=== PATIENT | male | born 1940 | race Hispanic/Latino ===

== ENCOUNTER 2018-04-20 20:46 | Inpatient (IN) | payer MEDICARE, OTHER ==
[~2018-04-20] VITALS: Ht 175.3 cm; Wt 76.8 kg
--- OUTSIDE RECORDS SUMMARY | 2018-04-20 20:52 | XMS REPORT | Summary of Care ---
Author Author [facility] Organization [facility] Address Unknown Phone Unavailable Encounter GIUSEPPE Robertson(ANURADHA) [id number] Date(s): 03/22/17 - 04/12/17 [facility] [address] [employer] provided by [facility] [place] [address]- Discharge Disposition: DC/DISC TO REHAB Attending Physician: Cesar Varela MD Admitting Physician: Cesar Varela MD Referring Physician: Ro Hsieh MD Vital Signs 1 2 3 Most recent to oldest [Reference Range]: 175.26 cm (03/30/17 11:50 AM) 175.26 cm (03/30/17 8:50 AM) 175.26 cm (03/30/17 3:27 AM) Height 80.545 kg (04/07/17 5:12 AM) 80.545 kg (04/07/17 5:09 AM) 76.6 kg (04/06/17 5:07 AM) Current Weight 98.1 DegF (04/12/17 12:47 PM) 97.6 DegF (04/12/17 9:03 AM) 98.2 DegF (04/12/17 5:25 AM) Temperature Oral [96.4-99.1 DegF] 97/60 mmHg (04/12/17 12:47 PM) 92/59 mmHg (04/12/17 9:03 AM) 92/57 mmHg (04/12/17 5:25 AM) Blood Pressure [90-140/60-90 mmHg] 18 BRMIN (04/12/17 12:47 PM) 16 BRMIN (04/12/17 9:03 AM) 18 BRMIN (04/12/17 5:25 AM) Respiratory Rate [14-20 BRMIN] 71 bpm (04/12/17 12:47 PM) 68 bpm (04/12/17 9:03 AM) 78 bpm (04/12/17 5:25 AM) Peripheral Pulse Rate [60-100 bpm] 71.051 kg (04/09/17 8:22 AM) 70.483 kg (03/22/17 4:12 PM) 74.091 kg (03/22/17 3:24 AM) Weight 22.95 m2 (03/22/17 4:12 PM) 24.84 m2 (03/22/17 3:24 AM) Body Mass Index Problem List Condition Effective Dates Status Health Status Informant Acoustic Resolved neuroma(Confirmed) Acute CHF(Confirmed) Active Acute myocardial Active infarction(Confirmed ) Anxiety about body Active function or health(Confirmed) Atrial Active fibrillation(Confirm ed) Presence of Active automatic cardioverter/defibri llator (AICD)(Confirmed) Cardiac Active defibrillator in place(Confirmed) Pacemaker(Confirmed) Active CHF (congestive Resolved heart failure)(Confirmed) CAD (coronary artery Active disease)(Confirmed) Diabetes Active mellitus(Confirmed) DM (diabetes Active mellitus)(Confirmed) Hiatal Resolved hernia(Confirmed) S/P CABG x Active 2(Confirmed) HLD Active (hyperlipidemia)(Con firmed) HTN Active (hypertension)(Confi rmed) IABP - Intra-aortic < 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 Resolved balloon pumping(Confirmed) Indigestion(Confirme Resolved d) DC (myocardial Resolved infarction)(Confirme d) PAD (peripheral Active artery disease)(Confirmed) Pulmonary Active edema(Confirmed) Ventricular Resolved fibrillation(Confirm ed) Allergies, Adverse Reactions, Alerts Substance Reaction Severity Status chlorhexidine topical Active NKDA Active Medications acetaminophen 1,000 mg, 100 mL, Route: IV, Drug form: INJ, ONCE, Dosing Weight 70.483, kg, Sta rt date: 03/29/17 14:41:00 RETOUCHING OPERATOR, Stop date: 03/29/17 14:41:00 RETOUCHING OPERATOR Notes: Infuse over 15 minutesDo not exceed 4gm/day of acetaminophen MEDICAT ION WASTE Product Size: 1000 mgProduct Wasted: ___ mg Start Date: 03/29/17 Stop Date: 03/29/17 Status: Completed albumin human 5% intravenous solution 12.5 gm, 250 mL, 250 ml/hr, Route: IV, Drug Form: INJ, Dosing Weight 70.483, kg, ONCE, Start date: 03/24/17 22:00:00 RETOUCHING OPERATOR, Stop date: 03/24/17 22:00:00 RETOUCHING OPERATOR Notes: LOT#: Mfg: WASTE: F/P - Red; E -Red (Same a s: Albuminar)"blood product derivative" Start Date: 03/24/17 Stop Date: 03/25/17 Status: Completed albumin human 5% intravenous solution 12.5 gm, 250 mL, 250 ml/hr, Route: IV, Drug Form: INJ, Dosing Weight 70.483, kg, ONCE, Start date: 03/25/17 0:04:00 RETOUCHING OPERATOR, Stop date: 03/25/17 0:04:00 RETOUCHING OPERATOR Notes: LOT#: Mfg: WASTE: F/P - Red; E -Red (Same a s: Albuminar)"blood product derivative" Start Date: 03/25/17 Stop Date: 03/25/17 Status: Completed AMIODarone 150 mg, 3 mL, Route: IVPB, ONCE, Dosing Weight 70.483, kg, Start date: 03/27/17 10:52:00 RETOUCHING OPERATOR, Stop date: 03/27/17 10:52:00 RETOUCHING OPERATOR Notes: Central administration only for concentrations > 2 mg/ml."Recommendation: Use an in-line filter during administration for continuous infusions to reduce the incidence of phlebitis"(Same as Codarone) MEDICATION WASTE Product Size: 150 mgProduct Wasted: ___ mg Start Date: 03/27/17 Stop Date: 03/27/17 Status: Completed AMIODarone 400 mg, 2 tab, Route: PO, Drug form: TAB, BID, Dosing Weight 70.483, kg, Start d ate: 03/30/17 9:00:00 RETOUCHING OPERATOR, Stop date: 04/05/17 9:00:00 RETOUCHING OPERATOR Notes: (Same as: Cordarone) Start Date: 03/30/17 Stop Date: 04/05/17 Status: Completed AMIODarone 150 mg, 3 mL, Route: IVPB, ONCE, Dosing Weight 70.483, kg, Start date: 03/27/17 14:33:00 RETOUCHING OPERATOR, Stop date: 03/27/17 14:33:00 RETOUCHING OPERATOR Notes: Central administration only for concentrations > 2 mg/ml."Recommendation: Use an in-line filter during administration for continuous infusions to reduce the incidence of phlebitis"(Same as Codarone) MEDICATION WASTE Product Size: 150 mgProduct Wasted: ___ mg Start Date: 03/27/17 Stop Date: 03/27/17 Status: Completed AMIODarone 200 mg, 1 tab, Route: PO, Drug form: TAB, BID, Dosing Weight 70.483, kg, Start d ate: 04/05/17 17:00:00 RETOUCHING OPERATOR, Duration: 30 day, Stop date: 05/05/17 9:00:00 RETOUCHING OPERATOR Notes: (Same as: Cordarone) Start Date: 04/05/17 Stop Date: 04/09/17 Status: Discontinued AMIODarone + Dextrose 5% in Water 100 mL 150 mg, 3 mL, Route: IVPB, ONCE, Dosing Weight 70.483, kg, Start date: 03/26/17 18:52:00 RETOUCHING OPERATOR, Stop date: 03/26/17 18:52:00 RETOUCHING OPERATOR Notes: Central administration only for concentrations > 2 mg/ml."Recommendation: Use an in-line filter during administration for continuous infusions to reduce the incidence of phlebitis"(Same as Codarone) MEDICATION WASTE Product Size: 150 mgProduct Wasted: _0__ mg Start Date: 03/26/17 Stop Date: 03/26/17 Status: Completed AMIODarone 900 mg in D5W 500 ml IV 900 mg 900 mg, 500 mL, Rate: 1 mg/min for 6 hours, then reduce to 0.5 mg/min, Dosing We ight 70.483, kg, Route: IV, Total Volume: 500, Start Date: 03/26/17 18:52:00 RETOUCHING OPERATOR , Duration: 30 day, Stop date: 04/25/17 18:51:00 RETOUCHING OPERATOR, Replace Every: 24 hr Notes: Same as: CordaroneUse 0.22 micron in-line filterConcentration: 1.8 mg/ ml Initiate at 33.4mL/hr x6hr, then 16.7mL/hr x18hr. Infusion may be maintained up to 96hr OR until a stable rhythm is reached OR until discontinued by MD. Start Date: 03/26/17 Stop Date: 03/30/17 Status: Discontinued AMIODarone 900 mg in D5W 500 ml IV 900 mg + Dextrose 5% in Water IV 482 mL 900 mg, 18 mL, Rate: 1 mg/min for 6 hours, then reduce to 0.5 mg/min, Dosing Moses ght 70.483, kg, Route: IV, Total Volume: 500, Start Date: 03/30/17 21:21:00 RETOUCHING OPERATOR, Duration: 30 day, Stop date: 04/29/17 21:20:00 RETOUCHING OPERATOR, Replace Every: 24 hr Notes: Central administration only for concentration > 2 mg/ml. Use Glass Bottle or Non PVC Bag"Use 0.22 micron in-line filter" MEDICATION WASTE Product Size: 900 mgProduct Wasted: _0__ mg Start Date: 03/30/17 Stop Date: 04/01/17 Status: Discontinued aspirin 81 mg, 1 tab, Route: PO, Drug form: ECTAB, Daily, Dosing Weight 74.091, kg, Star t date: 03/22/17 14:00:00 RETOUCHING OPERATOR, Duration: 30 day, Stop date: 04/21/17 9:00:00 RETOUCHING OPERATOR Notes: Do not crush or chew.(Same As: Ecotrin) Start Date: 03/22/17 Stop Date: 03/24/17 Status: Discontinued aspirin 81 mg, Route: PO, Drug form: ECTAB, Daily, Dosing Weight 70.483, kg, Start date: 04/05/17 9:00:00 RETOUCHING OPERATOR, Duration: 30 day, Stop date: 05/04/17 9:00:00 RETOUCHING OPERATOR Start Date: 04/05/17 Stop Date: 04/04/17 Status: Canceled aspirin 81 mg tablet, enteric coated 81 mg, 1 tab, Route: PO, Drug form: ECTAB, Daily, Dosing Weight 70.483, kg, Star t date: 03/25/17 9:00:00 RETOUCHING OPERATOR, Stop date: 04/24/17 8:59:00 RETOUCHING OPERATOR Notes: Do not crush or chew.(Same As: Ecotrin) Start Date: 03/25/17 Stop Date: 04/09/17 Status: Discontinued atorvastatin 80 mg, 1 tab, Route: PO, Drug form: TAB, Bedtime, Dosing Weight 74.091, kg, Star t date: 03/22/17 21:00:00 RETOUCHING OPERATOR, Duration: 30 day, Stop date: 04/21/17 20:59:00 CS T Notes: Same as Lipitor Start Date: 03/22/17 Stop Date: 03/24/17 Status: Discontinued atorvastatin 40 mg, 1 tab, Route: PO, Drug form: TAB, Bedtime, Dosing Weight 70.483, kg, Star t date: 03/25/17 21:00:00 RETOUCHING OPERATOR, Duration: 30 day, Stop date: 04/23/17 21:00:00 CS T Notes: (Same as: Lipitor) Start Date: 03/25/17 Stop Date: 04/12/17 Status: Discontinued atorvastatin 40 mg oral tablet 40 mg=1 tab, PO, Bedtime, # 30 tab, 2 Refill(s) Start Date: 04/12/17 Stop Date: 07/11/17 Status: Ordered azithromycin 500 mg, Route: IVPB, ONCE, Dosing Weight 74.091, kg, Priority: STAT, Start date: 03/22/17 4:02:00 RETOUCHING OPERATOR, Stop date: 03/22/17 4:02:00 RETOUCHING OPERATOR, ABX Indication: Non-PNA Respiratory Tract Infection Start Date: 03/22/17 Stop Date: 03/22/17 Status: Completed azithromycin 500 mg, Route: IVPB, Drug form: PDR/INJ, [id number], Dosing Weight 70.483, kg, Star t date: 03/25/17 13:00:00 RETOUCHING OPERATOR, Duration: 3 day, Stop date: 03/28/17 12:59:00 RETOUCHING OPERATOR , ABX Indication: Pneumonia Notes: (Same As: Zithromax IV) Start Date: 03/25/17 Stop Date: 03/26/17 Status: Discontinued azithromycin 500 mg oral tablet 500 mg, 2 tab, Route: PO, Drug form: TAB, Daily, Dosing Weight 74.091, kg, Start date: 03/23/17 9:00:00 RETOUCHING OPERATOR, Duration: 2 doses or times, Stop date: 03/24/17 9:0 0:00 RETOUCHING OPERATOR, ABX Indication: Pneumonia Notes: Take 1 hour before or 2 hours after meals.(Same As: Zithromax) Start Date: 03/23/17 Stop Date: 03/24/17 Status: Completed bisacodyl 10 mg, 1 supp, Route: VT, Drug form: SUPP, ONCE, Dosing Weight 70.483, kg, Start date: 03/29/17 6:24:00 RETOUCHING OPERATOR, Stop date: 03/29/17 6:24:00 RETOUCHING OPERATOR Notes: (Same As: Dulcolax, Bisco-Lax) Start Date: 03/29/17 Stop Date: 03/29/17 Status: Completed bisacodyl 10 mg, 1 supp, Route: VT, Drug form: SUPP, ONCE, Dosing Weight 70.483, kg, Start date: 03/27/17 14:40:00 RETOUCHING OPERATOR, Stop date: 03/27/17 14:40:00 RETOUCHING OPERATOR Notes: (Same As: Dulcolax, Bisco-Lax) Start Date: 03/27/17 Stop Date: 03/27/17 Status: Completed bisacodyl 10 mg, 1 supp, Route: VT, Drug form: SUPP, Daily, Dosing Weight 70.483, kg, PRN Constipation, Start date: 03/28/17 16:43:00 RETOUCHING OPERATOR, Duration: 30 day, Stop date: 16:42:00 RETOUCHING OPERATOR Notes: (Same As: Dulcolax, Bisco-Lax) Start Date: 03/28/17 Stop Date: 04/12/17 Status: Discontinued bumetanide 10 mg + Sodium Chloride 0.9% (titrate) 60 mL 60 mL, Rate: 0.5 mg/hr, Dosing Weight 70.483, kg, Route: IV, Total Volume: 100 m L, Start Date: 03/27/17 15:12:00 RETOUCHING OPERATOR, Duration: 30 day, Stop date: 04/26/17 15:1 1:00 RETOUCHING OPERATOR, Replace Every: 24 hr Notes: (Same As: Bumex) Start Date: 03/27/17 Stop Date: 03/28/17 Status: Discontinued bumetanide 10 mg + Sodium Chloride 0.9% (titrate) 60 mL 60 mL, Rate: Infuse as directed, Dosing Weight 70.483, kg, Route: IV, Total Volu me: 100 mL, Start Date: 03/28/17 14:24:00 RETOUCHING OPERATOR, Duration: 30 day, Stop date: 04/07 06/23 14:23:00 RETOUCHING OPERATOR, Replace Every: 24 hr Notes: (Same As: Bumex) Start Date: 03/28/17 Stop Date: 03/28/17 Status: Discontinued Bumex 1 mg, 4 mL, Route: IV, Drug form: INJ, Q6H, Dosing Weight 70.483, kg, Start date : 03/28/17 12:00:00 RETOUCHING OPERATOR, Duration: 30 day, Stop date: 04/27/17 6:00:00 RETOUCHING OPERATOR Notes: (Same As: Bumex) Start Date: 03/28/17 Stop Date: 03/28/17 Status: Discontinued calcium carbonate 500 mg (200 mg elemental calcium) oral tablet 500 mg, 1 tab, Route: PO, Drug form: CHEWTAB, PRN, Dosing Weight 70.483, kg, PRN Abnormal Lab Result, FOR ICU USE ONLY, Start date: 03/24/17 23:20:00 RETOUCHING OPERATOR, Durat ion: 30 day, Stop date: 04/23/17 23:19:00 RETOUCHING OPERATOR Notes: (Same As: Tums)Calcium Carbonate 500 qy=855 mg elemental calcium Dose=_ mg calcium carbonate ( mg elemental calcium) Start Date: 03/24/17 Stop Date: 04/01/17 Status: Discontinued calcium carbonate 500 mg (200 mg elemental calcium) oral tablet 1,000 mg, 2 tab, Route: PO, Drug form: CHEWTAB, PRN, Dosing Weight 70.483, kg, P RN Abnormal Lab Result, FOR ICU USE ONLY, Start date: 03/24/17 23:20:00 RETOUCHING OPERATOR, Dur ation: 30 day, Stop date: 04/23/17 23:19:00 RETOUCHING OPERATOR Notes: (Same As: Tums)Calcium Carbonate 500 jc=165 mg elemental calcium Dose=_ mg calcium carbonate ( mg elemental calcium) Start Date: 03/24/17 Stop Date: 04/01/17 Status: Discontinued calcium carbonate 500 mg (200 mg elemental calcium) oral tablet 500 mg, 1 tab, Route: PO, Drug form: CHEWTAB, PRN, Dosing Weight 70.483, kg, PRN Abnormal Lab Result, FOR ICU USE ONLY, Start date: 04/01/17 4:38:00 RETOUCHING OPERATOR, Durati on: 30 day, Stop date: 05/01/17 4:37:00 RETOUCHING OPERATOR Notes: (Same As: Tums)Calcium Carbonate 500 gr=366 mg elemental calcium Dose=_ mg calcium carbonate ( mg elemental calcium) Start Date: 04/01/17 Stop Date: 04/01/17 Status: Discontinued calcium carbonate 500 mg (200 mg elemental calcium) oral tablet 1,000 mg, 2 tab, Route: PO, Drug form: CHEWTAB, PRN, Dosing Weight 70.483, kg, P RN Abnormal Lab Result, FOR ICU USE ONLY, Start date: 04/01/17 4:38:00 RETOUCHING OPERATOR, Dura tion: 30 day, Stop date: 05/01/17 4:37:00 RETOUCHING OPERATOR Notes: (Same As: Tums)Calcium Carbonate 500 gg=256 mg elemental calcium Dose=_ mg calcium carbonate ( mg elemental calcium) Start Date: 04/01/17 Stop Date: 04/01/17 Status: Discontinued calcium gluconate (ANES) Route: IV, Drug form: INJ, ONCE, Stop date: 03/24/17 18:13:00 RETOUCHING OPERATOR Start Date: 03/24/17 Stop Date: 03/24/17 Status: Completed calcium gluconate (ANES) Route: IV, Drug form: INJ, ONCE, Stop date: 03/26/17 17:36:00 RETOUCHING OPERATOR Start Date: 03/26/17 Stop Date: 03/26/17 Status: Completed calcium gluconate + Sodium Chloride 0.9% IV 50 mL 1 gm, 10 mL, Route: IVPB, PRN, Dosing Weight 70.483, kg, PRN Abnormal Lab Result , Start date: 03/24/17 23:20:00 RETOUCHING OPERATOR, Duration: 30 day, Stop date: 04/23/17 23:19 :00 RETOUCHING OPERATOR, FOR ICU USE ONLY Notes: WASTE: F/P - Sink; E - Municipal Trash Bin Start Date: 03/24/17 Stop Date: 04/01/17 Status: Discontinued calcium gluconate + Sodium Chloride 0.9% IV 50 mL 1 gm, 10 mL, Route: IVPB, PRN, Dosing Weight 70.483, kg, PRN Abnormal Lab Result , Start date: 04/01/17 4:38:00 RETOUCHING OPERATOR, Duration: 30 day, Stop date: 05/01/17 4:37:0 0 RETOUCHING OPERATOR, FOR ICU USE ONLY Notes: WASTE: F/P - Sink; E - Municipal Trash Bin Start Date: 04/01/17 Stop Date: 04/01/17 Status: Discontinued calcium gluconate + Sodium Chloride 0.9% IV 80 mL 3 gm, 30 mL, Route: IVPB, PRN, Dosing Weight 70.483, kg, PRN Abnormal Lab Result , For NON-ICU Patients Only., Start date: 04/01/17 5:45:00 RETOUCHING OPERATOR, Duration: 30 day , Stop date: 05/01/17 5:44:00 RETOUCHING OPERATOR Notes: WASTE: F/P - Sink; E - Municipal Trash Bin Start Date: 04/01/17 Stop Date: 04/12/17 Status: Discontinued calcium gluconate + Sodium Chloride 0.9% IV 80 mL 2 gm, 20 mL, Route: IVPB, PRN, Dosing Weight 70.483, kg, PRN Abnormal Lab Result , For NON-ICU Patients Only., Start date: 04/01/17 5:45:00 RETOUCHING OPERATOR, Duration: 30 day , Stop date: 05/01/17 5:44:00 RETOUCHING OPERATOR Notes: WASTE: F/P - Sink; E - Municipal Trash Bin Start Date: 04/01/17 Stop Date: 04/12/17 Status: Discontinued calcium gluconate + Sodium Chloride 0.9% IV 80 mL 2,000 mg, 20 mL, Route: IVPB, ONCE, Dosing Weight 70.483, kg, Total xvwd=[id number] mg , Priority: NOW, Start date: 04/04/17 8:24:00 RETOUCHING OPERATOR, Stop date: 04/04/17 8:24:[address] Notes: WASTE: F/P - Sink; E - Municipal Trash Bin Start Date: 04/04/17 Stop Date: 04/04/17 Status: Completed carvedilol 3.125 mg oral tablet 3.125 mg=1 tab, PO, Q12H, # 60 tab, 2 Refill(s) Start Date: 04/12/17 Stop Date: 07/11/17 Status: Ordered ceFAZolin (ANES) Route: IV, Drug form: INJ, ONCE, Stop date: 03/24/17 16:44:00 RETOUCHING OPERATOR Start Date: 03/24/17 Stop Date: 03/24/17 Status: Completed ceFAZolin (SCIP) + sterile water 20 mL 2 gm, Route: IVPB, [id number], Dosing Weight 70.483, kg, Start date: 03/25/17 3:00:0 0 RETOUCHING OPERATOR, Duration: 3 doses or times, Stop date: 03/25/17 19:00:00 RETOUCHING OPERATOR, ABX Indicat ion: Surgical Prophylaxis Notes: (Same As: Fredrick Franco) MEDICATION WASTE Product Size: 1000 mgP roduct Wasted: ___ mg Start Date: 03/25/17 Stop Date: 03/25/17 Status: Completed cefepime + sterile water 10 mL 1 gm, Route: IVPB, [id number], Dosing Weight 70.483, kg, (CrCl 30 - 49 ml/min), Sta rt date: 03/26/17 13:00:00 RETOUCHING OPERATOR, Duration: 5 day, Stop date: 03/31/17 12:59:00 CS T, ABX Indication: Bacteremia Notes: (Same As: Maxipime) MEDICATION WASTE Product Size: 1000 mgProduc t Wasted: ___ mg Start Date: 03/26/17 Stop Date: 03/31/17 Status: Completed cefTRIAXone + sterile water 10 mL 1 gm, Route: IVPB, [id number], Dosing Weight 74.091, kg, Start date: 03/23/17 4:00: 00 RETOUCHING OPERATOR, Duration: 7 day, Stop date: 03/29/17 4:00:00 RETOUCHING OPERATOR, ABX Indication: Pneumo deandra Notes: (Same As: Rocephin).Use with 100 mL NS and infuse over 30 min MEDICA TION WASTE Product Size: 1000 mgProduct Wasted: 0___ mg Start Date: 03/23/17 Stop Date: 03/26/17 Status: Discontinued clopidogrel 75 mg oral tablet 75 mg=1 tab, PO, Daily, # 30 tab, 2 Refill(s) Start Date: 04/12/17 Stop Date: 07/11/17 Status: Ordered Coreg 3.125 mg, 1 tab, Route: PO, Drug form: TAB, Q12H, Dosing Weight 70.483, kg, Prio rity: NOW, Start date: 04/04/17 13:33:00 RETOUCHING OPERATOR, Duration: 30 day, Stop date: 05/04 9:00:00 RETOUCHING OPERATOR Notes: Give with food. (Same As: Coreg) Start Date: 04/04/17 Stop Date: 04/12/17 Status: Discontinued Coumadin 3 mg, 3 tab, Route: PO, Drug form: TAB, Q5PM, Dosing Weight 71.051, kg, Start da te: 04/11/17 17:00:00 RETOUCHING OPERATOR, Duration: 1 doses or times, Stop date: 04/11/17 17:00 :00 RETOUCHING OPERATOR Start Date: 04/11/17 Stop Date: 04/11/17 Status: Completed dexmedetomidine (ANES) 200 microgram Route: IV, Drug form: INJ, Start date: 03/24/17 20:01:00 RETOUCHING OPERATOR, Stop date: 7 21:01:00 RETOUCHING OPERATOR Start Date: 03/24/17 Stop Date: 03/24/17 Status: Completed dextromethorphan-guaiFENesin 10 mg-100 mg/5 mL oral liquid 5 ml, Route: PO, Drug Form: SYRP, Dosing Weight 70.483, kg, Q4H, PRN Cough, Star t date: 04/02/17 0:20:00 RETOUCHING OPERATOR, Duration: 30 day, Stop date: 05/02/17 0:19:00 RETOUCHING OPERATOR Notes: (dextromethorphan-guaifenesin 10-100mg/5ml 10 ml oral SOLN ud) (Same as: Helderitussin DM) Start Date: 04/02/17 Stop Date: 04/12/17 Status: Discontinued Dextrose 50% Syringe 12.5 gm, 25 mL, Route: IVP, Drug Form: INJ, Dosing Weight 70.483, kg, PRN, PRN B lood Glucose Results, Start date: 03/24/17 20:19:00 RETOUCHING OPERATOR, Duration: 30 day, Stop date: 04/23/17 20:18:00 RETOUCHING OPERATOR Start Date: 03/24/17 Stop Date: 03/27/17 Status: Discontinued Dextrose 50% Syringe 25 gm, 50 mL, Route: IVP, Drug Form: INJ, Dosing Weight 70.483, kg, PRN, PRN Blo od Glucose Results, Start date: 03/24/17 20:19:00 RETOUCHING OPERATOR, Duration: 30 day, Stop da te: 04/23/17 20:18:00 RETOUCHING OPERATOR Start Date: 03/24/17 Stop Date: 03/27/17 Status: Discontinued Dextrose 50% Syringe 12.5 gm, 25 mL, Route: IVP, Drug Form: INJ, Dosing Weight 70.483, kg, PRN, PRN B lood Glucose Results, Start date: 03/28/17 7:15:00 RETOUCHING OPERATOR, Duration: 30 day, Stop d ate: 04/27/17 7:14:00 RETOUCHING OPERATOR Start Date: 03/28/17 Stop Date: 03/28/17 Status: Discontinued Dextrose 50% Syringe 25 gm, 50 mL, Route: IVP, Drug Form: INJ, Dosing Weight 70.483, kg, PRN, PRN Blo od Glucose Results, Start date: 03/28/17 7:15:00 RETOUCHING OPERATOR, Duration: 30 day, Stop coco e: 04/27/17 7:14:00 RETOUCHING OPERATOR Start Date: 03/28/17 Stop Date: 03/28/17 Status: Discontinued Dextrose 50% Syringe 12.5 gm, 25 mL, Route: IVP, Drug Form: INJ, Dosing Weight 70.483, kg, PRN, PRN B lood Glucose Results, Start date: 03/27/17 14:40:00 RETOUCHING OPERATOR, Duration: 30 day, Stop date: 04/26/17 14:39:00 RETOUCHING OPERATOR Start Date: 03/27/17 Stop Date: 03/28/17 Status: Discontinued Dextrose 50% Syringe 25 gm, 50 mL, Route: IVP, Drug Form: INJ, Dosing Weight 70.483, kg, PRN, PRN Blo od Glucose Results, Start date: 03/27/17 14:40:00 RETOUCHING OPERATOR, Duration: 30 day, Stop da te: 04/26/17 14:39:00 RETOUCHING OPERATOR Start Date: 03/27/17 Stop Date: 03/28/17 Status: Discontinued Dextrose 50% Syringe 25 gm, 50 mL, Route: IVP, Drug Form: INJ, Dosing Weight 70.483, kg, PRN, PRN Blo od Glucose Results, Start date: 03/30/17 10:51:00 RETOUCHING OPERATOR, Duration: 30 day, Stop da te: 04/29/17 10:50:00 RETOUCHING OPERATOR Start Date: 03/30/17 Stop Date: 04/12/17 Status: Discontinued Dextrose 50% Syringe 12.5 gm, 25 mL, Route: IVP, Drug Form: INJ, Dosing Weight 70.483, kg, PRN, PRN B lood Glucose Results, Start date: 03/30/17 10:51:00 RETOUCHING OPERATOR, Duration: 30 day, Stop date: 04/29/17 10:50:00 RETOUCHING OPERATOR Start Date: 03/30/17 Stop Date: 04/12/17 Status: Discontinued Dextrose 50% Syringe 12.5 gm, 25 mL, Route: IVP, Drug Form: INJ, Dosing Weight 74.091, kg, PRN, PRN B lood Glucose Results, Start date: 03/22/17 8:04:00 RETOUCHING OPERATOR, Duration: 30 day, Stop d ate: 04/21/17 8:03:00 RETOUCHING OPERATOR Start Date: 03/22/17 Stop Date: 03/24/17 Status: Discontinued Dextrose 50% Syringe 25 gm, 50 mL, Route: IVP, Drug Form: INJ, Dosing Weight 74.091, kg, PRN, PRN Blo od Glucose Results, Start date: 03/22/17 8:04:00 RETOUCHING OPERATOR, Duration: 30 day, Stop coco e: 04/21/17 8:03:00 RETOUCHING OPERATOR Start Date: 03/22/17 Stop Date: 03/24/17 Status: Discontinued Dextrose 50% Syringe 12.5 gm, 25 mL, Route: IVP, Drug Form: INJ, Dosing Weight 70.483, kg, PRN, PRN B lood Glucose Results, Start date: 03/28/17 15:02:00 RETOUCHING OPERATOR, Duration: 30 day, Stop date: 04/27/17 15:01:00 RETOUCHING OPERATOR Start Date: 03/28/17 Stop Date: 03/30/17 Status: Discontinued Dextrose 50% Syringe 25 gm, 50 mL, Route: IVP, Drug Form: INJ, Dosing Weight 70.483, kg, PRN, PRN Blo od Glucose Results, Start date: 03/28/17 15:02:00 RETOUCHING OPERATOR, Duration: 30 day, Stop da te: 04/27/17 15:01:00 RETOUCHING OPERATOR Start Date: 03/28/17 Stop Date: 03/30/17 Status: Discontinued diphenhydrAMINE 50 mg, 1 cap, Route: PO, Drug form: CAP, ONCE, Dosing Weight 70.483, kg, PRN Ins omnia, Start date: 03/28/17 23:38:00 RETOUCHING OPERATOR Notes: (Same as: Benadryl) Start Date: 03/28/17 Stop Date: 03/29/17 Status: Completed docusate 100 mg, 1 cap, Route: PO, Drug form: CAP, BID, Dosing Weight 74.091, kg, Start d ate: 03/22/17 9:00:00 RETOUCHING OPERATOR, Duration: 30 day, Stop date: 04/21/17 8:59:00 RETOUCHING OPERATOR Notes: (Same as: Colace) (Do Not Crush) Start Date: 03/22/17 Stop Date: 03/27/17 Status: Discontinued docusate-senna 50 mg-8.6 mg oral tablet 2 tab, Route: PO, Drug Form: TAB, Dosing Weight 70.483, kg, BID, NOW, Start date : 03/27/17 14:40:00 RETOUCHING OPERATOR, Stop date: 04/26/17 9:00:00 RETOUCHING OPERATOR Notes: (Same as Senokot-S) Equiv. to Wendi-Colace. Start Date: 03/27/17 Stop Date: 04/12/17 Status: Discontinued enoxaparin 80 mg/0.8 mL subcutaneous solution 70 mg=0.7 mL, SUB-Q, [id number], X 10 day, # 14 mL, 0 Refill(s) Start Date: 04/12/17 Stop Date: 04/22/17 Status: Ordered EPINEPHrine (ANES) 1 mg Route: IV, Drug form: INJ, Start date: 03/24/17 16:49:00 RETOUCHING OPERATOR, Stop date: 7 17:49:00 RETOUCHING OPERATOR Start Date: 03/24/17 Stop Date: 03/24/17 Status: Completed EPINEPHrine (ANES) 32 microgram Route: IV, Drug form: INJ, Start date: 03/26/17 15:08:00 RETOUCHING OPERATOR, Stop date: 7 16:08:00 RETOUCHING OPERATOR Start Date: 03/26/17 Stop Date: 03/26/17 Status: Completed EPINEPHrine 8 mg in NS 250 mL (Titrate.) IV 8 mg + Sodium Chloride 0.9% IV 242 m L 8 mg, 8 mL, Rate: Titrate, Start Dose: 5 microgram/min, Titration: 0.5 microgram /min every 2 min, Goal(s): MAP >=65 mmHg, Max Dose: 35 microgram/min, Route: IVPB, Dosing Weight 70.483 kg, Total Volume: 250, Start date: 03/24/17 22:22:00 RETOUCHING OPERATOR, Duration... Notes: (Same as: Adrenalin) Suremed - Injectable drug used as inhalation treatme nt. MEDICATION WASTE Product Size: 1 mgProduct Wasted: ___ mg Start Date: 03/24/17 Stop Date: 03/27/17 Status: Discontinued fentaNYL 25 microgram, 0.5 mL, Route: IV, Drug form: INJ, ONCE, Dosing Weight 70.483, kg, Start date: 03/24/17 21:47:00 RETOUCHING OPERATOR, Stop date: 03/24/17 21:47:00 RETOUCHING OPERATOR Notes: (Same as: Sublimaze) Preservative free. Start Date: 03/24/17 Stop Date: 03/24/17 Status: Completed fentaNYL 25 microgram, 0.5 mL, Route: IV, Drug form: INJ, ONCE, Dosing Weight 70.483, kg, Start date: 03/24/17 21:51:00 RETOUCHING OPERATOR, Stop date: 03/24/17 21:51:00 RETOUCHING OPERATOR Notes: (Same as: Sublimaze) Preservative free. Start Date: 03/24/17 Stop Date: 03/27/17 Status: Completed fentaNYL (ANES) Route: IV, Drug form: INJ, ONCE, Stop date: 03/24/17 16:48:00 RETOUCHING OPERATOR Start Date: 03/24/17 Stop Date: 03/24/17 Status: Completed fentaNYL (ANES) Route: IV, Drug form: INJ, ONCE, Stop date: 03/26/17 16:37:00 RETOUCHING OPERATOR Start Date: 03/26/17 Stop Date: 03/26/17 Status: Completed fentaNYL 1000 microgram in 20 mL NS (Titrate.) IV 1,000 microgram 1,000 microgram, 20 mL, Rate: Titrate, Start Dose: 50 microgram/hr, Titration: 2 5 microgram/hour every 15 minutes, Goal(s): 0, Max Dose: 300 microgram/hr, Route : IV, Dosing Weight 70.483 kg, Total Volume: 20, Start date: 03/24/17 21:47:[address], Duratio... Start Date: 03/24/17 Stop Date: 04/01/17 Status: Discontinued fentaNYL 1000 microgram in 20 mL NS (Titrate.) IV 1,000 microgram 1,000 microgram, 20 mL, Rate: Titrate, Start Dose: 50 microgram/hr, Titration: T itrate by 25 micrograms/hour every 15 minutes, Goal(s): RASS - 2, Max Dose: 300 mcg/hr, Route: IV, Dosing Weight 70.483 kg, Total Volume: 20, Priority: STAT, St art date: ... Start Date: 03/24/17 Stop Date: 03/24/17 Status: Discontinued furosemide 40 mg, 4 mL, Route: IVP, Drug form: INJ, BID Diuretic, Dosing Weight 74.091, kg, Start date: 03/22/17 14:00:00 RETOUCHING OPERATOR, Duration: 30 day, Stop date: 04/21/17 13:59: 00 RETOUCHING OPERATOR Notes: (Same as: Lasix) MEDICATION WASTE Product Size: 40 mgProduct Was rajat: ___ mg Start Date: 03/22/17 Stop Date: 03/24/17 Status: Discontinued furosemide 40 mg, Route: IVP, Drug form: INJ, ONCE, Dosing Weight 70.483, kg, Start date: 05/27/16 14:33:00 RETOUCHING OPERATOR, Stop date: 03/27/17 14:33:00 RETOUCHING OPERATOR Start Date: 03/27/17 Stop Date: 03/27/17 Status: Discontinued furosemide 40 mg, 4 mL, Route: IV, Drug form: INJ, Daily, Dosing Weight 70.483, kg, Start d ate: 04/05/17 9:00:00 RETOUCHING OPERATOR, Duration: 30 day, Stop date: 05/04/17 9:00:00 RETOUCHING OPERATOR Notes: (Same as: Lasix) MEDICATION WASTE Product Size: 40 mgProduct Was rajat: _0__ mg Start Date: 04/05/17 Stop Date: 04/07/17 Status: Discontinued glimepiride 4 mg, PO, QAM, 0 Refill(s) Start Date: 03/22/17 Status: Ordered glucagon 1 mg, Route: IM, Drug form: PDR/INJ, PRN, Dosing Weight 70.483, kg, PRN Blood Gl ucose Results, Start date: 03/28/17 7:15:00 RETOUCHING OPERATOR, Duration: 30 day, Stop date: 7:14:00 RETOUCHING OPERATOR Start Date: 03/28/17 Stop Date: 03/28/17 Status: Discontinued glucagon 1 mg, Route: IM, Drug form: PDR/INJ, PRN, Dosing Weight 70.483, kg, PRN Blood Gl ucose Results, Start date: 03/27/17 14:40:00 RETOUCHING OPERATOR, Duration: 30 day, Stop date: 06/27/16 14:39:00 RETOUCHING OPERATOR Start Date: 03/27/17 Stop Date: 03/28/17 Status: Discontinued glucagon 1 mg, Route: IM, Drug form: PDR/INJ, PRN, Dosing Weight 70.483, kg, PRN Blood Gl ucose Results, Start date: 03/30/17 10:51:00 RETOUCHING OPERATOR, Duration: 30 day, Stop date: 06/30/16 10:50:00 RETOUCHING OPERATOR Start Date: 03/30/17 Stop Date: 04/12/17 Status: Discontinued glucagon 1 mg, Route: IM, Drug form: PDR/INJ, PRN, Dosing Weight 74.091, kg, PRN Blood Gl ucose Results, Start date: 03/22/17 8:04:00 RETOUCHING OPERATOR, Duration: 30 day, Stop date: 8:03:00 RETOUCHING OPERATOR Start Date: 03/22/17 Stop Date: 03/24/17 Status: Discontinued glucagon 1 mg, Route: IM, Drug form: PDR/INJ, PRN, Dosing Weight 70.483, kg, PRN Blood Gl ucose Results, Start date: 03/28/17 15:02:00 RETOUCHING OPERATOR, Duration: 30 day, Stop date: 06/28/16 15:01:00 RETOUCHING OPERATOR Start Date: 03/28/17 Stop Date: 03/30/17 Status: Discontinued heparin 5,000 unit, 1 mL, Route: SUB-Q, Drug form: INJ, Q8H, Dosing Weight 74.091, kg, S tart date: 03/22/17 8:00:00 RETOUCHING OPERATOR, Duration: 30 day, Stop date: 04/21/17 7:59:[address] Notes: porcine heparin Start Date: 03/22/17 Stop Date: 03/22/17 Status: Discontinued heparin (ANES) Route: IV, Drug form: INJ, ONCE, Stop date: 03/24/17 18:08:00 RETOUCHING OPERATOR Start Date: 03/24/17 Stop Date: 03/24/17 Status: Completed Heparin - one time bolus for ACS 5,000 unit, Route: IVP, Drug form: INJ, ONCE, Dosing Weight 74.091, kg, Priority : STAT, Start date: 03/22/17 11:35:00 RETOUCHING OPERATOR, Stop date: 03/22/17 11:35:00 RETOUCHING OPERATOR Start Date: 03/22/17 Stop Date: 03/22/17 Status: Completed Heparin 30 unit/kg Bolus (Heparin Dosing Weight) Route: IVP, PRN, 2,200 unit, 2.2 mL, Drug form: INJ, PRN, Heparin Protocol, Star t date: 03/22/17 11:35:00 RETOUCHING OPERATOR Stop date: 04/21/17 11:34:00 RETOUCHING OPERATOR, 30 day Start Date: 03/22/17 Stop Date: 03/24/17 Status: Discontinued Heparin 60 unit/kg Bolus (Heparin Dosing Weight) Route: IVP, PRN, 4,400 unit, 4.4 mL, Drug form: INJ, PRN, Heparin Protocol, Star t date: 03/22/17 11:35:00 RETOUCHING OPERATOR Stop date: 04/21/17 11:34:00 RETOUCHING OPERATOR, 30 day Start Date: 03/22/17 Stop Date: 03/24/17 Status: Discontinued heparin additive 25,000 unit [10 unit/kg/hr] + Premix Diluent Sodium Chloride 0. 45% 500 mL 500 mL, Rate: 14.1 ml/hr, Infuse over: 35.5 hr, Route: IV, Dosing Weight 70.483 kg, Total Volume: 500 mL, Start date: 03/26/17 11:08:00 RETOUCHING OPERATOR, Duration: 30 day, S top date: 04/25/17 11:07:00 RETOUCHING OPERATOR, 1.86, m2 Notes: Total Concentration=50 unit/ ml Total ryftvc=512 mlSend Med Request 2 ho urs prior to next bag Start Date: 03/26/17 Stop Date: 03/26/17 Status: Discontinued heparin additive 25,000 unit [10 unit/kg/hr] + Premix Diluent Sodium Chloride 0. 45% 500 mL 500 mL, Rate: 14.1 ml/hr, Infuse over: 35.5 hr, Route: IV, Dosing Weight 70.483 kg, Total Volume: 500 mL, Start date: 03/28/17 15:54:00 RETOUCHING OPERATOR, Duration: 30 day, S top date: 04/27/17 15:53:00 RETOUCHING OPERATOR, 1.86, m2 Notes: Total Concentration=50 unit/ ml Total wgepze=851 mlSend Med Request 2 ho urs prior to next bag Start Date: 03/28/17 Stop Date: 04/01/17 Status: Discontinued heparin additive 25,000 unit [12 unit/kg/hr] + Premix Diluent Sodium Chloride 0. 45% 500 mL 500 mL, Rate: 17.78 ml/hr, Infuse over: 28.1 hr, Route: IV, Dosing Weight 74.09 kg, Total Volume: 500 mL, Start date: 03/22/17 11:35:00 RETOUCHING OPERATOR, Duration: 30 day, S top date: 04/21/17 11:34:00 RETOUCHING OPERATOR, 1.9, m2 Notes: Total Concentration=50 unit/ ml Total ljmmij=313 mlSend Med Request 2 ho urs prior to next bag Start Date: 03/22/17 Stop Date: 03/24/17 Status: Discontinued heparin additive 25,000 unit [600 unit/hr] + Premix Diluent Sodium Chloride 0.45 % 500 mL 500 mL, Rate: 12 ml/hr, Infuse over: 41.7 hr, Route: IV, Dosing Weight 70.483 kg , Total Volume: 500 mL, Start date: 03/26/17 20:03:00 RETOUCHING OPERATOR, Duration: 30 day, Sto p date: 04/25/17 20:02:00 RETOUCHING OPERATOR, 1.86, m2 Notes: Total Concentration=50 unit/ ml Total hlxouw=760 mlSend Med Request 2 ho urs prior to next bag Start Date: 03/26/17 Stop Date: 03/28/17 Status: Discontinued heparin additive 25,000 unit [700 unit/hr] + Premix Diluent Sodium Chloride 0.45 % 500 mL 500 mL, Rate: 14 ml/hr, Infuse over: 35.7 hr, Route: IVPB, Dosing Weight 70.483 kg, Total Volume: 500 mL, Start date: 03/24/17 21:59:00 RETOUCHING OPERATOR, Stop date: 04/23/17 21:59:00 RETOUCHING OPERATOR, 1.86, m2 Notes: Total Concentration=50 unit/ ml Total kjslbj=770 mlSend Med Request 2 ho urs prior to next bag Start Date: 03/24/17 Stop Date: 03/26/17 Status: Discontinued hydrALAZINE 5 mg, 0.25 mL, Route: IV, Drug form: INJ, ONCE, Dosing Weight 70.483, kg, Start date: 03/29/17 14:28:00 RETOUCHING OPERATOR, Stop date: 03/29/17 14:28:00 RETOUCHING OPERATOR Notes: (Same as: Apresoline)Push over 5 minutes Start Date: 03/29/17 Stop Date: 03/29/17 Status: Completed hydrocortisone 50 mg, Route: IV, Q6H, Dosing Weight 70.483, kg, Start date: 03/25/17 1:45:00 CS T, Duration: 30 day, Stop date: 04/24/17 1:44:00 RETOUCHING OPERATOR Start Date: 03/25/17 Stop Date: 03/25/17 Status: Discontinued insulin glargine 100 units/mL subcutaneous solution 5 unit, Route: SUB-Q, ONCE, Dosing Weight 70.483, kg, Priority: STAT, Start date : 03/23/17 21:47:00 RETOUCHING OPERATOR, Stop date: 03/23/17 21:47:00 RETOUCHING OPERATOR Start Date: 03/23/17 Stop Date: 03/23/17 Status: Discontinued insulin glargine 100 units/mL subcutaneous solution 20 unit, 0.2 mL, Route: SUB-Q, Drug form: SOLN, BID, Dosing Weight 70.483, kg, S tart date: 03/31/17 17:00:00 RETOUCHING OPERATOR, Duration: 30 day, Stop date: 04/30/17 9:00:00 RETOUCHING OPERATOR Notes: (Same as: Lantus)Do not hold insulin without contacting prescriberWASTE: F/P - Black; E - [facility] "single patient use only" Start Date: 03/31/17 Stop Date: 04/02/17 Status: Discontinued insulin glargine 100 units/mL subcutaneous solution 10 unit, 0.1 mL, Route: SUB-Q, Drug form: SOLN, BID, Dosing Weight 70.483, kg, S tart date: 03/30/17 21:00:00 RETOUCHING OPERATOR, Duration: 30 day, Stop date: 04/29/17 9:00:00 RETOUCHING OPERATOR Notes: (Same as: Lantus)Do not hold insulin without contacting prescriberWASTE: F/P - Black; E - [facility] "single patient use only" Start Date: 03/30/17 Stop Date: 03/31/17 Status: Discontinued insulin glargine 100 units/mL subcutaneous solution 25 unit, 0.25 mL, Route: SUB-Q, Drug form: SOLN, BID, Dosing Weight 70.483, kg, Start date: 03/30/17 9:00:00 RETOUCHING OPERATOR, Duration: 30 day, Stop date: 04/28/17 21:00:00 RETOUCHING OPERATOR Notes: Same as: Lantus)Do not hold insulin without contacting prescriberWASTE: F /P - Black; E - [facility] Start Date: 03/30/17 Stop Date: 03/30/17 Status: Discontinued insulin glargine 100 units/mL subcutaneous solution 12 unit, 0.12 mL, Route: SUB-Q, Drug form: SOLN, BID, Dosing Weight 70.483, kg, Start date: 04/07/17 9:00:00 RETOUCHING OPERATOR, Duration: 30 day, Stop date: 05/06/17 17:00:00 RETOUCHING OPERATOR Notes: Same as: Lantus)Do not hold insulin without contacting prescriberWASTE: F /P - Black; E - [facility] Start Date: 04/07/17 Stop Date: 04/12/17 Status: Discontinued insulin glargine 100 units/mL subcutaneous solution 7 unit, 0.07 mL, Route: SUB-Q, Drug form: SOLN, ONCE, Dosing Weight 70.483, kg, Start date: 03/23/17 21:47:00 RETOUCHING OPERATOR, Stop date: 03/23/17 21:47:00 RETOUCHING OPERATOR Notes: Same as: Lantus)Do not hold insulin without contacting prescriberWASTE: F /P - Black; E - [facility] Start Date: 03/23/17 Stop Date: 03/23/17 Status: Completed insulin glargine 100 units/mL subcutaneous solution 10 unit, 0.1 mL, Route: SUB-Q, Drug form: SOLN, BID, Dosing Weight 70.483, kg, S tart date: 04/03/17 9:00:00 RETOUCHING OPERATOR, Duration: 30 day, Stop date: 05/02/17 17:00:00 RETOUCHING OPERATOR Notes: Same as: Lantus)Do not hold insulin without contacting prescriberWASTE: F /P - Black; E - [facility] Start Date: 04/03/17 Stop Date: 04/06/17 Status: Discontinued insulin isophane-NPH 10 unit, 0.1 mL, Route: SUB-Q, Drug form: INJ, Q12H, Dosing Weight 70.483, kg, S tart date: 03/30/17 9:00:00 RETOUCHING OPERATOR, Duration: 30 day, Stop date: 04/28/17 21:00:00 RETOUCHING OPERATOR Notes: Roll in palms of hands gently; Do not shake vigorously. (Same as: Humuli n N)Do not hold insulin without contacting prescriberWASTE: F/P - Black; E - [facility] [facility] Stable for 28 days at room temperatureExpires in days f rom Date Start Date: 03/30/17 Stop Date: 03/30/17 Status: Discontinued insulin lispro 2 unit, 0.02 mL, Route: SUB-Q, Drug form: SOLN, ONCE, Dosing Weight 70.483, kg, Start date: 04/06/17 23:55:00 RETOUCHING OPERATOR, Stop date: 04/06/17 23:55:00 RETOUCHING OPERATOR Notes: (Same as: Humalog ) Roll in palms of hands gently; Do not shake `vigorou sly. "Single Patient Use Only " WASTE: F/P - Black; E - [facility] St able for 28 days at room temperature.Expires in days from Da te Start Date: 04/06/17 Stop Date: 04/07/17 Status: Completed insulin lispro 9 unit, 0.09 mL, Route: SUB-Q, Drug form: SOLN, TID-Before Meals, Dosing Weight 70.483, kg, PRN Blood Glucose Results, Start date: 03/28/17 7:15:00 RETOUCHING OPERATOR, Duratio n: 30 day, Stop date: 04/27/17 7:14:00 RETOUCHING OPERATOR Notes: (Same as: Humalog ) Roll in palms of hands gently; Do not shake `vigorou sly. "Single Patient Use Only " WASTE: F/P - Black; E - [facility] St able for 28 days at room temperature.Expires in days from Da te Start Date: 03/28/17 Stop Date: 03/29/17 Status: Discontinued insulin lispro 12 unit, 0.12 mL, Route: SUB-Q, Drug form: SOLN, TID-Before Meals, Dosing Weight 70.483, kg, PRN Blood Glucose Results, Start date: 03/28/17 7:15:00 RETOUCHING OPERATOR, Durati on: 30 day, Stop date: 04/27/17 7:14:00 RETOUCHING OPERATOR Notes: (Same as: Humalog ) Roll in palms of hands gently; Do not shake `vigorou sly. "Single Patient Use Only " WASTE: F/P - Black; E - [facility] St able for 28 days at room temperature.Expires in days from Da te Start Date: 03/28/17 Stop Date: 03/29/17 Status: Discontinued insulin lispro 15 unit, 0.15 mL, Route: SUB-Q, Drug form: SOLN, TID-Before Meals, Dosing Weight 70.483, kg, PRN Blood Glucose Results, Start date: 03/28/17 7:15:00 RETOUCHING OPERATOR, Durati on: 30 day, Stop date: 04/27/17 7:14:00 RETOUCHING OPERATOR Notes: (Same as: Humalog ) Roll in palms of hands gently; Do not shake `vigorou sly. "Single Patient Use Only " WASTE: F/P - Black; E - [facility] St able for 28 days at room temperature.Expires in days from Da te Start Date: 03/28/17 Stop Date: 03/29/17 Status: Discontinued insulin lispro 3 unit, 0.03 mL, Route: SUB-Q, Drug form: SOLN, TID-Before Meals, Dosing Weight 70.483, kg, PRN Blood Glucose Results, Start date: 03/28/17 7:15:00 RETOUCHING OPERATOR, Duratio n: 30 day, Stop date: 04/27/17 7:14:00 RETOUCHING OPERATOR Notes: (Same as: Humalog ) Roll in palms of hands gently; Do not shake `vigorou sly. "Single Patient Use Only " WASTE: F/P - Black; E - [facility] St able for 28 days at room temperature.Expires in days from Da te Start Date: 03/28/17 Stop Date: 03/29/17 Status: Discontinued insulin lispro 6 unit, 0.06 mL, Route: SUB-Q, Drug form: SOLN, TID-Before Meals, Dosing Weight 70.483, kg, PRN Blood Glucose Results, Start date: 03/28/17 7:15:00 RETOUCHING OPERATOR, Duratio n: 30 day, Stop date: 04/27/17 7:14:00 RETOUCHING OPERATOR Notes: (Same as: Humalog ) Roll in palms of hands gently; Do not shake `vigorou sly. "Single Patient Use Only " WASTE: F/P - Black; E - [facility] St able for 28 days at room temperature.Expires in days from Da te Start Date: 03/28/17 Stop Date: 03/29/17 Status: Discontinued insulin lispro 1 unit, 0.01 mL, Route: SUB-Q, Drug form: SOLN, Sliding Scale, Dosing Weight 70. 483, kg, PRN Blood Glucose Results, Start date: 03/30/17 10:51:00 RETOUCHING OPERATOR, Duration: 30 day, Stop date: 04/29/17 10:50:00 RETOUCHING OPERATOR Notes: (Same as: Humalog ) Roll in palms of hands gently; Do not shake `vigorou sly. "Single Patient Use Only " WASTE: F/P - Black; E - [facility] St able for 28 days at room temperature.Expires in days from Da te Start Date: 03/30/17 Stop Date: 04/12/17 Status: Discontinued insulin lispro 2 unit, 0.02 mL, Route: SUB-Q, Drug form: SOLN, Sliding Scale, Dosing Weight 70. 483, kg, PRN Blood Glucose Results, Start date: 03/30/17 10:51:00 RETOUCHING OPERATOR, Duration: 30 day, Stop date: 04/29/17 10:50:00 RETOUCHING OPERATOR Notes: (Same as: Humalog ) Roll in palms of hands gently; Do not shake `vigorou sly. "Single Patient Use Only " WASTE: F/P - Black; E - [facility] St able for 28 days at room temperature.Expires in days from Da te Start Date: 03/30/17 Stop Date: 04/12/17 Status: Discontinued insulin lispro 5 unit, 0.05 mL, Route: SUB-Q, Drug form: SOLN, Sliding Scale, Dosing Weight 70. 483, kg, PRN Blood Glucose Results, Start date: 03/30/17 10:51:00 RETOUCHING OPERATOR, Duration: 30 day, Stop date: 04/29/17 10:50:00 RETOUCHING OPERATOR Notes: (Same as: Humalog ) Roll in palms of hands gently; Do not shake `vigorou sly. "Single Patient Use Only " WASTE: F/P - Black; E - [facility] St able for 28 days at room temperature.Expires in days from Da te Start Date: 03/30/17 Stop Date: 04/12/17 Status: Discontinued insulin lispro 4 unit, 0.04 mL, Route: SUB-Q, Drug form: SOLN, Sliding Scale, Dosing Weight 70. 483, kg, PRN Blood Glucose Results, Start date: 03/30/17 10:51:00 RETOUCHING OPERATOR, Duration: 30 day, Stop date: 04/29/17 10:50:00 RETOUCHING OPERATOR Notes: (Same as: Humalog ) Roll in palms of hands gently; Do not shake `vigorou sly. "Single Patient Use Only " WASTE: F/P - Black; E - [facility] St able for 28 days at room temperature.Expires in days from Da te Start Date: 03/30/17 Stop Date: 04/12/17 Status: Discontinued insulin lispro 3 unit, 0.03 mL, Route: SUB-Q, Drug form: SOLN, Sliding Scale, Dosing Weight 70. 483, kg, PRN Blood Glucose Results, Start date: 03/30/17 10:51:00 RETOUCHING OPERATOR, Duration: 30 day, Stop date: 04/29/17 10:50:00 RETOUCHING OPERATOR Notes: (Same as: Humalog ) Roll in palms of hands gently; Do not shake `vigorou sly. "Single Patient Use Only " WASTE: F/P - Black; E - [facility] St able for 28 days at room temperature.Expires in days from Da te Start Date: 03/30/17 Stop Date: 04/12/17 Status: Discontinued insulin lispro 4 unit, 0.04 mL, Route: SUB-Q, Drug form: SOLN, TID-Before Meals, Dosing Weight 74.091, kg, PRN Blood Glucose Results, Start date: 03/22/17 8:04:00 RETOUCHING OPERATOR, Duratio n: 30 day, Stop date: 04/21/17 8:03:00 RETOUCHING OPERATOR Notes: (Same as: Humalog ) Roll in palms of hands gently; Do not shake `vigorou sly. "Single Patient Use Only " WASTE: F/P - Black; E - [facility] able for 28 days at room temperature.Expires in days from Da te Start Date: 03/22/17 Stop Date: 03/24/17 Status: Discontinued insulin lispro 3 unit, 0.03 mL, Route: SUB-Q, Drug form: SOLN, TID-Before Meals, Dosing Weight 74.091, kg, PRN Blood Glucose Results, Start date: 03/22/17 8:04:00 RETOUCHING OPERATOR, Duratio n: 30 day, Stop date: 04/21/17 8:03:00 RETOUCHING OPERATOR Notes: (Same as: Humalog ) Roll in palms of hands gently; Do not shake `vigorou sly. "Single Patient Use Only " WASTE: F/P - Black; E - [facility] able for 28 days at room temperature.Expires in days from Da te Start Date: 03/22/17 Stop Date: 03/24/17 Status: Discontinued insulin lispro 5 unit, 0.05 mL, Route: SUB-Q, Drug form: SOLN, TID-Before Meals, Dosing Weight 74.091, kg, PRN Blood Glucose Results, Start date: 03/22/17 8:04:00 RETOUCHING OPERATOR, Duratio n: 30 day, Stop date: 04/21/17 8:03:00 RETOUCHING OPERATOR Notes: (Same as: Humalog ) Roll in palms of hands gently; Do not shake `vigorou sly. "Single Patient Use Only " WASTE: F/P - Black; E - [facility] able for 28 days at room temperature.Expires in days from Da te Start Date: 03/22/17 Stop Date: 03/24/17 Status: Discontinued insulin lispro 1 unit, 0.01 mL, Route: SUB-Q, Drug form: SOLN, TID-Before Meals, Dosing Weight 74.091, kg, PRN Blood Glucose Results, Start date: 03/22/17 8:04:00 RETOUCHING OPERATOR, Duratio n: 30 day, Stop date: 04/21/17 8:03:00 RETOUCHING OPERATOR Notes: (Same as: Humalog ) Roll in palms of hands gently; Do not shake `vigorou sly. "Single Patient Use Only " WASTE: F/P - Black; E - [facility] able for 28 days at room temperature.Expires in days from Da te Start Date: 03/22/17 Stop Date: 03/24/17 Status: Discontinued insulin lispro 2 unit, 0.02 mL, Route: SUB-Q, Drug form: SOLN, TID-Before Meals, Dosing Weight 74.091, kg, PRN Blood Glucose Results, Start date: 03/22/17 8:04:00 RETOUCHING OPERATOR, Duratio n: 30 day, Stop date: 04/21/17 8:03:00 RETOUCHING OPERATOR Notes: (Same as: Humalog ) Roll in palms of hands gently; Do not shake `vigorou sly. "Single Patient Use Only " WASTE: F/P - Black; E - [facility] able for 28 days at room temperature.Expires in days from Da te Start Date: 03/22/17 Stop Date: 03/24/17 Status: Discontinued insulin lispro 3 unit, 0.03 mL, Route: SUB-Q, Drug form: SOLN, TID-Before Meals, Dosing Weight 70.483, kg, PRN Blood Glucose Results, Start date: 03/28/17 15:02:00 RETOUCHING OPERATOR, Durati on: 30 day, Stop date: 04/27/17 15:01:00 RETOUCHING OPERATOR Notes: (Same as: Humalog ) Roll in palms of hands gently; Do not shake `vigorou sly. "Single Patient Use Only " WASTE: F/P - Black; E - [facility] able for 28 days at room temperature.Expires in days from Da te Start Date: 03/28/17 Stop Date: 03/29/17 Status: Discontinued insulin lispro 9 unit, 0.09 mL, Route: SUB-Q, Drug form: SOLN, TID-Before Meals, Dosing Weight 70.483, kg, PRN Blood Glucose Results, Start date: 03/28/17 15:02:00 RETOUCHING OPERATOR, Durati on: 30 day, Stop date: 04/27/17 15:01:00 RETOUCHING OPERATOR Notes: (Same as: Humalog ) Roll in palms of hands gently; Do not shake `vigorou sly. "Single Patient Use Only " WASTE: F/P - Black; E - [facility] able for 28 days at room temperature.Expires in days from Da te Start Date: 03/28/17 Stop Date: 03/29/17 Status: Discontinued insulin lispro 6 unit, 0.06 mL, Route: SUB-Q, Drug form: SOLN, TID-Before Meals, Dosing Weight 70.483, kg, PRN Blood Glucose Results, Start date: 03/28/17 15:02:00 RETOUCHING OPERATOR, Durati on: 30 day, Stop date: 04/27/17 15:01:00 RETOUCHING OPERATOR Notes: (Same as: Humalog ) Roll in palms of hands gently; Do not shake `vigorou sly. "Single Patient Use Only " WASTE: F/P - Black; E - [facility] able for 28 days at room temperature.Expires in days from Da te Start Date: 03/28/17 Stop Date: 03/29/17 Status: Discontinued insulin lispro 12 unit, 0.12 mL, Route: SUB-Q, Drug form: SOLN, TID-Before Meals, Dosing Weight 70.483, kg, PRN Blood Glucose Results, Start date: 03/28/17 15:02:00 RETOUCHING OPERATOR, Durat ion: 30 day, Stop date: 04/27/17 15:01:00 RETOUCHING OPERATOR Notes: (Same as: Humalog ) Roll in palms of hands gently; Do not shake `vigorou sly. "Single Patient Use Only " WASTE: F/P - Black; E - [facility] able for 28 days at room temperature.Expires in days from Da te Start Date: 03/28/17 Stop Date: 03/29/17 Status: Discontinued insulin lispro 15 unit, 0.15 mL, Route: SUB-Q, Drug form: SOLN, TID-Before Meals, Dosing Weight 70.483, kg, PRN Blood Glucose Results, Start date: 03/28/17 15:02:00 RETOUCHING OPERATOR, Durat ion: 30 day, Stop date: 04/27/17 15:01:00 RETOUCHING OPERATOR Notes: (Same as: Humalog ) Roll in palms of hands gently; Do not shake `vigorou sly. "Single Patient Use Only " WASTE: F/P - Black; E - [facility] able for 28 days at room temperature.Expires in days from Da te Start Date: 03/28/17 Stop Date: 03/29/17 Status: Discontinued Insulin regular 10 unit, 0.1 mL, Route: SUB-Q, Drug form: SOLN, TID-Before Meals, Dosing Weight 70.483, kg, PRN Blood Glucose Results, Start date: 03/27/17 14:40:00 RETOUCHING OPERATOR, Durati on: 30 day, Stop date: 04/26/17 14:39:00 RETOUCHING OPERATOR Notes: (Same as: Humulin R) Roll in palms of hands gently; Do not shake vigorou sly. 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 "single patient use only"(Restricted to patients requiring a dose > 60 units)WASTE: F/P - Black; E - Municipal Trash Bin Stable for 28 days at room temperatureExpires in days from Date Start Date: 03/27/17 Stop Date: 03/28/17 Status: Discontinued Insulin regular 6 unit, 0.06 mL, Route: SUB-Q, Drug form: SOLN, TID-Before Meals, Dosing Weight 70.483, kg, PRN Blood Glucose Results, Start date: 03/27/17 14:40:00 RETOUCHING OPERATOR, Durati on: 30 day, Stop date: 04/26/17 14:39:00 RETOUCHING OPERATOR Notes: (Same as: Humulin R) Roll in palms of hands gently; Do not shake vigorou sly. "single patient use only"(Restricted to patients requiring a dose > 60 units)WASTE: F/P - Black; E - Municipal Trash Bin Stable for 28 days at room temperatureExpires in days from Date Start Date: 03/27/17 Stop Date: 03/28/17 Status: Discontinued Insulin regular 4 unit, 0.04 mL, Route: SUB-Q, Drug form: SOLN, TID-Before Meals, Dosing Weight 70.483, kg, PRN Blood Glucose Results, Start date: 03/27/17 14:40:00 RETOUCHING OPERATOR, Durati on: 30 , Stop date: 04/26/17 14:39:00 RETOUCHING OPERATOR Notes: (Same as: Humulin R) Roll in palms of hands gently; Do not shake vigorou sly. "single patient use only"(Restricted to patients requiring a dose > 60 units)WASTE: F/P - Black; E - Municipal Trash Bin Stable for 28 days at room temperatureExpires in days from Date Start Date: 03/27/17 Stop Date: 03/28/17 Status: Discontinued Insulin regular 8 unit, 0.08 mL, Route: SUB-Q, Drug form: SOLN, TID-Before Meals, Dosing Weight 70.483, kg, PRN Blood Glucose Results, Start date: 03/27/17 14:40:00 RETOUCHING OPERATOR, Durati on: 30 , Stop date: 04/26/17 14:39:00 RETOUCHING OPERATOR Notes: (Same as: Humulin R) Roll in palms of hands gently; Do not shake vigorou sly. "single patient use only"(Restricted to patients requiring a dose > 60 units)WASTE: F/P - Black; E - Municipal Trash Bin Stable for 28 days at room temperatureExpires in days from Date Start Date: 03/27/17 Stop Date: 03/28/17 Status: Discontinued Insulin regular (ANES) Route: IV, Drug form: INJ, ONCE, Stop date: 03/24/17 18:48:00 RETOUCHING OPERATOR Start Date: 03/24/17 Stop Date: 03/24/17 Status: Completed Insulin regular 100 unit + 99 mL, Rate: Start Insulin Drip Per ICU Protocol, Dosing Weight 70.483, kg, Rout e: IVPB, Total Volume: 100, Start Date: 03/24/17 20:19:00 RETOUCHING OPERATOR, Duration: 30 day, Stop date: 04/23/17 20:18:00 RETOUCHING OPERATOR, Replace Every: 24 hr Notes: Final Concentration 1unit/1mlWASTE: F/P - Black; E - Municipal Trash Bin Start Date: 03/24/17 Stop Date: 03/30/17 Status: Discontinued Lantus 100 units/mL 5 unit, 0.05 mL, Route: SUB-Q, Drug form: SOLN, Daily, Dosing Weight 70.483, kg, Start date: 03/28/17 9:00:00 RETOUCHING OPERATOR, Duration: 30 day, Stop date: 04/26/17 9:00:00 RETOUCHING OPERATOR Notes: Same as: Lantus)Do not hold insulin without contacting prescriberWASTE: F /P - Black; E - Municipal Trash Bin Start Date: 03/28/17 Stop Date: 03/29/17 Status: Discontinued Lasix 40 mg, 4 mL, Route: IV, Drug form: INJ, ONCE, Dosing Weight 70.483, kg, Start da te: 04/03/17 10:55:00 RETOUCHING OPERATOR, Stop date: 04/03/17 10:55:00 RETOUCHING OPERATOR Notes: (Same as: Lasix) Start Date: 04/03/17 Stop Date: 04/03/17 Status: Completed Lasix 40 mg, Route: IV, ONCE, Dosing Weight 70.483, kg, Start date: 03/27/17 14:42:00 RETOUCHING OPERATOR, Stop date: 03/27/17 14:42:00 RETOUCHING OPERATOR Start Date: 03/27/17 Stop Date: 03/27/17 Status: Discontinued Lasix 40 mg, 4 mL, Route: IVP, Drug form: INJ, ONCE, Dosing Weight 74.091, kg, Priorit y: STAT, Start date: 03/22/17 3:42:00 RETOUCHING OPERATOR, Stop date: 03/22/17 3:42:00 RETOUCHING OPERATOR Notes: (Same as: Lasix) MEDICATION WASTE Product Size: 40 mgProduct Was rajat: _0__ mg Start Date: 03/22/17 Stop Date: 03/22/17 Status: Completed Lasix 40 mg, 4 mL, Route: IV, Drug form: INJ, BID, Dosing Weight 70.483, kg, Start coco e: 03/29/17 9:00:00 RETOUCHING OPERATOR, Duration: 30 day, Stop date: 04/27/17 17:00:00 RETOUCHING OPERATOR Notes: (Same as: Lasix) MEDICATION WASTE Product Size: 40 mgProduct Was rajat: ___ mg Start Date: 03/29/17 Stop Date: 03/29/17 Status: Discontinued Lasix 100 mg in 100 ml IV titrate 100 mg + Sodium Chloride 0.9% IV 90 mL 100 mg, 10 mL, Rate: 7.5 mg/hour, Dosing Weight 70.483, kg, Route: IV, Total Vol ume: 100, Start Date: 03/28/17 15:57:00 RETOUCHING OPERATOR, Duration: 30 day, Stop date: 15:56:00 RETOUCHING OPERATOR, Replace Every: 24 hr, continuous Notes: (Same as: Lasix) MEDICATION WASTE Product Size: 100 mgProduct Wa sted: ___ mg Start Date: 03/28/17 Stop Date: 03/29/17 Status: Discontinued Lasix 20 mg oral tablet 20 mg, 1 tab, Route: PO, Drug form: TAB, BID, Dosing Weight 70.483, kg, Start da te: 04/11/17 17:00:00 RETOUCHING OPERATOR, Duration: 30 day, Stop date: 05/11/17 9:00:00 RETOUCHING OPERATOR Notes: (Same as: Lasix) May cause GI upset. Give with food or milk. Start Date: 04/11/17 Stop Date: 04/12/17 Status: Discontinued Lasix 20 mg oral tablet 20 mg, 1 tab, Route: PO, Drug form: TAB, Daily, Dosing Weight 70.483, kg, Start date: 04/09/17 9:00:00 RETOUCHING OPERATOR, Duration: 30 day, Stop date: 05/08/17 9:00:00 RETOUCHING OPERATOR Notes: (Same as: Lasix) May cause GI upset. Give with food or milk. Start Date: 04/09/17 Stop Date: 04/11/17 Status: Discontinued Lasix 20 mg oral tablet 40 mg, 4 mL, Route: IVP, Drug form: INJ, BID, Dosing Weight 70.483, kg, Start da te: 04/03/17 18:00:00 RETOUCHING OPERATOR, Duration: 30 day, Stop date: 05/03/17 17:00:00 RETOUCHING OPERATOR Notes: (Same as: Lasix) Start Date: 04/03/17 Stop Date: 04/04/17 Status: Discontinued Lasix 20 mg oral tablet 20 mg, Route: PO, Drug form: TAB, Daily, Dosing Weight 70.483, kg, Priority: NOW , Start date: 04/08/17 10:44:00 RETOUCHING OPERATOR, Duration: 30 day, Stop date: 05/08/17 9:00: 00 RETOUCHING OPERATOR Start Date: 04/08/17 Stop Date: 04/08/17 Status: Discontinued Lasix 20 mg oral tablet 20 mg=1 tab, PO, BID, # 60 tab, 1 Refill(s) Start Date: 04/12/17 Stop Date: 06/11/17 Status: Ordered Lasix 20 mg oral tablet 20 mg, 1 tab, Route: PO, Drug form: TAB, Daily, Dosing Weight 70.483, kg, Start date: 04/01/17 9:00:00 RETOUCHING OPERATOR, Duration: 30 day, Stop date: 04/30/17 9:00:00 RETOUCHING OPERATOR Notes: (Same as: Lasix) May cause GI upset. Give with food or milk. Start Date: 04/01/17 Stop Date: 03/31/17 Status: Discontinued Lasix 20 mg oral tablet 40 mg, 4 mL, Route: IVP, Drug form: INJ, Daily, Dosing Weight 70.483, kg, Start date: 04/05/17 9:00:00 RETOUCHING OPERATOR, Duration: 30 day, Stop date: 05/04/17 9:00:00 RETOUCHING OPERATOR Notes: (Same as: Lasix) MEDICATION WASTE Product Size: 40 mgProduct Was rajat: ___ mg Start Date: 04/05/17 Stop Date: 04/04/17 Status: Canceled Lasix 20 mg oral tablet 20 mg, 1 tab, Route: PO, Drug form: TAB, Daily, Dosing Weight 70.483, kg, Start date: 03/31/17 16:45:00 RETOUCHING OPERATOR, Duration: 30 day, Stop date: 04/30/17 9:00:00 RETOUCHING OPERATOR Notes: (Same as: Lasix) May cause GI upset. Give with food or milk. Start Date: 03/31/17 Stop Date: 04/03/17 Status: Discontinued Lasix 20 mg oral tablet 20 mg, 1 tab, Route: PO, Drug form: TAB, Daily, Dosing Weight 70.483, kg, Start date: 04/09/17 9:00:00 RETOUCHING OPERATOR, Duration: 30 day, Stop date: 05/08/17 9:00:00 RETOUCHING OPERATOR Notes: (Same as: Lasix) May cause GI upset. Give with food or milk. Start Date: 04/09/17 Stop Date: 04/08/17 Status: Canceled lidocaine 1% injectable solution 10 mg, 1 ml, Route: SUB-Q, Drug Form: INJ, Dosing Weight 70.483, kg, ONCE, Start date: 04/03/17 15:50:00 RETOUCHING OPERATOR, Stop date: 04/03/17 15:50:00 RETOUCHING OPERATOR Notes: (Same as: Xylocaine) Start Date: 04/03/17 Stop Date: 04/03/17 Status: Completed lisinopril 2.5 mg, 1 tab, Route: PO, Drug form: TAB, Daily, Dosing Weight 74.091, kg, Prior ity: NOW, Start date: 03/22/17 13:34:00 RETOUCHING OPERATOR, Duration: 30 day, Stop date: 13:33:00 RETOUCHING OPERATOR Notes: (Same as: Prinivil) Start Date: 03/22/17 Stop Date: 03/24/17 Status: Discontinued lisinopril 20 mg, PO, Daily, 0 Refill(s) Start Date: 03/22/17 Stop Date: 04/12/17 Status: Discontinued Lovenox 70 mg, 0.7 mL, Route: SUB-Q, Drug form: INJ, [id number], Dosing Weight 71.051, kg, Priority: NOW, Start date: 04/11/17 10:50:00 RETOUCHING OPERATOR, Duration: 30 day, Stop date: 05/11/17 1:00:00 RETOUCHING OPERATOR Notes: Nurse to ensure documentation of patient education per anticoagulation po licy. (Same as: Lovenox) Start Date: 04/11/17 Stop Date: 04/12/17 Status: Discontinued magnesium oxide 800 mg, 2 tab, Route: PO, Drug form: TAB, ONCE, Dosing Weight 74.091, kg, Priori ty: STAT, Start date: 03/22/17 13:26:00 RETOUCHING OPERATOR, Stop date: 03/22/17 13:26:00 RETOUCHING OPERATOR Notes: (Same as: Mag-Ox 400)Magnesium oxide [id number] elemental magnesiumDose= ____mg magnesium oxide (___mg elemental magnesium) Start Date: 03/22/17 Stop Date: 03/22/17 Status: Completed magnesium oxide 800 mg, 2 tab, Route: PO, Drug form: TAB, PRN, Dosing Weight 70.483, kg, PRN Abn ormal Lab Result, FOR ICU USE ONLY, Start date: 03/24/17 23:20:00 RETOUCHING OPERATOR, Duration: 30 day, Stop date: 04/23/17 23:19:00 RETOUCHING OPERATOR Notes: (Same as: Mag-Ox 400)Magnesium oxide [id number] elemental magnesiumDose= ____mg magnesium oxide (___mg elemental magnesium) Start Date: 03/24/17 Stop Date: 04/01/17 Status: Discontinued magnesium oxide 800 mg, 2 tab, Route: PO, Drug form: TAB, PRN, Dosing Weight 70.483, kg, PRN Abn ormal Lab Result, For NON-ICU Patients Only., Start date: 04/01/17 5:45:00 RETOUCHING OPERATOR, Duration: 30 day, Stop date: 05/01/17 5:44:00 RETOUCHING OPERATOR Notes: (Same as: Mag-Ox 400)Magnesium oxide [id number] elemental magnesiumDose= ____mg magnesium oxide (___mg elemental magnesium) Start Date: 04/01/17 Stop Date: 04/12/17 Status: Discontinued magnesium oxide 800 mg, 2 tab, Route: PO, Drug form: TAB, PRN, Dosing Weight 70.483, kg, PRN Abn ormal Lab Result, FOR ICU USE ONLY, Start date: 04/01/17 4:38:00 RETOUCHING OPERATOR, Duration: 30 day, Stop date: 05/01/17 4:37:00 RETOUCHING OPERATOR Notes: (Same as: Mag-Ox 400)Magnesium oxide [id number] elemental magnesiumDose= ____mg magnesium oxide (___mg elemental magnesium) Start Date: 04/01/17 Stop Date: 04/01/17 Status: Discontinued magnesium sulfate 2 gm, 50 mL, Route: IVPB, Drug form: INJ, PRN, Dosing Weight 70.483, kg, PRN Abn ormal Lab Result, Start date: 03/24/17 23:20:00 RETOUCHING OPERATOR, Duration: 30 day, Stop date : 04/23/17 23:19:00 RETOUCHING OPERATOR, FOR ICU USE ONLY Notes: WASTE: F/P - Sink; E - Municipal Trash Bin Start Date: 03/24/17 Stop Date: 04/01/17 Status: Discontinued magnesium sulfate 1 gm, 100 mL, Route: IVPB, Drug form: INJ, PRN, Dosing Weight 70.483, kg, PRN Ab normal Lab Result, For NON-ICU Patients Only., Start date: 04/01/17 5:45:00 RETOUCHING OPERATOR, Duration: 30 day, Stop date: 05/01/17 5:44:00 RETOUCHING OPERATOR Notes: WASTE: F/P - Sink; E - Municipal Trash Bin Start Date: 04/01/17 Stop Date: 04/12/17 Status: Discontinued magnesium sulfate 2 gm, 50 mL, Route: IVPB, Drug form: INJ, PRN, Dosing Weight 70.483, kg, PRN Abn ormal Lab Result, For NON-ICU Patients Only., Start date: 04/01/17 5:45:00 RETOUCHING OPERATOR, Duration: 30 day, Stop date: 05/01/17 5:44:00 RETOUCHING OPERATOR Notes: WASTE: F/P - Sink; E - Municipal Trash Bin Start Date: 04/01/17 Stop Date: 04/12/17 Status: Discontinued magnesium sulfate 2 gm, 50 mL, Route: IVPB, Drug form: INJ, PRN, Dosing Weight 70.483, kg, PRN Abn ormal Lab Result, Start date: 04/01/17 4:38:00 RETOUCHING OPERATOR, Duration: 30 day, Stop date: 05/01/17 4:37:00 RETOUCHING OPERATOR, FOR ICU USE ONLY Notes: WASTE: F/P - Sink; E - Municipal Trash Bin Start Date: 04/01/17 Stop Date: 04/01/17 Status: Discontinued metFORMIN 500 mg, PO, BID, 0 Refill(s) Start Date: 03/22/17 Status: Ordered metoprolol extended release 25 mg, 1 tab, Route: PO, Drug form: ERTAB, Daily, Priority: NOW, Start date: 13:34:00 RETOUCHING OPERATOR, Duration: 30 day, Stop date: 04/21/17 13:33:00 RETOUCHING OPERATOR Notes: (Same as: Toprol XL) Do Not Crush Start Date: 03/22/17 Stop Date: 03/24/17 Status: Discontinued metoprolol extended release 50 mg, PO, Daily, 0 Refill(s) Start Date: 03/22/17 Stop Date: 04/12/17 Status: Discontinued midazolam (ANES) Route: IV, Drug form: SOLN, ONCE, Stop date: 03/24/17 17:23:00 RETOUCHING OPERATOR Start Date: 03/24/17 Stop Date: 03/24/17 Status: Completed midazolam (ANES) Route: IV, Drug form: SOLN, ONCE, Stop date: 03/26/17 17:27:00 RETOUCHING OPERATOR Start Date: 03/26/17 Stop Date: 03/26/17 Status: Completed midazolam 50 mg in NS 50 mL (Titrate.) IV 50 mg 50 mg, 50 mL, Rate: Titrate, Start Dose: 1 mg/hr, Titration: Rebolus 1 mg IV and /or Titrate by 1 milligram/hour every 30 minutes, Goal(s): RASS - 2, Max Dose: 1 0 mg/hr, Route: IV, Dosing Weight 70.483 kg, Total Volume: 50, Priority: STAT, S tart date:... Notes: (Same as: Versed) Start Date: 03/24/17 Stop Date: 03/26/17 Status: Discontinued MiraLax 17 gm, 1 pkt, Route: PO, Drug form: PWDR, Daily, Dosing Weight 70.483, kg, Prior ity: NOW, Start date: 03/27/17 14:40:00 RETOUCHING OPERATOR, Duration: 30 day, Stop date: 9:00:00 RETOUCHING OPERATOR Notes: Dissolve in 8 oz of water or juice.(Same as: Miralax) Start Date: 03/27/17 Stop Date: 04/12/17 Status: Discontinued nitroglycerin 100 mg in D5W 250 mL (Titrate.) IV 100 mg 100 mg, 250 mL, Rate: Titrate, Start Dose: 10 microgram/min, Titration: 10 micro gram/min every 5 minutes, Goal(s): Chest pain and SBP between 100 - 150 mmHg, Ma x Dose: 200 mcg/min, Route: IV, Dosing Weight 74.091 kg, Total Volume: 250, Star t date: . Notes: (Same as:Tridil) Final conc=0.4 mg/ml. Premix bottle. Start Date: 03/22/17 Stop Date: 03/22/17 Status: Discontinued Nitrostat 0.4 mg sublingual tablet 0.4 mg, 1 tab, Route: SL, Drug form: TAB, Q5Min, Dosing Weight 74.091, kg, PRN C hest Pain, Start date: 03/22/17 13:34:00 RETOUCHING OPERATOR, Duration: 3 doses or times, Stop d ate: Limited # of times Notes: (Same as:Nitroquick, Nitrostat)"Do Not Crush" Sublingual tablet Start Date: 03/22/17 Stop Date: 03/24/17 Status: Discontinued normal saline 0.9% IV 1,000 mL 1,000 mL, Rate: 60 ml/hr, Infuse over: 16.7 hr, Route: IV, Dosing Weight 70.483 kg, Total Volume: 1,000, Start date: 03/23/17 8:01:00 RETOUCHING OPERATOR, Duration: 1 day, Stop date: 03/24/17 8:00:00 RETOUCHING OPERATOR, 1.86, m2 Start Date: 03/23/17 Stop Date: 03/24/17 Status: Completed normal saline 0.9% IV 1000 mL 1,000 mL, Rate: 70 ml/hr, Infuse over: 14.3 hr, Route: IV, Dosing Weight 70.483 kg, Total Volume: 1,000, Start date: 03/24/17 8:31:00 RETOUCHING OPERATOR, Duration: 1 doses or times, Stop date: 03/24/17 23:27:00 RETOUCHING OPERATOR, 1.86, m2 Start Date: 03/24/17 Stop Date: 03/24/17 Status: Completed normal saline 0.9% IV 1000 mL 1,000 mL, Rate: 60 ml/hr, Infuse over: 16.7 hr, Route: IV, Dosing Weight 70.483 kg, Total Volume: 1,000, Start date: 03/23/17 8:01:00 RETOUCHING OPERATOR, Duration: 30 day, Sto p date: 04/22/17 8:00:00 RETOUCHING OPERATOR, 1.86, m2 Start Date: 03/23/17 Stop Date: 03/23/17 Status: Discontinued NS (Bolus) IV 500 mL, 125 ml/hr, Infuse Over: 4 hr, Route: IV, 500, Drug form: INJ, ONCE, Prio rity: STAT, Dosing Weight 70.483 kg, Start date: 04/07/17 11:41:00 RETOUCHING OPERATOR, Stop coco e: 04/07/17 11:41:00 RETOUCHING OPERATOR Start Date: 04/07/17 Stop Date: 04/07/17 Status: Completed ocular lubricant 1 appl, Route: BOTH EYES, Q6H, Drug form: OINT, Start date: 03/25/17 0:00:00 RETOUCHING OPERATOR , Duration: 30 day, Stop date: 04/23/17 23:59:00 RETOUCHING OPERATOR Notes: (Same as: Lacri-Lube, Duratears Naturale, Artificial Tears, and Tears Aga in ) Start Date: 03/25/17 Stop Date: 03/30/17 Status: Discontinued pantoprazole 40 mg, 1 tab, Route: PO, Drug form: ECTAB, Daily, Dosing Weight 70.483, kg, Star t date: 03/25/17 9:00:00 RETOUCHING OPERATOR, Duration: 30 day, Stop date: 04/24/17 8:59:00 RETOUCHING OPERATOR Notes: Tablet should not be chewed or crushed.(Same as: Protonix) Start Date: 03/25/17 Stop Date: 03/26/17 Status: Discontinued pantoprazole 40 mg, Route: IVP, Drug form: INJ, Before Breakfast, Dosing Weight 70.483, kg, S tart date: 03/27/17 7:30:00 RETOUCHING OPERATOR, Duration: 30 day, Stop date: 04/26/17 7:29:[address] Notes: For IV push reconstitute with 10 ml 0.9% sodium chloride and push over 2 minutes. (Same as: Protonix) Start Date: 03/27/17 Stop Date: 04/02/17 Status: Discontinued Plavix 75 mg, 1 tab, Route: PO, Drug form: TAB, Daily, Dosing Weight 70.483, kg, Start date: 04/05/17 9:00:00 RETOUCHING OPERATOR, Duration: 30 day, Stop date: 05/04/17 9:00:00 RETOUCHING OPERATOR Notes: (Same As: Plavix) Start Date: 04/05/17 Stop Date: 04/12/17 Status: Discontinued potassium chloride 20 mEq, 1 tab, Route: PO, Drug form: ERTAB, ONCE, Dosing Weight 70.483, kg, Star t date: 03/23/17 6:51:00 RETOUCHING OPERATOR, Stop date: 03/23/17 6:51:00 RETOUCHING OPERATOR Notes: (Same as: K-Dur 20)"Do Not Crush" With food and full glass of water Start Date: 03/23/17 Stop Date: 03/23/17 Status: Completed potassium chloride 20 mEq, 1 tab, Route: PO, Drug form: ERTAB, PRN, Dosing Weight 70.483, kg, PRN A bnormal Lab Result, Start date: 03/24/17 23:20:00 RETOUCHING OPERATOR, Duration: 30 day, Stop da te: 04/23/17 23:19:00 RETOUCHING OPERATOR, FOR ICU USE ONLY Notes: (Same as: K-Dur 20)"Do Not Crush" With food and full glass of water Start Date: 03/24/17 Stop Date: 04/01/17 Status: Discontinued potassium chloride 20 mEq, 15 mL, Route: NJ, Drug form: LIQ, PRN, Dosing Weight 70.483, kg, PRN Abn ormal Lab Result, Start date: 03/24/17 23:20:00 RETOUCHING OPERATOR, Duration: 30 day, Stop date : 04/23/17 23:19:00 RETOUCHING OPERATOR, FOR ICU USE ONLY Notes: (Same as: Potassium Chloride) Start Date: 03/24/17 Stop Date: 04/01/17 Status: Discontinued potassium chloride 10 mEq, 50 mL, Route: IVPB, Drug form: INJ, PRN, Dosing Weight 70.483, kg, PRN A bnormal Lab Result, Via peripheral line, Start date: 03/24/17 23:20:00 RETOUCHING OPERATOR, Dura tion: 30 day, Stop date: 04/23/17 23:19:00 RETOUCHING OPERATOR, FOR ICU USE ONLY Notes: (Same as: KCL) Infuse over 2 hours. Start Date: 03/24/17 Stop Date: 04/01/17 Status: Discontinued potassium chloride 20 mEq, 100 mL, Route: IVPB, Drug form: INJ, PRN, Dosing Weight 70.483, kg, PRN Abnormal Lab Result, Via central line, Start date: 03/24/17 23:20:00 RETOUCHING OPERATOR, Durati on: 30 day, Stop date: 04/23/17 23:19:00 RETOUCHING OPERATOR, FOR ICU USE ONLY Notes: (Same as: KCL) Infuse no faster than 10 mEq/hr if given peripherally. Start Date: 03/24/17 Stop Date: 04/01/17 Status: Discontinued potassium chloride 20 mEq, 1 tab, Route: PO, Drug form: ERTAB, PRN, Dosing Weight 70.483, kg, PRN A bnormal Lab Result, For NON-ICU Patients Only, Start date: 04/01/17 5:45:00 RETOUCHING OPERATOR, Duration: 30 day, Stop date: 05/01/17 5:44:00 RETOUCHING OPERATOR Notes: (Same as: K-Dur 20)"Do Not Crush" With food and full glass of water Start Date: 04/01/17 Stop Date: 04/12/17 Status: Discontinued potassium chloride 20 mEq, 15 mL, Route: NJ, Drug form: LIQ, PRN, Dosing Weight 70.483, kg, PRN Abn ormal Lab Result, For NON-ICU Patients Only, Start date: 04/01/17 5:45:00 RETOUCHING OPERATOR, D uration: 30 day, Stop date: 05/01/17 5:44:00 RETOUCHING OPERATOR Notes: (Same as: Potassium Chloride) Start Date: 04/01/17 Stop Date: 04/12/17 Status: Discontinued potassium chloride 10 mEq, 50 mL, Route: IVPB, Drug form: INJ, PRN, Dosing Weight 70.483, kg, PRN A bnormal Lab Result, For NON-ICU Patients Only, Start date: 04/01/17 5:45:00 RETOUCHING OPERATOR, Duration: 30 day, Stop date: 05/01/17 5:44:00 RETOUCHING OPERATOR Notes: (Same as: KCL) Infuse over 2 hours. Start Date: 04/01/17 Stop Date: 04/12/17 Status: Discontinued potassium chloride 60 mEq, 3 tab, Route: PO, Drug form: ERTAB, ONCE, Dosing Weight 70.483, kg, Star t date: 03/24/17 6:48:00 RETOUCHING OPERATOR, Stop date: 03/24/17 6:48:00 RETOUCHING OPERATOR Notes: (Same as: K-Dur 20)"Do Not Crush" With food and full glass of water Start Date: 03/24/17 Stop Date: 03/24/17 Status: Completed potassium chloride 10 mEq, 50 mL, Route: IVPB, Drug form: INJ, PRN, Dosing Weight 70.483, kg, PRN A bnormal Lab Result, Via peripheral line, Start date: 04/01/17 4:38:00 RETOUCHING OPERATOR, Durat ion: 30 day, Stop date: 05/01/17 4:37:00 RETOUCHING OPERATOR, FOR ICU USE ONLY Notes: (Same as: KCL) Infuse over 2 hours. Start Date: 04/01/17 Stop Date: 04/01/17 Status: Discontinued potassium chloride 20 mEq, 1 tab, Route: PO, Drug form: ERTAB, PRN, Dosing Weight 70.483, kg, PRN A bnormal Lab Result, Start date: 04/01/17 4:38:00 RETOUCHING OPERATOR, Duration: 30 day, Stop coco e: 05/01/17 4:37:00 RETOUCHING OPERATOR, FOR ICU USE ONLY Notes: (Same as: K-Dur 20)"Do Not Crush" With food and full glass of water Start Date: 04/01/17 Stop Date: 04/01/17 Status: Discontinued potassium chloride 20 mEq, 15 mL, Route: NJ, Drug form: LIQ, PRN, Dosing Weight 70.483, kg, PRN Abn ormal Lab Result, Start date: 04/01/17 4:38:00 RETOUCHING OPERATOR, Duration: 30 day, Stop date: 05/01/17 4:37:00 RETOUCHING OPERATOR, FOR ICU USE ONLY Notes: (Same as: Potassium Chloride) Start Date: 04/01/17 Stop Date: 04/01/17 Status: Discontinued potassium chloride 20 mEq, 100 mL, Route: IVPB, Drug form: INJ, PRN, Dosing Weight 70.483, kg, PRN Abnormal Lab Result, Via central line, Start date: 04/01/17 4:38:00 RETOUCHING OPERATOR, Duratio n: 30 day, Stop date: 05/01/17 4:37:00 RETOUCHING OPERATOR, FOR ICU USE ONLY Notes: (Same as: KCL) Infuse no faster than 10 mEq/hr if given peripherally. Start Date: 04/01/17 Stop Date: 04/01/17 Status: Discontinued potassium chloride 40 mEq, 2 tab, Route: PO, Drug form: ERTAB, ONCE, Dosing Weight 74.091, kg, Prio rity: STAT, Start date: 03/22/17 13:26:00 RETOUCHING OPERATOR, Stop date: 03/22/17 13:26:00 RETOUCHING OPERATOR Notes: (Same as: K-Dur 20)"Do Not Crush" With food and full glass of water Start Date: 03/22/17 Stop Date: 03/22/17 Status: Completed potassium chloride (ANES) 20 mEq Route: IV, Drug form: INJ, Start date: 03/24/17 19:18:00 RETOUCHING OPERATOR, Stop date: 7 20:18:00 RETOUCHING OPERATOR Start Date: 03/24/17 Stop Date: 03/24/17 Status: Completed potassium phosphate + Sodium Chloride 0.9% IV 250 mL 45 mmol, 15 mL, Route: IVPB, PRN, Dosing Weight 70.483, kg, PRN Abnormal Lab Res ult, Start date: 03/24/17 23:20:00 RETOUCHING OPERATOR, Duration: 30 day, Stop date: 04/23/17 23 :19:00 RETOUCHING OPERATOR, FOR ICU USE ONLY Notes: (Same as: K Phosphate.) 1 mMol phoshate has 1.47 mEq potassium Infuse o tesha 4 hours Start Date: 03/24/17 Stop Date: 04/01/17 Status: Discontinued potassium phosphate + Sodium Chloride 0.9% IV 250 mL 15 mmol, 5 mL, Route: IVPB, PRN, Dosing Weight 70.483, kg, PRN Abnormal Lab Resu lt, Start date: 03/24/17 23:20:00 RETOUCHING OPERATOR, Duration: 30 day, Stop date: 04/23/17 23: 19:00 RETOUCHING OPERATOR, FOR ICU USE ONLY Notes: (Same as: K Phosphate.) 1 mMol phoshate has 1.47 mEq potassium Infuse o tesha 4 hours Start Date: 03/24/17 Stop Date: 04/01/17 Status: Discontinued potassium phosphate + Sodium Chloride 0.9% IV 250 mL 30 mmol, 10 mL, Route: IVPB, PRN, Dosing Weight 70.483, kg, PRN Abnormal Lab Res ult, Start date: 03/24/17 23:20:00 RETOUCHING OPERATOR, Duration: 30 day, Stop date: 04/23/17 23 :19:00 RETOUCHING OPERATOR, FOR ICU USE ONLY Notes: (Same as: K Phosphate.) 1 mMol phoshate has 1.47 mEq potassium Infuse o tesha 4 hours Start Date: 03/24/17 Stop Date: 04/01/17 Status: Discontinued potassium phosphate + Sodium Chloride 0.9% IV 250 mL 30 mmol, 10 mL, Route: IVPB, PRN, Dosing Weight 70.483, kg, PRN Abnormal Lab Res ult, For NON-ICU Patients Only., Start date: 04/01/17 5:45:00 RETOUCHING OPERATOR, Duration: 30 day, Stop date: 05/01/17 5:44:00 RETOUCHING OPERATOR Notes: (Same as: K Phosphate.) 1 mMol phoshate has 1.47 mEq potassium Infuse o tesha 4 hours Start Date: 04/01/17 Stop Date: 04/12/17 Status: Discontinued potassium phosphate + Sodium Chloride 0.9% IV 250 mL 15 mmol, 5 mL, Route: IVPB, PRN, Dosing Weight 70.483, kg, PRN Abnormal Lab Resu lt, For NON-ICU Patients Only., Start date: 04/01/17 5:45:00 RETOUCHING OPERATOR, Duration: 30 d ay, Stop date: 05/01/17 5:44:00 RETOUCHING OPERATOR Notes: (Same as: K Phosphate.) 1 mMol phoshate has 1.47 mEq potassium Infuse o tesha 4 hours Start Date: 04/01/17 Stop Date: 04/12/17 Status: Discontinued potassium phosphate + Sodium Chloride 0.9% IV 250 mL 30 mmol, 10 mL, Route: IVPB, PRN, Dosing Weight 70.483, kg, PRN Abnormal Lab Res ult, Start date: 04/01/17 4:38:00 RETOUCHING OPERATOR, Duration: 30 day, Stop date: 05/01/17 4:3 7:00 RETOUCHING OPERATOR, FOR ICU USE ONLY Notes: (Same as: K Phosphate.) 1 mMol phoshate has 1.47 mEq potassium Infuse o tesha 4 hours Start Date: 04/01/17 Stop Date: 04/01/17 Status: Discontinued potassium phosphate + Sodium Chloride 0.9% IV 250 mL 15 mmol, 5 mL, Route: IVPB, PRN, Dosing Weight 70.483, kg, PRN Abnormal Lab Resu lt, Start date: 04/01/17 4:38:00 RETOUCHING OPERATOR, Duration: 30 day, Stop date: 05/01/17 4:37 :00 RETOUCHING OPERATOR, FOR ICU USE ONLY Notes: (Same as: K Phosphate.) 1 mMol phoshate has 1.47 mEq potassium Infuse o tesha 4 hours Start Date: 04/01/17 Stop Date: 04/01/17 Status: Discontinued potassium phosphate + Sodium Chloride 0.9% IV 250 mL 45 mmol, 15 mL, Route: IVPB, PRN, Dosing Weight 70.483, kg, PRN Abnormal Lab Res ult, Start date: 04/01/17 4:38:00 RETOUCHING OPERATOR, Duration: 30 day, Stop date: 05/01/17 4:3 7:00 RETOUCHING OPERATOR, FOR ICU USE ONLY Notes: (Same as: K Phosphate.) 1 mMol phoshate has 1.47 mEq potassium Infuse o tseha 4 hours Start Date: 04/01/17 Stop Date: 04/01/17 Status: Discontinued potassium phosphate-sodium phosphate 250 mg-280 mg-160 mg oral powder for recons titution 1 pkt, Route: PO, Drug Form: PDR/REC, Dosing Weight 70.483, kg, ONCE, Start date : 03/29/17 13:34:00 RETOUCHING OPERATOR, Stop date: 03/29/17 13:34:00 RETOUCHING OPERATOR Notes: (Same as: Phos-NaK) Each 1.5 gm pkt has 250mg phosphorous. Mix w/2.5oz w ater and stir. Start Date: 03/29/17 Stop Date: 03/29/17 Status: Completed potassium phosphate-sodium phosphate 250 mg-280 mg-160 mg oral powder for recons titution 2 pkt, Route: PO, Drug Form: PDR/REC, Dosing Weight 70.483, kg, PRN, PRN Abnorma l Lab Result, FOR ICU USE ONLY, Start date: 03/24/17 23:20:00 RETOUCHING OPERATOR, Duration: 30 day, Stop date: 04/23/17 23:19:00 RETOUCHING OPERATOR Notes: (Same as: Phos-NaK) Each 1.5 gm pkt has 250mg phosphorous. Mix w/2.5oz w ater and stir. Start Date: 03/24/17 Stop Date: 04/01/17 Status: Discontinued potassium phosphate-sodium phosphate 250 mg-280 mg-160 mg oral powder for recons titution 2 pkt, Route: PO, Drug Form: PDR/REC, Dosing Weight 70.483, kg, PRN, PRN Abnorma l Lab Result, For NON-ICU Patients Only, Start date: 04/01/17 5:45:00 RETOUCHING OPERATOR, Durat ion: 30 day, Stop date: 05/01/17 5:44:00 RETOUCHING OPERATOR Notes: (Same as: Phos-NaK) Each 1.5 gm pkt has 250mg phosphorous. Mix w/2.5oz w ater and stir. Start Date: 04/01/17 Stop Date: 04/12/17 Status: Discontinued potassium phosphate-sodium phosphate 250 mg-280 mg-160 mg oral powder for recons titution 2 pkt, Route: PO, Drug Form: PDR/REC, Dosing Weight 70.483, kg, PRN, PRN Abnorma l Lab Result, FOR ICU USE ONLY, Start date: 04/01/17 4:38:00 RETOUCHING OPERATOR, Duration: 30 d ay, Stop date: 05/01/17 4:37:00 RETOUCHING OPERATOR Notes: (Same as: Phos-NaK) Each 1.5 gm pkt has 250mg phosphorous. Mix w/2.5oz w ater and stir. Start Date: 04/01/17 Stop Date: 04/01/17 Status: Discontinued protamine (ANES) Route: IV, Drug form: INJ, ONCE, Stop date: 03/24/17 19:28:00 RETOUCHING OPERATOR Start Date: 03/24/17 Stop Date: 03/24/17 Status: Completed Protonix 40 mg, 1 tab, Route: PO, Drug form: ECTAB, Before Breakfast, Dosing Weight 70.48 3, kg, Start date: 04/03/17 7:30:00 RETOUCHING OPERATOR, Duration: 30 day, Stop date: 05/02/17 7 :30:00 RETOUCHING OPERATOR Notes: Tablet should not be chewed or crushed.(Same as: Protonix) Start Date: 04/03/17 Stop Date: 04/12/17 Status: Discontinued Rocephin 1 gm, Route: IVPB, Drug form: PDR/INJ, ONCE, Dosing Weight 74.091, kg, Priority: STAT, Start date: 03/22/17 4:02:00 RETOUCHING OPERATOR, Stop date: 03/22/17 4:02:00 RETOUCHING OPERATOR, ABX In dication: Non-PNA Respiratory Tract Infection Start Date: 03/22/17 Stop Date: 03/22/17 Status: Completed Rocephin + sterile water 20 mL 2 gm, Route: IVP, Q12H, Dosing Weight 70.483, kg, Start date: 04/01/17 9:00:[address], Duration: 2 day, Stop date: 04/02/17 21:00:00 RETOUCHING OPERATOR, ABX Indication: Pneumonia Notes: (Same As: Rocephin).Use with 100 mL NS and infuse over 30 min MEDICA TION WASTE Product Size: 2000 mgProduct Wasted: _0_ mg Start Date: 04/01/17 Stop Date: 04/02/17 Status: Completed rocuronium (ANES) Route: IV, Drug form: INJ, ONCE, Stop date: 03/24/17 17:13:00 RETOUCHING OPERATOR Start Date: 03/24/17 Stop Date: 03/24/17 Status: Completed rocuronium (ANES) Route: IV, Drug form: INJ, ONCE, Stop date: 03/26/17 17:27:00 RETOUCHING OPERATOR Start Date: 03/26/17 Stop Date: 03/26/17 Status: Completed simethicone 80 mg, 1 tab, Route: PO, Drug form: CHEWTAB, Q6H, Dosing Weight 70.483, kg, PRN Gas, Start date: 03/31/17 23:09:00 RETOUCHING OPERATOR, Duration: 30 day, Stop date: 04/30/17 23 :08:00 RETOUCHING OPERATOR Notes: (Same as: Mylicon) Start Date: 03/31/17 Stop Date: 04/12/17 Status: Discontinued Sodium Chloride 0.9% (Bolus) IV 500 mL, 500 ml/hr, Infuse Over: 1 hr, Route: IV, ONCE, Priority: STAT, Dosing We ight 70.483 kg, Start date: 03/26/17 20:14:00 RETOUCHING OPERATOR, Stop date: 03/26/17 20:14:00 RETOUCHING OPERATOR Start Date: 03/26/17 Stop Date: 03/26/17 Status: Completed Sodium Chloride 0.9% (titrate) 250 mL 250 mL, Rate: call or contact centre operator for use with blood product administration, Dosing Weight 7 0.483, kg, Route: IV, Total Volume: 250, Start Date: 03/24/17 14:38:00 RETOUCHING OPERATOR, Dura tion: 30 day, Stop date: 04/23/17 14:37:00 RETOUCHING OPERATOR, Replace Every: 24 hr Start Date: 03/24/17 Stop Date: 03/27/17 Status: Discontinued Sodium Chloride 0.9% (titrate) 60 mL + bumetanide 10 mg 60 mL, Rate: Infuse as directed 0.5mg/hr, Dosing Weight 70.483, kg, Route: IV, T otal Volume: 60 mL, Start Date: 03/27/17 15:09:00 RETOUCHING OPERATOR, Duration: 30 day, Stop da te: 04/26/17 15:08:00 RETOUCHING OPERATOR, Replace Every: 24 hr Start Date: 03/27/17 Stop Date: 03/27/17 Status: Discontinued Sodium Chloride 0.9% (titrate) 60 mL + bumetanide 10 mg 60 mL, Rate: 0.5mg/hr, Dosing Weight 70.483, kg, Route: IV, Total Volume: 60 mL, Start Date: 03/27/17 15:11:00 RETOUCHING OPERATOR, Duration: 30 day, Stop date: 04/26/17 15:10: 00 RETOUCHING OPERATOR, Replace Every: 24 hr Start Date: 03/27/17 Stop Date: 03/27/17 Status: Discontinued Sodium Chloride 0.9% (titrate) 60 mL + bumetanide 10 mg 60 mL, Rate: Infuse as directed, Dosing Weight 70.483, kg, Route: IV, Total Volu me: 60 mL, Start Date: 03/27/17 15:06:00 RETOUCHING OPERATOR, Duration: 30 day, Stop date: 04/26 15:05:00 RETOUCHING OPERATOR, Replace Every: 24 hr Start Date: 03/27/17 Stop Date: 03/27/17 Status: Discontinued Sodium Chloride 0.9% IV (ANES) 1000 mL Route: IV, Total Volume: 1,000, Start date: 03/24/17 15:44:00 RETOUCHING OPERATOR, Stop date: 16:44:00 RETOUCHING OPERATOR Start Date: 03/24/17 Stop Date: 03/24/17 Status: Completed Sodium Chloride 0.9% IV (ANES) 1000 mL Route: IV, Total Volume: 1,000, Start date: 03/26/17 15:18:00 RETOUCHING OPERATOR, Stop date: 16:18:00 RETOUCHING OPERATOR Start Date: 03/26/17 Stop Date: 03/26/17 Status: Completed Sodium Chloride 0.9% IV (ANES) 480 mL + tranexamic acid (ANES) 2000 mg Route: IV, Drug form: INJ, Start date: 03/24/17 16:10:00 RETOUCHING OPERATOR, Stop date: 7 17:10:00 RETOUCHING OPERATOR Start Date: 03/24/17 Stop Date: 03/24/17 Status: Completed sodium phosphate + Sodium Chloride 0.9% IV 250 mL 30 mmol, 10 mL, Route: IVPB, PRN, Dosing Weight 70.483, kg, PRN Abnormal Lab Res ult, Start date: 03/24/17 23:20:00 RETOUCHING OPERATOR, Duration: 30 day, Stop date: 04/23/17 23 :19:00 RETOUCHING OPERATOR, FOR ICU USE ONLY Start Date: 03/24/17 Stop Date: 04/01/17 Status: Discontinued sodium phosphate + Sodium Chloride 0.9% IV 250 mL 45 mmol, 15 mL, Route: IVPB, PRN, Dosing Weight 70.483, kg, PRN Abnormal Lab Res ult, Start date: 03/24/17 23:20:00 RETOUCHING OPERATOR, Duration: 30 day, Stop date: 04/23/17 23 :19:00 RETOUCHING OPERATOR, FOR ICU USE ONLY Start Date: 03/24/17 Stop Date: 04/01/17 Status: Discontinued sodium phosphate + Sodium Chloride 0.9% IV 250 mL 15 mmol, 5 mL, Route: IVPB, PRN, Dosing Weight 70.483, kg, PRN Abnormal Lab Resu lt, Start date: 03/24/17 23:20:00 RETOUCHING OPERATOR, Duration: 30 day, Stop date: 04/23/17 23: 19:00 RETOUCHING OPERATOR, FOR ICU USE ONLY Start Date: 03/24/17 Stop Date: 04/01/17 Status: Discontinued sodium phosphate + Sodium Chloride 0.9% IV 250 mL 30 mmol, 10 mL, Route: IVPB, PRN, Dosing Weight 70.483, kg, PRN Abnormal Lab Res ult, For NON-ICU Patients Only., Start date: 04/01/17 5:45:00 RETOUCHING OPERATOR, Duration: 30 day, Stop date: 05/01/17 5:44:00 RETOUCHING OPERATOR Start Date: 04/01/17 Stop Date: 04/12/17 Status: Discontinued sodium phosphate + Sodium Chloride 0.9% IV 250 mL 15 mmol, 5 mL, Route: IVPB, PRN, Dosing Weight 70.483, kg, PRN Abnormal Lab Resu lt, For NON-ICU Patients Only., Start date: 04/01/17 5:45:00 RETOUCHING OPERATOR, Duration: 30 d ay, Stop date: 05/01/17 5:44:00 RETOUCHING OPERATOR Start Date: 04/01/17 Stop Date: 04/12/17 Status: Discontinued sodium phosphate + Sodium Chloride 0.9% IV 250 mL 15 mmol, 5 mL, Route: IVPB, PRN, Dosing Weight 70.483, kg, PRN Abnormal Lab Resu lt, Start date: 04/01/17 4:38:00 RETOUCHING OPERATOR, Duration: 30 day, Stop date: 05/01/17 4:37 :00 RETOUCHING OPERATOR, FOR ICU USE ONLY Start Date: 04/01/17 Stop Date: 04/01/17 Status: Discontinued sodium phosphate + Sodium Chloride 0.9% IV 250 mL 30 mmol, 10 mL, Route: IVPB, PRN, Dosing Weight 70.483, kg, PRN Abnormal Lab Res ult, Start date: 04/01/17 4:38:00 RETOUCHING OPERATOR, Duration: 30 day, Stop date: 05/01/17 4:3 7:00 RETOUCHING OPERATOR, FOR ICU USE ONLY Start Date: 04/01/17 Stop Date: 04/01/17 Status: Discontinued sodium phosphate + Sodium Chloride 0.9% IV 250 mL 45 mmol, 15 mL, Route: IVPB, PRN, Dosing Weight 70.483, kg, PRN Abnormal Lab Res ult, Start date: 04/01/17 4:38:00 RETOUCHING OPERATOR, Duration: 30 day, Stop date: 05/01/17 4:3 7:00 RETOUCHING OPERATOR, FOR ICU USE ONLY Start Date: 04/01/17 Stop Date: 04/01/17 Status: Discontinued Tessalon Perles 100 mg, 1 cap, Route: PO, Drug form: CAP, TID, Dosing Weight 70.483, kg, Start d ate: 04/01/17 13:00:00 RETOUCHING OPERATOR, Duration: 30 day, Stop date: 05/01/17 9:00:00 RETOUCHING OPERATOR Notes: (Same As: Kimberly Bender)"Do Not Crush" Start Date: 04/01/17 Stop Date: 04/12/17 Status: Discontinued Tylenol 650 mg, 2 tab, Route: PO, Drug form: TAB, Q6H, Dosing Weight 70.483, kg, PRN Sreedhar n Score 1-3, Start date: 04/01/17 10:25:00 RETOUCHING OPERATOR, Duration: 30 day, Stop date: 10:24:00 RETOUCHING OPERATOR Notes: Do not exceed 4 gm/day. (Same as: Tylenol) Start Date: 04/01/17 Stop Date: 04/01/17 Status: Discontinued Tylenol 325 mg, 1 tab, Route: PO, Drug form: TAB, Q6H, Dosing Weight 70.483, kg, PRN For Temp > 100.4 F, Start date: 03/29/17 17:10:00 RETOUCHING OPERATOR, Duration: 30 day, Stop date: 04/28/17 17:09:00 RETOUCHING OPERATOR Notes: Do not exceed 4 gm/day. (Same as: Tylenol) Start Date: 03/29/17 Stop Date: 04/12/17 Status: Discontinued vancomycin (ANES) 1000 mg Route: IV, Drug form: INJ, Start date: 03/24/17 16:09:00 RETOUCHING OPERATOR, Stop date: 7 17:09:00 RETOUCHING OPERATOR Start Date: 03/24/17 Stop Date: 03/24/17 Status: Completed vancomycin (SCIP) 1 gm, Route: IVPB, Drug form: INJ, Q12H, Dosing Weight 70.483, kg, Time Critical Medication, Start date: 03/25/17 21:00:00 RETOUCHING OPERATOR, Duration: 2 day, Stop date: 03/08 05/23 20:59:00 RETOUCHING OPERATOR, ABX Indication: Surgical Prophylaxis Notes: TIME CRITICAL MEDICATION(Same As: Vancocin)Infusion rate< 1000 mg: infuse over 1 [id number] - 1500 mg: infuse over 1.5 [id number] - 2000 mg: infuse over 2 hours> 2001 mg: infuse over 2.5 hours MEDICATION WASTE Product Size: 1000 mgProduct Wasted: ___ mg Start Date: 03/25/17 Stop Date: 03/27/17 Status: Completed vancomycin (SCIP) 1 gm, Route: IVPB, Drug form: INJ, Q12H, Dosing Weight 70.483, kg, Time Critical Medication, Start date: 03/25/17 5:00:00 RETOUCHING OPERATOR, Duration: 2 doses or times, Stop date: 03/25/17 17:00:00 RETOUCHING OPERATOR, ABX Indication: Surgical Prophylaxis Notes: TIME CRITICAL MEDICATION(Same As: Vancocin)Infusion rate< 1000 mg: infuse over 1 [id number] - 1500 mg: infuse over 1.5 [id number] - 2000 mg: infuse over 2 hours> 2001 mg: infuse over 2.5 hours MEDICATION WASTE Product Size: 1000 mgProduct Wasted: ___ mg Start Date: 03/25/17 Stop Date: 03/25/17 Status: Discontinued warfarin 1.5 mg, 0.5 tab, Route: PO, Drug form: TAB, Q5PM, Dosing Weight 70.483, kg, Star t date: 04/07/17 17:00:00 RETOUCHING OPERATOR, Duration: 1 doses or times, Stop date: 04/07/17 1 7:00:00 RETOUCHING OPERATOR Notes: 1.5 mg=1/2 x 3 mg TABNurse to ensure documentation of patient education p er anticoagulation policy.Avoid large intake of vitamin-K containing foods diet. Start Date: 04/07/17 Stop Date: 04/07/17 Status: Completed warfarin 3 mg, 1 tab, Route: PO, Drug form: TAB, Q5PM, Dosing Weight 71.051, kg, Start da te: 04/10/17 17:00:00 RETOUCHING OPERATOR, Duration: 1 doses or times, Stop date: 04/10/17 17:00 :00 RETOUCHING OPERATOR Notes: Nurse to ensure documentation of patient education per anticoagulation po licy.Avoid large intake of vitamin-K containing foods diet.(Same As: Coumadin)WA ALEJANDRO: F/P - P Waste Black; E - P Waste Black Start Date: 04/10/17 Stop Date: 04/10/17 Status: Completed warfarin 1.5 mg, 0.5 tab, Route: PO, Drug form: TAB, Q5PM, Dosing Weight 70.483, kg, Star t date: 04/08/17 17:00:00 RETOUCHING OPERATOR, Duration: 1 doses or times, Stop date: 04/08/17 1 7:00:00 RETOUCHING OPERATOR Notes: 1.5 mg=1/2 x 3 mg TABNurse to ensure documentation of patient education p er anticoagulation policy.Avoid large intake of vitamin-K containing foods diet. Start Date: 04/08/17 Stop Date: 04/08/17 Status: Completed warfarin 3 mg, 1 tab, Route: PO, Drug form: TAB, Q5PM, Dosing Weight 70.483, kg, Start da te: 04/05/17 17:00:00 RETOUCHING OPERATOR, Duration: 1 doses or times, Stop date: 04/05/17 17:00 :00 RETOUCHING OPERATOR Notes: Nurse to ensure documentation of patient education per anticoagulation po licy.Avoid large intake of vitamin-K containing foods diet.(Same As: Coumadin)ND ALEJANDRO: F/P - P Waste Black; E - P Waste Black Start Date: 04/05/17 Stop Date: 04/05/17 Status: Completed warfarin 3 mg, 1 tab, Route: PO, Drug form: TAB, Q5PM, Dosing Weight 70.483, kg, Start da te: 04/03/17 17:00:00 RETOUCHING OPERATOR, Duration: 1 doses or times, Stop date: 04/03/17 17:00 :00 RETOUCHING OPERATOR Notes: Nurse to ensure documentation of patient education per anticoagulation po licy.Avoid large intake of vitamin-K containing foods diet.(Same As: Coumadin)ND ALEJANDRO: F/P - P Waste Black; E - P Waste Black Start Date: 04/03/17 Stop Date: 04/03/17 Status: Completed warfarin 3 mg, 1 tab, Route: PO, Drug form: TAB, Q5PM, Dosing Weight 70.483, kg, Start da te: 04/04/17 17:00:00 RETOUCHING OPERATOR, Duration: 1 doses or times, Stop date: 04/04/17 17:00 :00 RETOUCHING OPERATOR Notes: Nurse to ensure documentation of patient education per anticoagulation po licy.Avoid large intake of vitamin-K containing foods diet.(Same As: Coumadin)ND ALEJANDRO: F/P - P Waste Black; E - P Waste Black Start Date: 04/04/17 Stop Date: 04/04/17 Status: Completed warfarin 3 mg, 1 tab, Route: PO, Drug form: TAB, Q5PM, Dosing Weight 70.483, kg, Start da te: 04/01/17 17:00:00 RETOUCHING OPERATOR, Duration: 1 doses or times, Stop date: 04/01/17 17:00 :00 RETOUCHING OPERATOR Notes: Nurse to ensure documentation of patient education per anticoagulation po licy.Avoid large intake of vitamin-K containing foods diet.(Same As: Coumadin)ND ALEJANDRO: F/P - P Waste Black; E - P Waste Black Start Date: 04/01/17 Stop Date: 04/01/17 Status: Completed warfarin 3 mg, 1 tab, Route: PO, Drug form: TAB, Q5PM, Dosing Weight 70.483, kg, Start da te: 04/06/17 17:00:00 RETOUCHING OPERATOR, Duration: 1 doses or times, Stop date: 04/06/17 17:00 :00 RETOUCHING OPERATOR Notes: Nurse to ensure documentation of patient education per anticoagulation po licy.Avoid large intake of vitamin-K containing foods diet.(Same As: Coumadin)ND ALEJANDRO: F/P - P Waste Black; E - P Waste Black Start Date: 04/06/17 Stop Date: 04/06/17 Status: Completed warfarin 3 mg, 1 tab, Route: PO, Drug form: TAB, Q5PM, Dosing Weight 71.051, kg, Start da te: 04/09/17 17:00:00 RETOUCHING OPERATOR, Duration: 1 doses or times, Stop date: 04/09/17 17:00 :00 RETOUCHING OPERATOR Notes: Nurse to ensure documentation of patient education per anticoagulation po licy.Avoid large intake of vitamin-K containing foods diet.(Same As: Coumadin)ND ALEJANDRO: F/P - P Waste Black; E - P Waste Black Start Date: 04/09/17 Stop Date: 04/09/17 Status: Completed warfarin 3 mg, 1 tab, Route: PO, Drug form: TAB, Q5PM, Dosing Weight 70.483, kg, Start da te: 04/02/17 17:00:00 RETOUCHING OPERATOR, Duration: 1 doses or times, Stop date: 04/02/17 17:00 :00 RETOUCHING OPERATOR Notes: Nurse to ensure documentation of patient education per anticoagulation po licy.Avoid large intake of vitamin-K containing foods diet.(Same As: Coumadin)ND ALEJANDRO: F/P - P Waste Black; E - P Waste Black Start Date: 04/02/17 Stop Date: 04/02/17 Status: Completed warfarin 4 mg, 2 tab, Route: PO, Drug form: TAB, Q5PM, Dosing Weight 71.051, kg, Start da te: 04/12/17 17:00:00 RETOUCHING OPERATOR, Duration: 1 doses or times, Stop date: 04/12/17 17:00 :00 RETOUCHING OPERATOR Start Date: 04/12/17 Stop Date: 04/12/17 Status: Pending Complete warfarin 3 mg, 1 tab, Route: PO, Drug form: TAB, Q5PM, Dosing Weight 70.483, kg, Start da te: 03/31/17 17:00:00 RETOUCHING OPERATOR, Duration: 1 doses or times, Stop date: 03/31/17 17:00 :00 RETOUCHING OPERATOR Notes: Nurse to ensure documentation of patient education per anticoagulation po licy.Avoid large intake of vitamin-K containing foods diet.(Same As: Coumadin)WA ALEJANDRO: F/P - P Waste Black; E - P Waste Black Start Date: 03/31/17 Stop Date: 03/31/17 Status: Completed warfarin 4 mg oral tablet 4 mg=1 tab, PO, Q5PM, # 30 tab, 0 Refill(s) Start Date: 04/12/17 Stop Date: 05/12/17 Status: Ordered Zantac 150 150 mg, PO, BID, 0 Refill(s) Start Date: 03/22/17 Status: Ordered Results BLOOD BANK RESULTS 1 2 3 Most recent to oldest [Reference Range]: A POS *Unknown* (03/26/17 2:22 AM) A POS *Unknown* (03/24/17 3:20 PM) ABO/Rh Negative (03/26/17 2:22 AM) Negative (03/24/17 3:20 PM) Antibody Scrn Product available (03/26/17 3:29 PM) Product available (03/24/17 11:53 PM) Product available (03/24/17 5:22 PM) FFP product Product available (03/24/17 2:38 PM) Platelet product Product available (03/26/17 3:29 PM) Product available (03/24/17 11:54 PM) Product available (03/24/17 11:53 PM) RBC product ELECTROLYTES 1 2 3 Most recent to oldest [Reference Range]: 138 mEq/L (04/12/17 4:56 AM) 136 mEq/L (04/10/17 5:18 AM) 139 mEq/L (04/09/17 6:29 AM) Sodium Lvl [135-145 mEq/L] 4.2 mEq/L (04/12/17 4:56 AM) 4.3 mEq/L (04/10/17 5:18 AM) 4.2 mEq/L (04/09/17 6:29 AM) Potassium Lvl [3.5-5.1 mEq/L] 102 mEq/L (04/12/17 4:56 AM) 103 mEq/L (04/10/17 5:18 AM) 105 mEq/L (04/09/17 6:29 AM) Chloride Lvl [95-109 mEq/L] 28 mEq/L (04/12/17 4:56 AM) 25 mEq/L (04/10/17 5:18 AM) 26 mEq/L (04/09/17 6:29 AM) CO2 [24-32 mEq/L] 12.2 mEq/L (04/12/17 4:56 AM) 12.3 mEq/L (04/10/17 5:18 AM) 12.2 mEq/L (04/09/17 6:29 AM) AGAP [10.0-20.0 mEq/L] CHEM PANEL 1 2 3 Most recent to oldest [Reference Range]: 1.27 mg/dL (04/12/17 4:56 AM) 1.16 mg/dL (04/10/17 5:18 AM) 1.18 mg/dL (04/09/17 6:29 AM) Creatinine Lvl [0.50-1.40 mg/dL] 54 mL/min/1.73m2 1 *NA* (04/12/17 4:56 AM) 60 mL/min/1.73m2 2 *NA* (04/10/17 5:18 AM) 59 mL/min/1.73m2 3 *NA* (04/09/17 6:29 AM) eGFR 24 mg/dL *HI* (04/12/17 4:56 AM) 22 mg/dL (04/10/17 5:18 AM) 22 mg/dL (04/09/17 6:29 AM) BUN [7-22 mg/dL] 29 *HI* (03/28/17 1:35 AM) 33 *HI* (03/27/17 1:42 AM) 30 *HI* (03/26/17 2:22 AM) B/C Ratio [6-25] 150 mg/dL *HI* (04/12/17 4:56 AM) 153 mg/dL *HI* (04/10/17 5:18 AM) 88 mg/dL (04/09/17 6:29 AM) Glucose Lvl [70-99 mg/dL] 4.9 g/dL *LOW* (03/28/17 1:35 AM) 4.2 g/dL *LOW* (03/27/17 1:42 AM) 4.5 g/dL *LOW* (03/26/17 2:22 AM) Total Protein [6.4-8.4 g/dL] 2.0 g/dL *LOW* (03/28/17 1:35 AM) 1.9 g/dL *LOW* (03/27/17 1:42 AM) 2.3 g/dL *LOW* (03/26/17 2:22 AM) Albumin Lvl [3.5-5.0 g/dL] 2.9 g/dL (03/28/17 1:35 AM) 2.3 g/dL *LOW* (03/27/17 1:42 AM) 2.2 g/dL *LOW* (03/26/17 2:22 AM) Globulin [2.7-4.2 g/dL] 0.7 (03/28/17 1:35 AM) 0.8 (03/27/17 1:42 AM) 1.0 (03/26/17 2:22 AM) A/G Ratio [0.7-1.6] 7.5 mg/dL *LOW* (04/12/17 4:56 AM) 7.6 mg/dL *LOW* (04/10/17 5:18 AM) 7.9 mg/dL *LOW* (04/09/17 6:29 AM) Calcium Lvl [8.5-10.5 mg/dL] 2.9 mg/dL (04/10/17 5:18 AM) 2.9 mg/dL (04/09/17 6:29 AM) 2.5 mg/dL (04/08/17 4:15 AM) Phosphorus [2.5-4.5 mg/dL] 1.9 mg/dL (04/10/17 5:18 AM) 2.0 mg/dL (04/09/17 6:29 AM) 2.0 mg/dL (04/08/17 4:15 AM) Magnesium Lvl [1.8-2.4 mg/dL] 29 unit/L (03/28/17 1:35 AM) 23 unit/L (03/27/17 1:42 AM) 26 unit/L (03/26/17 2:22 AM) ALT [0-65 unit/L] 47 unit/L *HI* (03/28/17 1:35 AM) 58 unit/L *HI* (03/27/17 1:42 AM) 88 unit/L *HI* (03/26/17 2:22 AM) AST [0-37 unit/L] 64 unit/L (03/28/17 1:35 AM) 47 unit/L (03/27/17 1:42 AM) 45 unit/L (03/26/17 2:22 AM) Alk Phos [39-136 unit/L] 395 unit/L *HI* (03/28/17 1:35 AM) 328 unit/L *HI* (03/27/17 1:42 AM) 392 unit/L *HI* (03/26/17 2:22 AM) LDH [98-192 unit/L] <10 mg/dL (03/26/17 2:22 AM) Plasma Hemoglobin [0-10 mg/dL] 0.5 mg/dL (03/28/17 1:35 AM) 0.5 mg/dL (03/27/17 1:42 AM) 0.8 mg/dL (03/26/17 2:22 AM) Bili Total [0.2-1.3 mg/dL] 0.2 mg/dL (03/26/17 2:22 AM) Bili Direct [0.0-0.3 mg/dL] 1.7 mMol/L (03/28/17 7:30 PM) 1.4 mMol/L (03/28/17 1:35 AM) 1.3 mMol/L (03/27/17 1:42 AM) Lactic Acid Lvl [0.5-2.2 mMol/L] 4.5 mmol/L 4 *CRIT* (03/24/17 9:12 PM) 6.8 mmol/L 5 *CRIT* (03/22/17 3:35 AM) Lactic Acid WB [0.5-2.2 mmol/L] 1.18 ng/mL *HI* (03/27/17 5:14 PM) 0.84 ng/mL *HI* (03/22/17 8:14 AM) Procalcitonin Lvl [0.00-0.10 ng/mL] 1Result Comment: The eGFR is calculated using the CKD-EPI formula. In most young, healthy individuals the eGFR will be >90 mL/min/1.73m2. The eGFR declines with age. An eGFR of 60-89 may be normal in some populations, particularly the elderly, for whom the CKD-EPI formula has not been extensively validated. Use of the eGFR is not recommended in the following populations: Individuals with unstable creatinine concentrations, including patients and those with serious co-morbid conditions. Patients with extremes in muscle mass or diet. The data above are obtained from the [employer] ( [employer]) which additionally recommends that when the eGFR is used in patients with extremes of body mass index for purposes of drug dosing, the eGFR should be mul tiplied by the estimated BMI. 2Result Comment: The eGFR is calculated using the CKD-EPI formula. In most young, healthy individuals the eGFR will be >90 mL/min/1.73m2. The eGFR declines with age. An eGFR of 60-89 may be normal in some populations, particularly the elderly, for whom the CKD-EPI formula has not been extensively validated. Use of the eGFR is not recommended in the following populations: Individuals with unstable creatinine concentrations, including patients and those with serious co-morbid conditions. Patients with extremes in muscle mass or diet. The data above are obtained from the [employer] ( [employer]) which additionally recommends that when the eGFR is used in patients with extremes of body mass index for purposes of drug dosing, the eGFR should be mul tiplied by the estimated BMI. 3Result Comment: The eGFR is calculated using the CKD-EPI formula. In most young, healthy individuals the eGFR will be >90 mL/min/1.73m2. The eGFR declines with age. An eGFR of 60-89 may be normal in some populations, particularly the elderly, for whom the CKD-EPI formula has not been extensively validated. Use of the eGFR is not recommended in the following populations: Individuals with unstable creatinine concentrations, including patients and those with serious co-morbid conditions. Patients with extremes in muscle mass or diet. The data above are obtained from the National Kidney Disease Education Program ( NKDEP) which additionally recommends that when the eGFR is used in patients with extremes of body mass index for purposes of drug dosing, the eGFR should be mul tiplied by the estimated BMI. 4Result Comment: Critical Result(s) called to Tl at 03/24/2017 21:56 by NT. Read back OK. 5Result Comment: Critical Result(s) called to Luis Fernando Curtis at 03/22/2017 03:42 by OMERO. Read back OK. CARDIAC ENZYMES 1 2 3 Most recent to oldest [Reference Range]: 250 unit/L *HI* (03/23/17 4:20 AM) 334 unit/L *HI* (03/22/17 9:27 PM) 385 unit/L *HI* (03/22/17 4:13 PM) Total CK [12-191 unit/L] 3.2 ng/mL (03/23/17 4:20 AM) 5.3 ng/mL *HI* (03/22/17 9:27 PM) 7.6 ng/mL *HI* (03/22/17 4:13 PM) CK MB [0.5-3.6 ng/mL] 1.3 (03/23/17 4:20 AM) 1.6 (03/22/17 9:27 PM) 2.0 (03/22/17 4:13 PM) CK MB Index [0.0-2.5] 0.166 ng/mL 1 *CRIT* (03/23/17 4:20 AM) 0.179 ng/mL 2 *CRIT* (03/22/17 9:27 PM) 0.192 ng/mL 3 *CRIT* (03/22/17 4:13 PM) Troponin-T [0.000-0.100 ng/mL] 1.67 ng/mL 4 *CRIT* (03/23/17 4:20 AM) 2.29 ng/mL 5 *CRIT* (03/22/17 9:27 PM) 2.25 ng/mL 6 *CRIT* (03/22/17 4:13 PM) Troponin-I [0.00-0.40 ng/mL] 377 pg/mL *HI* (03/22/17 8:14 AM) BNP [<=100 pg/mL] 1Result Comment: Critical Result(s) called to Denny Fagan at 03/23/2017 06:43 byJw. Read back OK. 2Result Comment: Critical Result(s) called to Ana Yang at 03/22/2017 22:14 by BLJ. Read back OK. 3Result Comment: Critical Result(s) called to Chivo Bennett/DENY at 03/22/2017 17:15 by VV. Read back OK. 4Result Comment: Critical Result(s) called to Gianna York at 03/23/2017 06:07 by ET. Read back OK. 5Result Comment: Critical Result(s) called to Ana Yang at 03/22/2017 22:14 by BLJ. Read back OK. 6Result Comment: Critical Result(s) called to Audrey at 03/22/2017 17:13 by BLJ. Read back OK. MYOGLOBIN 1 2 3 Most recent to oldest [Reference Range]: 129 ng/mL *HI* (03/23/17 4:20 AM) Myoglobin [25-72 ng/mL] LIPIDS 1 2 3 Most recent to oldest [Reference Range]: 3.71 *LOW* (03/24/17 9:12 PM) 4.08 (03/22/17 8:14 AM) CHD Risk [4.00-7.30] 104 mg/dL (03/24/17 9:12 PM) 208 mg/dL *HI* (03/22/17 8:14 AM) Chol [<=199 mg/dL] 128 mg/dL (03/24/17 9:12 PM) 116 mg/dL (03/22/17 8:14 AM) Trig [<=149 mg/dL] 28 mg/dL *LOW* (03/24/17 9:12 PM) 51 mg/dL *LOW* (03/22/17 8:14 AM) HDL [>=61 mg/dL] 50 mg/dL (03/24/17 9:12 PM) 134 mg/dL *HI* (03/22/17 8:14 AM) LDL (Calculated) [<=99 mg/dL] 26 *NA* (03/24/17 9:12 PM) 23 *NA* (03/22/17 8:14 AM) VLDL SPECIAL CHEMISTRY 1 2 3 Most recent to oldest [Reference Range]: 8.9 % *HI* (03/22/17 8:14 AM) Hgb A1C [<=5.6 %] PARATHYROID PROFILE 1 2 3 Most recent to oldest [Reference Range]: 1.00 mMol/L *LOW* (04/10/17 5:18 AM) 1.09 mMol/L (04/09/17 6:29 AM) 1.06 mMol/L (04/08/17 4:15 AM) Ca Ion WB [1.05-1.25 mMol/L] 1.05 mMol/L (04/10/17 5:18 AM) 1.08 mMol/L (04/09/17 6:29 AM) 1.06 mMol/L (04/08/17 4:15 AM) Ca Norm WB [1.05-1.25 mMol/L] DRUG SCREEN 1 2 3 Most recent to oldest [Reference Range]: Negative *NA* (03/22/17 8:11 AM) U Methadone Scr [Negative] Negative *NA* (03/22/17 8:11 AM) U Propoxyph Scr [Negative] Negative *NA* (03/22/17 8:11 AM) U Amph Scr [Negative] Negative *NA* (03/22/17 8:11 AM) U Alana Scr [Negative] Negative *NA* (03/22/17 8:11 AM) U Benzodia Scr [Negative] Negative *NA* (03/22/17 8:11 AM) U Cocaine Scr [Negative] Negative *NA* (03/22/17 8:11 AM) U Opiate Scr [Negative] Negative *NA* (03/22/17 8:11 AM) U Phencyc Scr [Negative] Negative *NA* (03/22/17 8:11 AM) U Cannab Scr [Negative] See Note *NA* (03/22/17 8:11 AM) UDS Note URINE AND STOOL 1 2 3 Most recent to oldest [Reference Range]: Clear (03/22/17 8:11 AM) UA Turbidity [Clear] Yellow *NA* (03/22/17 8:11 AM) UA Color [Yellow] 5.5 (03/22/17 8:11 AM) UA pH [5.0-8.0] 1.010 (03/22/17 8:11 AM) UA Spec Grav [<=1.030] 250 mg/dL *ABN* (03/22/17 8:11 AM) UA Glucose [Negative mg/dL] Trace *ABN* (03/22/17 8:11 AM) UA Blood [Negative] Negative *NA* (03/22/17 8:11 AM) UA Ketones [Negative] Negative (03/22/17 8:11 AM) UA Protein [Negative] 0.2 EU/dL (03/22/17 8:11 AM) UA Urobilinogen [0.1-1.0 EU/dL] Negative *NA* (03/22/17 8:11 AM) UA Bili [Negative] Negative (03/22/17 8:11 AM) UA Leuk Est [Negative] Negative (03/22/17 8:11 AM) UA Nitrite [Negative] 0-2 /HPF (03/22/17 8:11 AM) UA WBC [None Seen /HPF] 0-2 /HPF (03/22/17 8:11 AM) UA RBC [0-2 /HPF] None Seen (03/22/17 8:11 AM) UA Bacteria [None Seen] None Seen (03/22/17 8:11 AM) UA Sq Epi [Few] Few /LPF (03/22/17 8:11 AM) UA Mucus [None Seen /LPF] HEMATOLOGY 1 2 3 Most recent to oldest [Reference Range]: 10.2 K/CMM (04/12/17 4:56 AM) 9.4 K/CMM (04/10/17 5:18 AM) 12.9 K/CMM *HI* (04/09/17 6:29 AM) WBC [3.7-10.4 K/CMM] 3.17 M/CMM *LOW* (04/12/17 4:56 AM) 2.89 M/CMM *LOW* (04/10/17 5:18 AM) 3.26 M/CMM *LOW* (04/09/17 6:29 AM) RBC [4.70-6.10 M/CMM] 9.4 g/dL *LOW* (04/12/17 4:56 AM) 8.7 g/dL *LOW* (04/10/17 5:18 AM) 9.5 g/dL *LOW* (04/09/17 6:29 AM) Hgb [14.0-18.0 g/dL] 28.1 % *LOW* (04/12/17 4:56 AM) 25.4 % *LOW* (04/10/17 5:18 AM) 28.8 % *LOW* (04/09/17 6:29 AM) Hct [42.0-54.0 %] 88.6 fL (04/12/17 4:56 AM) 87.9 fL (04/10/17 5:18 AM) 88.4 fL (04/09/17 6:29 AM) MCV [80.0-94.0 fL] 29.7 pg (04/12/17 4:56 AM) 30.0 pg (04/10/17 5:18 AM) 29.0 pg (04/09/17 6:29 AM) MCH [27.0-31.0 pg] 33.5 g/dL (04/12/17 4:56 AM) 34.2 g/dL (04/10/17 5:18 AM) 32.8 g/dL (04/09/17 6:29 AM) MCHC [32.0-36.0 g/dL] 16.7 % *HI* (04/12/17 4:56 AM) 16.1 % *HI* (04/10/17 5:18 AM) 16.0 % *HI* (04/09/17 6:29 AM) RDW [11.5-14.5 %] 397 K/CMM (04/12/17 4:56 AM) 424 K/CMM (04/10/17 5:18 AM) 494 K/CMM *HI* (04/09/17 6:29 AM) Platelet [133-450 K/CMM] 7.8 fL (04/12/17 4:56 AM) 7.6 fL (04/10/17 5:18 AM) 7.5 fL (04/09/17 6:29 AM) MPV [7.4-10.4 fL] 81.5 % *HI* (04/12/17 4:56 AM) 80.8 % *HI* (04/10/17 5:18 AM) 84.1 % *HI* (04/09/17 6:29 AM) Segs [45.0-75.0 %] 0.0 % (03/24/17 11:58 PM) Bands [0.0-11.0 %] 7.0 % *LOW* (04/12/17 4:56 AM) 7.2 % *LOW* (04/10/17 5:18 AM) 4.7 % *LOW* (04/09/17 6:29 AM) Lymphocytes [20.0-40.0 %] 0.0 % (03/24/17 11:58 PM) Atypical Lymphs [<=0.0 %] 8.2 % (04/12/17 4:56 AM) 8.5 % (04/10/17 5:18 AM) 8.9 % (04/09/17 6:29 AM) Monocytes [2.0-12.0 %] 2.1 % (04/12/17 4:56 AM) 2.3 % (04/10/17 5:18 AM) 1.2 % (04/09/17 6:29 AM) Eosinophils [0.0-4.0 %] 1.2 % *HI* (04/12/17 4:56 AM) 1.2 % *HI* (04/10/17 5:18 AM) 1.1 % *HI* (04/09/17 6:29 AM) Basophils [0.0-1.0 %] 8.3 K/CMM *HI* (04/12/17 4:56 AM) 7.6 K/CMM (04/10/17 5:18 AM) 10.9 K/CMM *HI* (04/09/17 6:29 AM) Segs-Bands # [1.5-8.1 K/CMM] 0.7 K/CMM *LOW* (04/12/17 4:56 AM) 0.7 K/CMM *LOW* (04/10/17 5:18 AM) 0.6 K/CMM *LOW* (04/09/17 6:29 AM) Lymphocytes # [1.0-5.5 K/CMM] 0.8 K/CMM (04/12/17 4:56 AM) 0.8 K/CMM (04/10/17 5:18 AM) 1.1 K/CMM *HI* (04/09/17 6:29 AM) Monocytes # [0.0-0.8 K/CMM] 0.2 K/CMM (04/12/17 4:56 AM) 0.2 K/CMM (04/10/17 5:18 AM) 0.2 K/CMM (04/09/17 6:29 AM) Eosinophils # [0.0-0.5 K/CMM] 0.1 K/CMM (04/12/17 4:56 AM) 0.1 K/CMM (04/10/17 5:18 AM) 0.1 K/CMM (04/09/17 6:29 AM) Basophils # [0.0-0.2 K/CMM] Normal (04/09/17 6:29 AM) Normal (03/27/17 1:42 AM) Normal (03/26/17 2:22 AM) RBC Morph 1+ *ABN* (03/29/17 4:25 AM) Anisocyte [None Seen] Normal (04/09/17 6:29 AM) Normal (03/29/17 4:25 AM) Normal (03/27/17 1:42 AM) Plt Morph Moderate *ABN* (03/26/17 2:22 AM) Large Plt [None Seen] 21.3 seconds *HI* (04/12/17 4:56 AM) 21.2 seconds *HI* (04/11/17 5:19 AM) 23.8 seconds *HI* (04/10/17 5:18 AM) PT [12.0-14.7 seconds] 1.83 *HI* (04/12/17 4:56 AM) 1.82 *HI* (04/11/17 5:19 AM) 2.10 *HI* (04/10/17 5:18 AM) INR [0.85-1.17] 156 seconds *NA* (03/29/17 8:56 AM) 220 seconds *NA* (03/24/17 2:38 PM) 314 seconds *NA* (03/24/17 1:43 PM) POC Activated Clotting Time 25.3 seconds *HI* (03/28/17 12:01 PM) 39.8 seconds *HI* (03/28/17 1:35 AM) 37.5 seconds *HI* (03/27/17 5:14 PM) Thrombin Time [15.0-21.2 seconds] 648 mg/dL *HI* (03/28/17 12:01 PM) 639 mg/dL *HI* (03/28/17 1:35 AM) 604 mg/dL *HI* (03/27/17 5:14 PM) Fibrinogen Lvl [230-510 mg/dL] 1.07 ug/mL FEU *NA* (03/28/17 12:01 PM) 0.70 ug/mL FEU *NA* (03/28/17 1:35 AM) 0.89 ug/mL FEU *NA* (03/27/17 5:14 PM) D-Dimer 58.5 seconds *HI* (04/12/17 4:56 AM) 47.1 seconds *HI* (04/07/17 12:25 AM) 40.2 seconds *HI* (04/05/17 4:58 AM) PTT [22.9-35.8 seconds] See Note 1 (03/24/17 6:03 PM) R-time [5.0-10.0] xxxxxxx (03/24/17 6:03 PM) K-time [1.0-3.0] xxxxxxx (03/24/17 6:03 PM) Angle [53.0-72.0] xxxxxxx (03/24/17 6:03 PM) Max Amp [50.0-70.0] xxxxxxx (03/24/17 6:03 PM) G-value [4.5-11.0] xxxxxxx (03/24/17 6:03 PM) Ly30 [0.0-7.5] xxxxxxx (03/24/17 6:03 PM) Coag Index [-3.0-3.0] See Note (03/24/17 6:03 PM) TEG Data 265 PRU *NA* (03/24/17 6:50 PM) Plav Effect Plt 1Result Comment: NO Clot form MOLECULAR DIAGNOSTIC 1 2 3 Most recent to oldest [Reference Range]: [employer] INVESTIGATOR Swab (03/26/17 1:09 PM) Source Adenovirus PCR [employer] INVESTIGATOR Swab (03/26/17 1:09 PM) Source Parainfluenza Virus PCR Negative (03/26/17 1:09 PM) Parainfluenza 1 PCR [Negative] Negative (03/26/17 1:09 PM) Parainfluenza 2 PCR [Negative] Negative (03/26/17 1:09 PM) Parainfluenza 3 PCR [Negative] [employer] INVESTIGATOR Swab (04/04/17 6:24 AM) [employer] SCI[employer] INVESTIGATOR Swab (03/26/17 1:09 PM) Source Respiratory Panel PCR Negative (04/04/17 6:24 AM) Negative (03/26/17 1:09 PM) Influenza A PCR [Negative] Negative (04/04/17 6:24 AM) Negative (03/26/17 1:09 PM) Influenza B PCR [Negative] Negative 1 (04/04/17 6:24 AM) Negative (03/26/17 1:09 PM) RSV PCR [Negative] Negative (03/26/17 1:09 PM) Adenovirus PCR [Negative] 1Result Comment: Results to follow. Notified Benjamin Rosales on 04/05/2017 08:20. Immunizations No data available for this section Procedures Procedure Date Related Diagnosis Body Site ACD - Automatic cardiac defibrillator procedure Stent placement Social History Social History Type Response Alcohol Never Smoking Status Never smoker; Exposure to Tobacco Smoke None; Cigarette Smoking Last 365 Days No; Reg Smoking Cessation Counseling No Assessment and Plan Extracted from: Title: Cardiology Attending Note Author: You Quinteros MD Date: 04/12/17 I have seen the patient in collaboration with the housestaff (resident and/or fellow). I have examined the patient independantly, and have reviewed any history, radiographic and cardiac imaging, and diagnostic testing. I agree with the findings and plan outlined in the note by the resident with the following additions/modifications: -s/p emergent CABG for retrograde LCx dissection into left main during PCI for NSTEMI -transferring to inpatient rehab today -leg edema improved on higher dose -bridging with lovenox until INR therapeutic from coumadin Extracted from: Title: PM&R Consultation Author: Lisette bOregon Date: 04/09/17 Impression and Plan Diagnosis Asthenia Debility Gait abnormality. Post-surgical pain. Peripheral arterial disease Deep tissue injury to bilateral heels Coronary artery disease status post NSTEMI status post PCI and CABG 2 with ECMO support. Acute on chronic systolic heart failure exacerbation Atrial fibrillation Stenosis of left distal SFA Impairments: Pain. General: Decreased strength, Decreased range of motion. Disabilities: Decreased: Mobility, Ability to transfer self, Ability to ambulate, Ability to dress self, Ability to bathe self, Ability to toilet self, Ability to reintegrate into community, Ability to self-care, Safety. Plan: 1. Rehabilitation for gait abnormality, asthenia, debility and deficits above: Necessitates ongoing evaluation and treatment sessions with PT and OT. 2. CAD with NSTEMI: s/p PCI & CABG x2. Stable post-operatively at this time. Continue Plavix and Coreg 3. Atrial fibrillation: Therapeutic on his warfarin and currently rate controlled 4. Post-surgical pain: Currently some pain in the wound site on the leg, as well as the heels. Continue to decrease weight through the heels and educated on wound healing. 5. Risk of venous thromboembolism: Continue warfarin and mobility 6. Dispo: Has been progressing well. Continue PT and OT while hospitalized. Patient is a good candidate for inpatient rehabilitation at this time for his functional gait abnormality, weakness, dyspnea, postsurgical pain. Plan discussed with nurse liason, patient and his family. Extracted from: Title: [facility] History & Physical Author: Ralf Orellana MD Date: 03/22/17 Impression and Plan 76 yo M with CAD s/p PCI x2 to LAD (2011), ischemic CMP, HFrEF (<25% as per pt) s/p ICD (medtronic 2016), HLD, HTN and NIDDM who presentes with worsening shortness of breath. Likely secondary to heart failure exacerbation in the setting of diet noncompliance. Other #Acute on Chronic Systolic Heart Failure Exacerbation #Ischemic Cardiomyopathy - EF <25% as per pt - s/p Medtronic ICD in 06/2016 - CXR with significant b/l infiltrates c/w pulmonary edema - TSH wnl - Check BNP - Check TTE - Cont Lasix 40mg IV bid - PT/OT #Elevated Troponins - Trop: 0.3-->1.25 - likely demand v true ischemic event - Last LHC with residual disease in diagonal, OM1, OM2, and PLB - Start heparin GTT - cont asa, statin - Start metoprolol, lisinopril - Trend Cardiac enzymes and ekg until downtrending - will plan for potential [facility] tomorrow #Community Acquired Pneumonia - pt with cough, XR infiltrates, leukocytosis and mildly elevated procalcitonin - Cont Ceftriaxone 1g qd - Cont Azithromycin 500mg qd - f/u Blood Cx 03/22/2017 #Hypertension - On lisinopril and metoprolol at home - BP well controlled as of now. Will restart home meds as tolerated. #ACE v ACE on CKD v CKD - Cr 1.56 on admission unsure of baseline - Cont to trend, avoid nephrotoxic agents #CAD - s/p PCI x2 to LAD in 2011 - EKG urnemarkable, Trop negative - Start ASA, Atorvastatin #HLD - LDL 134 - Atorvastatin as above #NIDDM - on metformin and ?glypizide/glyburide at home - A1c: 8.9 - FS TIDAC and ISS DVT: Hep SQ GI: not indicated Diet: Heart Healthy with fluid restriction Dispo: home pending diuresis and improved respiratory status Code: FULL -- Ralf Orellana MD Internal Medicine | PGY3 MSO [id number] I saw and examined patient with resident, Dr. Orellana. Agree with management and plans as we discussed.
--- OUTSIDE RECORDS SUMMARY | 2018-04-20 20:52 | XMS REPORT | Continuity of Care Document ---
Author Author [facility] Interface Address Unknown Phone Unavailable Problems Problem Status Onset Date Classification Date Reported Comments Source Disruption of external operation wound, not elsewhere classified, initial encounter 06/01/2017 08/31/2017 [facility] LEG WOUND, LEFT Active 05/15/2017 [facility] UNK Active 05/15/2017 [facility] I25.10 Active 05/09/2017 [facility] ACB Active 04/26/2017 [facility] DECONDITIONED Active 04/05/2017 [facility] ACUTE EXACERBATION OF CHF Active 03/22/2017 [facility] DIFFICULTY BREATHING Active 03/22/2017 [facility] IABP - Intra-aortic balloon pumping Resolved 09/08/2011 Problem 09/14/2017 [facility] Final: Other malaise 04/22/2017 [facility] Acoustic neuroma Resolved Problem 09/14/2017 [facility] Acute CHF Active Problem 09/14/2017 [facility] Acute myocardial infarction Active Problem 09/14/2017 [facility] Anxiety about body function or health Active Problem 09/14/2017 [facility] Atrial fibrillation Active Problem 09/14/2017 [facility] Presence of automatic cardioverter/defibrillator (<span ID="[id number]">Confirmed</span>) Active Problem 09/14/2017 [facility] Cardiac defibrillator in place Active Problem 09/14/2017 [facility] Pacemaker Active Problem 09/14/2017 [facility] CHF (<span ID="[id number]">Confirmed</span>) Resolved Problem 09/14/2017 [facility] CAD (<span ID="[id number]">Confirmed</span>) Active Problem 09/14/2017 [facility] Diabetes mellitus Active Problem 09/14/2017 [facility] DM (<span ID="[id number]">Confirmed</span>) Active Problem 09/14/2017 [facility] Hiatal hernia Resolved Problem 09/14/2017 [facility] S/P CABG x 2 Active Problem 09/14/2017 [facility] HLD (<span [id number]">Confirmed</span>) Active Problem 09/14/2017 [facility] HTN (<span [id number]">Confirmed</span>) Active Problem 09/14/2017 [facility] Indigestion Resolved Problem 09/14/2017 [facility] MS (<span [id number]">Confirmed</span>) Resolved Problem 09/14/2017 [facility] PAD (<span [id number]">Confirmed</span>) Active Problem 09/14/2017 [facility] Pulmonary edema Active Problem 09/14/2017 [facility] Ventricular fibrillation Resolved Problem 09/14/2017 [facility] Unspecified injury of other blood vessels at lower leg level, left leg, initial encounter 08/31/2017 [facility] Acute respiratory failure with hypoxia 08/31/2017 [facility] Acute on chronic systolic heart failure 08/31/2017 [facility] Pressure ulcer of sacral region, stage 1 08/31/2017 [facility] Hypertensive heart disease with heart failure 08/31/2017 [facility] Unspecified atrial fibrillation 08/31/2017 [facility] Hypomagnesemia 08/31/2017 [facility] Hypokalemia 08/31/2017 [facility] Hyperlipidemia, unspecified 08/31/2017 [facility] Atherosclerotic heart disease of [place] coronary artery without angina pectoris 08/31/2017 [facility] Old myocardial infarction 08/31/2017 [facility] Presence of aortocoronary bypass graft 08/31/2017 [facility] Presence of coronary angioplasty implant and graft 08/31/2017 [facility] assisted use of anticoagulants 08/31/2017 [facility] assisted use of antithrombotics/antiplatelets 08/31/2017 [facility] Surgical operation with anastomosis, bypass or graft as the cause of abnormal reaction of the patient, or of later complication, without mention of misadventure at the time of the procedure 08/31/2017 [facility] WEAKNESS Active [facility] ATHSCL HEART DISEASE OF [place] CORONARY Active [facility] OTHER MALAISE Active [facility] UNSP INJ BLOOD VESSELS AT LOWER LEG LEVE Active [facility] Medications Medication Details Route Status Patient Instructions Ordering Provider Order Date Source Potassium Chloride 40 mEq, 2 tab, Route: PO, Drug form: ERTAB, ONCE, Dosing Weight 72.273, kg, Start date: 05/25/17 13:14:00 E COMMERCE STRATEGIST, Stop date: 05/25/17 13:14:00 CSTNotes: (Same as: Juan 20) "Do Not Crush" With food and full glass of water Inactive 05/25/2017 [facility] sacubitril 24 MG / valsartan 26 MG Oral Tablet [Entresto] 1 tab, PO, Q12H, # 60 tab, 0 Refill(s), Pharmacy: [facility] [id number] Active 05/25/2017 [facility] Aspirin 81 MG Enteric Coated Tablet 81 mg=1 tab, PO, Daily, # 30 tab, 0 Refill(s), Pharmacy: [facility] [id number] Active 05/25/2017 [facility] Furosemide 40 MG Oral Tablet [Lasix] 40 mg=1 tab, PO, BID, # 60 tab, 0 Refill(s), Pharmacy: [facility] [id number] Active 05/25/2017 [facility] sacubitril-valsartan 1 tab, Route: PO, Drug Form: TAB, ONCE, Start date: 05/24/17 12:59:00 E [employer]ERCE STRATEGIST, Stop date: 05/24/17 12:59:00 CSTNotes: (Same as: Entresto) Avoid in patients with history of angioedema due to BRANDON inhibitor or ARB therapy. Do not use concomitantly or within 36 hours of BRANDON inhibitors Inactive 05/24/2017 [facility] Potassium Chloride 40 mEq, 2 tab, Route: PO, Drug form: ERTAB, ONCE, Dosing Weight 72.273, kg, Start date: 05/24/17 12:00:00 E COMMERCE STRATEGIST, Stop date: 05/24/17 12:00:00 CSTNotes: (Same as: K-Dur 20) "Do Not Crush" With food and full glass of water Inactive 05/24/2017 [facility] Bactroban 1 appl, Route: NASAL, Q12H, Drug form: OINT, Start date: 05/22/17 22:00:00 E COMMERCE STRATEGIST, Duration: 1 doses or times, Stop date: 05/22/17 22:00:00 E [employer]ERCE STRATEGIST Inactive 05/23/2017 [facility] Robitussin 100 mg, 5 mL, Route: PO, Drug Form: LIQ, Dosing Weight 72.273, kg, Q4H, PRN as needed for congestion, Start date: 05/21/17 18:55:00 E COMMERCE STRATEGIST, Duration: 1 day, Stop date: 05/22/17 18:54:00 CSTNotes: (Same as: Robitussin) No Longer Active 05/22/2017 [facility] Spironolactone 25 mg, 1 tab, Route: PO, Drug form: TAB, Daily, Dosing Weight 72.273, kg, Start date: 05/21/17 9:00:00 E COMMERCE STRATEGIST, Duration: 30 day, Stop date: 06/19/17 9:00:00 CSTNotes: (Same As: Aldactone) No Longer Active 05/21/2017 [facility] Aspirin 81 mg, 1 tab, Route: PO, Drug form: ECTAB, Daily, Dosing Weight 72.273, kg, Start date: 05/21/17 9:00:00 E [employer]ERCE STRATEGIST, Duration: 30 day, Stop date: 06/19/17 9:00:00 CSTNotes: Do not crush or chew. (Same As: Ecotrin) No Longer Active 05/21/2017 [facility] sacubitril 24 MG / valsartan 26 MG Oral Tablet [Entresto] 1 tab, Route: PO, Drug Form: TAB, Dosing Weight 72.273, kg, Q12H, Start date: 05/20/17 21:00:00 E COMMERCE STRATEGIST, Stop date: 06/19/17 9:00:00 CSTNotes: (Same as: Entresto) Avoid in patients with history of angioedema due to BRANDON inhibitor or ARB therapy. Do not use concomitantly or within 36 hours of BRANDON inhibitors No Longer Active 05/21/2017 [facility] Albuterol 0.833 MG/ML / Ipratropium [place] 0.167 MG/ML Inhalant Solution [DuoNeb] 3 ml, Route: NEB, Drug Form: SOLN, Dosing Weight 72.273, kg, PRN, PRN Respiratory Protocol, Start date: 05/19/17 12:44:00 E COMMERCE STRATEGIST, Duration: 30 day, Stop date: 06/18/17 12:43:00 CSTNotes: (Same as: Duoneb) No Longer Active 05/19/2017 [facility] Vasopressin (LONG-TERM) 40 unit, 2 mL, Rate: Per Physician Orders, Start Dose: 0.03 unit/min, Titration: Do Not Titrate for Sepsis., Goal(s): MAP >=65 mmHg, Route: IV, Dosing Weight 72.273 kg, Total Volume: 100, Start date: 05/19/17 12:44:00 E COMMERCE STRATEGIST, Duration: 30 day, Stop date...Notes: (Same As: Pitressin, Vasostrict) No Longer Active 05/19/2017 [facility] Lasix 40 mg, 4 mL, Route: IVP, Drug form: INJ, Daily, Dosing Weight 72.273, kg, Start date: 05/19/17 9:00:00 E COMMERCE STRATEGIST, Duration: 30 day, Stop date: 06/17/17 9:00:00 CSTNotes: (Same as: Lasix) MEDICATION WASTE Product Size: 40 mg Product Wasted: ___ mg No Longer Active 05/19/2017 [facility] meropenem 500 mg, Route: IVPB, ABXQ8H, Dosing Weight 72.273, kg, CrCL=30 -49 ml/min, Extended infusion, infuse over 3 hours, Priority: STAT, Start date: 05/18/17 18:24:00 E COMMERCE STRATEGIST, Duration: 7 day, Stop date: 05/25/17 10:24:00 E COMMERCE STRATEGIST, ABX Indication: Skin/Soft Tissue...Notes: Same as Merrem MEDICATION WASTE Product Size: 500 mg Product Wasted: ___ mg No Longer Active 05/19/2017 [facility] Insulin Lispro 3 unit, 0.03 mL, Route: SUB-Q, Drug form: SOLN, Sliding Scale, Dosing Weight 72.273, kg, PRN Blood Glucose Results, Start date: 05/18/17 11:22:00 E COMMERCE STRATEGIST, Duration: 30 day, Stop date: 06/17/17 11:21:00 C STNotes: Roll in palms of hands gently; Do not shake `vigorously. (Same as: Humalog ) "Single Patient Use Only " WASTE: F/P - Black; E - Municipal Trash Bin Stable for 28 days at room temperature. Expires in days from Date No Longer Active 05/18/2017 [facility] Potassium Chloride 20 mEq, 10 mL, Route: IVPB, PRN, Dosing Weight 72.273, kg, PRN Abnormal Lab Result, Via central line, Start date: 05/18/17 9:12:00 E COMMERCE STRATEGIST, Duration: 30 day, Stop date: 06/17/17 9:11:00 E COMMERCE STRATEGIST, FOR ICU USE ONLYNotes: MUST be Diluted before use (Same as: KCl) MEDICATION WASTE Product Size: 40 mEq Product Wasted: _20__ mEq No Longer Active 05/18/2017 [facility] potassium phosphate 15 mmol, 5 mL, Route: IVPB, PRN, Dosing Weight 72.273, kg, PRN Abnormal Lab Result, Start date: 05/18/17 9:12:00 E COMMERCE STRATEGIST, Duration: 30 day, Stop date: 06/17/17 9:11:00 E COMMERCE STRATEGIST, FOR ICU USE ONLYNotes: (Same as: K Phosphate.) 1 mMol phoshate has 1.47 mEq potassium Infuse over 4 hours No Longer Active 05/18/2017 [facility] Calcium Carbonate 500 MG Chewable Tablet 1,000 mg, 2 tab, Route: PO, Drug form: CHEWTAB, PRN, Dosing Weight 72.273, kg, PRN Abnormal Lab Result, FOR ICU USE ONLY, Start date: 05/18/17 9:12:00 E COMMERCE STRATEGIST, Duration: 30 day, Stop date: 06/17/17 9:11:00 CSTNotes: (Same As: Tums) Calcium Carbonate 500 gk=728 mg elemental calcium Dose= mg calcium carbonate ( mg elemental calcium) No Longer Active 05/18/2017 [facility] Calcium Gluconate 1 gm, 10 mL, Route: IVPB, PRN, Dosing Weight 72.273, kg, PRN Abnormal Lab Result, Start date: 05/18/17 9:12:00 E COMMERCE STRATEGIST, Duration: 30 day, Stop date: 06/17/17 9:11:00 E COMMERCE STRATEGIST, FOR ICU USE ONLYNotes: WASTE: F/P - Sink; E - Municipal Trash Bin No Longer Active 05/18/2017 [facility] Magnesium Sulfate 2 gm, 50 mL, Route: IVPB, Drug form: INJ, PRN, Dosing Weight 72.273, kg, PRN Abnormal Lab Result, Start date: 05/18/17 9:12:00 E COMMERCE STRATEGIST, Duration: 30 day, Stop date: 06/17/17 9:11:00 E COMMERCE STRATEGIST, FOR ICU USE ONLYNotes: WASTE: F/P - Sink; E - Municipal Trash Bin No Longer Active 05/18/2017 [facility] potassium phosphate-sodium phosphate 250 mg-280 mg-160 mg oral powder for reconstitution 2 pkt, Route: PO, Drug Form: PDR/REC, Dosing Weight 72.273, kg, PRN, PRN Abnormal Lab Result, FOR ICU USE ONLY, Start date: 05/18/17 9:12:00 E COMMERCE STRATEGIST, Duration: 30 day, Stop date: 06/17/17 9:11:00 CSTNotes: (Same as: Phos-NaK) Each 1.5 gm pkt has 250mg phosphorous. Mix w/2.5oz water and stir. No Longer Active 05/18/2017 [facility] sodium phosphate 45 mmol, 15 mL, Route: IVPB, PRN, Dosing Weight 72.273, kg, PRN Abnormal Lab Result, Start date: 05/18/17 9:12:00 E COMMERCE STRATEGIST, Duration: 30 day, Stop date: 06/17/17 9:11:00 E COMMERCE STRATEGIST, FOR ICU USE ONLY No Longer Active 05/18/2017 [facility] Magnesium Oxide 800 mg, 2 tab, Route: PO, Drug form: TAB, PRN, Dosing Weight 72.273, kg, PRN Abnormal Lab Result, FOR ICU USE ONLY, Start date: 05/18/17 9:12:00 E COMMERCE STRATEGIST, Duration: 30 day, Stop date: 06/17/17 9:11:00 E COMMERCE STRATEGIST Notes: (Same as: Mag-Ox 400) Magnesium oxide [id number] elemental magnesium Dose=____mg magnesium oxide (___mg elemental magnesium) No Longer Active 05/18/2017 [facility] Mupirocin 0.02 MG/MG Topical Ointment 1 appl, Route: NASAL, Q12H, Drug form: OINT, Start date: 05/17/17 21:30:00 E COMMERCE STRATEGIST, Duration: 5 day, Stop date: 05/22/17 21:00:00 E COMMERCE STRATEGIST No Longer Active 05/18/2017 [facility] Dextrose 50% Syringe 12.5 gm, 25 mL, Route: IVP, Drug Form: INJ, Dosing Weight 72.273, kg, PRN, PRN Blood Glucose Results, Start date: 05/17/17 20:45:00 E COMMERCE STRATEGIST, Duration: 30 day, Stop date: 06/16/17 20:44:00 E COMMERCE STRATEGIST No Longer Active 05/18/2017 [facility] Glucagon 1 mg, Route: IM, Drug form: PDR/INJ, PRN, Dosing Weight 72.273, kg, PRN Blood Glucose Results, Start date: 05/17/17 20:45:00 E COMMERCE STRATEGIST, Duration: 30 day, Stop date: 06/16/17 20:44:00 E COMMERCE STRATEGIST No Longer Active 05/18/2017 [facility] Insulin Lispro 6 unit, 0.06 mL, Route: SUB-Q, Drug form: SOLN, Sliding Scale, Dosing Weight 72.273, kg, PRN Blood Glucose Results, Start date: 05/17/17 20:45:00 E COMMERCE STRATEGIST, Duration: 30 day, Stop date: 06/16/17 20:44:00 C STNotes: Roll in palms of hands gently; Do not shake `vigorously. (Same as: Humalog ) "Single Patient Use Only " WASTE: F/P - Black; E - Am[employer]ix Trash Bin Stable for 28 days at room temperature. Expires in days from Date No Longer Active 05/18/2017 [facility] Norepinephrine 8 mg, 250 mL, Rate: Titrate, Start Dose: 5 microgram/min, Titration: 2 microgram/min every 2-5 minutes, Goal(s): MAP >=65 mmHg, Max Dose: 70 microgram/min, Route: IV, Dosing Weight 72.273 kg, Total Volume: 250, Start date: 05/17/17 13:38:00 E COMMERCE STRATEGIST, Dura...Notes: Same as: Levophed. Administer by either central venous catheter or peripherally-inserted central catheter (PICC) line. Concentration: 0.032 mg / mL No Longer Active 05/17/2017 [facility] Lasix 40 mg, 4 mL, Route: IVP, Drug form: INJ, TID, Dosing Weight 72.273, kg, Start date: 05/17/17 13:00:00 E COMMERCE STRATEGIST, Duration: 30 day, Stop date: 06/16/17 9:00:00 CSTNotes: (Same as: Lasix) MEDICATION WASTE Product Size: 40 mg Product Wasted: _0__ mg No Longer Active 05/17/2017 [facility] albumin human 25% intravenous solution 25 gm, 100 mL, Route: IVPB, Drug form: INJ, ONCE, Dosing Weight 72.273, kg, Start date: 05/17/17 12:21:00 E COMMERCE STRATEGIST, Stop date: 05/17/17 12:21:00 CSTNotes: Lot #: Mfg: (Same as: Plasbumin-25) "blood product derivative" WASTE: F/P - Red; E -Red MEDICATION WASTE Product Size: 25 gm Product Wasted: ___ gm Inactive 05/17/2017 [facility] pantoprazole 40 mg, Route: IVP, Drug form: INJ, Daily, Dosing Weight 72.273, kg, Start date: 05/17/17 12:00:00 E COMMERCE STRATEGIST, Duration: 30 day, Stop date: 06/16/17 9:00:00 E COMMERCE STRATEGIST No Longer Active 05/17/2017 [facility] Versed 2 mg, 2 mL, Route: IVP, Drug form: INJ, Q2H, Dosing Weight 72.273, kg, PRN Agitation, Start date: 05/17/17 11:12:00 E COMMERCE STRATEGIST, Duration: 30 day, Stop date: 06/16/17 11:11:00 CSTNotes: (Same as: Versed) MEDICATION WASTE Product Size: 2 mg Product Wasted: _0_ mg No Longer Active 05/17/2017 [facility] Fentanyl 1,250 microgram, 250 mL, Rate: Titrate, Start Dose: 50 microgram/hr, Titration: 25 microgram/hour every 15 minutes, Goal(s): RASS -2, Max Dose: 300 microgram/hr, Route: IV, Dosing Weight 72.273 kg, Total Volume: 250, Start date: 05/17/17 11:12:00 E COMMERCE STRATEGIST,...Notes: Concentration: 5 microgram / ml No Longer Active 05/17/2017 [facility] Lasix 20 mg, Route: IVP, Drug form: INJ, ONCE, Dosing Weight 72.273, kg, Start date: 05/17/17 10:09:00 E COMMERCE STRATEGIST, Stop date: 05/17/17 10:09:00 E COMMERCE STRATEGIST Inactive 05/17/2017 [facility] Furosemide 20 MG Oral Tablet [Lasix] 20 mg, 1 tab, Route: IV, ONCE, Dosing Weight 72.273, kg, Start date: 05/17/17 10:06:00 E COMMERCE STRATEGIST, Stop date: 05/17/17 10:06:00 E COMMERCE STRATEGIST Inactive 05/17/2017 [facility] Lasix 20 mg, Route: IVP, Drug form: INJ, ONCE, Dosing Weight 72.273, kg, Start date: 05/17/17 9:54:00 E COMMERCE STRATEGIST, Stop date: 05/17/17 9:54:00 E COMMERCE STRATEGIST Inactive 05/17/2017 [facility] Lovenox 40 mg, 0.4 mL, Route: SUB-Q, Drug form: INJ, [id number], Dosing Weight 72.273, kg, Start date: 05/17/17 9:00:00 E COMMERCE STRATEGIST, Duration: 30 day, Stop date: 06/15/17 9:00:00 CSTNotes: (Same as: Lovenox) No Longer Active 05/17/2017 [facility] Lisinopril 2.5 mg, 0.5 tab, Route: PO, Drug form: TAB, Daily, Dosing Weight 72.273, kg, Start date: 05/17/17 9:00:00 E COMMERCE STRATEGIST, Duration: 30 day, Stop date: 06/15/17 9:00:00 CSTNotes: (Same as: Prinivil, Zestril) No Longer Active 05/17/2017 [facility] Insulin Glargine 100 UNT/ML Injectable Solution 12 unit, 0.12 mL, Route: SUB-Q, Drug form: SOLN, BID, Dosing Weight 72.273, kg, Start date: 05/17/17 9:00:00 E COMMERCE STRATEGIST, Stop date: 06/15/17 17:00:00 CSTNotes: (Same as: Lantus) Do not hold insulin without contacting prescriber WASTE: F/P - Black; E - Municipal Trash Bin "single patient use only" No Longer Active 05/17/2017 [facility] clopidogrel 75 mg, 1 tab, Route: PO, Drug form: TAB, Daily, Dosing Weight 72.273, kg, Start date: 05/17/17 9:00:00 E COMMERCE STRATEGIST, Duration: 30 day, Stop date: 06/15/17 9:00:00 CSTNotes: (Same As: Plavix) No Longer Active 05/17/2017 [facility] carvedilol 3.125 mg, 1 tab, Route: PO, Drug form: TAB, BID, Dosing Weight 72.273, kg, Start date: 05/17/17 9:00:00 E COMMERCE STRATEGIST, Duration: 30 day, Stop date: 06/15/17 21:00:00 CSTNotes: Give with food. (Same As: Coreg) No Longer Active 05/17/2017 [facility] Calcium Chloride 0.0014 MEQ/ML / Potassium Chloride 0.004 MEQ/ML / Sodium Chloride 0.103 MEQ/ML / Sodium Lactate 0.028 MEQ/ML Injectable Solution 1,000 mL, Rate: 25 ml/hr, Infuse over: 40 hr, Route: IV, Dosing Weight 72.273 kg, Total Volume: 1,000, Start date: 05/17/17 8:56:00 E COMMERCE STRATEGIST, Duration: 1 day, Stop date: 05/18/17 8:55:00 E COMMERCE STRATEGIST, 1.89, m2 Inactive 05/17/2017 [facility] Protonix 40 mg, 1 tab, Route: PO, Drug form: ECTAB, Before Breakfast, Dosing Weight 72.273, kg, Start date: 05/17/17 7:30:00 E COMMERCE STRATEGIST, Duration: 30 day, Stop date: 06/15/17 7:30:00 CSTNotes: Tablet should not be c hewed or crushed. (Same as: Protonix) Inactive 05/17/2017 [facility] atorvastatin 40 mg, 1 tab, Route: PO, Drug form: TAB, Bedtime, Dosing Weight 72.273, kg, Start date: 05/16/17 21:00:00 E COMMERCE STRATEGIST, Duration: 30 day, Stop date: 06/14/17 21:00:00 CSTNotes: (Same as: Lipitor) No Longer Active 05/17/2017 [facility] Robitussin 100 mg/5 mL oral liquid 100 mg, 5 mL, Route: PO, Drug form: LIQ, Q4H, Dosing Weight 72.273, kg, PRN as needed for congestion, Start date: 05/16/17 19:03:00 E COMMERCE STRATEGIST, Duration: 30 day, Stop date: 06/15/17 19:02:00 CSTNotes: (Same as: Robitussin) No Longer Active 05/17/2017 [facility] Insulin Lispro 4 unit, 0.04 mL, Route: SUB-Q, Drug form: SOLN, TID-Before Meals, Dosing Weight 72.273, kg, PRN Blood Glucose Results, Start date: 05/16/17 18:16:00 E COMMERCE STRATEGIST, Duration: 30 day, Stop date: 06/15/17 18:15:0 0 CSTNotes: Roll in palms of hands gently; Do not shake `vigorously. (Same as: Humalog ) "Single Patient Use Only " WASTE: F/P - Black; E - Amadix Trash Bin Stable for 28 days at room temperature. Expires in days from Date Inactive 05/17/2017 [facility] Dextrose 50% Syringe 12.5 gm, 25 mL, Route: IVP, Drug Form: INJ, Dosing Weight 72.273, kg, PRN, PRN Blood Glucose Results, Start date: 05/16/17 18:16:00 E COMMERCE STRATEGIST, Duration: 30 day, Stop date: 06/15/17 18:15:00 E COMMERCE STRATEGIST Inactive 05/17/2017 [facility] Glucagon 1 mg, Route: IM, Drug form: PDR/INJ, PRN, Dosing Weight 72.273, kg, PRN Blood Glucose Results, Start date: 05/16/17 18:16:00 E COMMERCE STRATEGIST, Duration: 30 day, Stop date: 06/15/17 18:15:00 E COMMERCE STRATEGIST Inactive 05/17/2017 [facility] Ancef + sterile water 20 mL 2 gm, Route: IVP, Q8H, Dosing Weight 72.273, kg, Start date: 05/16/17 18:00:00 E COMMERCE STRATEGIST, Duration: 10 day, Stop date: 05/26/17 10:00:00 E COMMERCE STRATEGIST, ABX Indication: Other (specify in Comments)Notes: (Same As: Fredrick Franco) MEDICATION WASTE Product Size: 1000 mg Product Wasted: ___ mg No Longer Active 05/17/2017 [facility] Tylenol 650 mg, 2 tab, Route: PO, Drug form: TAB, Q6H, Dosing Weight 72.273, kg, PRN For Temp > 100.4 F, Start date: 05/16/17 17:58:00 E COMMERCE STRATEGIST, Duration: 30 day, Stop date: 06/15/17 17:57:00 CSTNotes: Do not exceed 4 gm/day. (Same as: Tylenol) No Longer Active 05/16/2017 [facility] Acetaminophen 650 mg, 2 tab, Route: PO, Drug form: TAB, Q6H, Dosing Weight 72.273, kg, PRN Pain Score 1-3, Start date: 05/16/17 17:13:00 E COMMERCE STRATEGIST, Duration: 30 day, Stop date: 06/15/17 17:12:00 CSTNotes: Do not exceed 4 gm/day. (Same as: Tylenol) No Longer Active 05/16/2017 [facility] Naloxone 0.04 mg, 0.1 mL, Route: IVP, Drug form: INJ, Q2MIN, Dosing Weight 72.273, kg, PRN Narcotic Reversal, Start date: 05/16/17 16:39:00 E COMMERCE STRATEGIST, Duration: 30 day, Stop date: 06/15/17 16:38:00 CSTNotes: Same as Narcan No Longer Active 05/16/2017 [facility] Morphine 30 mg, 30 mL, Route: IV, STRAW HAT PRESSER Dose: 1 mg, STRAW HAT PRESSER Lockout: 15 minutes, Continuous Basal Rate: 0 mg, 4 Hour Limit (In MG): 24, Drug Form: INJ, Continuous, Start date: 05/16/17 16:39:00 E COMMERCE STRATEGIST, Duration: 30 day, Stop date: 06/15/17 16:38:00 CSTNotes: Dose: Delay: Basal rate: 4hr limit: (Same as:Kimberly-Juan Francisco) No Longer Active 05/16/2017 [facility] Morphine 2 mg, 1 mL, Route: IVP, Drug form: INJ, Q4H, Dosing Weight 72.273, kg, PRN as needed for chest pain, Start date: 05/16/17 16:37:00 E COMMERCE STRATEGIST, Stop date: 06/15/17 16:36:00 CSTNotes: (Same as:MORPhine Sulfate) No Longer Active 05/16/2017 [facility] lidocaine (ANES) Route: IV, Drug form: INJ, ONCE, Stop date: 05/16/17 10:45:00 E COMMERCE STRATEGIST Inactive 05/16/2017 [facility] Amidate (ANES) Route: IV, Drug form: INJ, ONCE, Stop date: 05/16/17 10:45:00 E COMMERCE STRATEGIST Inactive 05/16/2017 [facility] fentaNYL (ANES) Route: IV, Drug form: INJ, ONCE, Stop date: 05/16/17 10:41:00 E COMMERCE STRATEGIST Inactive 05/16/2017 [facility] ondansetron (ANES) Route: IV, Drug form: INJ, ONCE, Stop date: 05/16/17 10:41:00 E COMMERCE STRATEGIST Inactive 05/16/2017 [facility] propofol (ANES) Route: IV, Drug form: INJ, ONCE, Stop date: 05/16/17 10:41:00 E COMMERCE STRATEGIST Inactive 05/16/2017 [facility] famotidine (ANES) Route: IV, Drug form: INJ, ONCE, Stop date: 05/16/17 10:36:00 E COMMERCE STRATEGIST Inactive 05/16/2017 [facility] norepinephrine (ANES) Route: IV, Drug form: INJ, ONCE, Stop date: 05/16/17 10:31:00 E COMMERCE STRATEGIST Inactive 05/16/2017 [facility] ePHEDrine (ANES) Route: IV, Drug form: INJ, ONCE, Stop date: 05/16/17 10:31:00 E [employer]IST Inactive 05/16/2017 [facility] phenylephrine (ANES) Route: IV, Drug form: INJ, ONCE, Stop date: 05/16/17 10:31:00 E [employer] Inactive 05/16/2017 [facility] normal saline 0.9% IV 1,000 mL 1,000 mL, Rate: 75 ml/hr, Infuse over: 13.3 hr, Route: IV, Dosing Weight 71.477 kg, Total Volume: 1,000, Start date: 05/16/17 10:29:00 E [employer], Duration: 30 day, Stop date: 06/15/17 10:28:00 E [employer], 1.88, m2 No Longer Active 05/16/2017 [facility] ceFAZolin (ANES) 1000 mg Route: IV, Drug form: INJ, Start date: 05/16/17 9:43:00 E [employer], Stop date: 05/16/17 10:43:00 E [employer] Inactive 05/16/2017 [facility] Lactated Ringers Injection IV (ANES) 1000 mL Route: IV, Total Volume: 1,000, Start date: 05/16/17 9:15:00 E [employer], Stop date: 05/16/17 10:15:00 E [employer] Inactive 05/16/2017 [facility] Albuterol 0.833 MG/ML / Ipratropium [place] 0.167 MG/ML Inhalant Solution 3 mL, Route: NEB, Dosing Weight 71.477, kg, ONCE, STAT, Start date: 05/16/17 8:16:00 E [employer], Stop date: 05/16/17 8:16:00 E [employer] Inactive 05/16/2017 [facility] Calcium Chloride 0.0014 MEQ/ML / Potassium Chloride 0.004 MEQ/ML / Sodium Chloride 0.103 MEQ/ML / Sodium Lactate 0.028 MEQ/ML Injectable Solution 1,000 mL, Rate: 25 ml/hr, Infuse over: 40 hr, Route: IV, Dosing Weight 71.477 kg, Total Volume: 1,000, Start date: 05/16/17 8:16:00 E [employer], Duration: 30 day, Stop date: 06/15/17 8:15:00 E [employer], 1.88, m2 Inactive 05/16/2017 [facility] Eliquis PO, BID, 0 Refill(s) Active 05/15/2017 [facility] Lactated Ringers IV 1,000 mL 1,000 mL, Rate: 100 ml/hr, Infuse over: 10 hr, Route: IV, Dosing Weight 70.909 kg, Total Volume: 1,000, Start date: 05/15/17 6:03:00 E [employer], Duration: 30 day, Stop date: 06/14/17 6:02:00 E [employer], 1.87, m2 Inactive 05/15/2017 [facility] ceFAZolin + sterile water 20 mL 2 gm, Route: IV, Drug form: PDR/INJ, PRE OP, Start date: 05/15/17 5:00:00 E [employer]IST, Duration: 1 doses or times, ABX Indication: Surgical ProphylaxisNotes: (Same As: Fredrick Franco) MEDICATION WASTE Product Size: 1000 mg Product Wasted: ___ mg Inactive 05/15/2017 [facility] Lasix 20 mg, PO, BID, 0 Refill(s) No Longer Active 05/14/2017 [facility] Insulin Glargine 100 UNT/ML Injectable Solution 16 unit, SUB-Q, BID, 0 Refill(s) Active 05/14/2017 [facility] carvedilol 3.125 mg oral tablet 3.125 mg=1 tab, PO, BID, # 180 tab, 0 Refill(s) Active 05/14/2017 [facility] lisinopril 2.5 mg oral tablet 2.5 mg=1 tab, PO, Daily, # 30 tab, 0 Refill(s) No Longer Active 05/14/2017 [facility] atorvastatin 40 mg oral tablet 40 mg=1 tab, PO, Bedtime, # 30 tab, 0 Refill(s) Active 05/14/2017 [facility] clopidogrel 75 mg oral tablet 75 mg=1 tab, PO, Daily, # 30 tab, 0 Refill(s) Active 05/14/2017 [facility] pantoprazole 40 MG Enteric Coated Tablet [Protonix] 40 mg=1 tab, PO, Before Breakfast, # 30 tab, 0 Refill(s) Active 05/14/2017 [facility] lisinopril 2.5 mg oral tablet 2.5 mg=1 tab, PO, Daily, # 30 tab, 0 Refill(s) Active 04/19/2017 [facility] carvedilol 3.125 mg oral tablet 3.125 mg=1 tab, PO, Q12H, # 60 tab, 0 Refill(s) Active 04/19/2017 [facility] atorvastatin 40 mg oral tablet 40 mg=1 tab, PO, Bedtime, # 30 tab, 0 Refill(s) Active 04/19/2017 [facility] Insulin Glargine 100 UNT/ML Injectable Solution 16 unit, SUB-Q, BID, # 10 mL, 0 Refill(s) Active 04/19/2017 [facility] apixaban 5 mg oral tablet 5 mg=1 tab, PO, Q12H, # 60 tab, 0 Refill(s) Active 04/19/2017 [facility] Furosemide 20 MG Oral Tablet [Lasix] 20 mg=1 tab, PO, BID, # 60 tab, 0 Refill(s) Active 04/19/2017 [facility] clopidogrel 75 mg oral tablet 75 mg=1 tab, PO, Daily, # 30 tab, 0 Refill(s) Active 04/19/2017 [facility] Docusate Sodium 50 MG / sennosides, LONG-TERM 8.6 MG Oral Tablet 2 tab, PO, BID, X 14 day, # 56 tab, 0 Refill(s) Active 04/19/2017 [facility] pantoprazole 40 mg oral enteric coated tablet 40 mg=1 tab, PO, Before Breakfast, # 30 tab, 0 Refill(s) Active 04/19/2017 [facility] Insulin regular 8 unit, 0.08 mL, Route: SUB-Q, Drug form: SOLN, TID-Before Meals, Dosing Weight 71, kg, PRN Blood Glucose Results, Start date: 04/18/17 10:53:00 E [employer]IST, Duration: 30 day, Stop date: 05/18/17 10:52:00 CS TNotes: (Same as: Humulin R) Roll in palms of hands gently; Do not shake vigorously. "single patient use only" (Restricted to patients requiring a dose > 60 units) WASTE: F/P - Black; E - Municipal Trash Bin Stable for 28 days at room temperature Expires in days from Date No Longer Active 04/18/2017 [facility] Dextrose 50% Syringe 12.5 gm, 25 mL, Route: IVP, Drug Form: INJ, Dosing Weight 71, kg, PRN, PRN Blood Glucose Results, Start date: 04/18/17 10:53:00 E [employer], Duration: 30 day, Stop date: 05/18/17 10:52:00 E [employer]GIST No Longer Active 04/18/2017 [facility] Glucagon 1 mg, Route: IM, Drug form: PDR/INJ, PRN, Dosing Weight 71, kg, PRN Blood Glucose Results, Start date: 04/18/17 10:53:00 E [employer], Duration: 30 day, Stop date: 05/18/17 10:52:00 E [employer]CE [employer]GIST No Longer Active 04/18/2017 [facility] Lisinopril 2.5 mg, 1 tab, Route: PO, Drug form: TAB, Daily, Dosing Weight 71, kg, Start date: 04/18/17 8:00:00 E [employer]IST, Duration: 30 day, Stop date: 05/17/17 8:00:00 CSTNotes: (Same as: Prinivil) No Longer Active 04/18/2017 [facility] Eliquis 5 mg, 1 tab, Route: PO, Drug form: TAB, Q12H, Dosing Weight 71, kg, Start date: 04/17/17 9:00:00 E [employer]IST, Duration: 30 day, Stop date: 05/16/17 21:00:00 CSTNotes: Same as: Eliquis No Longer Active 04/17/2017 [facility] Insulin Glargine 100 UNT/ML Injectable Solution 16 unit, 0.16 mL, Route: SUB-Q, Drug form: SOLN, BID, Dosing Weight 71.051, kg, Start date: 04/16/17 20:00:00 E [employer]CE STR[employer]GIST, Duration: 30 day, Stop date: 05/16/17 8:00:00 CSTNotes: Same as: Lantus) Do not hold insulin without contacting prescriber WASTE: F/P - Black; E - Municipal Trash Bin No Longer Active 04/17/2017 [facility] Warfarin 4 mg, 2 tab, Route: PO, Drug form: TAB, Q5PM, Dosing Weight 71, kg, Start date: 04/16/17 17:00:00 E [employer]GIST, Duration: 1 doses or times, Stop date: 04/16/17 17:00:00 CSTNotes: Nurse to ensure documentation of patient education per anticoagulation policy. Avoid large intake of vitamin-K containing foods diet. (Same As: Coumadin) WASTE: F/P - P Waste Black; E - P Waste Black Inactive 04/16/2017 [facility] Warfarin 4 mg, 2 tab, Route: PO, Drug form: TAB, Q5PM, Dosing Weight 71, kg, Start date: 04/15/17 17:00:00 E [employer]ERCE STRATEGIST, Duration: 1 doses or times, Stop date: 04/15/17 17:00:00 E [employer]CE STRATEGIST Inactive 04/15/2017 [facility] Warfarin 4 mg, 2 tab, Route: PO, Drug form: TAB, Q5PM, Dosing Weight 71, kg, Start date: 04/14/17 17:00:00 E [employer]ERCE STR[employer]GIST, Duration: 1 doses or times, Stop date: 04/14/17 17:00:00 CSTNotes: Nurse to ensure documentation of patient education per anticoagulation policy. Avoid large intake of vitamin-K containing foods diet. (Same As: Coumadin) WASTE: F/P - P Waste Black; E - P Waste Black Inactive 04/14/2017 [facility] Warfarin 4 mg, 2 tab, Route: PO, Drug form: TAB, Q5PM, Dosing Weight 71, kg, Start date: 04/13/17 17:00:00 E [employer]ERCE STR[employer]GIST, Duration: 1 doses or times, Stop date: 04/13/17 17:00:00 CSTNotes: Nurse to ensure documentation of patient education per anticoagulation policy. Avoid large intake of vitamin-K containing foods diet. (Same As: Coumadin) WASTE: F/P - P Waste Black; E - P Waste Black Inactive 04/13/2017 [facility] Plavix 75 mg, Route: PO, Drug form: TAB, Daily, Dosing Weight 71.051, kg, Start date: 04/13/17 9:00:00 E [employer]CE [employer]GIST, Duration: 30 day, Stop date: 05/12/17 9:00:00 E [employer]CE STRATEGIST No Longer Active 04/13/2017 [facility] Tessalon Perles 100 mg, 1 cap, Route: PO, Drug form: CAP, TID, Dosing Weight 71.051, kg, Start date: 04/13/17 8:00:00 E [employer]ERCE STRATEGIST, Duration: 30 day, Stop date: 05/12/17 17:00:00 CSTNotes: (Same As: Tessalon Perles) "Do Not Crush" No Longer Active 04/13/2017 [facility] Plavix 75 mg, 1 tab, Route: PO, Drug form: TAB, Daily, Dosing Weight 71.051, kg, Start date: 04/13/17 8:00:00 E [employer]ERCE [employer]GIST, Duration: 30 day, Stop date: 05/12/17 8:00:00 CSTNotes: (Same As: Plavix) No Longer Active 04/13/2017 [facility] Lovenox 70 mg, 0.7 mL, Route: SUB-Q, Drug form: INJ, [id number], Dosing Weight 71.051, kg, Priority: Routine, Start date: 04/13/17 8:00:00 E [employer]ERCE [employer]GIST, Duration: 30 day, Stop date: 05/12/17 20:00:00 E [employer]ERCE STRATEGIST No Longer Active 04/13/2017 [facility] Protonix 40 mg, Route: PO, Drug form: ECTAB, Before Breakfast, Dosing Weight 71.051, kg, Start date: 04/13/17 7:30:00 E [employer]ERCE STRATEGIST, Duration: 30 day, Stop date: 05/12/17 7:30:00 E [employer]ERCE STRATEGIST No Longer Active 04/13/2017 [facility] Protonix 40 mg, 1 tab, Route: PO, Drug form: ECTAB, Before Breakfast, Dosing Weight 71.051, kg, Start date: 04/13/17 6:30:00 E COMMERCE STRATEGIST, Duration: 30 day, Stop date: 05/12/17 6:30:00 CSTNotes: Tablet should not be c hewed or crushed. (Same as: Protonix) No Longer Active 04/13/2017 [facility] Saline Flush 0.9% 10 ml, Route: IVP, Drug Form: INJ, Dosing Weight 71.051, kg, Q12H, Start date: 04/12/17 21:00:00 E COMMERCE STRATEGIST, Duration: 30 day, Stop date: 05/12/17 9:00:00 E COMMERCE STRATEGIST Inactive 04/13/2017 [facility] atorvastatin 40 mg, Route: PO, Drug form: TAB, Bedtime, Dosing Weight 71.051, kg, Start date: 04/12/17 21:00:00 E [employer]ERCE STRATEGIST, Duration: 30 day, Stop date: 05/11/17 21:00:00 E COMMERCE STRATEGIST Inactive 04/13/2017 [facility] Insulin Glargine 100 UNT/ML Injectable Solution 12 unit, 0.12 mL, Route: SUB-Q, Drug form: SOLN, BID, Dosing Weight 71.051, kg, Start date: 04/12/17 20:00:00 E [employer]ERCE STR[employer]GIST, Duration: 30 day, Stop date: 05/12/17 8:00:00 E [employer]ERCE STRATEGIST No Longer Active 04/13/2017 [facility] Furosemide 20 MG Oral Tablet [Lasix] 20 mg, 1 tab, Route: PO, Drug form: TAB, BID, Dosing Weight 71.051, kg, Start date: 04/12/17 20:00:00 E [employer]ERCE STR[employer]GIST, Duration: 30 day, Stop date: 05/12/17 8:00:00 E [employer]ERCE STRATEGIST No Longer Active 04/13/2017 [facility] Miralax 17 gm, 1 pkt, Route: PO, Drug form: PWDR, Daily, Dosing Weight 71.051, kg, Priority: NOW, Start date: 04/12/17 17:19:00 E [employer]ERCE STR[employer]GIST, Duration: 30 day, Stop date: 05/12/17 8:00:00 CSTNotes: Dissolve in 8 oz of water or juice. (Same as: Miralax) No Longer Active 04/12/2017 [facility] Insulin Lispro 5 unit, 0.05 mL, Route: SUB-Q, Drug form: SOLN, TID-Before Meals, Dosing Weight 71.051, kg, PRN Blood Glucose Results, Start date: 04/12/17 17:19:00 E COMMERCE STRATEGIST, Duration: 30 day, Stop date: 05/12/17 17:18:0 0 E [employer]CE STRATEGIST No Longer Active 04/12/2017 [facility] Saline Flush 0.9% 10 ml, Route: IVP, Drug Form: INJ, Dosing Weight 71.051, kg, PRN, PRN Line Flush, Start date: 04/12/17 17:19:00 E [employer]ERCE STRATEGIST, Duration: 30 day, Stop date: 05/12/17 17:18:00 CSTNotes: (Same as: BD Posiflush) No Longer Active 04/12/2017 [facility] Lovenox 70 mg, 0.7 mL, Route: SUB-Q, Drug form: INJ, Q12H, Dosing Weight 71.051, kg, Priority: NOW, Start date: 04/12/17 17:19:00 E [employer]ERCE STR[employer]GIST, Duration: 30 day, Stop date: 05/12/17 9:00:00 E [employer]ERCE STRATEGIST Inactive 04/12/2017 [facility] Ondansetron 4 mg, 2 mL, Route: IVP, Drug form: INJ, Q8H, Dosing Weight 71.051, kg, PRN Nausea & Vomiting, Start date: 04/12/17 17:19:00 E [employer]ERCE STRATEGIST, Duration: 30 day, Stop date: 05/12/17 17:18:00 CSTNotes: (Same as: Zofran) MEDICATION WASTE Product Size: 4 mg Product Wasted: ___ mg No Longer Active 04/12/2017 [facility] Acetaminophen 650 mg, 20.3 mL, Route: PO, Drug form: LIQ, Q4H, Dosing Weight 71.051, kg, PRN Pain Score 1-3, Start date: 04/12/17 17:19:00 E COMMERCE STRATEGIST, Duration: 30 day, Stop date: 05/12/17 17:18:00 CSTNotes: Max isisnauwglewy=7233ox/day (4 gm/day). (Same as: Tylenol) No Longer Active 04/12/2017 [facility] Docusate Sodium 50 MG / sennosides, LONG-TERM 8.6 MG Oral Tablet 2 tab, Route: PO, Drug Form: TAB, Dosing Weight 71.051, kg, BID, NOW, Start date: 04/12/17 17:19:00 E COMMERCE STRATEGIST, Stop date: 05/12/17 8:00:00 CSTNotes: (Same as Senokot- S) Equiv. to Wendi-Colace. No Longer Active 04/12/2017 [facility] Coreg 3.125 mg, 1 tab, Route: PO, Drug form: TAB, Q12H, Dosing Weight 71.051, kg, Priority: NOW, Start date: 04/12/17 17:19:00 E COMMERCE STRATEGIST, Duration: 30 day, Stop date: 05/12/17 9:00:00 CSTNotes: Give with food. (Same As: Coreg) No Longer Active 04/12/2017 [facility] Coumadin 4 mg, Route: PO, Drug form: TAB, Q5PM, Dosing Weight 71.051, kg, Start date: 04/12/17 17:00:00 E COMMERCE STRATEGIST, Duration: 1 doses or times, Stop date: 04/12/17 17:00:00 E COMMERCE STRATEGIST Inactive 04/12/2017 [facility] Furosemide 20 MG Oral Tablet [Lasix] 20 mg, Route: PO, Drug form: TAB, BID, Dosing Weight 71.051, kg, Start date: 04/12/17 17:00:00 E COMMERCE STRATEGIST, Duration: 30 day, Stop date: 05/12/17 9:00:00 E COMMERCE STRATEGIST Inactive 04/12/2017 [facility] Insulin Glargine 100 UNT/ML Injectable Solution 12 unit, Route: SUB-Q, BID, Dosing Weight 71.051, kg, Start date: 04/12/17 17:00:00 E COMMERCE STRATEGIST, Duration: 30 day, Stop date: 05/12/17 9:00:00 E COMMERCE STRATEGIST Inactive 04/12/2017 [facility] Kimberly Perles 100 mg, Route: PO, Drug form: CAP, TID, Dosing Weight 71.051, kg, Start date: 04/12/17 17:00:00 E COMMERCE STRATEGIST, Duration: 30 day, Stop date: 05/12/17 13:00:00 E COMMERCE STRATEGIST Inactive 04/12/2017 [facility] Warfarin 4 mg, 2 tab, Route: PO, Drug form: TAB, Q5PM, Dosing Weight 71.051, kg, Start date: 04/12/17 17:00:00 E COMMERCE STRATEGIST, Duration: 1 doses or times, Stop date: 04/12/17 17:00:00 E COMMERCE STRATEGIST Inactive 04/12/2017 [facility] Furosemide 20 MG Oral Tablet [Lasix] 20 mg=1 tab, PO, BID, # 60 tab, 1 Refill(s) Active 04/12/2017 [facility] enoxaparin 80 mg/0.8 mL subcutaneous solution 70 mg=0.7 mL, SUB-Q, [id number], X 10 day, # 14 mL, 0 Refill(s) Active 04/12/2017 [facility] warfarin 4 mg oral tablet 4 mg=1 tab, PO, Q5PM, # 30 tab, 0 Refill(s) Active 04/12/2017 [facility] clopidogrel 75 mg oral tablet 75 mg=1 tab, PO, Daily, # 30 tab, 2 Refill(s) Active 04/12/2017 [facility] carvedilol 3.125 mg oral tablet 3.125 mg=1 tab, PO, Q12H, # 60 tab, 2 Refill(s) Active 04/12/2017 [facility] atorvastatin 40 mg oral tablet 40 mg=1 tab, PO, Bedtime, # 30 tab, 2 Refill(s) Active 04/12/2017 [facility] Insulin Lispro 1 unit, Route: SUB-Q, TID-Before Meals, Dosing Weight 71.051, kg, PRN Blood Glucose Results, Start date: 04/12/17 13:55:00 E COMMERCE STRATEGIST, Duration: 30 day, Stop date: 05/12/17 13:54:00 E COMMERCE STRATEGIST Inactive 04/12/2017 [facility] Saline Flush 0.9% 10 ml, Route: IVP, Drug Form: INJ, Dosing Weight 71.051, kg, PRN, PRN Line Flush, Start date: 04/12/17 13:55:00 E COMMERCE STRATEGIST, Duration: 30 day, Stop date: 05/12/17 13:54:00 E COMMERCE STRATEGIST Inactive 04/12/2017 [facility] Ondansetron 4 mg, Route: IVP, Q8H, Dosing Weight 71.051, kg, PRN Nausea & Vomiting, Start date: 04/12/17 13:55:00 E COMMERCE STRATEGIST, Duration: 30 day, Stop date: 05/12/17 13:54:00 E COMMERCE STRATEGIST Inactive 04/12/2017 [facility] Acetaminophen 650 mg, Route: PO, Drug form: TAB, Q4H, Dosing Weight 71.051, kg, PRN Pain Score 1-3, Start date: 04/12/17 13:55:00 E COMMERCE STRATEGIST, Duration: 30 day, Stop date: 05/12/17 13:54:00 E COMMERCE STRATEGIST Inactive 04/12/2017 [facility] Lovenox 70 mg, Route: SUB-Q, Drug form: INJ, [id number], Dosing Weight 71.051, kg, Priority: NOW, Start date: 04/12/17 13:44:00 E COMMERCE STRATEGIST, Duration: 30 day, Stop date: 05/12/17 1:44:00 E COMMERCE STRATEGIST Inactive 04/12/2017 [facility] Docusate Sodium 50 MG / sennosides, LONG-TERM 8.6 MG Oral Tablet 2 tab, Route: PO, Drug Form: TAB, Dosing Weight 71.051, kg, BID, NOW, Start date: 04/12/17 13:44:00 E COMMERCE STRATEGIST, Duration: 30 day, Stop date: 05/12/17 9:00:00 E COMMERCE STRATEGIST Inactive 04/12/2017 [facility] Coreg 3.125 mg, Route: PO, Drug form: TAB, Q12H, Dosing Weight 71.051, kg, Priority: NOW, Start date: 04/12/17 13:44:00 E COMMERCE STRATEGIST, Duration: 30 day, Stop date: 05/12/17 9:00:00 E COMMERCE STRATEGIST Inactive 04/12/2017 [facility] Miralax 17 gm, Route: PO, Drug form: PWDR, Daily, Dosing Weight 71.051, kg, Priority: NOW, Start date: 04/12/17 13:44:00 E COMMERCE STRATEGIST, Duration: 30 day, Stop date: 05/12/17 9:00:00 E COMMERCE STRATEGIST Inactive 04/12/2017 [facility] Furosemide 20 MG Oral Tablet [Lasix] 20 mg, 1 tab, Route: PO, Drug form: TAB, BID, Dosing Weight 70.483, kg, Start date: 04/11/17 17:00:00 E [employer]ERCE STRATEGIST, Duration: 30 day, Stop date: 05/11/17 9:00:00 CSTNotes: (Same as: Lasix) May cause GI upset. Give with food or milk. No Longer Active 04/11/2017 [facility] Coumadin 3 mg, 3 tab, Route: PO, Drug form: TAB, Q5PM, Dosing Weight 71.051, kg, Start date: 04/11/17 17:00:00 E COMMERCE STRATEGIST, Duration: 1 doses or times, Stop date: 04/11/17 17:00:00 E COMMERCE STRATEGIST Inactive 04/11/2017 [facility] Lovenox 70 mg, 0.7 mL, Route: SUB-Q, Drug form: INJ, [id number], Dosing Weight 71.051, kg, Priority: NOW, Start date: 04/11/17 10:50:00 E COMMERCE STRATEGIST, Duration: 30 day, Stop date: 05/11/17 1:00:00 CSTNotes: Nurse to ensure documentation of patient education per anticoagulation policy. (Same as: Lovenox) No Longer Active 04/11/2017 [facility] Warfarin 3 mg, 1 tab, Route: PO, Drug form: TAB, Q5PM, Dosing Weight 71.051, kg, Start date: 04/10/17 17:00:00 E COMMERCE STRATEGIST, Duration: 1 doses or times, Stop date: 04/10/17 17:00:00 CSTNotes: Nurse to ensure documentation of patient education per anticoagulation policy. Avoid large intake of vitamin-K containing foods diet. (Same As: Coumadin) WASTE: F/P - P Waste Black; E - P Waste Black Inactive 04/10/2017 [facility] Warfarin 3 mg, 1 tab, Route: PO, Drug form: TAB, Q5PM, Dosing Weight 71.051, kg, Start date: 04/09/17 17:00:00 E COMMERCE STRATEGIST, Duration: 1 doses or times, Stop date: 04/09/17 17:00:00 CSTNotes: Nurse to ensure documentation of patient education per anticoagulation policy. Avoid large intake of vitamin-K containing foods diet. (Same As: Coumadin) WASTE: F/P - P Waste Black; E - P Waste Black Inactive 04/09/2017 [facility] Furosemide 20 MG Oral Tablet [Lasix] 20 mg, 1 tab, Route: PO, Drug form: TAB, Daily, Dosing Weight 70.483, kg, Start date: 04/09/17 9:00:00 E COMMERCE STRATEGIST, Duration: 30 day, Stop date: 05/08/17 9:00:00 CSTNotes: (Same as: Lasix) May cause GI upset. Give with food or milk. No Longer Active 04/09/2017 [facility] Warfarin 1.5 mg, 0.5 tab, Route: PO, Drug form: TAB, Q5PM, Dosing Weight 70.483, kg, Start date: 04/08/17 17:00:00 E COMMERCE STRATEGIST, Duration: 1 doses or times, Stop date: 04/08/17 17:00:00 CSTNotes: 1.5 mg=1/2 x 3 mg TAB Nurse to ensure documentation of patient education per anticoagulation policy. Avoid large intake of vitamin-K containing foods diet. Inactive 04/08/2017 [facility] Furosemide 20 MG Oral Tablet [Lasix] 20 mg, Route: PO, Drug form: TAB, Daily, Dosing Weight 70.483, kg, Priority: NOW, Start date: 04/08/17 10:44:00 E COMMERCE STRATEGIST, Duration: 30 day, Stop date: 05/08/17 9:00:00 E COMMERCE STRATEGIST Inactive 04/08/2017 [facility] Warfarin 1.5 mg, 0.5 tab, Route: PO, Drug form: TAB, Q5PM, Dosing Weight 70.483, kg, Start date: 04/07/17 17:00:00 E COMMERCE STRATEGIST, Duration: 1 doses or times, Stop date: 04/07/17 17:00:00 CSTNotes: 1.5 mg=1/2 x 3 mg TAB Nurse to ensure documentation of patient education per anticoagulation policy. Avoid large intake of vitamin-K containing foods diet. Inactive 04/07/2017 [facility] NS (Bolus) IV 500 mL, 125 ml/hr, Infuse Over: 4 hr, Route: IV, 500, Drug form: INJ, ONCE, Priority: STAT, Dosing Weight 70.483 kg, Start date: 04/07/17 11:41:00 E COMMERCE STRATEGIST, Stop date: 04/07/17 11:41:00 E [employer]ERCE STRATEGIST Inactive 04/07/2017 [facility] Insulin Glargine 100 UNT/ML Injectable Solution 12 unit, 0.12 mL, Route: SUB-Q, Drug form: SOLN, BID, Dosing Weight 70.483, kg, Start date: 04/07/17 9:00:00 E COMMERCE STRATEGIST, Duration: 30 day, Stop date: 05/06/17 17:00:00 CSTNotes: Same as: Lantus) Do not hold insulin without contacting prescriber WASTE: F/P - Black; E - Municipal Trash Bin No Longer Active 04/07/2017 [facility] Insulin Lispro 2 unit, 0.02 mL, Route: SUB-Q, Drug form: SOLN, ONCE, Dosing Weight 70.483, kg, Start date: 04/06/17 23:55:00 E COMMERCE STRATEGIST, Stop date: 04/06/17 23:55:00 CSTNotes: (Same as: Humalog ) Roll in palms of hands ge ntly; Do not shake `vigorously. "Single Patient Use Only " WASTE: F/P - Black; E - Municipal Trash Bin Stable for 28 days at room temperature. Expires in days from Date No Longer Active 04/07/2017 [facility] Warfarin 3 mg, 1 tab, Route: PO, Drug form: TAB, Q5PM, Dosing Weight 70.483, kg, Start date: 04/06/17 17:00:00 E [employer]ERCE STRATEGIST, Duration: 1 doses or times, Stop date: 04/06/17 17:00:00 CSTNotes: Nurse to ensure documentation of patient education per anticoagulation policy. Avoid large intake of vitamin-K containing foods diet. (Same As: Coumadin) WASTE: F/P - P Waste Black; E - P Waste Black Inactive 04/06/2017 [facility] Warfarin 3 mg, 1 tab, Route: PO, Drug form: TAB, Q5PM, Dosing Weight 70.483, kg, Start date: 04/05/17 17:00:00 E [employer], Duration: 1 doses or times, Stop date: 04/05/17 17:00:00 CSTNotes: Nurse to ensure documentation of patient education per anticoagulation policy. Avoid large intake of vitamin-K containing foods diet. (Same As: Coumadin) WASTE: F/P - P Waste Black; E - P Waste Black Inactive 04/05/2017 [facility] [place] Amiodarone 200 mg, 1 tab, Route: PO, Drug form: TAB, BID, Dosing Weight 70.483, kg, Start date: 04/05/17 17:00:00 E [employer]IST, Duration: 30 day, Stop date: 05/05/17 9:00:00 CSTNotes: (Same as: Cordarone) No Longer Active 04/05/2017 [facility] Furosemide 20 MG Oral Tablet [Lasix] 40 mg, 4 mL, Route: IVP, Drug form: INJ, Daily, Dosing Weight 70.483, kg, Start date: 04/05/17 9:00:00 E [employer], Duration: 30 day, Stop date: 05/04/17 9:00:00 CSTNotes: (Same as: Lasix) MEDICATION WASTE Product Size: 40 mg Product Wasted: ___ mg No Longer Active 04/05/2017 [facility] Plavix 75 mg, 1 tab, Route: PO, Drug form: TAB, Daily, Dosing Weight 70.483, kg, Start date: 04/05/17 9:00:00 E [employer], Duration: 30 day, Stop date: 05/04/17 9:00:00 CSTNotes: (Same As: Plavix) No Longer Active 04/05/2017 [facility] Aspirin 81 mg, Route: PO, Drug form: ECTAB, Daily, Dosing Weight 70.483, kg, Start date: 04/05/17 9:00:00 E [employer], Duration: 30 day, Stop date: 05/04/17 9:00:00 E [employer]IST No Longer Active 04/05/2017 [facility] Furosemide 40 mg, 4 mL, Route: IV, Drug form: INJ, Daily, Dosing Weight 70.483, kg, Start date: 04/05/17 9:00:00 E [employer], Duration: 30 day, Stop date: 05/04/17 9:00:00 CSTNotes: (Same as: Lasix) MEDICATION WASTE Product Size: 40 mg Product Wasted: _0__ mg No Longer Active 04/05/2017 [facility] Warfarin 3 mg, 1 tab, Route: PO, Drug form: TAB, Q5PM, Dosing Weight 70.483, kg, Start date: 04/04/17 17:00:00 E [employer], Duration: 1 doses or times, Stop date: 04/04/17 17:00:00 CSTNotes: Nurse to ensure documentation of patient education per anticoagulation policy. Avoid large intake of vitamin-K containing foods diet. (Same As: Coumadin) WASTE: F/P - P Waste Black; E - P Waste Black Inactive 04/04/2017 [facility] Coreg 3.125 mg, 1 tab, Route: PO, Drug form: TAB, Q12H, Dosing Weight 70.483, kg, Priority: NOW, Start date: 04/04/17 13:33:00 E [employer], Duration: 30 day, Stop date: 05/04/17 9:00:00 CSTNotes: Give with food. (Same As: Coreg) No Longer Active 04/04/2017 [facility] Calcium Gluconate 2,000 mg, 20 mL, Route: IVPB, ONCE, Dosing Weight 70.483, kg, Total rsjf=8410 mg, Priority: NOW, Start date: 04/04/17 8:24:00 E [employer]IST, Stop date: 04/04/17 8:24:00 CSTNotes: WASTE: F/P - Sink; E - Municipal Trash Bin Inactive 04/04/2017 [facility] Furosemide 20 MG Oral Tablet [Lasix] 40 mg, 4 mL, Route: IVP, Drug form: INJ, BID, Dosing Weight 70.483, kg, Start date: 04/03/17 18:00:00 E [employer], Duration: 30 day, Stop date: 05/03/17 17:00:00 CSTNotes: (Same as: Lasix) No Longer Active 04/04/2017 [facility] Warfarin 3 mg, 1 tab, Route: PO, Drug form: TAB, Q5PM, Dosing Weight 70.483, kg, Start date: 04/03/17 17:00:00 E [employer], Duration: 1 doses or times, Stop date: 04/03/17 17:00:00 CSTNotes: Nurse to ensure documentation of patient education per anticoagulation policy. Avoid large intake of vitamin-K containing foods diet. (Same As: Coumadin) WASTE: F/P - P Waste Black; E - P Waste Black Inactive 04/03/2017 [facility] Lidocaine Hydrochloride 10 MG/ML Injectable Solution 10 mg, 1 ml, Route: SUB-Q, Drug Form: INJ, Dosing Weight 70.483, kg, ONCE, Start date: 04/03/17 15:50:00 E [employer]GIST, Stop date: 04/03/17 15:50:00 CSTNotes: (Same as: Xylocaine) Inactive 04/03/2017 [facility] Lasix 40 mg, 4 mL, Route: IV, Drug form: INJ, ONCE, Dosing Weight 70.483, kg, Start date: 04/03/17 10:55:00 E [employer] STR[employer]GIST, Stop date: 04/03/17 10:55:00 CSTNotes: (Same as: Lasix) Inactive 04/03/2017 [facility] Insulin Glargine 100 UNT/ML Injectable Solution 10 unit, 0.1 mL, Route: SUB-Q, Drug form: SOLN, BID, Dosing Weight 70.483, kg, Start date: 04/03/17 9:00:00 E [employer], Duration: 30 day, Stop date: 05/02/17 17:00:00 CSTNotes: Same as: Lantus) Do not hold insulin without contacting prescriber WASTE: F/P - Black; E - Municipal Trash Bin No Longer Active 04/03/2017 [facility] Protonix 40 mg, 1 tab, Route: PO, Drug form: ECTAB, Before Breakfast, Dosing Weight 70.483, kg, Start date: 04/03/17 7:30:00 E [employer]IST, Duration: 30 day, Stop date: 05/02/17 7:30:00 CSTNotes: Tablet should not be c hewed or crushed. (Same as: Protonix) No Longer Active 04/03/2017 [facility] Warfarin 3 mg, 1 tab, Route: PO, Drug form: TAB, Q5PM, Dosing Weight 70.483, kg, Start date: 04/02/17 17:00:00 E [employer]IST, Duration: 1 doses or times, Stop date: 04/02/17 17:00:00 CSTNotes: Nurse to ensure documentation of patient education per anticoagulation policy. Avoid large intake of vitamin-K containing foods diet. (Same As: Coumadin) WASTE: F/P - P Waste Black; E - P Waste Black Inactive 04/02/2017 [facility] Dextromethorphan Hydrobromide 2 MG/ML / Guaifenesin 20 MG/ML Oral Solution 5 ml, Route: PO, Drug Form: SYRP, Dosing Weight 70.483, kg, Q4H, PRN Cough, Start date: 04/02/17 0:20:00 E [employer], Duration: 30 day, Stop date: 05/02/17 0:19:00 CSTNotes: (dextromethorphan-guaifenesin 10-100mg/5ml 10 ml oral SOLN ud) (Same as: Robitussin DM) No Longer Active 04/02/2017 [facility] Warfarin 3 mg, 1 tab, Route: PO, Drug form: TAB, Q5PM, Dosing Weight 70.483, kg, Start date: 04/01/17 17:00:00 E [employer], Duration: 1 doses or times, Stop date: 04/01/17 17:00:00 CSTNotes: Nurse to ensure documentation of patient education per anticoagulation policy. Avoid large intake of vitamin-K containing foods diet. (Same As: Coumadin) WASTE: F/P - P Waste Black; E - P Waste Black Inactive 04/01/2017 [facility] Tessalon Perles 100 mg, 1 cap, Route: PO, Drug form: CAP, TID, Dosing Weight 70.483, kg, Start date: 04/01/17 13:00:00 E [employer]IST, Duration: 30 day, Stop date: 05/01/17 9:00:00 CSTNotes: (Same As: Tessalon Perles) "Do Not Crush" No Longer Active 04/01/2017 [facility] Tylenol 650 mg, 2 tab, Route: PO, Drug form: TAB, Q6H, Dosing Weight 70.483, kg, PRN Pain Score 1-3, Start date: 04/01/17 10:25:00 E [employer]GIST, Duration: 30 day, Stop date: 05/01/17 10:24:00 CSTNotes: Do not exceed 4 gm/day. (Same as: Tylenol) Inactive 04/01/2017 [facility] Furosemide 20 MG Oral Tablet [Lasix] 20 mg, 1 tab, Route: PO, Drug form: TAB, Daily, Dosing Weight 70.483, kg, Start date: 04/01/17 9:00:00 E [employer]IST, Duration: 30 day, Stop date: 04/30/17 9:00:00 CSTNotes: (Same as: Lasix) May cause GI upset. Give with food or milk. No Longer Active 04/01/2017 [facility] Rocephin 2 gm, Route: IVP, Q12H, Dosing Weight 70.483, kg, Start date: 04/01/17 9:00:00 E [employer]IST, Duration: 2 day, Stop date: 04/02/17 21:00:00 E [employer] STRATEGIST, ABX Indication: PneumoniaNotes: (Same As: Rocephin). Use with 100 mL NS and infuse over 30 min MEDICATION WASTE Product Size: 2000 mg Product Wasted: _0_ mg No Longer Active 04/01/2017 [facility] potassium phosphate 30 mmol, 10 mL, Route: IVPB, PRN, Dosing Weight 70.483, kg, PRN Abnormal Lab Result, For NON-ICU Patients Only., Start date: 04/01/17 5:45:00 E [employer] STR[employer]GIST, Duration: 30 day, Stop date: 05/01/17 5:44:00 CSTNot es: (Same as: K Phosphate.) 1 mMol phoshate has 1.47 mEq potassium Infuse over 4 hours No Longer Active 04/01/2017 [facility] Calcium Gluconate 3 gm, 30 mL, Route: IVPB, PRN, Dosing Weight 70.483, kg, PRN Abnormal Lab Result, For NON-ICU Patients Only., Start date: 04/01/17 5:45:00 E [employer] STR[employer]GIST, Duration: 30 day, Stop date: 05/01/17 5:44:00 CSTNotes: WASTE: F/P - Sink; E - Municipal Trash Bin No Longer Active 04/01/2017 [facility] Magnesium Sulfate 1 gm, 100 mL, Route: IVPB, Drug form: INJ, PRN, Dosing Weight 70.483, kg, PRN Abnormal Lab Result, For NON-ICU Patients Only., Start date: 04/01/17 5:45:00 E [employer] STR[employer]GIST, Duration: 30 day, Stop date: 05/01/17 5:44:00 CSTNotes: WASTE: F/P - Sink; E - Municipal Trash Bin No Longer Active 04/01/2017 [facility] sodium phosphate 30 mmol, 10 mL, Route: IVPB, PRN, Dosing Weight 70.483, kg, PRN Abnormal Lab Result, For NON-ICU Patients Only., Start date: 04/01/17 5:45:00 E [employer] STRATEGIST, Duration: 30 day, Stop date: 05/01/17 5:44:00 E [employer] STRATEGIST No Longer Active 04/01/2017 [facility] Magnesium Oxide 800 mg, 2 tab, Route: PO, Drug form: TAB, PRN, Dosing Weight 70.483, kg, PRN Abnormal Lab Result, For NON-ICU Patients Only., Start date: 04/01/17 5:45:00 E [employer] STRATEGIST, Duration: 30 day, Stop date: 05/01/17 5 :44:00 CSTNotes: (Same as: Mag-Ox 400) Magnesium oxide [id number] elemental magnesium Dose=____mg magnesium oxide (___mg elemental magnesium) No Longer Active 04/01/2017 [facility] Potassium Chloride 20 mEq, 1 tab, Route: PO, Drug form: ERTAB, PRN, Dosing Weight 70.483, kg, PRN Abnormal Lab Result, For NON-ICU Patients Only, Start date: 04/01/17 5:45:00 E [employer] STR[employer]GIST, Duration: 30 day, Stop date: 05/01/17 5:44:00 CSTNotes: (Same as: K-Dur 20) "Do Not Crush" With food and full glass of water No Longer Active 04/01/2017 [facility] potassium phosphate-sodium phosphate 250 mg-280 mg-160 mg oral powder for reconstitution 2 pkt, Route: PO, Drug Form: PDR/REC, Dosing Weight 70.483, kg, PRN, PRN Abnormal Lab Result, For NON-ICU Patients Only, Start date: 04/01/17 5:45:00 E [employer]ERCE STRATEGIST, Duration: 30 day, Stop date: 05/01/17 5:44:00 CSTNotes: (Same as: Phos-NaK) Each 1.5 gm pkt has 250mg phosphorous. Mix w/2.5oz water and stir. No Longer Active 04/01/2017 [facility] Calcium Carbonate 500 MG Chewable Tablet 500 mg, 1 tab, Route: PO, Drug form: CHEWTAB, PRN, Dosing Weight 70.483, kg, PRN Abnormal Lab Result, FOR ICU USE ONLY, Start date: 04/01/17 4:38:00 E [employer] STRATEGIST, Duration: 30 day, Stop date: 05/01/17 4:37:00 CSTNotes: (Same As: Tums) Calcium Carbonate 500 pf=588 mg elemental calcium Dose= mg calcium carbonate ( mg elemental calcium) Inactive 04/01/2017 [facility] Calcium Gluconate 1 gm, 10 mL, Route: IVPB, PRN, Dosing Weight 70.483, kg, PRN Abnormal Lab Result, Start date: 04/01/17 4:38:00 E [employer]CE STRATEGIST, Duration: 30 day, Stop date: 05/01/17 4:37:00 E COMMERCE STRATEGIST, FOR ICU USE ONLYNotes: WASTE: F/P - Sink; E - Municipal Trash Bin Inactive 04/01/2017 [facility] Magnesium Oxide 800 mg, 2 tab, Route: PO, Drug form: TAB, PRN, Dosing Weight 70.483, kg, PRN Abnormal Lab Result, FOR ICU USE ONLY, Start date: 04/01/17 4:38:00 E [employer] STRATEGIST, Duration: 30 day, Stop date: 05/01/17 4:37:00 E [employer]ERCE STRATEGIST Notes: (Same as: Mag-Ox 400) Magnesium oxide [id number] elemental magnesium Dose=____mg magnesium oxide (___mg elemental magnesium) Inactive 04/01/2017 [facility] Magnesium Sulfate 2 gm, 50 mL, Route: IVPB, Drug form: INJ, PRN, Dosing Weight 70.483, kg, PRN Abnormal Lab Result, Start date: 04/01/17 4:38:00 E [employer]ERCE STRATEGIST, Duration: 30 day, Stop date: 05/01/17 4:37:00 E COMMERCE STRATEGIST, FOR ICU USE ONLYNotes: WASTE: F/P - Sink; E - Municipal Trash Bin Inactive 04/01/2017 [facility] potassium phosphate 30 mmol, 10 mL, Route: IVPB, PRN, Dosing Weight 70.483, kg, PRN Abnormal Lab Result, Start date: 04/01/17 4:38:00 E [employer]CE STRATEGIST, Duration: 30 day, Stop date: 05/01/17 4:37:00 E COMMERCE STRATEGIST, FOR ICU USE ONLYNotes: (Same as: K Phosphate.) 1 mMol phoshate has 1.47 mEq potassium Infuse over 4 hours Inactive 04/01/2017 [facility] potassium phosphate-sodium phosphate 250 mg-280 mg-160 mg oral powder for reconstitution 2 pkt, Route: PO, Drug Form: PDR/REC, Dosing Weight 70.483, kg, PRN, PRN Abnormal Lab Result, FOR ICU USE ONLY, Start date: 04/01/17 4:38:00 E [employer] STR[employer]GIST, Duration: 30 day, Stop date: 05/01/17 4:37:00 CSTNotes: (Same as: Phos-NaK) Each 1.5 gm pkt has 250mg phosphorous. Mix w/2.5oz water and stir. Inactive 04/01/2017 [facility] Potassium Chloride 10 mEq, 50 mL, Route: IVPB, Drug form: INJ, PRN, Dosing Weight 70.483, kg, PRN Abnormal Lab Result, Via peripheral line, Start date: 04/01/17 4:38:00 E [employer]ERCE STRATEGIST, Duration: 30 day, Stop date: 05/01/17 4:37:00 E COMMERCE STRATEGIST, FOR ICU USE ONLYNotes: (Same as: KCL) Infuse over 2 hours. Inactive 04/01/2017 [facility] sodium phosphate 15 mmol, 5 mL, Route: IVPB, PRN, Dosing Weight 70.483, kg, PRN Abnormal Lab Result, Start date: 04/01/17 4:38:00 E [employer]ERCE STRATEGIST, Duration: 30 day, Stop date: 05/01/17 4:37:00 E COMMERCE STRATEGIST, FOR ICU USE ONLY Inactive 04/01/2017 [facility] Simethicone 80 mg, 1 tab, Route: PO, Drug form: CHEWTAB, Q6H, Dosing Weight 70.483, kg, PRN Gas, Start date: 03/31/17 23:09:00 E [employer]CE STRATEGIST, Duration: 30 day, Stop date: 04/30/17 23:08:00 CSTNotes: (Same as: Mylicon) No Longer Active 04/01/2017 [facility] Insulin Glargine 100 UNT/ML Injectable Solution 20 unit, 0.2 mL, Route: SUB-Q, Drug form: SOLN, BID, Dosing Weight 70.483, kg, Start date: 03/31/17 17:00:00 E [employer]ERCE STRATEGIST, Duration: 30 day, Stop date: 04/30/17 9:00:00 CSTNotes: (Same as: Lantus) Do not hold insulin without contacting prescriber WASTE: F/P - Black; E - Municipal Trash Bin "single patient use only" No Longer Active 03/31/2017 [facility] Warfarin 3 mg, 1 tab, Route: PO, Drug form: TAB, Q5PM, Dosing Weight 70.483, kg, Start date: 03/31/17 17:00:00 E [employer]CE STRATEGIST, Duration: 1 doses or times, Stop date: 03/31/17 17:00:00 CSTNotes: Nurse to ensure documentation of patient education per anticoagulation policy. Avoid large intake of vitamin-K containing foods diet. (Same As: Coumadin) WASTE: F/P - P Waste Black; E - P Waste Black Inactive 03/31/2017 [facility] Furosemide 20 MG Oral Tablet [Lasix] 20 mg, 1 tab, Route: PO, Drug form: TAB, Daily, Dosing Weight 70.483, kg, Start date: 03/31/17 16:45:00 E [employer]CE STRATEGIST, Duration: 30 day, Stop date: 04/30/17 9:00:00 CSTNotes: (Same as: Lasix) May cause GI upset. Give with food or milk. No Longer Active 03/31/2017 [facility] AMIODarone 900 mg in D5W 500 ml IV 900 mg + Dextrose 5% in Water IV 482 mL 900 mg, 18 mL, Rate: 1 mg/min for 6 hours, then reduce to 0.5 mg/min, Dosing Weight 70.483, kg, Route: IV, Total Volume: 500, Start Date: 03/30/17 21:21:00 E [employer]CE STRATEGIST, Duration: 30 day, Stop date: 04/29/17 21:20:00 E COMMERCE STRATEGIST, Replace Every: 24 hrNotes: Central administration only for concentration > 2 mg/ml. Use Glass Bottle or Non PVC Bag "Use 0.22 micron in-line filter" MEDICATION WASTE Product Size: 900 mg Product Wasted: _0__ mg No Longer Active 03/31/2017 [facility] Insulin Glargine 100 UNT/ML Injectable Solution 10 unit, 0.1 mL, Route: SUB-Q, Drug form: SOLN, BID, Dosing Weight 70.483, kg, Start date: 03/30/17 21:00:00 E [employer]CE STRATEGIST, Duration: 30 day, Stop date: 04/29/17 9:00:00 CSTNotes: (Same as: Lantus) Do not hold insulin without contacting prescriber WASTE: F/P - Black; E - Municipal Trash Bin "single patient use only" No Longer Active 03/31/2017 [facility] Insulin Lispro 1 unit, 0.01 mL, Route: SUB-Q, Drug form: SOLN, Sliding Scale, Dosing Weight 70.483, kg, PRN Blood Glucose Results, Start date: 03/30/17 10:51:00 E [employer]ERCE STRATEGIST, Duration: 30 day, Stop date: 04/29/17 10:50:00 C STNotes: (Same as: Humalog ) Roll in palms of hands gently; Do not shake `vigorously. "Single Patient Use Only " WASTE: F/P - Black; E - Municipal Trash Bin Stable for 28 days at room temperature. Expires in days from Date No Longer Active 03/30/2017 [facility] Glucagon 1 mg, Route: IM, Drug form: PDR/INJ, PRN, Dosing Weight 70.483, kg, PRN Blood Glucose Results, Start date: 03/30/17 10:51:00 E COMMERCE STRATEGIST, Duration: 30 day, Stop date: 04/29/17 10:50:00 E [employer]CE STRATEGIST No Longer Active 03/30/2017 [facility] Dextrose 50% Syringe 25 gm, 50 mL, Route: IVP, Drug Form: INJ, Dosing Weight 70.483, kg, PRN, PRN Blood Glucose Results, Start date: 03/30/17 10:51:00 E COMMERCE STRATEGIST, Duration: 30 day, Stop date: 04/29/17 10:50:00 E COMMERCE STRATEGIST No Longer Active 03/30/2017 [facility] Insulin Glargine 100 UNT/ML Injectable Solution 25 unit, 0.25 mL, Route: SUB-Q, Drug form: SOLN, BID, Dosing Weight 70.483, kg, Start date: 03/30/17 9:00:00 E [employer]ERCE STRATEGIST, Duration: 30 day, Stop date: 04/28/17 21:00:00 CSTNotes: Same as: Lantus) Do not hold insulin without contacting prescriber WASTE: F/P - Black; E - Municipal Trash Bin Inactive 03/30/2017 [facility] Amiodarone 400 mg, 2 tab, Route: PO, Drug form: TAB, BID, Dosing Weight 70.483, kg, Start date: 03/30/17 9:00:00 E COMMERCE STRATEGIST, Stop date: 04/05/17 9:00:00 CSTNotes: (Same as: Cordarone) No Longer Active 03/30/2017 [facility] insulin, isophane 10 unit, 0.1 mL, Route: SUB-Q, Drug form: INJ, Q12H, Dosing Weight 70.483, kg, Start date: 03/30/17 9:00:00 E [employer]CE STRATEGIST, Duration: 30 day, Stop date: 04/28/17 21:00:00 CSTNotes: Roll in palms of hands gently; Do not shake vigorously. (Same as: Humulin N) Do not hold insulin without contacting prescriber WASTE: F/P - Black; E - [employer] Trash Bin Stable for 28 days at room temperature Expires in days from Date Inactive 03/30/2017 [facility] Tylenol 325 mg, 1 tab, Route: PO, Drug form: TAB, Q6H, Dosing Weight 70.483, kg, PRN For Temp > 100.4 F, Start date: 03/29/17 17:10:00 E [employer]ERCE STRATEGIST, Duration: 30 day, Stop date: 04/28/17 17:09:00 CSTNotes: Do not exceed 4 gm/day. (Same as: Tylenol) No Longer Active 03/29/2017 [facility] Acetaminophen 1,000 mg, 100 mL, Route: IV, Drug form: INJ, ONCE, Dosing Weight 70.483, kg, Start date: 03/29/17 14:41:00 E [employer]ERCE STRATEGIST, Stop date: 03/29/17 14:41:00 CSTNotes: Infuse over 15 minutes Do not exceed 4gm/day of ac etaminophen MEDICATION WASTE Product Size: 1000 mg Product Wasted: ___ mg Inactive 03/29/2017 [facility] Hydralazine 5 mg, 0.25 mL, Route: IV, Drug form: INJ, ONCE, Dosing Weight 70.483, kg, Start date: 03/29/17 14:28:00 E [employer]ERCE STRATEGIST, Stop date: 03/29/17 14:28:00 CSTNotes: (Same as: Apresoline) Push over 5 minutes Inactive 03/29/2017 [facility] potassium phosphate-sodium phosphate 250 mg-280 mg-160 mg oral powder for reconstitution 1 pkt, Route: PO, Drug Form: PDR/REC, Dosing Weight 70.483, kg, ONCE, Start date: 03/29/17 13:34:00 E [employer]ERCE STRATEGIST, Stop date: 03/29/17 13:34:00 CSTNotes: (Same as: Phos-NaK) Each 1.5 gm pkt has 250mg phosphorous. Mix w/2.5oz water and stir. Inactive 03/29/2017 [facility] Lasix 40 mg, 4 mL, Route: IV, Drug form: INJ, BID, Dosing Weight 70.483, kg, Start date: 03/29/17 9:00:00 E COMMERCE STRATEGIST, Duration: 30 day, Stop date: 04/27/17 17:00:00 CSTNotes: (Same as: Lasix) MEDICATION WASTE Product Size: 40 mg Product Wasted: ___ mg Inactive 03/29/2017 [facility] Bisacodyl 10 mg, 1 supp, Route: CA, Drug form: SUPP, ONCE, Dosing Weight 70.483, kg, Start date: 03/29/17 6:24:00 E COMMERCE STRATEGIST, Stop date: 03/29/17 6:24:00 CSTNotes: (Same As: Dulcolax, Bisco-Lax) Inactive 03/29/2017 [facility] Diphenhydramine 50 mg, 1 cap, Route: PO, Drug form: CAP, ONCE, Dosing Weight 70.483, kg, PRN Insomnia, Start date: 03/28/17 23:38:00 CSTNotes: (Same as: Benadryl) No Longer Active 03/29/2017 [facility] Bisacodyl 10 mg, 1 supp, Route: CA, Drug form: SUPP, Daily, Dosing Weight 70.483, kg, PRN Constipation, Start date: 03/28/17 16:43:00 E COMMERCE STRATEGIST, Duration: 30 day, Stop date: 04/27/17 16:42:00 CSTNotes: (Same As: Dulcolax, Bisco-Lax) No Longer Active 03/28/2017 [facility] Furosemide 100 mg, 10 mL, Rate: 7.5 mg/hour, Dosing Weight 70.483, kg, Route: IV, Total Volume: 100, Start Date: 03/28/17 15:57:00 E [employer]ERCE STRATEGIST, Duration: 30 day, Stop date: 04/27/17 15:56:00 E COMMERCE STRATEGIST, Replace Every: 24 hr, con tinuousNotes: (Same as: Lasix) MEDICATION WASTE Product Size: 100 mg Product Wasted: ___ mg No Longer Active 03/28/2017 [facility] heparin additive 25,000 unit [10 unit/kg/hr] + Premix Diluent Sodium Chloride 0.45% 500 mL 500 mL, Rate: 14.1 ml/hr, Infuse over: 35.5 hr, Route: IV, Dosing Weight 70.483 kg, Total Volume: 500 mL, Start date: 03/28/17 15:54:00 E COMMERCE STRATEGIST, Duration: 30 day, Stop date: 04/27/17 15:53:00 E [employer]ERCE STRATEGIST, 1.86, [id number]: Total Concentration=50 unit/ ml Total irbwef=538 ml Send Med Request 2 hours prior to next bag No Longer Active 03/28/2017 [facility] Insulin Lispro 3 unit, 0.03 mL, Route: SUB-Q, Drug form: SOLN, TID-Before Meals, Dosing Weight 70.483, kg, PRN Blood Glucose Results, Start date: 03/28/17 15:02:00 E COMMERCE STRATEGIST, Duration: 30 day, Stop date: 04/27/17 15:01:0 0 CSTNotes: (Same as: Humalog ) Roll in palms of hands gently; Do not shake `vigorously. "Single Patient Use Only " WASTE: F/P - Black; E - Municipal Trash Bin Stable for 28 days at room temperature. Expires in days from Date No Longer Active 03/28/2017 [facility] Dextrose 50% Syringe 12.5 gm, 25 mL, Route: IVP, Drug Form: INJ, Dosing Weight 70.483, kg, PRN, PRN Blood Glucose Results, Start date: 03/28/17 15:02:00 E COMMERCE STRATEGIST, Duration: 30 day, Stop date: 04/27/17 15:01:00 E COMMERCE STRATEGIST No Longer Active 03/28/2017 [facility] Glucagon 1 mg, Route: IM, Drug form: PDR/INJ, PRN, Dosing Weight 70.483, kg, PRN Blood Glucose Results, Start date: 03/28/17 15:02:00 E COMMERCE STRATEGIST, Duration: 30 day, Stop date: 04/27/17 15:01:00 E [employer]ERCE STRATEGIST No Longer Active 03/28/2017 [facility] bumetanide 10 mg + Sodium Chloride 0.9% (titrate) 60 mL 60 mL, Rate: Infuse as directed, Dosing Weight 70.483, kg, Route: IV, Total Volume: 100 mL, Start Date: 03/28/17 14:24:00 E [employer]ERCE STRATEGIST, Duration: 30 day, Stop date: 04/27/17 14:23:00 E COMMERCE STRATEGIST, Replace Every: 24 hrNotes: (Same As: Bumex) Inactive 03/28/2017 [facility] Bumex 1 mg, 4 mL, Route: IV, Drug form: INJ, Q6H, Dosing Weight 70.483, kg, Start date: 03/28/17 12:00:00 E COMMERCE STRATEGIST, Duration: 30 day, Stop date: 04/27/17 6:00:00 CSTNotes: (Same As: Bumex) Inactive 03/28/2017 [facility] Insulin Glargine 100 UNT/ML Injectable Solution [Lantus] 5 unit, 0.05 mL, Route: SUB-Q, Drug form: SOLN, Daily, Dosing Weight 70.483, kg, Start date: 03/28/17 9:00:00 E COMMERCE STRATEGIST, Duration: 30 day, Stop date: 04/26/17 9:00:00 CSTNotes: Same as: Lantus) Do not hold insulin without contacting prescriber WASTE: F/P - Black; E - Municipal Trash Bin No Longer Active 03/28/2017 [facility] Insulin Lispro 9 unit, 0.09 mL, Route: SUB-Q, Drug form: SOLN, TID-Before Meals, Dosing Weight 70.483, kg, PRN Blood Glucose Results, Start date: 03/28/17 7:15:00 E COMMERCE STRATEGIST, Duration: 30 day, Stop date: 04/27/17 7:14:00 CSTNotes: (Same as: Humalog ) Roll in palms of hands gently; Do not shake `vigorously. "Single Patient Use Only " WASTE: F/P - Black; E - Municipal Trash Bin Stable for 28 days at room temperature. Expires in days from Date No Longer Active 03/28/2017 [facility] Dextrose 50% Syringe 12.5 gm, 25 mL, Route: IVP, Drug Form: INJ, Dosing Weight 70.483, kg, PRN, PRN Blood Glucose Results, Start date: 03/28/17 7:15:00 E COMMERCE STRATEGIST, Duration: 30 day, Stop date: 04/27/17 7:14:00 E COMMERCE STRATEGIST Inactive 03/28/2017 [facility] Glucagon 1 mg, Route: IM, Drug form: PDR/INJ, PRN, Dosing Weight 70.483, kg, PRN Blood Glucose Results, Start date: 03/28/17 7:15:00 E COMMERCE STRATEGIST, Duration: 30 day, Stop date: 04/27/17 7:14:00 E COMMERCE STRATEGIST Inactive 03/28/2017 [facility] bumetanide 10 mg + Sodium Chloride 0.9% (titrate) 60 mL 60 mL, Rate: 0.5 mg/hr, Dosing Weight 70.483, kg, Route: IV, Total Volume: 100 mL, Start Date: 03/27/17 15:12:00 E COMMERCE STRATEGIST, Duration: 30 day, Stop date: 04/26/17 15:11:00 E COMMERCE STRATEGIST, Replace Every: 24 hrNotes: (Same As: Bumex) No Longer Active 03/27/2017 [facility] Sodium Chloride 0.9% (titrate) 60 mL + bumetanide 10 mg 60 mL, Rate: 0.5mg/hr, Dosing Weight 70.483, kg, Route: IV, Total Volume: 60 mL, Start Date: 03/27/17 15:11:00 E COMMERCE STRATEGIST, Duration: 30 day, Stop date: 04/26/17 15:10:00 E COMMERCE STRATEGIST, Replace Every: 24 hr Inactive 03/27/2017 [facility] Sodium Chloride 0.9% (titrate) 60 mL + bumetanide 10 mg 60 mL, Rate: Infuse as directed 0.5mg/hr, Dosing Weight 70.483, kg, Route: IV, Total Volume: 60 mL, Start Date: 03/27/17 15:09:00 E COMMERCE STRATEGIST, Duration: 30 day, Stop date: 04/26/17 15:08:00 E COMMERCE STRATEGIST, Replace Every: 24 hr Inactive 03/27/2017 [facility] Sodium Chloride 0.9% (titrate) 60 mL + bumetanide 10 mg 60 mL, Rate: Infuse as directed, Dosing Weight 70.483, kg, Route: IV, Total Volume: 60 mL, Start Date: 03/27/17 15:06:00 E COMMERCE STRATEGIST, Duration: 30 day, Stop date: 04/26/17 15:05:00 E COMMERCE STRATEGIST, Replace Every: 24 hr Inactive 03/27/2017 [facility] Lasix 40 mg, Route: IV, ONCE, Dosing Weight 70.483, kg, Start date: 03/27/17 14:42:00 E COMMERCE STRATEGIST, Stop date: 03/27/17 14:42:00 E COMMERCE STRATEGIST Inactive 03/27/2017 [facility] Insulin regular 10 unit, 0.1 mL, Route: SUB-Q, Drug form: SOLN, TID-Before Meals, Dosing Weight 70.483, kg, PRN Blood Glucose Results, Start date: 03/27/17 14:40:00 E COMMERCE STRATEGIST, Duration: 30 day, Stop date: 04/26/17 14:39:0 0 CSTNotes: (Same as: Humulin R) Roll in palms of hands gently; Do not shake vigorously. "single patient use only" (Restricted to patients requiring a dose > 60 units) WASTE: F/P - Black; E - Municipal Trash Bin Stable for 28 days at room temperature Expires in days from Date No Longer Active 03/27/2017 [facility] Dextrose 50% Syringe 12.5 gm, 25 mL, Route: IVP, Drug Form: INJ, Dosing Weight 70.483, kg, PRN, PRN Blood Glucose Results, Start date: 03/27/17 14:40:00 E COMMERCE STRATEGIST, Duration: 30 day, Stop date: 04/26/17 14:39:00 E COMMERCE STRATEGIST No Longer Active 03/27/2017 [facility] Glucagon 1 mg, Route: IM, Drug form: PDR/INJ, PRN, Dosing Weight 70.483, kg, PRN Blood Glucose Results, Start date: 03/27/17 14:40:00 E COMMERCE STRATEGIST, Duration: 30 day, Stop date: 04/26/17 14:39:00 E COMMERCE STRATEGIST No Longer Active 03/27/2017 [facility] Bisacodyl 10 mg, 1 supp, Route: CA, Drug form: SUPP, ONCE, Dosing Weight 70.483, kg, Start date: 03/27/17 14:40:00 E COMMERCE STRATEGIST, Stop date: 03/27/17 14:40:00 CSTNotes: (Same As: Dulcolax, Bisco-Lax) Inactive 03/27/2017 [facility] Miralax 17 gm, 1 pkt, Route: PO, Drug form: PWDR, Daily, Dosing Weight 70.483, kg, Priority: NOW, Start date: 03/27/17 14:40:00 E COMMERCE STRATEGIST, Duration: 30 day, Stop date: 04/26/17 9:00:00 CSTNotes: Dissolve in 8 oz of water or juice. (Same as: Miralax) No Longer Active 03/27/2017 [facility] Docusate Sodium 50 MG / sennosides, LONG-TERM 8.6 MG Oral Tablet 2 tab, Route: PO, Drug Form: TAB, Dosing Weight 70.483, kg, BID, NOW, Start date: 03/27/17 14:40:00 E COMMERCE STRATEGIST, Stop date: 04/26/17 9:00:00 CSTNotes: (Same as Senokot- S) Equiv. to Wendi-Colace. No Longer Active 03/27/2017 [facility] Furosemide 40 mg, Route: IVP, Drug form: INJ, ONCE, Dosing Weight 70.483, kg, Start date: 03/27/17 14:33:00 E COMMERCE STRATEGIST, Stop date: 03/27/17 14:33:00 E COMMERCE STRATEGIST Inactive 03/27/2017 [facility] Amiodarone 150 mg, 3 mL, Route: IVPB, ONCE, Dosing Weight 70.483, kg, Start date: 03/27/17 14:33:00 E COMMERCE STRATEGIST, Stop date: 03/27/17 14:33:00 CSTNotes: Central administration only for concentrations > 2 mg/ml. "Recommendation: Use an in-line filter during administration for continuous infusions to reduce the incidence of phlebitis" (Same as Codarone) MEDICATION WASTE Product Size: 150 mg Product Wasted: ___ mg Inactive 03/27/2017 [facility] Amiodarone 150 mg, 3 mL, Route: IVPB, ONCE, Dosing Weight 70.483, kg, Start date: 03/27/17 10:52:00 E COMMERCE STRATEGIST, Stop date: 03/27/17 10:52:00 CSTNotes: Central administration only for concentrations > 2 mg/ml. "Recommendation: Use an in-line filter during administration for continuous infusions to reduce the incidence of phlebitis" (Same as Codarone) MEDICATION WASTE Product Size: 150 mg Product Wasted: ___ mg Inactive 03/27/2017 [facility] pantoprazole 40 mg, Route: IVP, Drug form: INJ, Before Breakfast, Dosing Weight 70.483, kg, Start date: 03/27/17 7:30:00 E COMMERCE STRATEGIST, Duration: 30 day, Stop date: 04/26/17 7:29:00 CSTNotes: For IV push reconstitute with 10 ml 0.9% sodium chloride and push over 2 minutes. (Same as: Protonix) No Longer Active 03/27/2017 [facility] Sodium Chloride 0.9% (Bolus) IV 500 mL, 500 ml/hr, Infuse Over: 1 hr, Route: IV, ONCE, Priority: STAT, Dosing Weight 70.483 kg, Start date: 03/26/17 20:14:00 E COMMERCE STRATEGIST, Stop date: 03/26/17 20:14:00 E COMMERCE STRATEGIST Inactive 03/27/2017 [facility] heparin additive 25,000 unit [600 unit/hr] + Premix Diluent Sodium Chloride 0.45% 500 mL 500 mL, Rate: 12 ml/hr, Infuse over: 41.7 hr, Route: IV, Dosing Weight 70.483 kg, Total Volume: 500 mL, Start date: 03/26/17 20:03:00 E COMMERCE STRATEGIST, Duration: 30 day, Stop date: 04/25/17 20:02:00 E COMMERCE STRATEGIST, 1.86, [id number]: Total Concentration=50 unit/ ml Total grreco=913 ml Send Med Request 2 hours prior to next bag No Longer Active 03/27/2017 [facility] AMIODarone 900 mg in D5W 500 ml IV 900 mg 900 mg, 500 mL, Rate: 1 mg/min for 6 hours, then reduce to 0.5 mg/min, Dosing Weight 70.483, kg, Route: IV, Total Volume: 500, Start Date: 03/26/17 18:52:00 E COMMERCE STRATEGIST, Duration: 30 day, Stop date: 04/25/17 18:51:00 E COMMERCE STRATEGIST, Replace Every: 24 hrNotes: Same as: Cordarone Use 0.22 micron in-line filter Concentration: 1.8 mg/ ml Initiate at 33.4mL/hr x6hr, then 16.7mL/hr x18hr. Infusion may be maintained up to 96hr OR until a stable rhythm is reached OR until discontinued by MD. No Longer Active 03/27/2017 [facility] Amiodarone 150 mg, 3 mL, Route: IVPB, ONCE, Dosing Weight 70.483, kg, Start date: 03/26/17 18:52:00 E COMMERCE STRATEGIST, Stop date: 03/26/17 18:52:00 CSTNotes: Central administration only for concentrations > 2 mg/ml. "Recommendation: Use an in-line filter during administration for continuous infusions to reduce the incidence of phlebitis" (Same as Codarone) MEDICATION WASTE Product Size: 150 mg Product Wasted: _0__ mg Inactive 03/27/2017 [facility] calcium gluconate (ANES) Route: IV, Drug form: INJ, ONCE, Stop date: 03/26/17 17:36:00 E COMMERCE STRATEGIST Inactive 03/26/2017 [facility] rocuronium (ANES) Route: IV, Drug form: INJ, ONCE, Stop date: 03/26/17 17:27:00 E COMMERCE STRATEGIST Inactive 03/26/2017 [facility] midazolam (ANES) Route: IV, Drug form: SOLN, ONCE, Stop date: 03/26/17 17:27:00 E COMMERCE STRATEGIST Inactive 03/26/2017 [facility] fentaNYL (ANES) Route: IV, Drug form: INJ, ONCE, Stop date: 03/26/17 16:37:00 E COMMERCE STRATEGIST Inactive 03/26/2017 [facility] Sodium Chloride 0.9% IV (ANES) 1000 mL Route: IV, Total Volume: 1,000, Start date: 03/26/17 15:18:00 E COMMERCE STRATEGIST, Stop date: 03/26/17 16:18:00 E COMMERCE STRATEGIST Inactive 03/26/2017 [facility] EPINEPHrine (ANES) 32 microgram Route: IV, Drug form: INJ, Start date: 03/26/17 15:08:00 E COMMERCE STRATEGIST, Stop date: 03/26/17 16:08:00 E COMMERCE STRATEGIST Inactive 03/26/2017 [facility] cefepime 1 gm, Route: IVPB, [id number], Dosing Weight 70.483, kg, (CrCl 30 - 49 ml/min), Start date: 03/26/17 13:00:00 E COMMERCE STRATEGIST, Duration: 5 day, Stop date: 03/31/17 12:59:00 E COMMERCE STRATEGIST, ABX Indication: BacteremiaNotes: (Same As: Maxipime) MEDICATION WASTE Product Size: 1000 mg Product Wasted: ___ mg No Longer Active 03/26/2017 [facility] heparin additive 25,000 unit [10 unit/kg/hr] + Premix Diluent Sodium Chloride 0.45% 500 mL 500 mL, Rate: 14.1 ml/hr, Infuse over: 35.5 hr, Route: IV, Dosing Weight 70.483 kg, Total Volume: 500 mL, Start date: 03/26/17 11:08:00 E COMMERCE STRATEGIST, Duration: 30 day, Stop date: 04/25/17 11:07:00 E COMMERCE STRATEGIST, 1.86, [id number]: Total Concentration=50 unit/ ml Total ozfzhm=398 ml Send Med Request 2 hours prior to next bag Inactive 03/26/2017 [facility] Vancomycin 1 gm, Route: IVPB, Drug form: INJ, Q12H, Dosing Weight 70.483, kg, Time Critical Medication, Start date: 03/25/17 21:00:00 E COMMERCE STRATEGIST, Duration: 2 day, Stop date: 03/27/17 20:59:00 E COMMERCE STRATEGIST, ABX Indication: Surgical ProphylaxisNotes: TIME CRITICAL MEDICATION (Same As: Vancocin) Infusion rate 2001 mg: infuse over 2.5 hours MEDICATION WASTE Product Size: 1000 mg Product Wasted: ___ mg No Longer Active 03/26/2017 [facility] atorvastatin 40 mg, 1 tab, Route: PO, Drug form: TAB, Bedtime, Dosing Weight 70.483, kg, Start date: 03/25/17 21:00:00 E COMMERCE STRATEGIST, Duration: 30 day, Stop date: 04/23/17 21:00:00 CSTNotes: (Same as: Lipitor) No Longer Active 03/26/2017 [facility] Azithromycin 500 mg, Route: IVPB, Drug form: PDR/INJ, [id number], Dosing Weight 70.483, kg, Start date: 03/25/17 13:00:00 E COMMERCE STRATEGIST, Duration: 3 day, Stop date: 03/28/17 12:59:00 E COMMERCE STRATEGIST, ABX Indication: PneumoniaNotes: (Same As: Zithromax IV) No Longer Active 03/25/2017 [facility] pantoprazole 40 mg, 1 tab, Route: PO, Drug form: ECTAB, Daily, Dosing Weight 70.483, kg, Start date: 03/25/17 9:00:00 E COMMERCE STRATEGIST, Duration: 30 day, Stop date: 04/24/17 8:59:00 CSTNotes: Tablet should not be chewed or cr ushed. (Same as: Protonix) No Longer Active 03/25/2017 [facility] aspirin 81 mg tablet, enteric coated 81 mg, 1 tab, Route: PO, Drug form: ECTAB, Daily, Dosing Weight 70.483, kg, Start date: 03/25/17 9:00:00 E COMMERCE STRATEGIST, Stop date: 04/24/17 8:59:00 CSTNotes: Do not crush or chew. (Same As: Ecotrin) No Longer Active 03/25/2017 [facility] Vancomycin 1 gm, Route: IVPB, Drug form: INJ, Q12H, Dosing Weight 70.483, kg, Time Critical Medication, Start date: 03/25/17 5:00:00 E COMMERCE STRATEGIST, Duration: 2 doses or times, Stop date: 03/25/17 17:00:00 E COMMERCE STRATEGIST, ABX Indication: Surgical ProphylaxisNotes: TIME CRITICAL MEDICATION (Same As: Vancocin) Infusion rate 2001 mg: infuse over 2.5 hours MEDICATION WASTE Product Size: 1000 mg Product Wasted: ___ mg Inactive 03/25/2017 [facility] Cefazolin 2 gm, Route: IVPB, [id number], Dosing Weight 70.483, kg, Start date: 03/25/17 3:00:00 E COMMERCE STRATEGIST, Duration: 3 doses or times, Stop date: 03/25/17 19:00:00 E COMMERCE STRATEGIST, ABX Indication: Surgical ProphylaxisNotes: (Same As: AncFredrick molina) MEDICATION WASTE Product Size: 1000 mg Product Wasted: ___ mg Inactive 03/25/2017 [facility] Hydrocortisone 50 mg, Route: IV, Q6H, Dosing Weight 70.483, kg, Start date: 03/25/17 1:45:00 E COMMERCE STRATEGIST, Duration: 30 day, Stop date: 04/24/17 1:44:00 E COMMERCE STRATEGIST Inactive 03/25/2017 [facility] albumin human 5% intravenous solution 12.5 gm, 250 mL, 250 ml/hr, Route: IV, Drug Form: INJ, Dosing Weight 70.483, kg, ONCE, Start date: 03/25/17 0:04:00 E COMMERCE STRATEGIST, Stop date: 03/25/17 0:04:00 CSTNotes: LOT#: Mfg: WASTE: F/P - Red; E -Red (Same as: Albuminar) "blood product derivative" Inactive 03/25/2017 [facility] ocular lubricant 1 appl, Route: BOTH EYES, Q6H, Drug form: OINT, Start date: 03/25/17 0:00:00 E COMMERCE STRATEGIST, Duration: 30 day, Stop date: 04/23/17 23:59:00 CSTNotes: (Same as: Lacri-Lube, Duratears Naturale, Artificial Tears, and Tears Again ) No Longer Active 03/25/2017 [facility] Magnesium Oxide 800 mg, 2 tab, Route: PO, Drug form: TAB, PRN, Dosing Weight 70.483, kg, PRN Abnormal Lab Result, FOR ICU USE ONLY, Start date: 03/24/17 23:20:00 E COMMERCE STRATEGIST, Duration: 30 day, Stop date: 04/23/17 23:19:00 CSTN otes: (Same as: Mag-Ox 400) Magnesium oxide [id number] elemental magnesium Dose=____mg magnesium oxide (___mg elemental magnesium) No Longer Active 03/25/2017 [facility] Calcium Carbonate 500 MG Chewable Tablet 500 mg, 1 tab, Route: PO, Drug form: CHEWTAB, PRN, Dosing Weight 70.483, kg, PRN Abnormal Lab Result, FOR ICU USE ONLY, Start date: 03/24/17 23:20:00 E COMMERCE STRATEGIST, Duration: 30 day, Stop date: 04/23/17 23:19:00 CSTNotes: (Same As: Tums) Calcium Carbonate 500 vb=078 mg elemental calcium Dose= mg calcium carbonate ( mg elemental calcium) No Longer Active 03/25/2017 [facility] Calcium Gluconate 1 gm, 10 mL, Route: IVPB, PRN, Dosing Weight 70.483, kg, PRN Abnormal Lab Result, Start date: 03/24/17 23:20:00 E COMMERCE STRATEGIST, Duration: 30 day, Stop date: 04/23/17 23:19:00 E COMMERCE STRATEGIST, FOR ICU USE ONLYNotes: WASTE: F/P - Sink; E - Municipal Trash Bin No Longer Active 03/25/2017 [facility] Potassium Chloride 20 mEq, 1 tab, Route: PO, Drug form: ERTAB, PRN, Dosing Weight 70.483, kg, PRN Abnormal Lab Result, Start date: 03/24/17 23:20:00 E COMMERCE STRATEGIST, Duration: 30 day, Stop date: 04/23/17 23:19:00 E COMMERCE STRATEGIST, FOR ICU USE ONLYNotes: (Same as: K-Dur 20) "Do Not Crush" With food and full glass of water No Longer Active 03/25/2017 [facility] sodium phosphate 30 mmol, 10 mL, Route: IVPB, PRN, Dosing Weight 70.483, kg, PRN Abnormal Lab Result, Start date: 03/24/17 23:20:00 E COMMERCE STRATEGIST, Duration: 30 day, Stop date: 04/23/17 23:19:00 E COMMERCE STRATEGIST, FOR ICU USE ONLY No Longer Active 03/25/2017 [facility] Magnesium Sulfate 2 gm, 50 mL, Route: IVPB, Drug form: INJ, PRN, Dosing Weight 70.483, kg, PRN Abnormal Lab Result, Start date: 03/24/17 23:20:00 E COMMERCE STRATEGIST, Duration: 30 day, Stop date: 04/23/17 23:19:00 E COMMERCE STRATEGIST, FOR ICU USE ONLYNotes: WASTE: F/P - Sink; E - Municipal Trash Bin No Longer Active 03/25/2017 [facility] potassium phosphate 45 mmol, 15 mL, Route: IVPB, PRN, Dosing Weight 70.483, kg, PRN Abnormal Lab Result, Start date: 03/24/17 23:20:00 E COMMERCE STRATEGIST, Duration: 30 day, Stop date: 04/23/17 23:19:00 E COMMERCE STRATEGIST, FOR ICU USE ONLYNotes: (Same as: K Phosphate.) 1 mMol phoshate has 1.47 mEq potassium Infuse over 4 hours No Longer Active 03/25/2017 [facility] potassium phosphate-sodium phosphate 250 mg-280 mg-160 mg oral powder for reconstitution 2 pkt, Route: PO, Drug Form: PDR/REC, Dosing Weight 70.483, kg, PRN, PRN Abnormal Lab Result, FOR ICU USE ONLY, Start date: 03/24/17 23:20:00 E COMMERCE STRATEGIST, Duration: 30 day, Stop date: 04/23/17 23:19:00 CSTNotes: (Same as: Phos-NaK) Each 1.5 gm pkt has 250mg phosphorous. Mix w/2.5oz water and stir. No Longer Active 03/25/2017 [facility] Epinephrine 8 mg, 8 mL, Rate: Titrate, Start Dose: 5 microgram/min, Titration: 0.5 microgram/min every 2 min, Goal(s): MAP >=65 mmHg, Max Dose: 35 microgram/min, Route: IVPB, Dosing Weight 70.483 kg, Total Volume: 250, Start date: 03/24/17 22:22:00 E COMMERCE STRATEGIST, Duration...Notes: (Same as: Adrenalin) Suremed - Injectable drug used as inhalation treatment. MEDICATION WASTE Product Size: 1 mg Product Wasted: ___ mg No Longer Active 03/25/2017 [facility] albumin human 5% intravenous solution 12.5 gm, 250 mL, 250 ml/hr, Route: IV, Drug Form: INJ, Dosing Weight 70.483, kg, ONCE, Start date: 03/24/17 22:00:00 E COMMERCE STRATEGIST, Stop date: 03/24/17 22:00:00 CSTNotes: LOT#: Mfg: WASTE: F/P - Red; E -Red (Same as: Albuminar) "blood product derivative" No Longer Active 03/25/2017 [facility] heparin additive 25,000 unit [700 unit/hr] + Premix Diluent Sodium Chloride 0.45% 500 mL 500 mL, Rate: 14 ml/hr, Infuse over: 35.7 hr, Route: IVPB, Dosing Weight 70.483 kg, Total Volume: 500 mL, Start date: 03/24/17 21:59:00 E COMMERCE STRATEGIST, Stop date: 04/23/17 21:59:00 E COMMERCE STRATEGIST, 1.86, [id number]: Total Concen tration=50 unit/ ml Total rmerxn=483 ml Send Med Request 2 hours prior to next bag No Longer Active 03/25/2017 [facility] Fentanyl 25 microgram, 0.5 mL, Route: IV, Drug form: INJ, ONCE, Dosing Weight 70.483, kg, Start date: 03/24/17 21:51:00 E COMMERCE STRATEGIST, Stop date: 03/24/17 21:51:00 CSTNotes: (Same as: Sublimaze) Preservative free. No Longer Active 03/25/2017 [facility] Fentanyl 1,000 microgram, 20 mL, Rate: Titrate, Start Dose: 50 microgram/hr, Titration: 25 microgram/hour every 15 minutes, Goal(s): 0, Max Dose: 300 microgram/hr, Route: IV, Dosing Weight 70.483 kg, Total Volume: 20, Start date: 03/24/17 21:47:00 E COMMERCE STRATEGIST, Duratio... No Longer Active 03/25/2017 [facility] Dextrose 50% Syringe 12.5 gm, 25 mL, Route: IVP, Drug Form: INJ, Dosing Weight 70.483, kg, PRN, PRN Blood Glucose Results, Start date: 03/24/17 20:19:00 E COMMERCE STRATEGIST, Duration: 30 day, Stop date: 04/23/17 20:18:00 E COMMERCE STRATEGIST No Longer Active 03/25/2017 [facility] Insulin regular 100 unit + 99 mL, Rate: Start Insulin Drip Per ICU Protocol, Dosing Weight 70.483, kg, Route: IVPB, Total Volume: 100, Start Date: 03/24/17 20:19:00 E COMMERCE STRATEGIST, Duration: 30 day, Stop date: 04/23/17 20:18:00 E COMMERCE STRATEGIST, Replace Every: 24 hrNotes: Final Concentration 1unit/1ml WASTE: F/P - Black; E - Municipal Trash Bin No Longer Active 03/25/2017 [facility] dexmedetomidine (ANES) 200 microgram Route: IV, Drug form: INJ, Start date: 03/24/17 20:01:00 E COMMERCE STRATEGIST, Stop date: 03/24/17 21:01:00 E COMMERCE STRATEGIST Inactive 03/25/2017 [facility] protamine (ANES) Route: IV, Drug form: INJ, ONCE, Stop date: 03/24/17 19:28:00 E COMMERCE STRATEGIST Inactive 03/25/2017 [facility] potassium chloride (ANES) 20 mEq Route: IV, Drug form: INJ, Start date: 03/24/17 19:18:00 E COMMERCE STRATEGIST, Stop date: 03/24/17 20:18:00 E COMMERCE STRATEGIST Inactive 03/25/2017 [facility] Insulin regular (ANES) Route: IV, Drug form: INJ, ONCE, Stop date: 03/24/17 18:48:00 E COMMERCE STRATEGIST Inactive 03/25/2017 [facility] calcium gluconate (ANES) Route: IV, Drug form: INJ, ONCE, Stop date: 03/24/17 18:13:00 E COMMERCE STRATEGIST Inactive 03/25/2017 [facility] heparin (ANES) Route: IV, Drug form: INJ, ONCE, Stop date: 03/24/17 18:08:00 E COMMERCE STRATEGIST Inactive 03/25/2017 [facility] midazolam (ANES) Route: IV, Drug form: SOLN, ONCE, Stop date: 03/24/17 17:23:00 E COMMERCE STRATEGIST Inactive 03/24/2017 [facility] rocuronium (ANES) Route: IV, Drug form: INJ, ONCE, Stop date: 03/24/17 17:13:00 E COMMERCE STRATEGIST Inactive 03/24/2017 [facility] EPINEPHrine (ANES) 1 mg Route: IV, Drug form: INJ, Start date: 03/24/17 16:49:00 E COMMERCE STRATEGIST, Stop date: 03/24/17 17:49:00 E COMMERCE STRATEGIST Inactive 03/24/2017 [facility] fentaNYL (ANES) Route: IV, Drug form: INJ, ONCE, Stop date: 03/24/17 16:48:00 E COMMERCE STRATEGIST Inactive 03/24/2017 [facility] ceFAZolin (ANES) Route: IV, Drug form: INJ, ONCE, Stop date: 03/24/17 16:44:00 E COMMERCE STRATEGIST Inactive 03/24/2017 [facility] Sodium Chloride 0.9% IV (ANES) 480 mL + tranexamic acid (ANES) 2000 mg Route: IV, Drug form: INJ, Start date: 03/24/17 16:10:00 E COMMERCE STRATEGIST, Stop date: 03/24/17 17:10:00 E COMMERCE STRATEGIST Inactive 03/24/2017 [facility] vancomycin (ANES) 1000 mg Route: IV, Drug form: INJ, Start date: 03/24/17 16:09:00 E COMMERCE STRATEGIST, Stop date: 03/24/17 17:09:00 E COMMERCE STRATEGIST Inactive 03/24/2017 [facility] Sodium Chloride 0.9% IV (ANES) 1000 mL Route: IV, Total Volume: 1,000, Start date: 03/24/17 15:44:00 E COMMERCE STRATEGIST, Stop date: 03/24/17 16:44:00 E COMMERCE STRATEGIST Inactive 03/24/2017 [facility] Fentanyl 1,000 microgram, 20 mL, Rate: Titrate, Start Dose: 50 microgram/hr, Titration: Titrate by 25 micrograms/hour every 15 minutes, Goal(s): RASS - 2, Max Dose: 300 mcg/hr, Route: IV, Dosing Weight 70.483 kg, Total Volume: 20, Priority: STAT, Start date: 1... Inactive 03/24/2017 [facility] Midazolam 50 mg, 50 mL, Rate: Titrate, Start Dose: 1 mg/hr, Titration: Rebolus 1 mg IV and/or Titrate by 1 milligram/hour every 30 minutes, Goal(s): RASS - 2, Max Dose: 10 mg/hr, Route: IV, Dosing Weight 70.483 kg, Total Volume: 50, Priority: STAT, Start date:...Notes: (Same as: Versed) No Longer Active 03/24/2017 [facility] Sodium Chloride 0.9% (titrate) 250 mL 250 mL, Rate: order desk caller for use with blood product administration, Dosing Weight 70.483, kg, Route: IV, Total Volume: 250, Start Date: 03/24/17 14:38:00 E COMMERCE STRATEGIST, Duration: 30 day, Stop date: 04/23/17 14:37:00 E COMMERCE STRATEGIST, Replace Every: 24 hr No Longer Active 03/24/2017 [facility] normal saline 0.9% IV 1000 mL 1,000 mL, Rate: 70 ml/hr, Infuse over: 14.3 hr, Route: IV, Dosing Weight 70.483 kg, Total Volume: 1,000, Start date: 03/24/17 8:31:00 E COMMERCE STRATEGIST, Duration: 1 doses or times, Stop date: 03/24/17 23:27:00 E COMMERCE STRATEGIST, 1.86, m2 Inactive 03/24/2017 [facility] Potassium Chloride 60 mEq, 3 tab, Route: PO, Drug form: ERTAB, ONCE, Dosing Weight 70.483, kg, Start date: 03/24/17 6:48:00 E [employer], Stop date: 03/24/17 6:48:00 CSTNotes: (Same as: K-Dur 20) "Do Not Crush" With food and full glass of water Inactive 03/24/2017 [facility] Insulin Glargine 100 UNT/ML Injectable Solution 5 unit, Route: SUB-Q, ONCE, Dosing Weight 70.483, kg, Priority: STAT, Start date: 03/23/17 21:47:00 E [employer], Stop date: 03/23/17 21:47:00 E [employer] Inactive 03/24/2017 [facility] azithromycin 500 mg oral tablet 500 mg, 2 tab, Route: PO, Drug form: TAB, Daily, Dosing Weight 74.091, kg, Start date: 03/23/17 9:00:00 E [employer], Duration: 2 doses or times, Stop date: 03/24/17 9:00:00 E [employer], ABX Indication: PneumoniaNotes: Take 1 hour before or 2 hours after meals. (Same As: Zithromax) No Longer Active 03/23/2017 [facility] normal saline 0.9% IV 1,000 mL 1,000 mL, Rate: 60 ml/hr, Infuse over: 16.7 hr, Route: IV, Dosing Weight 70.483 kg, Total Volume: 1,000, Start date: 03/23/17 8:01:00 E [employer], Duration: 1 day, Stop date: 03/24/17 8:00:00 E [employer], 1.86, m2 No Longer Active 03/23/2017 [facility] normal saline 0.9% IV 1000 mL 1,000 mL, Rate: 60 ml/hr, Infuse over: 16.7 hr, Route: IV, Dosing Weight 70.483 kg, Total Volume: 1,000, Start date: 03/23/17 8:01:00 E [employer], Duration: 30 day, Stop date: 04/22/17 8:00:00 E [employer], 1.86, m2 Inactive 03/23/2017 [facility] Potassium Chloride 20 mEq, 1 tab, Route: PO, Drug form: ERTAB, ONCE, Dosing Weight 70.483, kg, Start date: 03/23/17 6:51:00 E [employer], Stop date: 03/23/17 6:51:00 CSTNotes: (Same as: K-Dur 20) "Do Not Crush" With food and full glass of water Inactive 03/23/2017 [facility] Ceftriaxone 1 gm, Route: IVPB, [id number], Dosing Weight 74.091, kg, Start date: 03/23/17 4:00:00 E [employer], Duration: 7 day, Stop date: 03/29/17 4:00:00 E [employer], ABX Indication: PneumoniaNotes: (Same As: Rocephin). Use with 100 mL NS and infuse over 30 min MEDICATION WASTE Product Size: 1000 mg Product Wasted: 0___ mg No Longer Active 03/23/2017 [facility] atorvastatin 80 mg, 1 tab, Route: PO, Drug form: TAB, Bedtime, Dosing Weight 74.091, kg, Start date: 03/22/17 21:00:00 E [employer], Duration: 30 day, Stop date: 04/21/17 20:59:00 CSTNotes: Same as Lipitor No Longer Active 03/23/2017 [facility] glimepiride 4 mg, PO, QAM, 0 Refill(s) Active 03/22/2017 [facility] Aspirin 81 mg, 1 tab, Route: PO, Drug form: ECTAB, Daily, Dosing Weight 74.091, kg, Start date: 03/22/17 14:00:00 E [employer], Duration: 30 day, Stop date: 04/21/17 9:00:00 CSTNotes: Do not crush or chew. (Same As: Ecotrin) No Longer Active 03/22/2017 [facility] Furosemide 40 mg, 4 mL, Route: IVP, Drug form: INJ, BID Diuretic, Dosing Weight 74.091, kg, Start date: 03/22/17 14:00:00 E [employer], Duration: 30 day, Stop date: 04/21/17 13:59:00 CSTNotes: (Same as: Lasix) MEDICATION WASTE Product Size: 40 mg Product Wasted: ___ mg No Longer Active 03/22/2017 [facility] Nitroglycerin 0.4 MG Sublingual Tablet [Nitrostat] 0.4 mg, 1 tab, Route: SL, Drug form: TAB, Q5Min, Dosing Weight 74.091, kg, PRN Chest Pain, Start date: 03/22/17 13:34:00 E [employer], Duration: 3 doses or times, Stop date: Limited # of timesNotes: (Same as:Nitroquick, Nitrostat) "Do Not Crush" Sublingual tablet No Longer Active 03/22/2017 [facility] Lisinopril 2.5 mg, 1 tab, Route: PO, Drug form: TAB, Daily, Dosing Weight 74.091, kg, Priority: NOW, Start date: 03/22/17 13:34:00 E [employer], Duration: 30 day, Stop date: 04/21/17 13:33:00 CSTNotes: (Same as: Prinivil) No Longer Active 03/22/2017 [facility] metoprolol extended release 25 mg, 1 tab, Route: PO, Drug form: ERTAB, Daily, Priority: NOW, Start date: 03/22/17 13:34:00 E [employer], Duration: 30 day, Stop date: 04/21/17 13:33:00 CSTNotes: (Same as: Toprol XL) Do Not Crush No Longer Active 03/22/2017 [facility] Magnesium Oxide 800 mg, 2 tab, Route: PO, Drug form: TAB, ONCE, Dosing Weight 74.091, kg, Priority: STAT, Start date: 03/22/17 13:26:00 E [employer], Stop date: 03/22/17 13:26:00 CSTNotes: (Same as: Mag-Ox 400) Magnesium oxi de [id number] elemental magnesium Dose=____mg magnesium oxide (___mg elemental magnesium) Inactive 03/22/2017 [facility] Potassium Chloride 40 mEq, 2 tab, Route: PO, Drug form: ERTAB, ONCE, Dosing Weight 74.091, kg, Priority: STAT, Start date: 03/22/17 13:26:00 E [employer]IST, Stop date: 03/22/17 13:26:00 CSTNotes: (Same as: K-Dur 20) "Do Not Crush" With food and full glass of water Inactive 03/22/2017 [facility] Zantac 150 150 mg, PO, BID, 0 Refill(s) Active 03/22/2017 [facility] heparin additive 25,000 unit [12 unit/kg/hr] + Premix Diluent Sodium Chloride 0.45% 500 mL 500 mL, Rate: 17.78 ml/hr, Infuse over: 28.1 hr, Route: IV, Dosing Weight 74.09 kg, Total Volume: 500 mL, Start date: 03/22/17 11:35:00 E [employer]IST, Duration: 30 day, Stop date: 04/21/17 11:34:00 E [employer]IST, 1.9, g6Xcukw: Total Concentration=50 unit/ ml Total xitwng=613 ml Send Med Request 2 hours prior to next bag No Longer Active 03/22/2017 [facility] Heparin 30 unit/kg Bolus (Heparin Dosing Weight) Route: IVP, PRN, 2,200 unit, 2.2 mL, Drug form: INJ, PRN, Heparin Protocol, Start date: 03/22/17 11:35:00 E [employer]IST Stop date: 04/21/17 11:34:00 E [employer]IST, 30 day No Longer Active 03/22/2017 [facility] Heparin - one time bolus for ACS 5,000 unit, Route: IVP, Drug form: INJ, ONCE, Dosing Weight 74.091, kg, Priority: STAT, Start date: 03/22/17 11:35:00 E [employer]GIST, Stop date: 03/22/17 11:35:00 E [employer]IST Inactive 03/22/2017 [facility] Heparin 60 unit/kg Bolus (Heparin Dosing Weight) Route: IVP, PRN, 4,400 unit, 4.4 mL, Drug form: INJ, PRN, Heparin Protocol, Start date: 03/22/17 11:35:00 E [employer]IST Stop date: 04/21/17 11:34:00 E [employer]GIST, 30 day No Longer Active 03/22/2017 [facility] Docusate 100 mg, 1 cap, Route: PO, Drug form: CAP, BID, Dosing Weight 74.091, kg, Start date: 03/22/17 9:00:00 E [employer], Duration: 30 day, Stop date: 04/21/17 8:59:00 CSTNotes: (Same as: Colace) (Do Not Crush) No Longer Active 03/22/2017 [facility] Insulin Lispro 4 unit, 0.04 mL, Route: SUB-Q, Drug form: SOLN, TID-Before Meals, Dosing Weight 74.091, kg, PRN Blood Glucose Results, Start date: 03/22/17 8:04:00 E [employer]GIST, Duration: 30 day, Stop date: 04/21/17 8:03:00 CSTNotes: (Same as: Humalog ) Roll in palms of hands gently; Do not shake `vigorously. "Single Patient Use Only " WASTE: F/P - Black; E - Municipal Trash Bin Stable for 28 days at room temperature. Expires in days from Date No Longer Active 03/22/2017 [facility] Glucagon 1 mg, Route: IM, Drug form: PDR/INJ, PRN, Dosing Weight 74.091, kg, PRN Blood Glucose Results, Start date: 03/22/17 8:04:00 E [employer]IST, Duration: 30 day, Stop date: 04/21/17 8:03:00 E [employer]IST No Longer Active 03/22/2017 [facility] Dextrose 50% Syringe 12.5 gm, 25 mL, Route: IVP, Drug Form: INJ, Dosing Weight 74.091, kg, PRN, PRN Blood Glucose Results, Start date: 03/22/17 8:04:00 E [employer]GIST, Duration: 30 day, Stop date: 04/21/17 8:03:00 E [employer]GIST No Longer Active 03/22/2017 [facility] Lisinopril 20 mg, PO, Daily, 0 Refill(s) No Longer Active 03/22/2017 [facility] metoprolol extended release 50 mg, PO, Daily, 0 Refill(s) No Longer Active 03/22/2017 [facility] Metformin 500 mg, PO, BID, 0 Refill(s) Active 03/22/2017 [facility] heparin 5,000 unit, 1 mL, Route: SUB-Q, Drug form: INJ, Q8H, Dosing Weight 74.091, kg, Start date: 03/22/17 8:00:00 E [employer]IST, Duration: 30 day, Stop date: 04/21/17 7:59:00 CSTNotes: porcine heparin Inactive 03/22/2017 [facility] Azithromycin 500 mg, Route: IVPB, ONCE, Dosing Weight 74.091, kg, Priority: STAT, Start date: 03/22/17 4:02:00 E [employer] STR[employer]GIST, Stop date: 03/22/17 4:02:00 E [employer]ER[employer] STRATEGIST, ABX Indication: Non-PNA Respiratory Tract Infection Inactive 03/22/2017 [facility] Rocephin 1 gm, Route: IVPB, Drug form: PDR/INJ, ONCE, Dosing Weight 74.091, kg, Priority: STAT, Start date: 03/22/17 4:02:00 E [employer] STR[employer]GIST, Stop date: 03/22/17 4:02:00 E [employer]ER[employer] STR[employer]GIST, ABX Indication: Non-PNA Respiratory Tract Infection Inactive 03/22/2017 [facility] Lasix 40 mg, 4 mL, Route: IVP, Drug form: INJ, ONCE, Dosing Weight 74.091, kg, Priority: STAT, Start date: 03/22/17 3:42:00 E [employer]ER[employer] STR[employer]GIST, Stop date: 03/22/17 3:42:00 CSTNotes: (Same as: Lasix) MEDICATION WASTE Product Size: 40 mg Product Wasted: _0__ mg Inactive 03/22/2017 [facility] Nitroglycerin 100 mg, 250 mL, Rate: Titrate, Start Dose: 10 microgram/min, Titration: 10 microgram/min every 5 minutes, Goal(s): Chest pain and SBP between 100 - 150 mmHg, Max Dose: 200 mcg/min, Route: IV, Dosing Weight 74.091 kg, Total Volume: 250, Start date: ..Notes: (Same as:Tridil) Final conc=0.4 mg/ml. Premix bottle. Inactive 03/22/2017 [facility] Allergies, Adverse Reactions, Alerts Substance Category Reaction Severity Reaction type Status Date Reported Comments Source chlorhexidine topical Assertion Drug allergy Active [facility] Tape Assertion Drug allergy Active [facility] Immunizations Immunization Date Given Site Status Last Updated Comments Source Results Order Name Results Value Reference Range Date Interpretation Comments Source CHEM PANEL eGFR 85 mL/min/1.73m2 05/25/2017 Result Comment: The eGFR is calculated using the [...] from the National Kidney Disease Education Program (NKDEP) which additionally recommends that when the eGFR is used in patients with extremes of body mass index for purposes of drug dosing, the eGFR should be multiplied by the estimated BMI. [facility] CHEM PANEL Calcium Lvl 7.6 mg/dL 8.5 - 10.5 05/25/2017 [facility] CHEM PANEL CO2 28 meq/L 24 - 32 05/25/2017 [facility] CHEM PANEL Potassium Lvl 3.4 meq/L 3.5 - 5.1 05/25/2017 [facility] CHEM PANEL Chloride Lvl 103 meq/L 95 - 109 05/25/2017 [facility] CHEM PANEL Creatinine Lvl 0.82 mg/dL 0.50 - 1.40 05/25/2017 [facility] CHEM PANEL Sodium Lvl 140 meq/L 135 - 145 05/25/2017 [facility] CHEM PANEL Glucose Lvl 99 mg/dL 70 - 99 05/25/2017 [facility] CHEM PANEL BUN 21 mg/dL 7 - 22 05/25/2017 [facility] CHEM PANEL AGAP 12.4 meq/L 10.0 - 20.0 05/25/2017 [facility] HEMATOLOGY Platelet 203 K/CMM 133 - 450 05/25/2017 [facility] HEMATOLOGY MPV 8.5 fL 7.4 - 10.4 05/25/2017 [facility] HEMATOLOGY Hct 30.7 % 42.0 - 54.0 05/25/2017 [facility] HEMATOLOGY RDW 15.5 % 11.5 - 14.5 05/25/2017 [facility] HEMATOLOGY MCV 83.5 fL 80.0 - 94.0 05/25/2017 [facility] HEMATOLOGY MCH 28.1 pg 27.0 - 31.0 05/25/2017 [facility] HEMATOLOGY MCHC 33.7 g/dL 32.0 - 36.0 05/25/2017 [facility] HEMATOLOGY RBC 3.67 M/CMM 4.70 - 6.10 05/25/2017 [facility] HEMATOLOGY Hgb 10.3 g/dL 14.0 - 18.0 05/25/2017 [facility] HEMATOLOGY WBC 5.1 K/CMM 3.7 - 10.4 05/25/2017 [facility] HEMATOLOGY Monocytes # 0.6 K/CMM 0.0 - 0.8 05/25/2017 [facility] HEMATOLOGY Eosinophils # 0.1 K/CMM 0.0 - 0.5 05/25/2017 [facility] HEMATOLOGY Basophils 0.5 % 0.0 - 1.0 05/25/2017 [facility] HEMATOLOGY Segs-Bands # 3.6 K/CMM 1.5 - 8.1 05/25/2017 [facility] HEMATOLOGY Lymphocytes 14.0 % 20.0 - 40.0 05/25/2017 [facility] HEMATOLOGY Lymphocytes # 0.7 K/CMM 1.0 - 5.5 05/25/2017 [facility] HEMATOLOGY Eosinophils 1.7 % 0.0 - 4.0 05/25/2017 [facility] HEMATOLOGY Monocytes 12.7 % 2.0 - 12.0 05/25/2017 [facility] HEMATOLOGY Segs 71.1 % 45.0 - 75.0 05/25/2017 [facility] CARDIAC ENZYMES BNP 373 pg/mL <=100 pg/mL 05/24/2017 [facility] ELECTROLYTES AGAP 11.3 meq/L 10.0 - 20.0 05/24/2017 [facility] ELECTROLYTES eGFR 74 mL/min/1.73m2 05/24/2017 Result Comment: The eGFR is calculated using the [...] from the National Kidney Disease Education Program (NKDEP) which additionally recommends that when the eGFR is used in patients with extremes of body mass index for purposes of drug dosing, the eGFR should be multiplied by the estimated BMI. [facility] ELECTROLYTES BUN 29 mg/dL 7 - 22 05/24/2017 [facility] ELECTROLYTES Glucose Lvl 126 mg/dL 70 - 99 05/24/2017 [facility] ELECTROLYTES Calcium Lvl 7.7 mg/dL 8.5 - 10.5 05/24/2017 [facility] ELECTROLYTES Chloride Lvl 100 meq/L 95 - 109 05/24/2017 [facility] ELECTROLYTES CO2 28 meq/L 24 - 32 05/24/2017 [facility] ELECTROLYTES Sodium Lvl 136 meq/L 135 - 145 05/24/2017 [facility] ELECTROLYTES Potassium Lvl 3.3 meq/L 3.5 - 5.1 05/24/2017 [facility] ELECTROLYTES Creatinine Lvl 0.98 mg/dL 0.50 - 1.40 05/24/2017 [facility] HEMATOLOGY Segs 64.2 % 45.0 - 75.0 05/24/2017 [facility] HEMATOLOGY Eosinophils # 0.1 K/CMM 0.0 - 0.5 05/24/2017 [facility] HEMATOLOGY Monocytes # 0.7 K/CMM 0.0 - 0.8 05/24/2017 [facility] Lymphocytes # 0.6 K/CMM 1.0 - 5.5 05/24/2017 [facility] HEMATOLOGY Lymphocytes 15.4 % 20.0 - 40.0 05/24/2017 [facility] HEMATOLOGY Monocytes 17.8 % 2.0 - 12.0 05/24/2017 [facility] HEMATOLOGY Basophils 0.5 % 0.0 - 1.0 05/24/2017 [facility] HEMATOLOGY Eosinophils 2.1 % 0.0 - 4.0 05/24/2017 [facility] Segs-Bands # 2.6 K/CMM 1.5 - 8.1 05/24/2017 [facility] WBC 4.1 K/CMM 3.7 - 10.4 05/24/2017 [facility] MCHC 33.7 g/dL 32.0 - 36.0 05/24/2017 [facility] RDW 15.5 % 11.5 - 14.5 05/24/2017 [facility] MCH 27.9 pg 27.0 - 31.0 05/24/2017 [facility] MCV 82.6 fL 80.0 - 94.0 05/24/2017 [facility] MPV 8.8 fL 7.4 - 10.4 05/24/2017 [facility] Platelet 182 K/CMM 133 - 450 05/24/2017 [facility] Hct 32.6 % 42.0 - 54.0 05/24/2017 [facility] RBC 3.94 M/CMM 4.70 - 6.10 05/24/2017 [facility] Hgb 11.0 g/dL 14.0 - 18.0 05/24/2017 [facility] Chest 1view DX Chest 1view DX Portable chest: The endotracheal tube has been removed since the previous day. The PICC line and left subclavian pacemaker leads remain in satisfactory position. The cardiac silhouette and pulmonary vasculature are normal limits. There is chronic scarring in the right upper lobe. The lungs and pleural spaces are otherwise clear. There is no other significant change. SL DLAWRENCE- 05/24/2017 - - Read by: Elmer Kramer MD Dictated Date/time: 05/24/17 07:08 Electronically Signed by: Elmer Kramer MD 05/24/17 07:11 FINAL REPORT [facility] ELECTROLYTES CO2 30 meq/L 24 - 32 05/23/2017 [facility] ELECTROLYTES Potassium Lvl 3.1 meq/L 3.5 - 5.1 05/23/2017 [facility] ELECTROLYTES Chloride Lvl 99 meq/L 95 - 109 05/23/2017 [facility] ELECTROLYTES Sodium Lvl 137 meq/L 135 - 145 05/23/2017 [facility] ELECTROLYTES BUN 30 mg/dL 7 - 22 05/23/2017 [facility] ELECTROLYTES Creatinine Lvl 0.95 mg/dL 0.50 - 1.40 05/23/2017 [facility] ELECTROLYTES Glucose Lvl 83 mg/dL 70 - 99 05/23/2017 [facility] ELECTROLYTES Calcium Lvl 7.6 mg/dL 8.5 - 10.5 05/23/2017 [facility] ELECTROLYTES eGFR 76 mL/min/1.73m2 05/23/2017 Result Comment: The eGFR is calculated using the [...] from the National Kidney Disease Education Program (NKDEP) which additionally recommends that when the eGFR is used in patients with extremes of body mass index for purposes of drug dosing, the eGFR should be multiplied by the estimated BMI. [facility] ELECTROLYTES AGAP 11.1 meq/L 10.0 - 20.0 05/23/2017 [facility] Monocytes # 0.5 K/CMM 0.0 - 0.8 05/23/2017 [facility] Lymphocytes # 0.7 K/CMM 1.0 - 5.5 05/23/2017 [facility] Monocytes 17.3 % 2.0 - 12.0 05/23/2017 [facility] Eosinophils 1.3 % 0.0 - 4.0 05/23/2017 [facility] Segs-Bands # 1.8 K/CMM 1.5 - 8.1 05/23/2017 [facility] Basophils 0.5 % 0.0 - 1.0 05/23/2017 [facility] Lymphocytes 22.2 % 20.0 - 40.0 05/23/2017 [facility] Segs 58.7 % 45.0 - 75.0 05/23/2017 [facility] WBC 3.0 K/CMM 3.7 - 10.4 05/23/2017 [facility] MCH 27.8 pg 27.0 - 31.0 05/23/2017 [facility] MCV 83.3 fL 80.0 - 94.0 05/23/2017 [facility] Hct 31.4 % 42.0 - 54.0 05/23/2017 [facility] RBC 3.77 M/CMM 4.70 - 6.10 05/23/2017 [facility] HEMATOLOGY Hgb 10.5 g/dL 14.0 - 18.0 05/23/2017 [facility] MPV 8.6 fL 7.4 - 10.4 05/23/2017 [facility] Platelet 137 K/CMM 133 - 450 05/23/2017 [facility] RDW 15.1 % 11.5 - 14.5 05/23/2017 [facility] MCHC 33.4 g/dL 32.0 - 36.0 05/23/2017 [facility] CHEM PANEL Phosphorus 2.3 mg/dL 2.5 - 4.5 05/21/2017 [facility] CHEM PANEL Magnesium Lvl 1.8 mg/dL 1.8 - 2.4 05/21/2017 [facility] CHEM PANEL Magnesium Lvl 2.1 mg/dL 1.8 - 2.4 05/20/2017 [facility] CHEM PANEL Phosphorus 2.6 mg/dL 2.5 - 4.5 05/20/2017 [facility] CHEM PANEL Magnesium Lvl 2.4 mg/dL 1.8 - 2.4 05/19/2017 [facility] CHEM PANEL Phosphorus 2.9 mg/dL 2.5 - 4.5 05/19/2017 [facility] IMMUNOLOGY Prealbumin 9.6 mg/dL 18.0 - 45.0 05/19/2017 [facility] SPECIAL CHEMISTRY Hgb A1C 7.0 % <=5.6 % 05/19/2017 [facility] Chest 1view DX Chest 1view DX Clinical Indication: Tube placement/removal/reposition - respiratory failure Comparison: May 17, 2017 FINDINGS: AP chest radiograph was obtained. MEDIASTINUM: The cardiac silhouette is normal in size. The aorta is unremarkable. There is a multielectrode pacemaker overlying the left chest. There is an endotracheal tube and nasogastric tube which are unchanged in positioning. There are sternal wires overlying the mediastinum. There is an unchanged right upper terminate PICC line. LUNGS: Lung volumes are maintained. There are no focal infiltrates or effusions. There are no pneumothoraces noted. There is interval improvement in pulmonary vascular congestion. BONES: The visualized osseous structures are unremarkable. IMPRESSION: Interval resolution of pulmonary vascular congestive change in pulmonary edema. SL: [id number] 05/18/2017 - - Read by: Isela Lozada MD Dictated Date/time: 05/18/17 07:55 Electronically Signed by: Isela Lozada MD 05/18/17 07:56 FINAL REPORT [facility] Abdomen 1 v for Placement DX Abdomen 1 v for Placement DX XR ABDOMEN 1V HISTORY: - OGT placement. COMPARISON: 04/12/2017. FINDINGS: Single abdominal radiograph demonstrates a nonspecific gas pattern without evidence of obstruction. No organomegaly, abnormal mass or significant calcification. The bones are intact. Nasogastric tube noted, tip located over the stomach. IMPRESSION: Nasogastric tube within the stomach. SL: [id number] 05/17/2017 - - Read by: Matthew Newsome MD Dictated Date/time: 05/17/17 17:27 Electronically Signed by: Matthew Newsome MD 05/17/17 17:29 FINAL REPORT [facility] Chest 1 v for Placement DX Chest 1 v for Placement DX 1 VIEW CXR. PORTABLE EXAM 3:28 PM HISTORY: PICC line placement. COMPARISON: This morning's 11:54 AM chest x-ray. Right upper extremity PICC line is present the catheter tip projects over the inferior third of the SVC. ET tube and pacemaker stable. Diffuse prominence of interstitial markings and pulmonary vessels. Cardiomegaly. Upper mediastinal contours normal. IMPRESSION: 1. Cardiomegaly with pulmonary venous congestion and edema. 2. Tip of the PICC line projects over the level of the inferior third of the SVC. END OF IMPRESSION SL: [id number] 05/17/2017 - - Read by: Michael Aiken MD Dictated Date/time: 05/17/17 15:42 Electronically Signed by: Michael Aiken MD 05/17/17 15:43 FINAL REPORT [facility] Ext Lower Venous Doppler Unilat US Ext Lower Venous Doppler Unilat US Patient Name: CORINE MALDONADO : 1940; Age: 76 years Male MR: [id number] Study: Ext Lower Venous Doppler Unilat US 05/17/2017 12:16 PM E [employer] Clinical Indication: Embolism/occlusion lower extremity - r/o DVT. Per , pt just had a procedure yesterday and has an open wound and doesn't want us done on the leg at this time \\T\\ that they [place] [facility] [place] aware that the patient does have blood clots COMPARISON: None TECHNIQUE: Sonographic evaluation of the right lower extremity veins was performed using high resolution B-mode imaging, along with pulse and color Doppler imaging. FINDINGS: Right lower extremity: The common femoral vein, femoral vein, popliteal vein and visualized posterior tibial/calf veins are patent. There is no echogenic debris to suggest deep venous thrombosis. Small degree of thrombus in the greater saphenous vein. IMPRESSION: 1. No deep venous thrombosis. 2. Greater saphenous vein superficial thrombophlebitis. SL: [id number] 05/17/2017 - - Read by: Uli Dean MD Dictated Date/time: 05/17/17 15:05 Electronically Signed by: Uli Dean MD 05/17/17 15:06 FINAL REPORT [facility] CARDIAC ENZYMES BNP 475 pg/mL <=100 pg/mL 05/17/2017 [facility] CHEM PANEL Alk Phos 68 unit/L 39 - 136 05/17/2017 [facility] CHEM PANEL Bili Total 0.8 mg/dL 0.2 - 1.3 05/17/2017 [facility] CHEM PANEL AST 18 unit/L 0 - 37 05/17/2017 [facility] CHEM PANEL A/G Ratio 1.0 0.7 - 1.6 05/17/2017 [facility] CHEM PANEL ALT 15 unit/L 0 - 65 05/17/2017 [facility] CHEM PANEL Globulin 2.7 g/dL 2.7 - 4.2 05/17/2017 [facility] CHEM PANEL Albumin Lvl 2.6 g/dL 3.5 - 5.0 05/17/2017 [facility] CHEM PANEL Total Protein 5.3 g/dL 6.4 - 8.4 05/17/2017 [facility] CHEM PANEL B/C Ratio 15 6 - 25 05/17/2017 [facility] Chest 1view DX Chest 1view DX 1 VIEW CXR. PORTABLE EXAM 11:54 AM HISTORY: ET tube placement. COMPARISON: This morning's 9:53 AM chest x-ray. Cardiomediastinal silhouette is stable. There is prominence of interstitial markings bilaterally with a few air bronchograms left base. ET tube is been placed and the tip is approximately 2.8 cm above the graham. The lungs appear better aerated now compared to the prior exam and the interstitial markings less pronounced. Pacemaker stable. IMPRESSION: Improving chest over a 2 hour interval. ET tube in good position.. END OF IMPRESSION SL: [id number] 05/17/2017 - - Read by: Michael Aiken MD Dictated Date/time: 05/17/17 12:44 Electronically Signed by: Michael Aiken MD 05/17/17 12:45 FINAL REPORT [facility] Chest 1view DX Chest 1view DX Patient Name: CORINE MALDONADO : 1940; Age: 76 years y/o Male MR: [id number] Study: Chest 1view DX 05/17/2017 9:51 AM E [employer] Ordering Physician: Brody Francisco MD Clinical Indication: Abnormal chest sounds - Difficulty breathing Pre operative; Comparison: 05/16/2017 chest radiograph Discussion: Pulmonary vascular engorgement, reticular opacities, and ill-defined ground glass opacities are now seen throughout the lungs. A small amount of pleural fluid is now seen superiorly in the right upper lung field. No large collections of pleural fluid on the left. The cardiac silhouette is minimally enlarged. Stable tortuous aorta. Stable position of the transvenous pacemaker. Previous coronary artery bypass surgery. IMPRESSION: Development of pulmonary edema and a small right pleural effusion. SL: [id number] 05/17/2017 - - Read by: Faizan Tanner MD Dictated Date/time: 05/17/17 10:16 Electronically Signed by: Faizan Tanner MD 05/17/17 10:20 FINAL REPORT [facility] HEMATOLOGY Eosinophils # 0.1 K/CMM 0.0 - 0.5 05/16/2017 [facility] Basophils # 0.1 K/CMM 0.0 - 0.2 05/16/2017 [facility] Basophils # 0.1 K/CMM 0.0 - 0.2 05/16/2017 [facility] HEMATOLOGY INR 1.12 0.85 - 1.17 05/16/2017 [facility] HEMATOLOGY PT 14.4 s 12.0 - 14.7 05/16/2017 [facility] PTT 33.2 s 22.9 - 35.8 05/16/2017 [facility] Chest 2 views DX Chest 2 views DX EXAM: Chest radiographs HISTORY: Cough COMPARISON: 04/16/2017 TECHNIQUE: Frontal and lateral views of the chest FINDINGS: Possible COPD. Near-complete resolution of previous airspace disease in the lung apices. No pleural effusion. Stable cardiomediastinal contour, cardiac pacemaker defibrillator and median sternotomy. SL: [id number] 05/16/2017 - - Read by: Socrates Weston MD Dictated Date/time: 05/16/17 08:05 Electronically Signed by: Socrates Weston MD 05/16/17 08:07 FINAL REPORT [facility] HEMATOLOGY INR 1.96 0.85 - 1.17 04/17/2017 [facility] HEMATOLOGY PT 22.5 s 12.0 - 14.7 04/17/2017 [facility] HEMATOLOGY Basophils # 0.1 K/CMM 0.0 - 0.2 04/16/2017 [facility] HEMATOLOGY Monocytes # 0.8 K/CMM 0.0 - 0.8 04/16/2017 [facility] HEMATOLOGY Eosinophils # 0.5 K/CMM 0.0 - 0.5 04/16/2017 [facility] HEMATOLOGY Lymphocytes # 0.9 K/CMM 1.0 - 5.5 04/16/2017 [facility] HEMATOLOGY Monocytes 9.7 % 2.0 - 12.0 04/16/2017 [facility] HEMATOLOGY Segs 72.0 % 45.0 - 75.0 04/16/2017 [facility] HEMATOLOGY Lymphocytes 10.9 % 20.0 - 40.0 04/16/2017 [facility] HEMATOLOGY Eosinophils 6.1 % 0.0 - 4.0 04/16/2017 [facility] HEMATOLOGY Basophils 1.3 % 0.0 - 1.0 04/16/2017 [facility] HEMATOLOGY Segs-Bands # 6.0 K/CMM 1.5 - 8.1 04/16/2017 [facility] HEMATOLOGY Hct 28.8 % 42.0 - 54.0 04/16/2017 [facility] HEMATOLOGY MPV 7.7 fL 7.4 - 10.4 04/16/2017 [facility] HEMATOLOGY MCV 86.4 fL 80.0 - 94.0 04/16/2017 [facility] HEMATOLOGY RDW 16.4 % 11.5 - 14.5 04/16/2017 [facility] HEMATOLOGY Platelet 264 K/CMM 133 - 450 04/16/2017 [facility] HEMATOLOGY MCH 29.4 pg 27.0 - 31.0 04/16/2017 [facility] HEMATOLOGY MCHC 34.0 g/dL 32.0 - 36.0 04/16/2017 [facility] HEMATOLOGY Hgb 9.8 g/dL 14.0 - 18.0 04/16/2017 [facility] HEMATOLOGY RBC 3.33 M/CMM 4.70 - 6.10 04/16/2017 [facility] HEMATOLOGY WBC 8.3 K/CMM 3.7 - 10.4 04/16/2017 [facility] CHEM PANEL eGFR 59 mL/min/1.73m2 04/16/2017 Result Comment: The eGFR is calculated using the [...] from the National Kidney Disease Education Program (NKDEP) which additionally recommends that when the eGFR is used in patients with extremes of body mass index for purposes of drug dosing, the eGFR should be multiplied by the estimated BMI. [facility] CHEM PANEL Glucose Lvl 172 mg/dL 70 - 99 04/16/2017 [facility] CHEM PANEL Chloride Lvl 99 meq/L 95 - 109 04/16/2017 [facility] CHEM PANEL Potassium Lvl 4.2 meq/L 3.5 - 5.1 04/16/2017 [facility] CHEM PANEL CO2 25 meq/L 24 - 32 04/16/2017 [facility] CHEM PANEL Sodium Lvl 132 meq/L 135 - 145 04/16/2017 [facility] CHEM PANEL Creatinine Lvl 1.18 mg/dL 0.50 - 1.40 04/16/2017 [facility] CHEM PANEL BUN 19 mg/dL 7 - 22 04/16/2017 [facility] CHEM PANEL AGAP 12.2 meq/L 10.0 - 20.0 04/16/2017 [facility] CHEM PANEL Calcium Lvl 7.5 mg/dL 8.5 - 10.5 04/16/2017 [facility] Chest 1view DX Chest 1view DX EXAM: XR CHEST 1 VIEW DATE: 04/16/2017 at 1526 hours. INDICATION: Patient s/p CABG with shortness of breath. R/O pneumonia vs effusion COMPARISON: Chest radiograph 04/03/2017 at 0124 hours. TECHNIQUE: AP chest FINDINGS: Lines, tubes and hardware: An AICD projects over the left chest wall with leads projecting over the right atrium and right ventricle. Median sternotomy wires are intact. Lungs and pleura: The lungs are well-inflated. Bilateral streaky opacities are present within the right upper lobe also seen on radiograph dating back to at least September 05, 2011. The costophrenic sulci are sharp. No pneumothorax is identified within the limitations of this semierect radiograph. Heart and mediastinum: The heart size is normal for technique. Vascular calcifications are present in the aortic arch. Bones: Osteophytosis of the thoracic spine is present. No acute bony abnormality. IMPRESSION: No acute cardiopulmonary abnormality. 04/16/2017 - - This report was dictated by a Registered Phlebotomist Part Time/Fellow. I have personally reviewed the images as well as the Resident's interpretation and agree with the findings. Read by: Francisco Franco MD Resident: Francisco Franco MD Dictated Date/time: 04/16/17 15:45 Electronically Signed by: Salvador Dowling MD 04/16/17 15:52 FINAL REPORT [facility] HEMATOLOGY INR 2.11 0.85 - 1.17 04/16/2017 [facility] HEMATOLOGY PT 23.9 s 12.0 - 14.7 04/16/2017 [facility] HEMATOLOGY PT 25.3 s 12.0 - 14.7 04/15/2017 [facility] HEMATOLOGY INR 2.27 0.85 - 1.17 04/15/2017 [facility] CHEM PANEL Phosphorus 3.0 mg/dL 2.5 - 4.5 04/13/2017 [facility] CHEM PANEL Magnesium Lvl 2.0 mg/dL 1.8 - 2.4 04/13/2017 [facility] CHEM PANEL eGFR 51 mL/min/1.73m2 04/13/2017 Result Comment: The eGFR is calculated using the [...] from the National Kidney Disease Education Program (NKDEP) which additionally recommends that when the eGFR is used in patients with extremes of body mass index for purposes of drug dosing, the eGFR should be multiplied by the estimated BMI. [facility] CHEM PANEL Albumin Lvl 2.4 g/dL 3.5 - 5.0 04/13/2017 [facility] CHEM PANEL ALT 78 unit/L 0 - 65 04/13/2017 [facility] CHEM PANEL Alk Phos 99 unit/L 39 - 136 04/13/2017 [facility] CHEM PANEL Calcium Lvl 7.6 mg/dL 8.5 - 10.5 04/13/2017 [facility] CHEM PANEL CO2 28 meq/L 24 - 32 04/13/2017 [facility] CHEM PANEL Total Protein 5.9 g/dL 6.4 - 8.4 04/13/2017 [facility] CHEM PANEL Bili Total 0.5 mg/dL 0.2 - 1.3 04/13/2017 [facility] CHEM PANEL AST 34 unit/L 0 - 37 04/13/2017 [facility] CHEM PANEL Chloride Lvl 103 meq/L 95 - 109 04/13/2017 [facility] CHEM PANEL Potassium Lvl 4.1 meq/L 3.5 - 5.1 04/13/2017 [facility] CHEM PANEL Sodium Lvl 138 meq/L 135 - 145 04/13/2017 [facility] CHEM PANEL Creatinine Lvl 1.33 mg/dL 0.50 - 1.40 04/13/2017 [facility] CHEM PANEL Glucose Lvl 130 mg/dL 70 - 99 04/13/2017 [facility] CHEM PANEL BUN 22 mg/dL 7 - 22 04/13/2017 [facility] CHEM PANEL A/G Ratio 0.7 0.7 - 1.6 04/13/2017 [facility] CHEM PANEL Globulin 3.5 g/dL 2.7 - 4.2 04/13/2017 [facility] CHEM PANEL AGAP 11.1 meq/L 10.0 - 20.0 04/13/2017 [facility] CHEM PANEL B/C Ratio 17 6 - 25 04/13/2017 [facility] HEMATOLOGY MPV 7.5 fL 7.4 - 10.4 04/13/2017 [facility] HEMATOLOGY Platelet 394 K/CMM 133 - 450 04/13/2017 [facility] HEMATOLOGY Hct 28.8 % 42.0 - 54.0 04/13/2017 [facility] HEMATOLOGY MCV 86.6 fL 80.0 - 94.0 04/13/2017 [facility] HEMATOLOGY WBC 10.3 K/CMM 3.7 - 10.4 04/13/2017 [facility] HEMATOLOGY Hgb 9.9 g/dL 14.0 - 18.0 04/13/2017 [facility] HEMATOLOGY RBC 3.32 M/CMM 4.70 - 6.10 04/13/2017 [facility] HEMATOLOGY RDW 16.4 % 11.5 - 14.5 04/13/2017 [facility] HEMATOLOGY MCHC 34.3 g/dL 32.0 - 36.0 04/13/2017 [facility] HEMATOLOGY MCH 29.7 pg 27.0 - 31.0 04/13/2017 [facility] HEMATOLOGY PTT 44.9 s 22.9 - 35.8 04/13/2017 [facility] HEMATOLOGY Basophils # 0.1 K/CMM 0.0 - 0.2 04/13/2017 [facility] HEMATOLOGY Eosinophils # 0.2 K/CMM 0.0 - 0.5 04/13/2017 [facility] HEMATOLOGY Segs-Bands # 8.3 K/CMM 1.5 - 8.1 04/13/2017 [facility] HEMATOLOGY Lymphocytes # 0.7 K/CMM 1.0 - 5.5 04/13/2017 [facility] HEMATOLOGY Monocytes # 0.9 K/CMM 0.0 - 0.8 04/13/2017 [facility] HEMATOLOGY Monocytes 9.0 % 2.0 - 12.0 04/13/2017 [facility] HEMATOLOGY Basophils 1.1 % 0.0 - 1.0 04/13/2017 [facility] HEMATOLOGY Eosinophils 2.2 % 0.0 - 4.0 04/13/2017 [facility] HEMATOLOGY Lymphocytes 7.1 % 20.0 - 40.0 04/13/2017 [facility] HEMATOLOGY Segs 80.6 % 45.0 - 75.0 04/13/2017 [facility] URINE AND STOOL UA Urobilinogen <=1.0 mg/dL 0.1 - 1.0 04/13/2017 [facility] URINE AND STOOL UA Sq Epi None Seen 04/13/2017 [facility] URINE AND STOOL UA RBC null 0 - 2 04/13/2017 [facility] URINE AND STOOL UA Bili Negative *NA* (04/12/17 6:24 PM) Negative 04/13/2017 [facility] URINE AND STOOL UA Blood Negative (04/12/17 6:24 PM) Negative 04/13/2017 [facility] URINE AND STOOL UA Leuk Est Negative (04/12/17 6:24 PM) Negative 04/13/2017 [facility] URINE AND STOOL UA Nitrite Negative (04/12/17 6:24 PM) Negative 04/13/2017 [facility] URINE AND STOOL UA WBC null 0 - 5 04/13/2017 [facility] URINE AND STOOL UA Protein Negative mg/dL Negative mg/dL 04/13/2017 [facility] URINE AND STOOL UA Ketones Negative mg/dL Negative mg/dL 04/13/2017 [facility] URINE AND STOOL UA Glucose Negative mg/dL Negative mg/dL 04/13/2017 [facility] URINE AND STOOL UA Turbidity Clear (04/12/17 6:24 PM) Clear 04/13/2017 [facility] URINE AND STOOL UA Spec Grav 1.010 <=1.030 04/13/2017 [facility] URINE AND STOOL UA pH 6.5 5.0 - 8.0 04/13/2017 [facility] URINE AND STOOL UA Color Yellow *NA* (04/12/17 6:24 PM) Yellow 04/13/2017 [facility] Abdomen AP DX Abdomen AP DX EXAM: XR ABDOMEN 1 VIEW DATE: 04/12/2017 5:19 PM E [employer] INDICATION: - new admission TECHNIQUE: AP view of the abdomen. FINDINGS: Compared with chest exam from March 26, 2017. There is no change in appearance of sternal wires and cardiac electrodes. Metal clips in the left upper abdomen are stable. Multiple metal clips are projected over the left inguinal region with a single metal clip in the right inguinal region. There is gaseous distention of large and small bowel without abnormal dilatation. Gas is present within the rectum. No suspicious mass effect or suspicious calcification is present. IMPRESSION: 1. Nonobstructive bowel gas pattern. 04/12/2017 - - Read by: Taran Soni MD Dictated Date/time: 04/13/17 13:41 Electronically Signed by: Taran Soni MD 04/13/17 13:43 FINAL REPORT [facility] CHEM PANEL eGFR 54 mL/min/1.73m2 04/12/2017 Result Comment: The eGFR is calculated using the [...] from the National Kidney Disease Education Program (NKDEP) which additionally recommends that when the eGFR is used in patients with extremes of body mass index for purposes of drug dosing, the eGFR should be multiplied by the estimated BMI. [facility] CHEM PANEL Glucose Lvl 150 mg/dL 70 - 99 04/12/2017 [facility] CHEM PANEL Calcium Lvl 7.5 mg/dL 8.5 - 10.5 04/12/2017 [facility] CHEM PANEL Creatinine Lvl 1.27 mg/dL 0.50 - 1.40 04/12/2017 [facility] CHEM PANEL Potassium Lvl 4.2 meq/L 3.5 - 5.1 04/12/2017 [facility] CHEM PANEL BUN 24 mg/dL 7 - 22 04/12/2017 [facility] CHEM PANEL Sodium Lvl 138 meq/L 135 - 145 04/12/2017 [facility] CHEM PANEL Chloride Lvl 102 meq/L 95 - 109 04/12/2017 [facility] CHEM PANEL CO2 28 meq/L 24 - 32 04/12/2017 [facility] CHEM PANEL AGAP 12.2 meq/L 10.0 - 20.0 04/12/2017 [facility] HEMATOLOGY MPV 7.8 fL 7.4 - 10.4 04/12/2017 [facility] HEMATOLOGY RDW 16.7 % 11.5 - 14.5 04/12/2017 [facility] HEMATOLOGY Platelet 397 K/CMM 133 - 450 04/12/2017 [facility] HEMATOLOGY MCV 88.6 fL 80.0 - 94.0 04/12/2017 [facility] HEMATOLOGY MCH 29.7 pg 27.0 - 31.0 04/12/2017 [facility] HEMATOLOGY MCHC 33.5 g/dL 32.0 - 36.0 04/12/2017 [facility] HEMATOLOGY RBC 3.17 M/CMM 4.70 - 6.10 04/12/2017 [facility] HEMATOLOGY Hgb 9.4 g/dL 14.0 - 18.0 04/12/2017 [facility] HEMATOLOGY Hct 28.1 % 42.0 - 54.0 04/12/2017 [facility] HEMATOLOGY WBC 10.2 K/CMM 3.7 - 10.4 04/12/2017 [facility] HEMATOLOGY PT 21.3 s 12.0 - 14.7 04/12/2017 [facility] HEMATOLOGY INR 1.83 0.85 - 1.17 04/12/2017 [facility] HEMATOLOGY PTT 58.5 s 22.9 - 35.8 04/12/2017 [facility] HEMATOLOGY Eosinophils # 0.2 K/CMM 0.0 - 0.5 04/12/2017 [facility] HEMATOLOGY Basophils # 0.1 K/CMM 0.0 - 0.2 04/12/2017 [facility] HEMATOLOGY Lymphocytes # 0.7 K/CMM 1.0 - 5.5 04/12/2017 [facility] HEMATOLOGY Monocytes # 0.8 K/CMM 0.0 - 0.8 04/12/2017 [facility] HEMATOLOGY Basophils 1.2 % 0.0 - 1.0 04/12/2017 [facility] HEMATOLOGY Segs-Bands # 8.3 K/CMM 1.5 - 8.1 04/12/2017 [facility] HEMATOLOGY Eosinophils 2.1 % 0.0 - 4.0 04/12/2017 [facility] HEMATOLOGY Segs 81.5 % 45.0 - 75.0 04/12/2017 [facility] HEMATOLOGY Lymphocytes 7.0 % 20.0 - 40.0 04/12/2017 [facility] HEMATOLOGY Monocytes 8.2 % 2.0 - 12.0 04/12/2017 [facility] HEMATOLOGY INR 1.82 0.85 - 1.17 04/11/2017 [facility] HEMATOLOGY PT 21.2 s 12.0 - 14.7 04/11/2017 [facility] CHEM PANEL eGFR 60 mL/min/1.73m2 04/10/2017 Result Comment: The eGFR is calculated using the [...] from the National Kidney Disease Education Program (NKDEP) which additionally recommends that when the eGFR is used in patients with extremes of body mass index for purposes of drug dosing, the eGFR should be multiplied by the estimated BMI. [facility] CHEM PANEL Calcium Lvl 7.6 mg/dL 8.5 - 10.5 04/10/2017 [facility] CHEM PANEL AGAP 12.3 meq/L 10.0 - 20.0 04/10/2017 [facility] CHEM PANEL BUN 22 mg/dL 7 - 22 04/10/2017 [facility] CHEM PANEL Glucose Lvl 153 mg/dL 70 - 99 04/10/2017 [facility] CHEM PANEL Sodium Lvl 136 meq/L 135 - 145 04/10/2017 [facility] CHEM PANEL Creatinine Lvl 1.16 mg/dL 0.50 - 1.40 04/10/2017 [facility] CHEM PANEL CO2 25 meq/L 24 - 32 04/10/2017 [facility] CHEM PANEL Chloride Lvl 103 meq/L 95 - 109 04/10/2017 [facility] CHEM PANEL Potassium Lvl 4.3 meq/L 3.5 - 5.1 04/10/2017 [facility] CHEM PANEL Magnesium Lvl 1.9 mg/dL 1.8 - 2.4 04/10/2017 [facility] CHEM PANEL Phosphorus 2.9 mg/dL 2.5 - 4.5 04/10/2017 [facility] HEMATOLOGY INR 2.10 0.85 - 1.17 04/10/2017 [facility] HEMATOLOGY PT 23.8 s 12.0 - 14.7 04/10/2017 [facility] HEMATOLOGY MCH 30.0 pg 27.0 - 31.0 04/10/2017 [facility] HEMATOLOGY MCV 87.9 fL 80.0 - 94.0 04/10/2017 [facility] HEMATOLOGY Hct 25.4 % 42.0 - 54.0 04/10/2017 [facility] HEMATOLOGY Hgb 8.7 g/dL 14.0 - 18.0 04/10/2017 [facility] HEMATOLOGY RBC 2.89 M/CMM 4.70 - 6.10 04/10/2017 [facility] HEMATOLOGY MCHC 34.2 g/dL 32.0 - 36.0 04/10/2017 [facility] HEMATOLOGY RDW 16.1 % 11.5 - 14.5 04/10/2017 [facility] HEMATOLOGY Platelet 424 K/CMM 133 - 450 04/10/2017 [facility] HEMATOLOGY MPV 7.6 fL 7.4 - 10.4 04/10/2017 [facility] HEMATOLOGY WBC 9.4 K/CMM 3.7 - 10.4 04/10/2017 [facility] HEMATOLOGY Segs 80.8 % 45.0 - 75.0 04/10/2017 [facility] HEMATOLOGY Eosinophils 2.3 % 0.0 - 4.0 04/10/2017 [facility] HEMATOLOGY Monocytes 8.5 % 2.0 - 12.0 04/10/2017 [facility] HEMATOLOGY Lymphocytes 7.2 % 20.0 - 40.0 04/10/2017 [facility] HEMATOLOGY Segs-Bands # 7.6 K/CMM 1.5 - 8.1 04/10/2017 [facility] HEMATOLOGY Monocytes # 0.8 K/CMM 0.0 - 0.8 04/10/2017 [facility] HEMATOLOGY Lymphocytes # 0.7 K/CMM 1.0 - 5.5 04/10/2017 [facility] HEMATOLOGY Basophils 1.2 % 0.0 - 1.0 04/10/2017 [facility] HEMATOLOGY Basophils # 0.1 K/CMM 0.0 - 0.2 04/10/2017 [facility] HEMATOLOGY Eosinophils # 0.2 K/CMM 0.0 - 0.5 04/10/2017 [facility] PARATHYROID PROFILE Ca Norm WB 1.05 mMol/L 1.05 - 1.25 04/10/2017 [facility] PARATHYROID PROFILE Ca Ion WB 1.00 mMol/L 1.05 - 1.25 04/10/2017 [facility] CHEM PANEL Phosphorus 2.9 mg/dL 2.5 - 4.5 04/09/2017 [facility] CHEM PANEL Magnesium Lvl 2.0 mg/dL 1.8 - 2.4 04/09/2017 [facility] ELECTROLYTES AGAP 12.2 meq/L 10.0 - 20.0 04/09/2017 [facility] ELECTROLYTES eGFR 59 mL/min/1.73m2 04/09/2017 Result Comment: The eGFR is calculated using the [...] from the National Kidney Disease Education Program (NKDEP) which additionally recommends that when the eGFR is used in patients with extremes of body mass index for purposes of drug dosing, the eGFR should be multiplied by the estimated BMI. [facility] ELECTROLYTES BUN 22 mg/dL 7 - 22 04/09/2017 [facility] ELECTROLYTES Calcium Lvl 7.9 mg/dL 8.5 - 10.5 04/09/2017 [facility] ELECTROLYTES CO2 26 meq/L 24 - 32 04/09/2017 [facility] ELECTROLYTES Creatinine Lvl 1.18 mg/dL 0.50 - 1.40 04/09/2017 [facility] ELECTROLYTES Sodium Lvl 139 meq/L 135 - 145 04/09/2017 [facility] ELECTROLYTES Potassium Lvl 4.2 meq/L 3.5 - 5.1 04/09/2017 [facility] ELECTROLYTES Chloride Lvl 105 meq/L 95 - 109 04/09/2017 [facility] ELECTROLYTES Glucose Lvl 88 mg/dL 70 - 99 04/09/2017 [facility] HEMATOLOGY Monocytes # 1.1 K/CMM 0.0 - 0.8 04/09/2017 [facility] HEMATOLOGY Lymphocytes # 0.6 K/CMM 1.0 - 5.5 04/09/2017 [facility] HEMATOLOGY Basophils # 0.1 K/CMM 0.0 - 0.2 04/09/2017 [facility] HEMATOLOGY Eosinophils # 0.2 K/CMM 0.0 - 0.5 04/09/2017 [facility] HEMATOLOGY Lymphocytes 4.7 % 20.0 - 40.0 04/09/2017 [facility] HEMATOLOGY Monocytes 8.9 % 2.0 - 12.0 04/09/2017 [facility] HEMATOLOGY Eosinophils 1.2 % 0.0 - 4.0 04/09/2017 [facility] HEMATOLOGY Segs 84.1 % 45.0 - 75.0 04/09/2017 [facility] HEMATOLOGY Segs-Bands # 10.9 K/CMM 1.5 - 8.1 04/09/2017 [facility] HEMATOLOGY Basophils 1.1 % 0.0 - 1.0 04/09/2017 [facility] HEMATOLOGY Plt Morph Normal (04/09/17 6:29 AM) 04/09/2017 [facility] HEMATOLOGY RBC Morph Normal (04/09/17 6:29 AM) 04/09/2017 [facility] HEMATOLOGY WBC 12.9 K/CMM 3.7 - 10.4 04/09/2017 [facility] HEMATOLOGY Hct 28.8 % 42.0 - 54.0 04/09/2017 [facility] HEMATOLOGY MCV 88.4 fL 80.0 - 94.0 04/09/2017 [facility] HEMATOLOGY MCHC 32.8 g/dL 32.0 - 36.0 04/09/2017 [facility] HEMATOLOGY MCH 29.0 pg 27.0 - 31.0 04/09/2017 [facility] HEMATOLOGY Hgb 9.5 g/dL 14.0 - 18.0 04/09/2017 [facility] HEMATOLOGY RBC 3.26 M/CMM 4.70 - 6.10 04/09/2017 [facility] HEMATOLOGY MPV 7.5 fL 7.4 - 10.4 04/09/2017 [facility] HEMATOLOGY Platelet 494 K/CMM 133 - 450 04/09/2017 [facility] HEMATOLOGY RDW 16.0 % 11.5 - 14.5 04/09/2017 [facility] PARATHYROID PROFILE Ca Norm WB 1.08 mMol/L 1.05 - 1.25 04/09/2017 [facility] PARATHYROID PROFILE Ca Ion WB 1.09 mMol/L 1.05 - 1.25 04/09/2017 [facility] CHEM PANEL Magnesium Lvl 2.0 mg/dL 1.8 - 2.4 04/08/2017 [facility] CHEM PANEL Phosphorus 2.5 mg/dL 2.5 - 4.5 04/08/2017 [facility] PARATHYROID PROFILE Ca Ion WB 1.06 mMol/L 1.05 - 1.25 04/08/2017 [facility] PARATHYROID PROFILE Ca Norm WB 1.06 mMol/L 1.05 - 1.25 04/08/2017 [facility] HEMATOLOGY PTT 47.1 s 22.9 - 35.8 04/07/2017 [facility] HEMATOLOGY PTT 40.2 s 22.9 - 35.8 04/05/2017 [facility] MOLECULAR DIAGNOSTIC Source Respiratory Panel PCR Fl[employer] ATTEND[employer] CAMP[employer] Swab (04/04/17 6:24 AM) 04/04/2017 [facility] MOLECULAR DIAGNOSTIC RSV PCR Negative 1 (04/04/17 6:24 AM) Negative 04/04/2017 Result Comment: Results to follow. Notified Benjamin Bobby on 04/05/2017 08:20. [facility] MOLECULAR DIAGNOSTIC Influenza B PCR Negative (04/04/17 6:24 AM) Negative 04/04/2017 [facility] MOLECULAR DIAGNOSTIC Influenza A PCR Negative (04/04/17 6:24 AM) Negative 04/04/2017 [facility] Chest 1view DX Chest 1view DX EXAM: XR CHEST 1 VIEW DATE: 04/03/2017 3:00 AM E COMMERCE STRATEGIST INDICATION: - follow up. FINDINGS: Comparison is made to April 02. The cardiomediastinal silhouette and postoperative changes are stable. A bipolar left subclavian ICD remains in place. There are new small bilateral pleural effusions. There is a left retrocardiac opacity which may be due to a layering left pleural effusion and/or a left lower lobe airspace opacity such as pneumonia or atelectasis. IMPRESSION: 1. New small bilateral pleural effusions. 2. There is a left retrocardiac opacity which may be due to a layering left pleural effusion and/or a left lower lobe airspace opacity such as pneumonia or atelectasis. 04/03/2017 - - Read by: Concha Aleman MD Dictated Date/time: 04/03/17 08:59 Electronically Signed by: Concha Aleman MD 04/03/17 09:00 FINAL REPORT [facility] Chest 1view DX Chest 1view DX EXAM: XR CHEST 1 VIEW DATE: 04/02/2017 INDICATION: sob - sob . Comparison is made with yesterday FINDINGS: Costophrenic sulci are sharp. Portions of the left midlung are obscured by the pulse generator. The visualized lungs are clear. IMPRESSION: No significant interval change when compared to prior radiograph. FINDINGS: Cardiomediastinal silhouette, postoperative changes and life-support lines are unchanged. 04/02/2017 - - Read by: Jacqueline Pierce MD Dictated Date/time: 04/02/17 08:54 Electronically Signed by: Jacqueline Pierce MD 04/02/17 08:55 FINAL REPORT [facility] Chest 1view DX Chest 1view DX EXAM: XR CHEST 1 VIEW DATE: 04/01/2017 3:00 AM E COMMERCE STRATEGIST INDICATION: dyspnea - dyspnea COMPARISON: Semierect AP chest radiograph 03/30/2017 at 9:05 PM TECHNIQUE: AP chest FINDINGS: Lines, tubes and hardware: Left subclavian approach cardiac device and sternotomy wires are unchanged. Lungs and pleura: Small pleural effusions are present bilaterally. Mild bibasilar airspace opacities are present. The opacity in the right lung, which likely represents subsegmental atelectasis, has slightly improved. Opacity in the left lung is slightly worse and may represent a small layering effusion, subsegmental atelectasis, aspiration, or pneumonia. The right upper lung is better aerated than on the prior exam. Heart and mediastinum: The heart size is normal for technique. The mediastinal contours are normal. Bones: No change from prior exam. IMPRESSION: 1. Improved aeration of the right lung compared to the prior exam. 2. Worsening opacification of the left lung base. 04/01/2017 - - Read by: Hipolito Franklin MD Dictated Date/time: 04/01/17 16:57 Electronically Signed by: Hipolito Franklin MD 04/01/17 17:32 FINAL REPORT [facility] Chest 1view DX Chest 1view DX EXAM: XR CHEST 1 VIEW DATE: 03/30/2017 9:00 PM E COMMERCE STRATEGIST INDICATION: - s/p removal of CTs COMPARISON: Semierect AP chest radiograph earlier the same day at 6:06 AM TECHNIQUE: AP chest, semierect FINDINGS: Lines, tubes and hardware: The patient has been extubated. The Dobbhoff tube, [place] catheter, left thoracostomy tube, and mediastinal drains have been removed. The left subclavian approach cardiac device and at the sternotomy wires are unchanged. Lungs and pleura: Volume loss and opacity in the right upper lobe, likely subsegmental atelectasis, is grossly unchanged. Hazy opacities are present in the bilateral lung bases and may represent layering pleural effusion on the right side with bibasilar with subsegmental atelectasis. No pneumothorax. Heart and mediastinum: Cardiomediastinal silhouette is unchanged. Bones: No change from prior exam. IMPRESSION: 1. Interval removal of multiple lines and tubes as above with no appreciated pneumothorax. An erect chest radiograph can better evaluate a small apical pneumothorax. 2. Subsegmental atelectasis in the right upper lobe is unchanged. 3. Bibasilar hazy opacities likely represent a combination of layering pleural effusion on the right side and bibasilar subsegmental atelectasis. 03/30/2017 - - Read by: Hipolito Franklin MD Dictated Date/time: 03/30/17 23:06 Electronically Signed by: Hipolito Franklin MD 03/30/17 23:12 FINAL REPORT [facility] Chest 1view DX Chest 1view DX EXAM: XR CHEST 1 VIEW DATE: 03/30/2017 3:00 AM E COMMERCE STRATEGIST INDICATION: - intubated TECHNIQUE: AP chest DISCUSSION: ET tube, enteric suction tube, enteric feeding tube remain in place. A pulmonary artery catheter, mediastinal drains, left chest tube remain in place. Intra-aortic balloon pump marker no longer visualized. Somewhat improved appearance of pleural effusions and hazy airspace opacities versus changes in technique. No new discrete consolidation. There is pleural fluid along the horizontal fissure. Mild platelike atelectasis in the region. No pneumothorax given the limitation of a semiupright exam. IMPRESSION: Mild improvement, no interval worsening of disease. Intra-aortic balloon pump no longer visualized. 03/30/2017 - - Read by: Salvador Dowling MD Dictated Date/time: 03/30/17 09:02 Electronically Signed by: Salvador Dowling MD 03/30/17 09:03 FINAL REPORT [facility] HEMATOLOGY POC Activated Clotting Time 156 s 03/29/2017 [facility] HEMATOLOGY Anisocyte 1+ *ABN* (03/29/17 4:25 AM) None Seen 03/29/2017 [facility] HEMATOLOGY Plt Morph Normal (03/29/17 4:25 AM) 03/29/2017 [facility] CHEM PANEL Lactic Acid Lvl 1.7 mMol/L 0.5 - 2.2 03/29/2017 [facility] Chest 1 v for Placement DX Chest 1 v for Placement DX EXAM: XR CHEST 1 VIEW DATE: 03/29/2017 12:12 AM E COMMERCE STRATEGIST INDICATION: Line Placement - Chest 1 view for line placement COMPARISON: 03/28/2017 TECHNIQUE: AP chest FINDINGS: Lines, tubes and hardware: The support lines and tubes are grossly stable in position. Lungs and pleura: Hazy airspace opacities are seen throughout the right lung and left lower lung, possibly representing layering effusions, edema, atelectasis, or infection. A small left apical pneumothorax is again noted. Heart and mediastinum: The cardiomediastinal silhouette is stable. Bones: Changes of median sternotomy are noted. IMPRESSION: 1. No significant interval change compared to the prior study. 03/29/2017 - - Read by: Hipolito Chan MD Dictated Date/time: 03/29/17 08:29 Electronically Signed by: Hipolito Chan MD 03/29/17 08:32 FINAL REPORT [facility] HEMATOLOGY D-Dimer 1.07 ug/mL FEU 03/28/2017 [facility] HEMATOLOGY Thrombin Time 25.3 s 15.0 - 21.2 03/28/2017 [facility] HEMATOLOGY Fibrinogen Lvl 648 mg/dL 230 - 510 03/28/2017 [facility] CHEM PANEL LDH 395 unit/L 98 - 192 03/28/2017 [facility] CHEM PANEL Lactic Acid Lvl 1.4 mMol/L 0.5 - 2.2 03/28/2017 [facility] CHEM PANEL Globulin 2.9 g/dL 2.7 - 4.2 03/28/2017 [facility] CHEM PANEL A/G Ratio 0.7 0.7 - 1.6 03/28/2017 [facility] CHEM PANEL B/C Ratio 29 6 - 25 03/28/2017 [facility] CHEM PANEL Alk Phos 64 unit/L 39 - 136 03/28/2017 [facility] CHEM PANEL Total Protein 4.9 g/dL 6.4 - 8.4 03/28/2017 [facility] CHEM PANEL Bili Total 0.5 mg/dL 0.2 - 1.3 03/28/2017 [facility] CHEM PANEL AST 47 unit/L 0 - 37 03/28/2017 [facility] CHEM PANEL Albumin Lvl 2.0 g/dL 3.5 - 5.0 03/28/2017 [facility] CHEM PANEL ALT 29 unit/L 0 - 65 03/28/2017 [facility] HEMATOLOGY D-Dimer 0.70 ug/mL FEU 03/28/2017 [facility] HEMATOLOGY Thrombin Time 39.8 s 15.0 - 21.2 03/28/2017 [facility] HEMATOLOGY Fibrinogen Lvl 639 mg/dL 230 - 510 03/28/2017 [facility] Chest 1view DX Chest 1view DX EXAM: XR CHEST 1 VIEW DATE: 03/28/2017 INDICATION: Respiratory failure - resp failure . Comparison is made with yesterday FINDINGS: Cardiomediastinal silhouette, postoperative changes and life support lines are unchanged. There is a right pleural effusion which appears unchanged. What is seen of the right lung and left apex are clear. There is platelike atelectasis at the left lung base No pneumothorax is visualized however a supine or semierect radiograph is suboptimal for that determination. An erect film of the chest is necessary in order to exclude small pneumothoraces. IMPRESSION: No significant interval change when compared to prior radiograph. 03/28/2017 - - Read by: Jacqueline Pierce MD Dictated Date/time: 03/28/17 09:00 Electronically Signed by: Jacqueline Pierce MD 03/28/17 09:02 FINAL REPORT [facility] CHEM PANEL Procalcitonin Lvl 1.18 ng/mL 0.00 - 0.10 03/27/2017 [facility] HEMATOLOGY Thrombin Time 37.5 s 15.0 - 21.2 03/27/2017 [facility] HEMATOLOGY D-Dimer 0.89 ug/mL FEU 03/27/2017 [facility] HEMATOLOGY Fibrinogen Lvl 604 mg/dL 230 - 510 03/27/2017 [facility] CHEM PANEL Lactic Acid Lvl 1.3 mMol/L 0.5 - 2.2 03/27/2017 [facility] CHEM PANEL LDH 328 unit/L 98 - 192 03/27/2017 [facility] CHEM PANEL B/C Ratio 33 6 - 25 03/27/2017 [facility] CHEM PANEL Alk Phos 47 unit/L 39 - 136 03/27/2017 [facility] CHEM PANEL Bili Total 0.5 mg/dL 0.2 - 1.3 03/27/2017 [facility] CHEM PANEL Albumin Lvl 1.9 g/dL 3.5 - 5.0 03/27/2017 [facility] CHEM PANEL ALT 23 unit/L 0 - 65 03/27/2017 [facility] CHEM PANEL AST 58 unit/L 0 - 37 03/27/2017 [facility] CHEM PANEL A/G Ratio 0.8 0.7 - 1.6 03/27/2017 [facility] CHEM PANEL Globulin 2.3 g/dL 2.7 - 4.2 03/27/2017 [facility] CHEM PANEL Total Protein 4.2 g/dL 6.4 - 8.4 03/27/2017 [facility] HEMATOLOGY Plt Morph Normal (03/27/17 1:42 AM) 03/27/2017 [facility] HEMATOLOGY RBC Morph Normal (03/27/17 1:42 AM) 03/27/2017 [facility] Chest 1view DX Chest 1view DX EXAM: XR CHEST 1 VIEW DATE: 03/27/2017 3:00 AM E COMMERCE STRATEGIST INDICATION: Respiratory failure - resp failure. FINDINGS: Comparison is made to March 26 2121 hours. The cardiomediastinal silhouette is stable. The patient is status post median sternotomy for CABG. The intra-aortic balloon pump has been advanced, now with tip in the upper aspect of the descending thoracic aorta. The tip is located about 6 cm from the top of the aortic arch. Life-support lines and tubes remain in place. A right pleural effusion layers posteriorly and courses into the fissures. There is bilateral lower lobe and right perihilar subsegmental atelectasis. IMPRESSION: Interval advancement of the IABP. Otherwise, no significant change from last night. 03/27/2017 - - Read by: Concha Aleman MD Dictated Date/time: 03/27/17 09:01 Electronically Signed by: Concha Aleman MD 03/27/17 09:02 FINAL REPORT [facility] BLOOD BANK RESULTS FFP product Product available (03/26/17 3:29 PM) 03/26/2017 [facility] BLOOD BANK RESULTS RBC product Product available (03/26/17 3:29 PM) 03/26/2017 [facility] Chest 1view DX Chest 1view DX EXAM: XR CHEST 1 VIEW DATE: 03/26/2017 7:17 PM E COMMERCE STRATEGIST INDICATION: - s/p ecmo decannulation and IABP placement COMPARISON: March 25, 2017 TECHNIQUE: AP chest IMPRESSION: 1. No pneumothorax identified. 2. Interval removal of the ECMO catheter from the IVC. Interval placement of intra- aortic balloon pump with the metallic marker a centimeter below the aortic knob. Adjustment and is recommended. 3. Other lines and tubes are stable compared to previous study. 4. Cardiomediastinal silhouette is enlarged, unchanged. Aortic atherosclerotic disease. 5. Prominent lung reticulations again seen with peribronchial cuffing suggestive of pulmonary edema. Superimposed infection cannot be excluded. 6. Small bilateral pleural effusions. 7. Osseous structures are stable. 03/26/2017 - - Read by: Noel Dos Santos MD Dictated Date/time: 03/27/17 08:23 Electronically Signed by: Noel Dos Santos MD 03/27/17 08:27 FINAL REPORT [facility] MOLECULAR DIAGNOSTIC RSV PCR Negative (03/26/17 1:09 PM) Negative 03/26/2017 [facility] MOLECULAR DIAGNOSTIC Source Respiratory Panel PCR Fl[employer]ed [employer]END[employer] C[employer] Swab (03/26/17 1:09 PM) 03/26/2017 [facility] MOLECULAR DIAGNOSTIC Influenza A PCR Negative (03/26/17 1:09 PM) Negative 03/26/2017 [facility] MOLECULAR DIAGNOSTIC Influenza B PCR Negative (03/26/17 1:09 PM) Negative 03/26/2017 [facility] MOLECULAR DIAGNOSTIC Parainfluenza 1 PCR Negative (03/26/17 1:09 PM) Negative 03/26/2017 [facility] MOLECULAR DIAGNOSTIC Source Parainfluenza Virus PCR Fl[employer]ed [employer] Swab (03/26/17 1:09 PM) 03/26/2017 [facility] MOLECULAR DIAGNOSTIC Parainfluenza 3 PCR Negative (03/26/17 1:09 PM) Negative 03/26/2017 [facility] MOLECULAR DIAGNOSTIC Parainfluenza 2 PCR Negative (03/26/17 1:09 PM) Negative 03/26/2017 [facility] MOLECULAR DIAGNOSTIC Adenovirus PCR Negative (03/26/17 1:09 PM) Negative 03/26/2017 [facility] MOLECULAR DIAGNOSTIC Source Adenovirus PCR Fl[employer]ed [employer] Swab (03/26/17 1:09 PM) 03/26/2017 [facility] Abdomen AP DX Abdomen AP DX EXAM: XR ABDOMEN 1 VIEW DATE: 03/26/2017 at 1206 hours INDICATION: Tube placement ADDITIONAL INFORMATION: None. COMPARISON: None. TECHNIQUE: Limited AP view of the abdomen for tube placement assessment. Number of images: 1 FINDINGS: Transesophageal feeding tube tip: The tip of the Dobbhoff tube is in the gastric antrum/pyloric region. Transesophageal suction tube sidehole: Nasogastric tube is in the stomach with the side port and tip in the gastric fundus. Other tubes and lines: Numerous other lines and tubes are present which include an ECMO tubing, implantable cardiac defibrillator leads,, perhaps a [place] catheter, incompletely visualized, likely chest tubes and numerous other overlying lines and tubes. Visual bowel gas pattern shows gaseous distention of bowel loops without obstruction. Scattered lower lung opacities are noted which would be better assessed on chest x-ray. IMPRESSION: 1. Tube positions as above. 03/26/2017 - - Read by: Belle James MD Dictated Date/time: 03/26/17 16:24 Electronically Signed by: Belle James MD 03/26/17 16:25 FINAL REPORT [facility] BLOOD BANK RESULTS ABO/Rh A POS 03/26/2017 [facility] BLOOD BANK RESULTS Antibody Scrn Negative (03/26/17 2:22 AM) 03/26/2017 [facility] CHEM PANEL Plasma Hemoglobin <10 mg/dL 0 - 10 03/26/2017 [facility] CHEM PANEL LDH 392 unit/L 98 - 192 03/26/2017 [facility] CHEM PANEL Bili Total 0.8 mg/dL 0.2 - 1.3 03/26/2017 [facility] CHEM PANEL Albumin Lvl 2.3 g/dL 3.5 - 5.0 03/26/2017 [facility] CHEM PANEL Total Protein 4.5 g/dL 6.4 - 8.4 03/26/2017 [facility] CHEM PANEL Alk Phos 45 unit/L 39 - 136 03/26/2017 [facility] CHEM PANEL ALT 26 unit/L 0 - 65 03/26/2017 [facility] CHEM PANEL AST 88 unit/L 0 - 37 03/26/2017 [facility] CHEM PANEL B/C Ratio 30 6 - 25 03/26/2017 [facility] CHEM PANEL Globulin 2.2 g/dL 2.7 - 4.2 03/26/2017 [facility] CHEM PANEL A/G Ratio 1.0 0.7 - 1.6 03/26/2017 [facility] CHEM PANEL Bili Direct 0.2 mg/dL 0.0 - 0.3 03/26/2017 [facility] HEMATOLOGY Large Plt Moderate *ABN* (03/26/17 2:22 AM) None Seen 03/26/2017 [facility] HEMATOLOGY RBC Morph Normal (03/26/17 2:22 AM) 03/26/2017 [facility] HEMATOLOGY Atypical Lymphs 0.0 % <=0.0 % 03/25/2017 [facility] HEMATOLOGY Bands 0.0 % 0.0 - 11.0 03/25/2017 [facility] BLOOD BANK RESULTS RBC product Product available (03/24/17 11:54 PM) 03/25/2017 [facility] BLOOD BANK RESULTS FFP product Product available (03/24/17 11:53 PM) 03/25/2017 [facility] BLOOD BANK RESULTS RBC product Product available (03/24/17 11:53 PM) 03/25/2017 [facility] Chest 1view DX Chest 1view DX EXAM: XR CHEST 1 VIEW DATE: 03/25/2017 INDICATION: - respiratory failure . Comparison is made with yesterday FINDINGS: Cardiomediastinal silhouette, postoperative changes and life support lines are unchanged. There is a right hydropneumothorax which is unchanged from yesterday. There are patchy alveolar opacities over the right upper lobe which may represent segmental atelectasis or pneumonia. Edema is less likely to be so focal. There is platelike atelectasis in the left lower lobe IMPRESSION: Right hydropneumothorax is unchanged. Dr. Miguel Duran, the career manager in the heart failure unit was notified by phone of this finding at 1230 hours. 03/25/2017 - - Read by: Jacqueline Pierce MD Dictated Date/time: 03/25/17 12:31 Electronically Signed by: Jacqueline Pierce MD 03/25/17 12:35 FINAL REPORT [facility] CHEM PANEL Lactic Acid WB 4.5 mmol/L 0.5 - 2.2 03/25/2017 Result Comment: Critical Result(s) called to Tl at 03/24/2017 21:56 by NT. Read back OK. [facility] LIPIDS VLDL 26 03/25/2017 [facility] LIPIDS LDL (Calculated) 50 mg/dL <=99 mg/dL 03/25/2017 [facility] LIPIDS Chol 104 mg/dL <=199 mg/dL 03/25/2017 [facility] LIPIDS HDL 28 mg/dL >=61 mg/dL 03/25/2017 [facility] LIPIDS Trig 128 mg/dL <=149 mg/dL 03/25/2017 [facility] LIPIDS CHD Risk 3.71 4.00 - 7.30 03/25/2017 [facility] HEMATOLOGY Plav Effect Plt 265 PRU 03/25/2017 [facility] HEMATOLOGY Coag Index xxxxxxx (03/24/17 6:03 PM) -3.0-3.0 - 3.0 03/25/2017 [facility] HEMATOLOGY TEG Data See Note (03/24/17 6:03 PM) 03/25/2017 [facility] HEMATOLOGY Angle xxxxxxx (03/24/17 6:03 PM) 53.0 - 72.0 03/25/2017 [facility] HEMATOLOGY Max Amp xxxxxxx (03/24/17 6:03 PM) 50.0 - 70.0 03/25/2017 [facility] HEMATOLOGY G-value xxxxxxx (03/24/17 6:03 PM) 4.5 - 11.0 03/25/2017 [facility] HEMATOLOGY Ly30 xxxxxxx (03/24/17 6:03 PM) 0.0 - 7.5 03/25/2017 [facility] HEMATOLOGY R-time See Note 1 (03/24/17 6:03 PM) 5.0 - 10.0 03/25/2017 Result Comment: NO Clot form [facility] HEMATOLOGY K-time xxxxxxx (03/24/17 6:03 PM) 1.0 - 3.0 03/25/2017 [facility] BLOOD BANK RESULTS FFP product Product available (03/24/17 5:22 PM) 03/24/2017 [facility] BLOOD BANK RESULTS ABO/Rh A POS 03/24/2017 [facility] BLOOD BANK RESULTS Antibody Scrn Negative (03/24/17 3:20 PM) 03/24/2017 [facility] Chest 1 v for Placement DX Chest 1 v for Placement DX EXAM: XR CHEST 1 VIEW DATE: 03/24/2017 INDICATION: - On arrival . Comparison is made with March 22 FINDINGS: In the interval between radiographs the patient has undergone a median sternotomy. The patient is intubated. Gastric tube has been placed with its tip in the stomach. There is a right jugular [place] catheter with its tip in the pulmonary trunk. The patient has a left subclavian dual-lead implantable cardiac defibrillator pacemaker with leads in the right atrium and right ventricle. There is a right pneumothorax. A left basal chest tube is in place. There are bilateral pleural effusions. There are alveolar opacities bilaterally may represent multifocal pneumonia or edema. IMPRESSION: 1. New median sternotomy and new life-support lines as described above 2. Bilateral pleural effusions. Moderate-sized right pneumothorax 3. Diffuse alveolar opacities bilaterally which may represent multifocal pneumonia or edema. 03/24/2017 - - Read by: Jacqueline Pierce MD Dictated Date/time: 03/25/17 08:22 Electronically Signed by: Jacqueline Pierce MD 03/25/17 08:25 FINAL REPORT [facility] BLOOD BANK RESULTS Platelet product Product available (03/24/17 2:38 PM) 03/24/2017 [facility] HEMATOLOGY POC Activated Clotting Time 220 s 03/24/2017 [facility] HEMATOLOGY POC Activated Clotting Time 314 s 03/24/2017 [facility] CARDIAC ENZYMES CK-MB INDEX 1.3 0.0 - 2.5 03/23/2017 [facility] CARDIAC ENZYMES CK MB 3.2 ng/mL 0.5 - 3.6 03/23/2017 [facility] CARDIAC ENZYMES Troponin-I 1.67 ng/mL 0.00 - 0.40 03/23/2017 Result Comment: Critical Result(s) called to Gianna York at 03/23/2017 06:07 by ET. Read back OK. [facility] CARDIAC ENZYMES Troponin-T 0.166 ng/mL 0.000 - 0.100 03/23/2017 Result Comment: Critical Result(s) called to Denny Fagan at 03/23/2017 06:43 byJw. Read back OK. [facility] CARDIAC ENZYMES Total CK 250 unit/L 12 - 191 03/23/2017 [facility] MYOGLOBIN Myoglobin 129 ng/mL 25 - 72 03/23/2017 [facility] CARDIAC ENZYMES CK MB Index 1.6 0.0 - 2.5 03/23/2017 [facility] CARDIAC ENZYMES CK MB 5.3 ng/mL 0.5 - 3.6 03/23/2017 [facility] CARDIAC ENZYMES Troponin-T 0.179 ng/mL 0.000 - 0.100 03/23/2017 Result Comment: Critical Result(s) called to Ana Yang at 03/22/2017 22:14 by EMILY. Read back OK. [facility] CARDIAC ENZYMES Total CK 334 unit/L 12 - 191 03/23/2017 [facility] CARDIAC ENZYMES Troponin-I 2.29 ng/mL 0.00 - 0.40 03/23/2017 Result Comment: Critical Result(s) called to Ana Yang at 03/22/2017 22:14 by EMILY. Read back OK. [facility] CARDIAC ENZYMES CK MB Index 2.0 0.0 - 2.5 03/22/2017 [facility] [facility] CARDIAC ENZYMES CK MB 7.6 ng/mL 0.5 - 3.6 03/22/2017 [facility] CARDIAC ENZYMES Troponin-T 0.192 ng/mL 0.000 - 0.100 03/22/2017 Result Comment: Critical Result(s) called to Chivo Bennett/DENY at 03/22/2017 17:15 by VV. Read back OK. [facility] CARDIAC ENZYMES Total CK 385 unit/L 12 - 191 03/22/2017 [facility] CARDIAC ENZYMES Troponin-I 2.25 ng/mL 0.00 - 0.40 03/22/2017 Result Comment: Critical Result(s) called to Audrey at 03/22/2017 17:13 by EMILY. Read back OK. [facility] CARDIAC ENZYMES BNP 377 pg/mL <=100 pg/mL 03/22/2017 [facility] CHEM PANEL Procalcitonin Lvl 0.84 ng/mL 0.00 - 0.10 03/22/2017 [facility] LIPIDS VLDL 23 03/22/2017 [facility] LIPIDS LDL (Calculated) 134 mg/dL <=99 mg/dL 03/22/2017 [facility] LIPIDS Trig 116 mg/dL <=149 mg/dL 03/22/2017 [facility] LIPIDS Chol 208 mg/dL <=199 mg/dL 03/22/2017 [facility] LIPIDS HDL 51 mg/dL >=61 mg/dL 03/22/2017 [facility] LIPIDS CHD Risk 4.08 4.00 - 7.30 03/22/2017 [facility] SPECIAL CHEMISTRY Hgb A1C 8.9 % <=5.6 % 03/22/2017 [facility] DRUG SCREEN U Propoxyph Scr Negative *NA* (03/22/17 8:11 AM) Negative 03/22/2017 [facility] DRUG SCREEN UDS Note See Note *NA* (03/22/17 8:11 AM) 03/22/2017 [facility] DRUG SCREEN U Phencyc Scr Negative *NA* (03/22/17 8:11 AM) Negative 03/22/2017 [facility] DRUG SCREEN U Opiate Scr Negative *NA* (03/22/17 8:11 AM) Negative 03/22/2017 [facility] DRUG SCREEN U Methadone Scr Negative *NA* (03/22/17 8:11 AM) Negative 03/22/2017 [facility] DRUG SCREEN U Cannab Scr Negative *NA* (03/22/17 8:11 AM) Negative 03/22/2017 [facility] DRUG SCREEN U Benzodia Scr Negative *NA* (03/22/17 8:11 AM) Negative 03/22/2017 [facility] DRUG SCREEN U Alana Scr Negative *NA* (03/22/17 8:11 AM) Negative 03/22/2017 [facility] DRUG SCREEN U Amph Scr Negative *NA* (03/22/17 8:11 AM) Negative 03/22/2017 [facility] DRUG SCREEN U Cocaine Scr Negative *NA* (03/22/17 8:11 AM) Negative 03/22/2017 [facility] URINE AND STOOL UA Blood Trace *ABN* (03/22/17 8:11 AM) Negative 03/22/2017 [facility] URINE AND STOOL UA Bili Negative *NA* (03/22/17 8:11 AM) Negative 03/22/2017 [facility] URINE AND STOOL UA Ketones Negative *NA* (03/22/17 8:11 AM) Negative 03/22/2017 [facility] URINE AND STOOL UA Nitrite Negative (03/22/17 8:11 AM) Negative 03/22/2017 [facility] URINE AND STOOL UA Leuk Est Negative (03/22/17 8:11 AM) Negative 03/22/2017 [facility] URINE AND STOOL UA Urobilinogen 0.2 EU/dL 0.1 - 1.0 03/22/2017 [facility] URINE AND STOOL UA Color Yellow *NA* (03/22/17 8:11 AM) Yellow 03/22/2017 [facility] URINE AND STOOL UA Spec Grav 1.010 <=1.030 03/22/2017 [facility] URINE AND STOOL UA Turbidity Clear (03/22/17 8:11 AM) Clear 03/22/2017 [facility] URINE AND STOOL UA pH 5.5 5.0 - 8.0 03/22/2017 [facility] URINE AND STOOL UA Glucose 250 mg/dL Negative mg/dL 03/22/2017 [facility] URINE AND STOOL UA Protein Negative (03/22/17 8:11 AM) Negative 03/22/2017 [facility] URINE AND STOOL UA Sq Epi None Seen (03/22/17 8:11 AM) Few 03/22/2017 [facility] URINE AND STOOL UA Bacteria None Seen (03/22/17 8:11 AM) None Seen 03/22/2017 [facility] URINE AND STOOL UA RBC 0-2 /HPF 0 - 2 03/22/2017 [facility] URINE AND STOOL UA Mucus Few /LPF None Seen /LPF 03/22/2017 [facility] URINE AND STOOL UA WBC 0-2 /HPF None Seen /HPF 03/22/2017 [facility] CHEM PANEL Lactic Acid WB 6.8 mmol/L 0.5 - 2.2 03/22/2017 Result Comment: Critical Result(s) called to Luis Fernando Curtis at 03/22/2017 03:42 by OMERO. Read back OK. [facility] Chest 1view DX Chest 1view DX EXAM: XR CHEST 1 VIEW DATE: 03/22/2017 at 0343 hours INDICATION: shortness of breath COMPARISON: None TECHNIQUE: AP chest FINDINGS: Lines and tubes: A left subclavian dual-lead AICD is in place. One lead projects at right atrium and the other projects at right ventricle. Lungs and pleura: Diffuse interstitial opacities are present in a predominantly perihilar and bibasilar distribution, right greater than left. Focal opacity is seen at right lower lobe. Blunting of right costophrenic recess is present indicating pleural effusion. The left costophrenic recess appear sharp without pleural effusion. Heart and mediastinum: The heart size is at upper limits of normal for technique. The mediastinal contours are normal. The thoracic aorta is mildly tortuous. Calcification is present within aortic arch. Bones: No acute bony abnormality is identified. Degenerative changes present throughout the thoracic spine. IMPRESSION: 1. Interstitial and alveolar pulmonary edema with or without superimposed infection. 2. Right pleural effusion. 3. Left subclavian AICD in place with leads present at right atrium and right ventricle. 4. Cardiac silhouette at upper limits of normal in size. 5 Mildly ectatic thoracic aorta with partial calcification of aortic arch. 03/22/2017 - - Read by: Brooklyn Biswas MD Dictated Date/time: 03/22/17 04:20 Electronically Signed by: Brooklyn Biswas MD 03/22/17 04:45 FINAL REPORT [facility] Vital Signs Vital Sign Value Date Comments Source Systolic (mm Hg) 104 05/25/2017 [facility] Diastolic (mm Hg) 58 05/25/2017 [facility] Respitory Rate 16 05/25/2017 [facility] Heart Rate 59 05/25/2017 [facility] Temperature Oral (F) 97.8 F 05/25/2017 [facility] Systolic (mm Hg) 102 05/25/2017 [facility] Diastolic (mm Hg) 68 05/25/2017 [facility] Respitory Rate 16 05/25/2017 [facility] Heart Rate 43 05/25/2017 [facility] Temperature Oral (F) 98.5 F 05/25/2017 [facility] Systolic (mm Hg) 104 05/25/2017 [facility] Diastolic (mm Hg) 58 05/25/2017 [facility] Heart Rate 71 05/25/2017 [facility] Temperature Oral (F) 97.8 F 05/25/2017 [facility] Respitory Rate 16 05/25/2017 [facility] Height 175.26 cm 05/18/2017 [facility] Height 175.26 cm 05/18/2017 [facility] Height 175.26 cm 05/18/2017 [facility] Weight 72.273 05/16/2017 [facility] BMI Calculated 23.27 05/16/2017 [facility] Weight 71.477 05/16/2017 [facility] Respitory Rate 18 05/15/2017 [facility] Systolic (mm Hg) 112 05/15/2017 [facility] Diastolic (mm Hg) 66 05/15/2017 [facility] Heart Rate 76 05/15/2017 [facility] Weight 70.909 05/14/2017 [facility] Height 175.26 cm 05/14/2017 [facility] BMI Calculated 23.09 05/14/2017 [facility] Heart Rate 78 04/19/2017 [facility] Systolic (mm Hg) 94 04/19/2017 [facility] Diastolic (mm Hg) 55 04/19/2017 [facility] Respitory Rate 18 04/19/2017 [facility] Temperature Oral (F) 97.8 F 04/19/2017 [facility] Respitory Rate 18 04/19/2017 [facility] Systolic (mm Hg) 98 04/19/2017 [facility] Diastolic (mm Hg) 56 04/19/2017 [facility] Temperature Oral (F) 98.0 F 04/19/2017 [facility] Heart Rate 65 04/19/2017 [facility] Systolic (mm Hg) 89 04/19/2017 [facility] Diastolic (mm Hg) 50 04/19/2017 [facility] Heart Rate 77 04/19/2017 [facility] Respitory Rate 18 04/18/2017 [facility] Temperature Oral (F) 97.6 F 04/18/2017 [facility] Height 175.2 cm 04/12/2017 [facility] BMI Calculated 23.13 04/12/2017 [facility] Weight 71 04/12/2017 [facility] BMI Calculated 23.13 04/12/2017 [facility] Weight 71.005 04/12/2017 [facility] Height 175.2 cm 04/12/2017 [facility] Systolic (mm Hg) 97 04/12/2017 [facility] Diastolic (mm Hg) 60 04/12/2017 [facility] Respitory Rate 18 04/12/2017 [facility] Heart Rate 71 04/12/2017 [facility] Temperature Oral (F) 98.1 F 04/12/2017 [facility] Systolic (mm Hg) 92 04/12/2017 [facility] Diastolic (mm Hg) 59 04/12/2017 [facility] Temperature Oral (F) 97.6 F 04/12/2017 [facility] Heart Rate 68 04/12/2017 [facility] Respitory Rate 16 04/12/2017 [facility] Systolic (mm Hg) 92 04/12/2017 [facility] Diastolic (mm Hg) 57 04/12/2017 [facility] Respitory Rate 18 04/12/2017 [facility] Heart Rate 78 04/12/2017 [facility] Temperature Oral (F) 98.2 F 04/12/2017 [facility] Weight 71.051 04/09/2017 [facility] Height 175.26 cm 03/30/2017 [facility] Height 175.26 cm 03/30/2017 [facility] Height 175.26 cm 03/30/2017 [facility] BMI Calculated 22.95 03/22/2017 [facility] Weight 70.483 03/22/2017 [facility] Weight 74.091 03/22/2017 [facility] BMI Calculated 24.84 03/22/2017 [facility] Encounters Location Location Details Encounter Type Encounter Number Reason For Visit Attending Provider ADM Date DC Date Status Source [facility] Inpatient [id number] Cesar Varela 03/22/2017 04/12/2017 [facility] Inpatient Rehab [id number] Mario RoseBryceReynoso 04/12/2017 04/19/2017 [facility] Recurring [id number] Guilherme Velazco 05/10/2017 06/09/2017 [facility] Day Surgery [id number] Brody Francisco 05/15/2017 05/15/2017 [facility] Inpatient [id number] Brody Francisco 05/16/2017 05/25/2017 [facility] Procedures Procedure Code Date Perfomer Comments Source CABG x 2 - Coronary artery bypass grafts x 2 [id number] 03/07/2017 [facility] CABG x 2 - Coronary artery bypass grafts x 2 [id number] 03/07/2017 [facility] Implantation of automatic cardioverter/defibrillator, total system (AICD) [id number] 05/07/2016 [facility] Implantation of automatic cardioverter/defibrillator, total system (AICD) [id number] 05/07/2016 [facility] ACD - Automatic cardiac defibrillator procedure [id number] [facility] Stent placement [id number] [facility] ACD - Automatic cardiac defibrillator procedure [id number] [facility] Stent placement [id number] [facility] ACD - Automatic cardiac defibrillator procedure [id number] [facility] Stent placement [id number] [facility]
--- OUTSIDE RECORDS SUMMARY | 2018-04-20 20:53 | XMS REPORT | Summary of Care ---
Author Author [facility] Organization [facility] Address Unknown Phone Unavailable Encounter GIUSEPPE Robertson(ANURADHA) [id number] Date(s): 05/15/17 - 05/15/17 [facility] [address] [place] [address]- [phone] Discharge Disposition: Home or Self Care Attending Physician: Brody Francisco MD Referring Physician: Brody Francisco MD Vital Signs Most recent to 1 oldest [Reference Range]: Height 175.26 cm (05/14/17 12:16 PM) Blood Pressure 112/66 mmHg [90-140/60-90 mmHg] (05/15/17 8:02 AM) Respiratory Rate 18 BRMIN [14-20 BRMIN] (05/15/17 8:02 AM) Peripheral Pulse 76 bpm Rate [60-100 bpm] (05/15/17 8:02 AM) Weight 70.909 kg (05/14/17 12:16 PM) Body Mass Index 23.09 m2 (05/14/17 12:16 PM) Problem List Condition Effective Dates Status Health [...] 09/08/11 Resolved balloon pumping(Confirmed) Indigestion(Confirme Resolved d) [place] (myocardial Resolved infarction)(Confirme d) PAD (peripheral Active artery disease)(Confirmed) Pulmonary Active edema(Confirmed) Ventricular Resolved fibrillation(Confirm ed) Allergies, Adverse Reactions, Alerts Substance Reaction Severity Status chlorhexidine topical Active Tape Active Medications atorvastatin 40 mg oral tablet 40 mg=1 tab, PO, Bedtime, # 30 tab, 0 Refill(s) Start Date: 05/14/17 Status: Ordered carvedilol 3.125 mg oral tablet 3.125 mg=1 tab, PO, BID, # 180 tab, 0 Refill(s) Start Date: 05/14/17 Status: Ordered ceFAZolin + sterile water 20 mL 2 gm, Route: IV, Drug form: PDR/INJ, PRE OP, Start date: 05/15/17 5:00:00 LEGAL DEPARTMENT MANAGER, D uration: 1 doses or times, ABX Indication: Surgical Prophylaxis Notes: (Same As: Fredrick Franco) MEDICATION WASTE Product Size: 1000 mgP roduct Wasted: ___ mg Start Date: 05/15/17 Stop Date: 05/15/17 Status: Discontinued clopidogrel 75 mg oral tablet 75 mg=1 tab, PO, Daily, # 30 tab, 0 Refill(s) Start Date: 05/14/17 Status: Ordered insulin glargine 100 units/mL subcutaneous solution 16 unit, SUB-Q, BID, 0 Refill(s) Start Date: 05/14/17 Status: Ordered Lactated Ringers IV 1,000 mL 1,000 mL, Rate: 100 ml/hr, Infuse over: 10 hr, Route: IV, Dosing Weight 70.909 k g, Total Volume: 1,000, Start date: 05/15/17 6:03:00 LEGAL DEPARTMENT MANAGER, Duration: 30 day, Stop date: 06/14/17 6:02:00 LEGAL DEPARTMENT MANAGER, 1.87, m2 Start Date: 05/15/17 Stop Date: 05/15/17 Status: Discontinued Lasix 20 mg, PO, BID, 0 Refill(s) Start Date: 05/14/17 Stop Date: 05/15/17 Status: Completed lisinopril 2.5 mg oral tablet 2.5 mg=1 tab, PO, Daily, # 30 tab, 0 Refill(s) Start Date: 05/14/17 Stop Date: 05/25/17 Status: Discontinued Protonix 40 mg oral enteric coated tablet 40 mg=1 tab, PO, Before Breakfast, # 30 tab, 0 Refill(s) Start Date: 05/14/17 Status: Ordered Results No data available for this section Immunizations No data available for this section Procedures Procedure Date Related Diagnosis Body Site Status CABG x 2 - Coronary artery bypass grafts x 2 03/2017 Completed Implantation of automatic 05/2016 Completed cardioverter/defibrillator, total system (AICD) ACD - Automatic cardiac defibrillator Completed procedure Stent placement Completed Social History Social History Type Response Substance Abuse Use: None. Alcohol Never Smoking Status Never smoker; Exposure to Tobacco Smoke None; Cigarette Smoking Last 365 Days No; Reg Smoking Cessation Counseling No entered on: 05/16/17 Assessment and Plan No data available for this section
--- OUTSIDE RECORDS SUMMARY | 2018-04-20 20:53 | XMS REPORT | Summary of Care ---
Author Author [facility] Organization [facility] Address Unknown Phone Unavailable Encounter GIUSEPPE Robertson(ANURADHA) [id number] Date(s): 05/10/17 - 06/08/17 [facility] [address] [place] [address]- Discharge Disposition: Home or Self Care Attending Physician: Guilherme Velazco MD Referring Physician: Guilherme Velazco MD Vital Signs No data available for this section Problem List Condition Effective Dates Status Health [...] 09/08/11 Resolved balloon pumping(Confirmed) Indigestion(Confirme Resolved d) [place] (myocardial Resolved infarction)(Confirme d) PAD (peripheral Active artery disease)(Confirmed) Pulmonary Active edema(Confirmed) Ventricular Resolved fibrillation(Confirm ed) Allergies, Adverse Reactions, Alerts Substance Reaction Severity Status chlorhexidine topical Active Tape Active Medications No data available for this section Results No data available for this section [...]
--- OUTSIDE RECORDS SUMMARY | 2018-04-20 20:53 | XMS REPORT | Summary of Care ---
Author Author TURNER GOLDSTEIN M.D. Organization Unknown Address [facility] Phone Unavailable Care Team Providers Care Pipeline Integrity Engineer Name Role Phone TURNER GOLDSTIEN M.D. Unavailable Unavailable Unavailable Unavailable Functional Status Name Dates Details Functional status health issues are not documented Status: Name Dates Details Cognitive status health issues are not documented Status: Problems Name Dates Details Active medical history not documented Status: Medications Name Dates Details Aspirin 81 MG TABS TAKE 1 TABLET DAILY Active Plavix 75 MG Oral Tablet TAKE 1 TABLET DAILY * Refills: 0 Active Metoprolol Succinate ER 25 MG Oral Tablet Extended Release 24 Hour TAKE 1 TABLET DAILY * Refills: 0 Active Atorvastatin Calcium 80 MG Oral Tablet TAKE 1 TABLET DAILY * Refills: 0 Active Nitrostat 0.3 MG Sublingual Tablet Sublingual * Refills: 0 Active Zantac 300 MG Oral Tablet TAKE 1 TABLET DAILY DIRECTED. * Refills: 0 * Start : 22-Jan-2012 Active GlipiZIDE-MetFORMIN HCl - 5-500 MG Oral Tablet TAKE 1 TABLET TWICE DAILY * Refills: 0 * Start : 22-Jan-2012 Active Gabapentin 300 MG Oral Capsule TAKE 1 CAPSULE TWICE DAILY. * Quantity: 60 Refills: 0 TURNER GOLDSTEIN M.D. * Start : 25-Jul-2017 Active Allergies and Adverse Reactions Name Dates Details Lisinopril TABS (Allergy) Status: Active Past Medical History Name Dates Details History of coronary artery disease (V12.59, Z86.79) Status: Resolved History of diabetes mellitus (V12.29, Z86.39) Status: Resolved History of hypertension (V12.59, Z86.79) Status: Resolved History of ST elevation myocardial infarction (STEMI) (412, I25.2) Status: Resolved Procedures Procedure Dates Details History of pacemaker insertion Completed History of cardioverter defibrillator insertion Completed History of arterial stent placement Completed Immunization Name Dates Details Immunizations not documented Social History Name Dates Details - Status: Name Dates Details Former smoker Never smoker Vital Signs Date Test Result Details [id number] BP Systolic 100 mm[Hg] Status: BP Diastolic 62 mm[Hg] Status: Weight 163 lb Status: Body Mass Index Calculated 25.53 kg/m2 Status: Body Surface Area Calculated 1.85 m2 Status: Heart Rate 78 /min Status: Results Date Description Value Details Results not documented Plan of Care Name Dates Details Planned Observations Planned Goals not documented Interventions Provided Medication Changes* Gabapentin 300 MG Oral Capsule - Start Instructions Name Dates Details Instructions not documented Encounters Appointment; STELLA REA Encounter Diagnosis: Problem not documented On: 08-Jun-2016 13:45 Appointment; TURNER GOLDSTEIN M.D. Encounter Diagnosis: Problem not documented On: 25-Apr-2017 15:00 Appointment; TURNER GOLDSTEIN M.D. Encounter Diagnosis: Problem not documented On: 09-May-2017 14:45
--- OUTSIDE RECORDS SUMMARY | 2018-04-20 20:53 | XMS REPORT | Summary of Care ---
Author Author [facility] Organization [facility] Address Unknown Phone Unavailable Encounter GIUSEPPE Robertson(ANURADHA) [phone] Date(s): 04/12/17 - 04/19/17 [facility] [address], [place] [address] [phone] Final: Other malaise Discharge Disposition: Home or Self Care Attending Physician: Mario Stevens MD Admitting Physician: Mario Stevens MD Vital Signs 1 2 3 Most recent to oldest [Reference Range]: 175.2 cm (04/12/17 5:27 PM) 175.2 cm (04/12/17 5:19 PM) Height 97.8 DegF (04/19/17 6:41 AM) 98.0 DegF (04/18/17 11:57 PM) 97.6 DegF (04/18/17 4:29 PM) Temperature Oral [96.4-99.1 DegF] 94/55 mmHg (04/19/17 6:41 AM) 98/56 mmHg (04/18/17 11:57 PM) 89/50 mmHg *LOW* (04/18/17 9:10 PM) Blood Pressure [90-140/60-90 mmHg] 18 BRMIN (04/19/17 6:41 AM) 18 BRMIN (04/18/17 11:57 PM) 18 BRMIN (04/18/17 4:29 PM) Respiratory Rate [14-20 BRMIN] 78 bpm (04/19/17 6:41 AM) 65 bpm (04/18/17 11:57 PM) 77 bpm (04/18/17 9:10 PM) Peripheral Pulse Rate [60-100 bpm] 71 kg (04/12/17 5:27 PM) 71.005 kg (04/12/17 5:19 PM) Weight 23.13 m2 (04/12/17 5:27 PM) 23.13 m2 (04/12/17 5:19 PM) Body Mass Index Problem List Condition Effective [...] 09/08/11 Resolved balloon pumping(Confirmed) Indigestion(Confirme Resolved d) CA (myocardial Resolved infarction)(Confirme d) PAD (peripheral Active artery disease)(Confirmed) Pulmonary Active edema(Confirmed) Ventricular Resolved fibrillation(Confirm ed) Allergies, Adverse Reactions, Alerts Substance Reaction Severity Status chlorhexidine topical Active NKDA Active Medications acetaminophen 650 mg, Route: PO, Drug form: TAB, Q4H, Dosing Weight 71.051, kg, PRN Pain Score 1-3, Start date: 04/12/17 13:55:00 DISBURSING OFFICER, Duration: 30 day, Stop date: 05/12/17 1 3:54:00 DISBURSING OFFICER Start Date: 04/12/17 Stop Date: 04/12/17 Status: Discontinued acetaminophen 650 mg, 20.3 mL, Route: PO, Drug form: LIQ, Q4H, Dosing Weight 71.051, kg, PRN P ain Score 1-3, Start date: 04/12/17 17:19:00 DISBURSING OFFICER, Duration: 30 day, Stop date: 0 05/12/17 17:18:00 DISBURSING OFFICER Notes: Max vxlusmycjjpsm=3213yn/day (4 gm/day). (Same as: Tylenol) Start Date: 04/12/17 Stop Date: 04/19/17 Status: Discontinued apixaban 5 mg oral tablet 5 mg=1 tab, PO, Q12H, # 60 tab, 0 Refill(s) Start Date: 04/19/17 Stop Date: 05/19/17 Status: Ordered atorvastatin 40 mg, Route: PO, Drug form: TAB, Bedtime, Dosing Weight 71.051, kg, Start date: 04/12/17 21:00:00 DISBURSING OFFICER, Duration: 30 day, Stop date: 05/11/17 21:00:00 DISBURSING OFFICER Start Date: 04/12/17 Stop Date: 04/12/17 Status: Canceled atorvastatin 40 mg, 1 tab, Route: PO, Drug form: TAB, Bedtime, Dosing Weight 71.051, kg, Star t date: 04/12/17 21:00:00 DISBURSING OFFICER, Duration: 30 day, Stop date: 05/11/17 21:00:00 CS T Notes: (Same as: Lipitor) Start Date: 04/12/17 Stop Date: 04/19/17 Status: Discontinued atorvastatin 40 mg oral tablet 40 mg=1 tab, PO, Bedtime, # 30 tab, 0 Refill(s) Start Date: 04/19/17 Stop Date: 05/19/17 Status: Ordered carvedilol 3.125 mg oral tablet 3.125 mg=1 tab, PO, Q12H, # 60 tab, 0 Refill(s) Start Date: 04/19/17 Stop Date: 05/19/17 Status: Ordered clopidogrel 75 mg oral tablet 75 mg=1 tab, PO, Daily, # 30 tab, 0 Refill(s) Start Date: 04/19/17 Stop Date: 05/19/17 Status: Ordered Coreg 3.125 mg, Route: PO, Drug form: TAB, Q12H, Dosing Weight 71.051, kg, Priority: N OW, Start date: 04/12/17 13:44:00 DISBURSING OFFICER, Duration: 30 day, Stop date: 05/12/17 9:0 0:00 DISBURSING OFFICER Start Date: 04/12/17 Stop Date: 04/12/17 Status: Discontinued Coreg 3.125 mg, 1 tab, Route: PO, Drug form: TAB, Q12H, Dosing Weight 71.051, kg, Prio rity: NOW, Start date: 04/12/17 17:19:00 DISBURSING OFFICER, Duration: 30 day, Stop date: 05/12 9:00:00 DISBURSING OFFICER Notes: Give with food. (Same As: Coreg) Start Date: 04/12/17 Stop Date: 04/19/17 Status: Discontinued Coumadin 4 mg, Route: PO, Drug form: TAB, Q5PM, Dosing Weight 71.051, kg, Start date: 11/20 17:00:00 DISBURSING OFFICER, Duration: 1 doses or times, Stop date: 04/12/17 17:00:00 DISBURSING OFFICER Start Date: 04/12/17 Stop Date: 04/12/17 Status: Canceled Coumadin 4 mg, 2 tab, Route: PO, Drug form: TAB, Q5PM, Dosing Weight 71.051, kg, Start da te: 04/12/17 17:00:00 DISBURSING OFFICER, Duration: 1 doses or times, Stop date: 04/12/17 17:00 :00 DISBURSING OFFICER Start Date: 04/12/17 Stop Date: 04/12/17 Status: Completed Dextrose 50% Syringe 12.5 gm, 25 mL, Route: IVP, Drug Form: INJ, Dosing Weight 71, kg, PRN, PRN Blood Glucose Results, Start date: 04/18/17 10:53:00 DISBURSING OFFICER, Duration: 30 day, Stop date: 05/18/17 10:52:00 DISBURSING OFFICER Start Date: 04/18/17 Stop Date: 04/19/17 Status: Discontinued Dextrose 50% Syringe 25 gm, 50 mL, Route: IVP, Drug Form: INJ, Dosing Weight 71, kg, PRN, PRN Blood G lucose Results, Start date: 04/18/17 10:53:00 DISBURSING OFFICER, Duration: 30 day, Stop date: 05/18/17 10:52:00 DISBURSING OFFICER Start Date: 04/18/17 Stop Date: 04/19/17 Status: Discontinued docusate-senna 50 mg-8.6 mg oral tablet 2 tab, Route: PO, Drug Form: TAB, Dosing Weight 71.051, kg, BID, NOW, Start date : 04/12/17 13:44:00 DISBURSING OFFICER, Duration: 30 day, Stop date: 05/12/17 9:00:00 DISBURSING OFFICER Start Date: 04/12/17 Stop Date: 04/12/17 Status: Discontinued docusate-senna 50 mg-8.6 mg oral tablet 2 tab, Route: PO, Drug Form: TAB, Dosing Weight 71.051, kg, BID, NOW, Start date : 04/12/17 17:19:00 DISBURSING OFFICER, Stop date: 05/12/17 8:00:00 DISBURSING OFFICER Notes: (Same as Senjayaot-S) Equiv. to Wendi-Colace. Start Date: 04/12/17 Stop Date: 04/19/17 Status: Discontinued docusate-senna 50 mg-8.6 mg oral tablet 2 tab, PO, BID, X 14 day, # 56 tab, 0 Refill(s) Start Date: 04/19/17 Stop Date: 05/03/17 Status: Ordered Eliquis 5 mg, 1 tab, Route: PO, Drug form: TAB, Q12H, Dosing Weight 71, kg, Start date: 04/17/17 9:00:00 DISBURSING OFFICER, Duration: 30 day, Stop date: 05/16/17 21:00:00 DISBURSING OFFICER Notes: Same as: Eliquis Start Date: 04/17/17 Stop Date: 04/19/17 Status: Discontinued glucagon 1 mg, Route: IM, Drug form: PDR/INJ, PRN, Dosing Weight 71, kg, PRN Blood Glucos e Results, Start date: 04/18/17 10:53:00 DISBURSING OFFICER, Duration: 30 day, Stop date: 05/18 10:52:00 DISBURSING OFFICER Start Date: 04/18/17 Stop Date: 04/19/17 Status: Discontinued insulin glargine 100 units/mL subcutaneous solution 16 unit, 0.16 mL, Route: SUB-Q, Drug form: SOLN, BID, Dosing Weight 71.051, kg, Start date: 04/16/17 20:00:00 DISBURSING OFFICER, Duration: 30 day, Stop date: 05/16/17 8:00:00 DISBURSING OFFICER Notes: Same as: Lantus)Do not hold insulin without contacting prescriberWASTE: F /P - Black; E - [employer] Start Date: 04/16/17 Stop Date: 04/19/17 Status: Discontinued insulin glargine 100 units/mL subcutaneous solution 12 unit, 0.12 mL, Route: SUB-Q, Drug form: SOLN, BID, Dosing Weight 71.051, kg, Start date: 04/12/17 20:00:00 DISBURSING OFFICER, Duration: 30 day, Stop date: 05/12/17 8:00:00 DISBURSING OFFICER Start Date: 04/12/17 Stop Date: 04/16/17 Status: Discontinued insulin glargine 100 units/mL subcutaneous solution 16 unit, SUB-Q, BID, # 10 mL, 0 Refill(s) Start Date: 04/19/17 Stop Date: 05/19/17 Status: Ordered insulin glargine 100 units/mL subcutaneous solution 12 unit, Route: SUB-Q, BID, Dosing Weight 71.051, kg, Start date: 04/12/17 17:00 :00 DISBURSING OFFICER, Duration: 30 day, Stop date: 05/12/17 9:00:00 DISBURSING OFFICER Start Date: 04/12/17 Stop Date: 04/12/17 Status: Canceled insulin lispro 1 unit, Route: SUB-Q, TID-Before Meals, Dosing Weight 71.051, kg, PRN Blood Gluc ose Results, Start date: 04/12/17 13:55:00 DISBURSING OFFICER, Duration: 30 day, Stop date: 10/22 13:54:00 DISBURSING OFFICER Start Date: 04/12/17 Stop Date: 04/12/17 Status: Discontinued insulin lispro 5 unit, Route: SUB-Q, TID-Before Meals, Dosing Weight 71.051, kg, PRN Blood Gluc ose Results, Start date: 04/12/17 13:55:00 DISBURSING OFFICER, Duration: 30 day, Stop date: 10/22 13:54:00 DISBURSING OFFICER Start Date: 04/12/17 Stop Date: 04/12/17 Status: Discontinued insulin lispro 2 unit, Route: SUB-Q, TID-Before Meals, Dosing Weight 71.051, kg, PRN Blood Gluc ose Results, Start date: 04/12/17 13:55:00 DISBURSING OFFICER, Duration: 30 day, Stop date: 10/22 13:54:00 DISBURSING OFFICER Start Date: 04/12/17 Stop Date: 04/12/17 Status: Discontinued insulin lispro 4 unit, Route: SUB-Q, TID-Before Meals, Dosing Weight 71.051, kg, PRN Blood Gluc ose Results, Start date: 04/12/17 13:55:00 DISBURSING OFFICER, Duration: 30 day, Stop date: 10/22 13:54:00 DISBURSING OFFICER Start Date: 04/12/17 Stop Date: 04/12/17 Status: Discontinued insulin lispro 3 unit, Route: SUB-Q, TID-Before Meals, Dosing Weight 71.051, kg, PRN Blood Gluc ose Results, Start date: 04/12/17 13:55:00 DISBURSING OFFICER, Duration: 30 day, Stop date: 10/22 13:54:00 DISBURSING OFFICER Start Date: 04/12/17 Stop Date: 04/12/17 Status: Discontinued insulin lispro 5 unit, 0.05 mL, Route: SUB-Q, Drug form: SOLN, TID-Before Meals, Dosing Weight 71.051, kg, PRN Blood Glucose Results, Start date: 04/12/17 17:19:00 DISBURSING OFFICER, Durati on: 30 day, Stop date: 05/12/17 17:18:00 DISBURSING OFFICER Start Date: 04/12/17 Stop Date: 04/17/17 Status: Discontinued insulin lispro 3 unit, 0.03 mL, Route: SUB-Q, Drug form: SOLN, TID-Before Meals, Dosing Weight 71.051, kg, PRN Blood Glucose Results, Start date: 04/12/17 17:19:00 DISBURSING OFFICER, Durati on: 30 day, Stop date: 05/12/17 17:18:00 DISBURSING OFFICER Start Date: 04/12/17 Stop Date: 04/17/17 Status: Discontinued insulin lispro 4 unit, 0.04 mL, Route: SUB-Q, Drug form: SOLN, TID-Before Meals, Dosing Weight 71.051, kg, PRN Blood Glucose Results, Start date: 04/12/17 17:19:00 DISBURSING OFFICER, Durati on: 30 day, Stop date: 05/12/17 17:18:00 DISBURSING OFFICER Start Date: 04/12/17 Stop Date: 04/17/17 Status: Discontinued insulin lispro 1 unit, 0.01 mL, Route: SUB-Q, Drug form: SOLN, TID-Before Meals, Dosing Weight 71.051, kg, PRN Blood Glucose Results, Start date: 04/12/17 17:19:00 DISBURSING OFFICER, Durati on: 30 day, Stop date: 05/12/17 17:18:00 DISBURSING OFFICER Start Date: 04/12/17 Stop Date: 04/17/17 Status: Discontinued insulin lispro 2 unit, 0.02 mL, Route: SUB-Q, Drug form: SOLN, TID-Before Meals, Dosing Weight 71.051, kg, PRN Blood Glucose Results, Start date: 04/12/17 17:19:00 DISBURSING OFFICER, Durati on: 30 day, Stop date: 05/12/17 17:18:00 DISBURSING OFFICER Start Date: 04/12/17 Stop Date: 04/17/17 Status: Discontinued Insulin regular 8 unit, 0.08 mL, Route: SUB-Q, Drug form: SOLN, TID-Before Meals, Dosing Weight 71, kg, PRN Blood Glucose Results, Start date: 04/18/17 10:53:00 DISBURSING OFFICER, Duration: 30 day, Stop date: 05/18/17 10:52:00 DISBURSING OFFICER Notes: (Same as: Humulin R) Roll in palms of hands gently; Do not shake vigorou sly. "single patient use only"(Restricted to patients requiring a dose > 60 units)WASTE: F/P - Black; E - Municipal Trash Bin Stable for 28 days at room temperatureExpires in days from Date Start Date: 04/18/17 Stop Date: 04/19/17 Status: Discontinued Insulin regular 6 unit, 0.06 mL, Route: SUB-Q, Drug form: SOLN, TID-Before Meals, Dosing Weight 71, kg, PRN Blood Glucose Results, Start date: 04/18/17 10:53:00 DISBURSING OFFICER, Duration: 30 day, Stop date: 05/18/17 10:52:00 DISBURSING OFFICER Notes: (Same as: Humulin R) Roll in palms of hands gently; Do not shake vigorou sly. "single patient use only"(Restricted to patients requiring a dose > 60 units)WASTE: F/P - Black; E - Municipal Trash Bin Stable for 28 days at room temperatureExpires in days from Date Start Date: 04/18/17 Stop Date: 04/19/17 Status: Discontinued Insulin regular 4 unit, 0.04 mL, Route: SUB-Q, Drug form: SOLN, TID-Before Meals, Dosing Weight 71, kg, PRN Blood Glucose Results, Start date: 04/18/17 10:53:00 DISBURSING OFFICER, Duration: 30 day, Stop date: 05/18/17 10:52:00 DISBURSING OFFICER Notes: (Same as: Humulin R) Roll in palms of hands gently; Do not shake vigorou sly. "single patient use only"(Restricted to patients requiring a dose > 60 units)WASTE: F/P - Black; E - Municipal Trash Bin Stable for 28 days at room temperatureExpires in days from Date Start Date: 04/18/17 Stop Date: 04/19/17 Status: Discontinued Insulin regular 2 unit, 0.02 mL, Route: SUB-Q, Drug form: SOLN, TID-Before Meals, Dosing Weight 71, kg, PRN Blood Glucose Results, Start date: 04/18/17 10:53:00 DISBURSING OFFICER, Duration: 30 day, Stop date: 05/18/17 10:52:00 DISBURSING OFFICER Notes: (Same as: Humulin R) Roll in palms of hands gently; Do not shake vigorou sly. "single patient use only"(Restricted to patients requiring a dose > 60 units)WASTE: F/P - Black; E - Municipal Trash Bin Stable for 28 days at room temperatureExpires in days from Date Start Date: 04/18/17 Stop Date: 04/19/17 Status: Discontinued Insulin regular 10 unit, 0.1 mL, Route: SUB-Q, Drug form: SOLN, TID-Before Meals, Dosing Weight 71, kg, PRN Blood Glucose Results, Start date: 04/18/17 10:53:00 DISBURSING OFFICER, Duration: 30 day, Stop date: 05/18/17 10:52:00 DISBURSING OFFICER Notes: (Same as: Humulin R) Roll in palms of hands gently; Do not shake vigorou sly. "single patient use only"(Restricted to patients requiring a dose > 60 units)WASTE: F/P - Black; E - Municipal Trash Bin Stable for 28 days at room temperatureExpires in days from Date Start Date: 04/18/17 Stop Date: 04/19/17 Status: Discontinued Lasix 20 mg oral tablet 20 mg, Route: PO, Drug form: TAB, BID, Dosing Weight 71.051, kg, Start date: 11/20 17:00:00 DISBURSING OFFICER, Duration: 30 day, Stop date: 05/12/17 9:00:00 DISBURSING OFFICER Start Date: 04/12/17 Stop Date: 04/12/17 Status: Canceled Lasix 20 mg oral tablet 20 mg, 1 tab, Route: PO, Drug form: TAB, BID, Dosing Weight 71.051, kg, Start da te: 04/12/17 20:00:00 DISBURSING OFFICER, Duration: 30 day, Stop date: 05/12/17 8:00:00 DISBURSING OFFICER Start Date: 04/12/17 Stop Date: 04/19/17 Status: Discontinued Lasix 20 mg oral tablet 20 mg=1 tab, PO, BID, # 60 tab, 0 Refill(s) Start Date: 04/19/17 Stop Date: 05/19/17 Status: Ordered lisinopril 2.5 mg, 1 tab, Route: PO, Drug form: TAB, Daily, Dosing Weight 71, kg, Start coco e: 04/18/17 8:00:00 DISBURSING OFFICER, Duration: 30 day, Stop date: 05/17/17 8:00:00 DISBURSING OFFICER Notes: (Same as: Prinivil) Start Date: 04/18/17 Stop Date: 04/19/17 Status: Discontinued lisinopril 2.5 mg oral tablet 2.5 mg=1 tab, PO, Daily, # 30 tab, 0 Refill(s) Start Date: 04/19/17 Stop Date: 05/19/17 Status: Ordered Lovenox 70 mg, Route: SUB-Q, Drug form: INJ, [id number], Dosing Weight 71.051, kg, Priorit y: NOW, Start date: 04/12/17 13:44:00 DISBURSING OFFICER, Duration: 30 day, Stop date: 05/12/17 1:44:00 DISBURSING OFFICER Start Date: 04/12/17 Stop Date: 04/12/17 Status: Discontinued Lovenox 70 mg, 0.7 mL, Route: SUB-Q, Drug form: INJ, Q12H, Dosing Weight 71.051, kg, Princess ority: NOW, Start date: 04/12/17 17:19:00 DISBURSING OFFICER, Duration: 30 day, Stop date: 10/22 9:00:00 DISBURSING OFFICER Start Date: 04/12/17 Stop Date: 04/12/17 Status: Discontinued Lovenox 70 mg, 0.7 mL, Route: SUB-Q, Drug form: INJ, [id number], Dosing Weight 71.051, kg, Priority: Routine, Start date: 04/13/17 8:00:00 DISBURSING OFFICER, Duration: 30 day, Stop coco e: 05/12/17 20:00:00 DISBURSING OFFICER Start Date: 04/13/17 Stop Date: 04/15/17 Status: Discontinued MiraLax 17 gm, 1 pkt, Route: PO, Drug form: PWDR, Daily, Dosing Weight 71.051, kg, Prior ity: NOW, Start date: 04/12/17 17:19:00 DISBURSING OFFICER, Duration: 30 day, Stop date: 8:00:00 DISBURSING OFFICER Notes: Dissolve in 8 oz of water or juice.(Same as: Miralax) Start Date: 04/12/17 Stop Date: 04/19/17 Status: Discontinued MiraLax 17 gm, Route: PO, Drug form: PWDR, Daily, Dosing Weight 71.051, kg, Priority: NO W, Start date: 04/12/17 13:44:00 DISBURSING OFFICER, Duration: 30 day, Stop date: 05/12/17 9:00 :00 DISBURSING OFFICER Start Date: 04/12/17 Stop Date: 04/12/17 Status: Discontinued ondansetron 4 mg, Route: IVP, Q8H, Dosing Weight 71.051, kg, PRN Nausea & Vomiting, Start date: 04/12/17 13:55:00 DISBURSING OFFICER, Duration: 30 day, Stop date: 05/12/17 13:54:00 DISBURSING OFFICER Start Date: 04/12/17 Stop Date: 04/12/17 Status: Discontinued ondansetron 4 mg, 2 mL, Route: IVP, Drug form: INJ, Q8H, Dosing Weight 71.051, kg, PRN Nause a & Vomiting, Start date: 04/12/17 17:19:00 DISBURSING OFFICER, Duration: 30 day, Stop date: 05/12/17 17:18:00 DISBURSING OFFICER Notes: (Same as: Azra) MEDICATION WASTE Product Size: 4 mgProduct Was rajat: ___ mg Start Date: 04/12/17 Stop Date: 04/19/17 Status: Discontinued pantoprazole 40 mg oral enteric coated tablet 40 mg=1 tab, PO, Before Breakfast, # 30 tab, 0 Refill(s) Start Date: 04/19/17 Stop Date: 05/19/17 Status: Ordered Plavix 75 mg, 1 tab, Route: PO, Drug form: TAB, Daily, Dosing Weight 71.051, kg, Start date: 04/13/17 8:00:00 DISBURSING OFFICER, Duration: 30 day, Stop date: 05/12/17 8:00:00 DISBURSING OFFICER Notes: (Same As: Plavix) Start Date: 04/13/17 Stop Date: 04/19/17 Status: Discontinued Plavix 75 mg, Route: PO, Drug form: TAB, Daily, Dosing Weight 71.051, kg, Start date: 06/14/16 9:00:00 DISBURSING OFFICER, Duration: 30 day, Stop date: 05/12/17 9:00:00 DISBURSING OFFICER Start Date: 04/13/17 Stop Date: 04/12/17 Status: Canceled Protonix 40 mg, 1 tab, Route: PO, Drug form: ECTAB, Before Breakfast, Dosing Weight 71.05 1, kg, Start date: 04/13/17 6:30:00 DISBURSING OFFICER, Duration: 30 day, Stop date: 05/12/17 6 :30:00 DISBURSING OFFICER Notes: Tablet should not be chewed or crushed.(Same as: Protonix) Start Date: 04/13/17 Stop Date: 04/19/17 Status: Discontinued Protonix 40 mg, Route: PO, Drug form: ECTAB, Before Breakfast, Dosing Weight 71.051, kg, Start date: 04/13/17 7:30:00 DISBURSING OFFICER, Duration: 30 day, Stop date: 05/12/17 7:30:00 DISBURSING OFFICER Start Date: 04/13/17 Stop Date: 04/12/17 Status: Canceled Saline Flush 0.9% 10 ml, Route: IVP, Drug Form: INJ, Dosing Weight 71.051, kg, Q12H, Start date: 06/13/16 21:00:00 DISBURSING OFFICER, Duration: 30 day, Stop date: 05/12/17 9:00:00 DISBURSING OFFICER Start Date: 04/12/17 Stop Date: 04/12/17 Status: Canceled Saline Flush 0.9% 10 ml, Route: IVP, Drug Form: INJ, Dosing Weight 71.051, kg, PRN, PRN Line Flush , Start date: 04/12/17 13:55:00 DISBURSING OFFICER, Duration: 30 day, Stop date: 05/12/17 13:54 :00 DISBURSING OFFICER Start Date: 04/12/17 Stop Date: 04/12/17 Status: Discontinued Saline Flush 0.9% 10 ml, Route: IVP, Drug Form: INJ, Dosing Weight 71.051, kg, PRN, PRN Line Flush , Start date: 04/12/17 17:19:00 DISBURSING OFFICER, Duration: 30 day, Stop date: 05/12/17 17:18 :00 DISBURSING OFFICER Notes: (Same as: BD Posiflush) Start Date: 04/12/17 Stop Date: 04/19/17 Status: Discontinued Saline Flush 0.9% 10 ml, Route: IVP, Drug Form: INJ, Dosing Weight 71.051, kg, Q12H, Start date: 06/13/16 21:00:00 DISBURSING OFFICER, Duration: 30 day, Stop date: 05/12/17 9:00:00 DISBURSING OFFICER Notes: (Same as: BD Posiflush) Start Date: 04/12/17 Stop Date: 04/19/17 Status: Discontinued Tessalon Perles 100 mg, 1 cap, Route: PO, Drug form: CAP, TID, Dosing Weight 71.051, kg, Start d ate: 04/13/17 8:00:00 DISBURSING OFFICER, Duration: 30 day, Stop date: 05/12/17 17:00:00 DISBURSING OFFICER Notes: (Same As: Tessalon Perles)"Do Not Crush" Start Date: 04/13/17 Stop Date: 04/19/17 Status: Discontinued Tessalon Perles 100 mg, Route: PO, Drug form: CAP, TID, Dosing Weight 71.051, kg, Start date: 17:00:00 DISBURSING OFFICER, Duration: 30 day, Stop date: 05/12/17 13:00:00 DISBURSING OFFICER Start Date: 04/12/17 Stop Date: 04/12/17 Status: Canceled warfarin 4 mg, 2 tab, Route: PO, Drug form: TAB, Q5PM, Dosing Weight 71, kg, Start date: 04/13/17 17:00:00 DISBURSING OFFICER, Duration: 1 doses or times, Stop date: 04/13/17 17:00:00 DISBURSING OFFICER Notes: Nurse to ensure documentation of patient education per anticoagulation po licy.Avoid large intake of vitamin-K containing foods diet.(Same As: Coumadin)SD ALEJANDRO: F/P - P Waste Black; E - P Waste Black Start Date: 04/13/17 Stop Date: 04/13/17 Status: Completed warfarin 4 mg, 2 tab, Route: PO, Drug form: TAB, Q5PM, Dosing Weight 71, kg, Start date: 04/15/17 17:00:00 DISBURSING OFFICER, Duration: 1 doses or times, Stop date: 04/15/17 17:00:00 DISBURSING OFFICER Start Date: 04/15/17 Stop Date: 04/15/17 Status: Completed warfarin 4 mg, 2 tab, Route: PO, Drug form: TAB, Q5PM, Dosing Weight 71, kg, Start date: 04/16/17 17:00:00 DISBURSING OFFICER, Duration: 1 doses or times, Stop date: 04/16/17 17:00:00 DISBURSING OFFICER Notes: Nurse to ensure documentation of patient education per anticoagulation po licy.Avoid large intake of vitamin-K containing foods diet.(Same As: Coumadin)SD ALEJANDRO: F/P - P Waste Black; E - P Waste Black Start Date: 04/16/17 Stop Date: 04/16/17 Status: Canceled warfarin 4 mg, 2 tab, Route: PO, Drug form: TAB, Q5PM, Dosing Weight 71, kg, Start date: 04/14/17 17:00:00 DISBURSING OFFICER, Duration: 1 doses or times, Stop date: 04/14/17 17:00:00 DISBURSING OFFICER Notes: Nurse to ensure documentation of patient education per anticoagulation po licy.Avoid large intake of vitamin-K containing foods diet.(Same As: Coumadin)SD ALEJANDRO: F/P - P Waste Black; E - P Waste Black Start Date: 04/14/17 Stop Date: 04/14/17 Status: Completed Results ELECTROLYTES 1 2 3 Most recent to oldest [Reference Range]: 132 mEq/L *LOW* (04/16/17 2:50 PM) 138 mEq/L (04/13/17 5:45 AM) Sodium Lvl [135-145 mEq/L] 4.2 mEq/L (04/16/17 2:50 PM) 4.1 mEq/L (04/13/17 5:45 AM) Potassium Lvl [3.5-5.1 mEq/L] 99 mEq/L (04/16/17 2:50 PM) 103 mEq/L (04/13/17 5:45 AM) Chloride Lvl [95-109 mEq/L] 25 mEq/L (04/16/17 2:50 PM) 28 mEq/L (04/13/17 5:45 AM) CO2 [24-32 mEq/L] 12.2 mEq/L (04/16/17 2:50 PM) 11.1 mEq/L (04/13/17 5:45 AM) AGAP [10.0-20.0 mEq/L] CHEM PANEL 1 2 3 Most recent to oldest [Reference Range]: 1.18 mg/dL (04/16/17 2:50 PM) 1.33 mg/dL (04/13/17 5:45 AM) Creatinine Lvl [0.50-1.40 mg/dL] 59 mL/min/1.73m2 1 *NA* (04/16/17 2:50 PM) 51 mL/min/1.73m2 2 *NA* (04/13/17 5:45 AM) eGFR 19 mg/dL (04/16/17 2:50 PM) 22 mg/dL (04/13/17 5:45 AM) BUN [7-22 mg/dL] 17 (04/13/17 5:45 AM) B/C Ratio [6-25] 172 mg/dL *HI* (04/16/17 2:50 PM) 130 mg/dL *HI* (04/13/17 5:45 AM) Glucose Lvl [70-99 mg/dL] 5.9 g/dL *LOW* (04/13/17 5:45 AM) Total Protein [6.4-8.4 g/dL] 2.4 g/dL *LOW* (04/13/17 5:45 AM) Albumin Lvl [3.5-5.0 g/dL] 3.5 g/dL (04/13/17 5:45 AM) Globulin [2.7-4.2 g/dL] 0.7 (04/13/17 5:45 AM) A/G Ratio [0.7-1.6] 7.5 mg/dL *LOW* (04/16/17 2:50 PM) 7.6 mg/dL *LOW* (04/13/17 5:45 AM) Calcium Lvl [8.5-10.5 mg/dL] 3.0 mg/dL (04/13/17 5:45 AM) Phosphorus [2.5-4.5 mg/dL] 2.0 mg/dL (04/13/17 5:45 AM) Magnesium Lvl [1.8-2.4 mg/dL] 78 unit/L *HI* (04/13/17 5:45 AM) ALT [0-65 unit/L] 34 unit/L (04/13/17 5:45 AM) AST [0-37 unit/L] 99 unit/L (04/13/17 5:45 AM) Alk Phos [39-136 unit/L] 0.5 mg/dL (04/13/17 5:45 AM) Bili Total [0.2-1.3 mg/dL] 1Result Comment: The eGFR is calculated using [...] be mul tiplied by the estimated BMI. URINE AND STOOL 1 2 3 Most recent to oldest [Reference Range]: Clear (04/12/17 6:24 PM) UA Turbidity [Clear] Yellow *NA* (04/12/17 6:24 PM) UA Color [Yellow] 6.5 (04/12/17 6:24 PM) UA pH [5.0-8.0] 1.010 (04/12/17 6:24 PM) UA Spec Grav [<=1.030] Negative mg/dL *NA* (04/12/17 6:24 PM) UA Glucose [Negative mg/dL] Negative (04/12/17 6:24 PM) UA Blood [Negative] Negative mg/dL *NA* (04/12/17 6:24 PM) UA Ketones [Negative mg/dL] Negative mg/dL (04/12/17 6:24 PM) UA Protein [Negative mg/dL] <=1.0 mg/dL *NA* (04/12/17 6:24 PM) UA Urobilinogen [0.1-1.0 mg/dL] Negative *NA* (04/12/17 6:24 PM) UA Bili [Negative] Negative (04/12/17 6:24 PM) UA Leuk Est [Negative] Negative (04/12/17 6:24 PM) UA Nitrite [Negative] <1 /HPF (04/12/17 6:24 PM) UA WBC [0-5 /HPF] <1 /HPF (04/12/17 6:24 PM) UA RBC [0-2 /HPF] None Seen *NA* (04/12/17 6:24 PM) UA Sq Epi HEMATOLOGY 1 2 3 Most recent to oldest [Reference Range]: 8.3 K/CMM (04/16/17 5:29 PM) 10.3 K/CMM (04/13/17 5:45 AM) WBC [3.7-10.4 K/CMM] 3.33 M/CMM *LOW* (04/16/17 5:29 PM) 3.32 M/CMM *LOW* (04/13/17 5:45 AM) RBC [4.70-6.10 M/CMM] 9.8 g/dL *LOW* (04/16/17 5:29 PM) 9.9 g/dL *LOW* (04/13/17 5:45 AM) Hgb [14.0-18.0 g/dL] 28.8 % *LOW* (04/16/17 5:29 PM) 28.8 % *LOW* (04/13/17 5:45 AM) Hct [42.0-54.0 %] 86.4 fL (04/16/17 5:29 PM) 86.6 fL (04/13/17 5:45 AM) MCV [80.0-94.0 fL] 29.4 pg (04/16/17 5:29 PM) 29.7 pg (04/13/17 5:45 AM) MCH [27.0-31.0 pg] 34.0 g/dL (04/16/17 5:29 PM) 34.3 g/dL (04/13/17 5:45 AM) MCHC [32.0-36.0 g/dL] 16.4 % *HI* (04/16/17 5:29 PM) 16.4 % *HI* (04/13/17 5:45 AM) RDW [11.5-14.5 %] 264 K/CMM (04/16/17 5:29 PM) 394 K/CMM (04/13/17 5:45 AM) Platelet [133-450 K/CMM] 7.7 fL (04/16/17 5:29 PM) 7.5 fL (04/13/17 5:45 AM) MPV [7.4-10.4 fL] 72.0 % (04/16/17 5:29 PM) 80.6 % *HI* (04/13/17 5:45 AM) Segs [45.0-75.0 %] 10.9 % *LOW* (04/16/17 5:29 PM) 7.1 % *LOW* (04/13/17 5:45 AM) Lymphocytes [20.0-40.0 %] 9.7 % (04/16/17 5:29 PM) 9.0 % (04/13/17 5:45 AM) Monocytes [2.0-12.0 %] 6.1 % *HI* (04/16/17 5:29 PM) 2.2 % (04/13/17 5:45 AM) Eosinophils [0.0-4.0 %] 1.3 % *HI* (04/16/17 5:29 PM) 1.1 % *HI* (04/13/17 5:45 AM) Basophils [0.0-1.0 %] 6.0 K/CMM (04/16/17 5:29 PM) 8.3 K/CMM *HI* (04/13/17 5:45 AM) Segs-Bands # [1.5-8.1 K/CMM] 0.9 K/CMM *LOW* (04/16/17 5:29 PM) 0.7 K/CMM *LOW* (04/13/17 5:45 AM) Lymphocytes # [1.0-5.5 K/CMM] 0.8 K/CMM (04/16/17 5:29 PM) 0.9 K/CMM *HI* (04/13/17 5:45 AM) Monocytes # [0.0-0.8 K/CMM] 0.5 K/CMM (04/16/17 5:29 PM) 0.2 K/CMM (04/13/17 5:45 AM) Eosinophils # [0.0-0.5 K/CMM] 0.1 K/CMM (04/16/17 5:29 PM) 0.1 K/CMM (04/13/17 5:45 AM) Basophils # [0.0-0.2 K/CMM] 22.5 seconds *HI* (04/17/17 5:40 AM) 23.9 seconds *HI* (04/16/17 5:44 AM) 25.3 seconds *HI* (04/15/17 6:07 AM) PT [12.0-14.7 seconds] 1.96 *HI* (04/17/17 5:40 AM) 2.11 *HI* (04/16/17 5:44 AM) 2.27 *HI* (04/15/17 6:07 AM) INR [0.85-1.17] 44.9 seconds *HI* (04/13/17 5:45 AM) PTT [22.9-35.8 seconds] Immunizations No data available for this section Procedures Procedure Date Related Diagnosis Body Site ACD - Automatic cardiac defibrillator procedure Stent placement Social History Social History Type Response Alcohol Never Smoking Status Never smoker; Exposure to Tobacco Smoke None; Cigarette Smoking Last 365 Days No; Reg Smoking Cessation Counseling No Assessment and Plan Extracted from: Title: Inpatient Rehab Discharge Author: Mario Stevens MD Date: 04/19/17 Summary DISCHARGE SUMMARY ADMISSION DATE: 04/12/17 DISCHARGE DATE: 04/19/17 ADMISSION DIAGNOSIS: Other malaise (R53.81) Unsteadiness on feet (R26.81) Chronic diastolic (congestive) heart failure (I50.32) Essential (primary) hypertension (I10) Type 2 diabetes mellitus without complications (E11.9) Acute embolism and thrombosis of other specified deep vein of left lower extremity (I82.492) DISCHARGE DIAGNOSIS: Other malaise (R53.81) Unsteadiness on feet (R26.81) Chronic diastolic (congestive) heart failure (I50.32) Essential (primary) hypertension (I10) Type 2 diabetes mellitus without complications (E11.9) Acute embolism and thrombosis of other specified deep vein of left lower extremity (I82.492) ATTENDING PHYSICIAN: Mario Rose MD CONSULTING PHYSICIANS: Consulting Physicians: (none on file) BRIEF SUMMARY OF PRESENT ILLNESS: Patient's a 76-year-old male who is previously independent in mobility and self-care until 03/22/2017 who presented with worsening shortness of breath that was over 3 weeks. He presented with substernal chest pressure was found to have an NSTEMI. He underwent coronary angiography and sustained retrograde dissection of the left main and required ECMO cannulation and emergent CABG. On admission he was found with community acquired pneumonia that completed cefepime and rocephin x 7 days on 03/31. He was decannulated 03/26/2017 with placement of an intra-aortic balloon pump that was removed 03/29/2017. Course was also complicated by left foot that was cool to touch with lessening signals over the arteries on 04/02/2017. Arterial duplex showed hemodynamically occlusive stenosis of the left distal SFA which appeared chronic with collaterals and flow to the PT and DP. No surgery was indicated in that regard. 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 PERTINENT PAST HISTORY: PMH: IABP - Intra-aortic balloon pumpin09/08/11 CHF (congestive heart failure) CA (myocardial infarction) Hiatal hernia Indigestion Ventricular fibrillation Acoustic neuroma PSH: Social History: Alcohol Details: Never Tobacco Details: Use: Never smoker. Tobacco smoke exposure: None. Did the Patient Smoke Cigarettes Anytime During the Last 365 Days? No. Cessation Counseling Provided? No. Family History: Mother: Type 2 diabetes mellitus Brother: High blood pressure; Stroke Sister: Type 2 diabetes mellitus Allergies: Allergies: chlorhexidine topical, NKDA HOSPITAL COURSE: Mr Chadwick was admitted to inpatient rehab on 04/12/17 due to physical debility after CABG. During hospitalization he did well, tolerating 3hrs of therapy and progressing in activity tolerance. He had change of anticoagulation medication from Coumadin to Eliquis 5mg BID after discussion with cardiology service. He had increase in Insulin glargine to 16 units BID for glucose control. Patient and family educated on insulin therapy. Wound care was done daily and patient and family educated to leave wounds open to air and wash during showers and keep dry. No other medical complications occured. DISCHARGE FIM SCORES: PT Current Status PT Treatment Recommendations PT Treatment Recommendations: Pt admitted to [facility] IP unit on 04/13/17. Pt is currently deconditioned and displaying decreased balance and coordination, decreased activity tolerance, BLE edema with pitting edema on LLE, pain in distal BLEs, transfer and bed mobility deficits and impaired sensation. Pt will benefit from skilled IP PT services in order to address balance training, transfer training, DME training if necessary for safety in home, endurance training and overall strengthening for safe discharge home. Performed: 04/13/17 13:40 Mobility Transfer Bed to and From Chair: Supervision or Setup Performed: 04/18/17 17:33 Tub, Shower Transfer: Does not occur Performed: 04/18/17 17:59 Ambulation Level Surfaces Ambulation Device: Walker, rolling Performed: 04/18/17 17:37 Ambulation Distance: 150 ft Performed: 04/18/17 17:37 Ambulation Uneven Surfaces Locomotion Walk: Supvn/Setup - 5 Performed: 04/18/17 17:37 Stairs Device: Right side rail up the stairs Performed: 04/18/17 17:37 Number of Stairs Performed: 12 Performed: 04/18/17 17:37 Locomotion Stair: Supvn/Setup - 5 Performed: 04/18/17 17:37 Bed,Chair,Wheelchair: Supvn/Setup - 5 Performed: 04/18/17 17:37 OT Current Status OT Treatment Recommendations OT Treatment Recommendations: Pt is currently at min-mod burden of care in self care and CGA in functional mobility. With more time in inpatient rehabilitation, Pt is expected to be at Supervision to Rodger level by the time of discharge. Performed: 04/13/17 17:50 ADL Eating: Complete I - 7 Performed: 04/18/17 17:59 Grooming: Modified I - 6 Performed: 04/18/17 17:59 Grooming Descriptors: Standing, Unsupported short sit Performed: 04/18/17 17:43 Bathing: Supvn/Setup - 5 Performed: 04/18/17 17:59 Bathing Descriptors: Shower, walk in Performed: 04/18/17 17:43 Bathing Equipment: Shower chair w/back Performed: 04/18/17 17:43 Upper Extremity Dressing: Modified I - 6 Performed: 04/18/17 17:59 Lower Extremity Dressing: Modified I - 6 Performed: 04/18/17 17:59 Dressing Descriptors: Standing, Unsupported short sit Performed: 04/18/17 17:43 Dressing Equipment: Walker Performed: 04/18/17 17:43 Toileting: Complete I - 7 Performed: 04/19/17 11:27 Toileting Descriptors: Sitting with back support Performed: 04/18/17 17:43 Toileting Equipment: Urinal, Other: Bedside commode over toilet Performed: 04/18/17 17:43 Toilet Transfer: Modified I - 6 Performed: 04/18/17 17:59 Tub Transfer: Does not occur Performed: 04/18/17 17:59 Shower Transfer: Supvn/Setup - 5 Performed: 04/18/17 17:59 Vision Vision Status: WFL Performed: 04/18/17 17:43 OWNER Current Status Severity Level Comprehension: Complete I - 7 Performed: 04/18/17 17:59 Comprehension Mode: Auditory Performed: 04/18/17 17:59 Expression: Complete I - 7 Performed: 04/18/17 17:59 Expression Mode: Vocal Performed: 04/18/17 17:59 Memory: Complete I - 7 Performed: 04/18/17 17:59 Problem Solving: Complete I - 7 Performed: 04/18/17 17:59 Social Interaction: Complete I - 7 Performed: 04/18/17 17:59 PROCEDURES PERFORMED DURING ADMISSION: none PHYSICAL EXAM (at time of discharge): VitalsTmp(F)[id number] 04/19 06:[id number]--- 04/18 23:[id number]/[id number]--- 04/18 21:10----7789/50-------- 04/18 16:2997.21912/434135--- 04/18 09:01----8095/56-------- 24 Hr Tmax: 98.0F (36.67c) at 04/18 23:57Vital Signs are the last 5 in the past 48 hours. General: well-developed, NAD, Eyes: sclera non-icteric, normal conjunctiva ENT: oral mucosa moist, hearing grossly intact Cardiovascular: pale, mild edema in arms and legs, distal peripherovascular skin changes in legs, no cyanosis, regular rate, + s1, s2. No murmurs, clicks or rubs. Respiratory: chest symmetry with respirations, non-labored respirations, breath sounds clear and equal GI: soft, non-tender, not distended Skin: warm, good turgor, bilateral legs covered in dressing. Left leg graft wound with serous discharge on distal wound, pressure area with blister on both heels. Psych: calm, cooperative Musculoskeletal: diffuse atrophy, bulk WNL, tone WNL, very tender heels even to light touch, Manual Muscle Testing: strength out of 5: R, L Elbow flexors 4/5, 4/5 Wrist extensors 4/5, 4/5 Elbow extensors 4/5, 4/5 Finger flexors 4/5, 4/5 Hip flexors 3/5, 3/5 Knee extensors 4/5, 4/5 Ankle dorsiflexors 4/5, 4/5 Long toe extensors 4/5, 4/5 Ankle plantar flexors 4/5, 4/5 Normal Passive Range of Motion, Neurologic: speech is fluent, repetition intact, comprehension is good. Mental Status: awake, alert, oriented to person and place DISCHARGE MEDICATIONS: Discharge Medications docusate-senna 50 mg-8.6 mg oral tablet :2 tab, PO, BID, for 14 day, 56 tab, 0 Refill(s) Ordered by: Mario Stevens MD - 04/19/2017 11:17 pantoprazole 40 mg oral enteric coated tablet :40 mg, 1 tab, PO, Before Breakfast, for 30 day, 30 tab, 0 Refill(s) Ordered by: Mario Stevens MD - 04/19/2017 11:17 lisinopril 2.5 mg oral tablet :2.5 mg, 1 tab, PO, Daily, for 30 day, 30 tab, 0 Refill(s) Ordered by: Mario Stevens MD - 04/19/2017 11:17 insulin glargine 100 units/mL subcutaneous solution :16 unit, SUB-Q, BID, for 30 day, 10 mL, 0 Refill(s) Ordered by: Mario Stevens MD - 04/19/2017 11:16 apixaban 5 mg oral tablet :5 mg, 1 tab, PO, Q12H, for 30 day, 60 tab, 0 Refill(s) Ordered by: Maroi Stevens MD - 04/19/2017 11:14 Lasix 20 mg oral tablet :20 mg, 1 tab, PO, BID, for 30 day, 60 tab, 0 Refill(s) Ordered by: Mario Stevens MD 04/19/2017 11:14 clopidogrel 75 mg oral tablet :75 mg, 1 tab, PO, Daily, for 30 day, 30 tab, 0 Refill(s) Ordered by: Mario Stevens MD - 04/19/2017 11:14 carvedilol 3.125 mg oral tablet :3.125 mg, 1 tab, PO, Q12H, for 30 day, 60 tab, 0 Refill(s) Ordered by: Mario Stevens MD - 04/19/2017 11:14 atorvastatin 40 mg oral tablet :40 mg, 1 tab, PO, Bedtime, for 30 day, 30 tab, 0 Refill(s) Ordered by: Mario Stevens MD - 04/19/2017 11:14 CONDITION OF PATIENT ON DISCHARGE: stable DISPOSITION/INSTRUCTIONS/FOLLOW UP: Discharge to: Follow up Care Other:Follow up with primary care provider When:5 to 7 days Comments:Call for follow up appointment for medical follow up and prescription refills Other:Brody Francisco MD Comments:Brody Francisco MD, Call for appointment, within: 2 Weeks, reason: Treatment [address], [address] [place] [address] Other: Ananda George MD Comments: Ananda George MD, Call for appointment, within: 2 Weeks, reason: Treatment for LLE atherosclerosis Dr. Ananda Blunt. Bas[facility] [address], [place] [address] [phone] Other:[facility] wound care clinic Address:[address] [place] [id number] [phone] Comments:[phone] [facility]. Call for appointment if the doctor recommends this. Other:[facility] cardiac rehab Address:[address] [place] [id number] Comments:[phone] [facility] No follow up referral services info available Activity: No qualifying data available Diet: Diet Heart Healthy -- 04/12/17 17:19:00 DISBURSING OFFICER, Breakfast Oral Supplements -- 04/13/17 14:40:00 DISBURSING OFFICER, LoCarb HiPro (Boost Glucose), 2 cans/units per 24 hours Follow up Appointments: The discharge plan was reviewed and discussed with the patient/family and appropriate education and counseling was provided. They were given the opportunity to ask any questions which were answered to the best of my knowledge. Issues to address during [facility] follow up visit: (Pending tests/imaging, response to medications, consultations with other physicians, social/funding issues, etc) Extracted from: Title: SOAP Note: Rehab * Author: Mario Stevens MD Date: 04/18/17 Impression and Plan Physical Debility: -The patient with generalized muscle weakness and atrophy after prolonged hospitalization -This is a significant functional limitation. -Continue aggressive therapies with PT and OT to strengthen and optimize function and train for DME as appropriate. Multiple DVTs -On therapeutic lovenox and Coumadin until INR 2-3 -We will discuss cardiology possibility of treating with Eliquis. NSTEMI - s/p PCI with MINGO to inferior branch of 1st obtuse marginal with procedure complicated by spiral dissection requring CABG x2 - CABG x2 with LIAO to LAD and Sv to 2nd marginal by Dr. Francisco. Saphenous vein graft to the circumflex marginal coronary artery with ECMO support - CV surgery OK with patient following up OP in [address] Francisco Chronic Systolic Heart Failure - ECHO on 03/13: mildly dilated with severely decreased systolic function. LV ejection fraction is estimated at 20-25%. There is global LV hypokinesis - s/p [employer] ICD in 06/2016: interrogation showed appropriate function, no shocks -On lasix 20mg PO BID, Plavix 75mg daily and Coumadin - 04/16 cardiology service consulted to evaluate possible CHF exacerbation due to frquent SOB episodes at night. - 04/17 Cardiology service ruled out any CHF exacerbation and recommended we start Lisinopril 2.5mg daily Atrial fibrillation (Resolved before admission to rehab) - patient develped afib with RVR following CABG - On therapeutic lovenox and coumadin, pharmacy dosing. - We will discuss cardiology possibility of treating with Eliquis. Stenosis of left distal SFA - Vascular doppler reviewed, monophasic waveforms - CV surgery consulted referred no surgical management. chronic with collatoral float. Will follow up in [address] Francisco Draining Left LE wound from left saphenous vein graft harvest - Continue abd pad dressing and follow up with CV surgery in 2 weeks - 04/18 CV surgery evaluated patient today and recommended leave wounds open to air. Follow up as outpatient Hypertension Coreg 3.125mg BID Community Acquired Pneumonia, Enterobacter aerogenes (Resolved prior to admission) - s/p cefepime and rocephin, completed 7 days of abx on 03/31 Diabetes - A1c: 8.9% - On glargine 16u BID - 04/18 Diabetes education consulted today. Constipation: -Continue oral stool softeners to facilitate regular BMs. -Monitor BMs closely. Skin: -Continue wound care Pain: -Controlled. -Will have when necessary Tylenol available. Prophylaxis: -DVT: On therapeutic lovenox and coumadin -GI: Pantoprazole 40mg daily Health Maintenance: -none at this time Access: -removed prior to rehab admission Advanced Directive: -Full Code Disposition: -Discharge disposition to be determined. We will discuss at interdisciplinary team rounds. -Prognosis is fair to good. ELOS: 10-14 days Extracted from: Title: Cardiology Consult Note Author: Hanane Carbajal MD Date: 04/16/17 Mr. 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 Cardiology is consulted forshortness of breath and lower extremity swelling in the settingof chronic heart failure, also management of anticoagulation medications. 1. Dyspnea Possible differential diagnosis would be obstructive sleep apnea, panic attack, acute on chronic heart failure, or pulmonary embolism. He is hemodynamically stable. He does not have daytime shortness of breath, these episodes do not worsen during exercise. Chest Xray negative for congestion, pulmonary edema or pleural effusions. He has asymmetric lower extremity edema which could be more likely related to his vascular diseases. He is able to tolerate one hour walking with therapiet on rehab service. Based on patient's manifestation, acute on chronic heart failure is less likely. Possible cause would be obstructive sleep apnea or panic attack. Patient is advised to sleep on his sides, however, he was told by surgery team not to do so concerning for compression of the surgical site. Patient might be benefit from further evaluation with sleep study after discharge. Also, psychiatric factors like anxiety or panic attackcomplicates the picture. Patient is now on therapeutic warfarin for DVT, he sats good, denies chest pain. PE is unlikely. 2. Multiple DVTs Patient has extensive provocated DVTs in left lower extremity and right lower extremity. He will need to continue anticoagulation medication. Patient is now on therapeuticwarfarin. Ok to change to eliquis 5mg bid po. 3. Hx of Afib - Now rhythm controlled - [id number], on AC medication now, plan to change to eliquis 4. CAD s/p PCI at LAD (2011) and OM (2016), s/p CABG for LMCA dissection - Continue plavix and statin 5. Ischemic cardiomyopathy, HFrEF, LVEF 20%-25%, s/p AICD - Continue BB, lasix - Patient has LVEF around 20%, his blood pressure probably will remain at low normal limit - Recommend to add low dose ACEI, lisinopril 2.5mg daily po 6. HTN - BP within goal, SBP < 130 - Continue BB, lasix 7. DM - Continue insulin and SSI 8. Deconditioning - Management per rehab Patient seen and discussed with Cardiology Attending Dr. Rider. We will sign off at this point. Please re-consult if you have any questions or concerns. Thank you for the consult. Hanane Carbajal MD, PGY-1 Pager: [phone] Attending note: Pt seen and examined. Echo and cath reviewed. Impression: 1. Ischemic cardiomyopathy with severe systolic dysfunction 2. s/p CABG x 2 (LIAO to LAD, SVG to left circ) for left main dissection related to PCI, s/p OM PTCA 3. Dyspnea- neither history nor physical exam support decompensated heart failure. In fact, pt appears euvolemic exam. Unclear if there is a component of anxiety contributing to symptoms 4. Hypertension 5. Hx multiple DVTs on coumadin -Please add low dose BRANDON inhibitor (pt was able to tolerate this in the past) -Pt is not clinically volume overloaded, and there is no need to change or step up diuretic regimen -ok to change to eliquis 5 mg bid P MD Tereso Extracted from: Title: Inpatient Rehab History and Author: Mario Stevens MD Date: 04/12/17 Physical Inpatient Rehabilitation H&P Chief Complaint: I had heart surgery Date of admission: 04/12/17 Transferring facility: [facility] Admitting physician: Mario Rose MD Reason for admission: Functional impairments due to debility after prolonged hospitalization HPI: Patient's a 76-year-old male who is previously independent in mobility and self-care until 03/22/2017 who presented with worsening shortness of breath that was over 3 weeks. He presented with substernal chest pressure was found to have an NSTEMI. He underwent coronary angiography and sustained retrograde dissection of the left main and required ECMO cannulation and emergent CABG. On admission he was found with community acquired pneumonia that completed cefepime and rocephin x 7 days on 03/31. He was decannulated 03/26/2017 with placement of an intra-aortic balloon pump that was removed 03/29/2017. Course was also complicated by left foot that was cool to touch with lessening signals over the arteries on 04/02/2017. Arterial duplex showed hemodynamically occlusive stenosis of the left distal SFA which appeared chronic with collaterals and flow to the PT and DP. No surgery was indicated in that regard. 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 He was transferred to our unit for rehabilitation before going home. Functional History: Previously patient was independent with activities of daily living and did not require any assistive living devices prior to injury. Lives at a 2 story house with his , but states he does not need to go upstairs. Current Functional Status: (per last therapy note) PT Functional Activites Tx Time : 8 MINS PraveenSinan damonrikki REAL ESTATE PROCESSOR - 04/12/2017 14:59 DISBURSING OFFICER Bed Mobility Roll Right Roll Right : MIN A Supine to Sit : MIN A Sidelying L/R to Sit : MIN A Scooting : ATUL MortonSinanrikki REAL ESTATE PROCESSOR - 04/12/2017 14:59 DISBURSING OFFICER Transfer Sit to Stand Sit to Stand : [facility] [facility] Stand to Sit : [place] Stand Pivot with Assistive Device L/R : [place] Bed to Chair : ATUL Sinan Mortonrikki REAL ESTATE PROCESSOR - 04/12/2017 14:59 DISBURSING OFFICER Functional Activities Additional Info : Pt supine, agreed to therapy. Pt transitioned to sitting EOB, provided time to acclimate. pt stood to RW, amb. in hallway (see gait section). Sternal precautions reviewed. pt returned to room and transferred to sitting EOB. bedside chair repositioned next to bed. Pt stood to RW, performed side steps to R, pivoted to bedside chair. cues for proper hand placement. All needs within reach. RN aware of pt status. Functional Activities Reviewed : Yes Radha Morton REAL ESTATE PROCESSOR - 04/12/2017 14:59 DISBURSING OFFICER Gait/Stairs Training Gait Level : Contact guard assistance Ambulation Distance 1 : 150' PT Gait/Stairs Training Tx Time : 15 MINS Utilized Ambulation Device : Walker, rolling Ambulation Quality : cues to maintain RW on ground surface, no LOB observed. 2 standing rest breaks Gait/Stairs Training Reviewed : Yes Radha Morton REAL ESTATE PROCESSOR - 04/12/2017 14:59 DISBURSING OFFICER Acute PT Charges Verify Patient Insurance : All other insurance CNT - Per Patient Visit (PT) : 1 Functional Activities 15 Min (PT) : 1 Gait Training 15 min (PT) : 1 Current Functional Status Transfers : Supvn/Setup Upper Body Dressing : Supvn/Setup (Comment: pull on shirt [Yusra Lagos MPH,OTR - 04/12/2017 12:23 DISBURSING OFFICER] ) Lower Body Dressing : Supvn/Setup (Comment: seated chair level [Yusra Lagos MPH,OTR - 04/12/2017 12:23 DISBURSING OFFICER] ) Toileting : Supvn/Setup Room Mobility : Supvn/Setup (Comment: with RW [Yusra Lagos MPH,OTR - 04/12/2017 12:23 DISBURSING OFFICER] ) Past Medical History: IABP - Intra-aortic balloon pumpin09/08/11 CHF (congestive heart failure) CA (myocardial infarction) Hiatal hernia Indigestion Ventricular fibrillation Acoustic neuroma Past Surgical History: ACD - Automatic cardiac defibrillator procedure Stent placement Family History: Mother: Type 2 diabetes mellitus Brother: High blood pressure; Stroke Sister: Type 2 diabetes mellitus Social History: Alcohol Details: Never Tobacco Details: Use: Never smoker. Tobacco smoke exposure: None. Did the Patient Smoke Cigarettes Anytime During the Last 365 Days? No. Cessation Counseling Provided? No. Medications (19) Active Scheduled Meds (11): 04/12/17 atorvastatin 40 mg PO Bedtime 04/13/17 benzonatate (Tessalon Perles) 100 mg PO TID 04/12/17 carvedilol (Coreg) 3.125 mg PO Q12H 04/13/17 clopidogrel (Plavix) 75 mg PO Daily 04/12/17 docusate-senna (docusate-senna 50 mg-8.6 mg oral tablet) 2 tab PO BID 04/13/17 enoxaparin (Lovenox) 70 mg SUB-Q [id number] 04/12/17 furosemide (Lasix 20 mg oral tablet) 20 mg PO BID 04/12/17 insulin glargine (insulin glargine 100 units/mL subcutaneous solution) 12 unit SUB-Q BID 0 ml/hr 04/13/17 pantoprazole (Protonix) 40 mg PO Before Breakfast 04/12/17 polyethylene glycol 3350 (MiraLax) 17 gm PO Daily 04/12/17 sodium chloride (Saline Flush 0.9%) 10 ml IVP Q12H Unscheduled Meds: None PRN Meds (8): 04/12/17 acetaminophen 650 mg PO Q4H 04/12/17 insulin lispro 1 unit SUB-Q TID-Before Meals 04/12/17 insulin lispro 2 unit SUB-Q TID-Before Meals 04/12/17 insulin lispro 3 unit SUB-Q TID-Before Meals 04/12/17 insulin lispro 4 unit SUB-Q TID-Before Meals 04/12/17 insulin lispro 5 unit SUB-Q TID-Before Meals 04/12/17 ondansetron 4 mg IVP Q8H 04/12/17 sodium chloride (Saline Flush 0.9%) 10 ml IVP PRN One Time Meds: None Continuous Infusions: None Allergies (2) ActiveReaction chlorhexidine topicalNone documented NKDANone documented Review of Systems General: no fever, no chills Eyes: No eye redness, No vision changes Ears, Nose, Mouth, Throat: no sore throat, intermittent bleeding when blowing nose Cardiovascular: no chest pain, no heart palpitations Respiratory: No cough, no shortness of breath Gastrointestinal: No nausea, no vomiting, no abdominal pain Genitourinary: No dysuria, no hematuria Musculoskeletal: Pain in heels Neurological: No seizures, no headache Psychiatric: No anxiety, no depression Integumentary: No skin rashes, mild drainage through left leg surgical wound VitalsTmp(F)Tmp(C)[id number] ---- 04/12 17:[id number]/56---[id number]------ 24 Hr Tmin: 97.7F (36.50c) at 04/12 22:17Weights are the last 5 in 60 days, plus initial. DateWt(kg)Wt(lb)Ht(cm)Ht(in)MethodBMIBSA 04/12 (initial) 71.00 [id number] 68.98Measured 23.11.86 24 Hr Point of Care Glucoses 04/12 1758Glucose TFI228 H Physical exam: General: well-developed, NAD, Eyes: sclera non-icteric, normal conjunctiva ENT: oral mucosa moist, hearing grossly intact Cardiovascular: pale, mild edema in arms and legs, distal peripherovascular skin changes in legs, no cyanosis, regular rate, + s1, s2. No murmurs, clicks or rubs. Respiratory: chest symmetry with respirations, non-labored respirations, breath sounds clear and equal GI: soft, non-tender, not distended Skin: warm, good turgor, bilateral legs covered in dressing. Left leg graft wound with serous discharge on distal wound Psych: calm, cooperative Musculoskeletal: diffuse atrophy, bulk WNL, tone WNL, very tender heels even to light touch Manual Muscle Testing: strength out of 5: R, L Elbow flexors 4/5, 4/5 Wrist extensors 4/5, 4/5 Elbow extensors 4/5, 4/5 Finger flexors 4/5, 4/5 Hip flexors 3/5, 3/5 Knee extensors 4/5, 4/5 Ankle dorsiflexors 4/5, 4/5 Long toe extensors 4/5, 4/5 Ankle plantar flexors 4/5, 4/5 Normal Passive Range of Motion, Neurologic: speech is fluent, repetition intact, comprehension is good. Mental Status: awake, alert, oriented to person and place washer hand: CN II-XII intact Sensory out of 2: R, L Upper limb 2/2, 2/2 Lower limb 2/2, 2/2 Tone: no increased tone , no clonus 04/12 2104 POC Performing LocatioSee Note Glucose [id number] H 04/12 1824 UA ColorYellow UA TurbidityClear UA Spec Grav1.010 UA pH6.5 UA ProteinNegative UA GlucoseNegative UA KetonesNegative UA BiliNegative UA BloodNegative UA Urobilinogen<=1.0 UA NitriteNegative UA Leuk EstNegative UA RBC<1 UA WBC<1 UA Sq EpiNone Seen 04/12 1758 POC Performing LocatioSee Note Glucose [id number] H Pertinent Imaging: Lower Venous Duplex Conclusions Bilateral great saphenous veins were not seen. The left groin vessels were not well seen due to incision. Acute deep venous thrombosis noted in the right peroneal vein. Acute deep venous thrombosis noted in the left common femoral vein. Acute deep venous thrombosis noted in the left proximal profunda vein. Acute deep venous thrombosis noted in the left proximal femoral vein. Acute deep venous thrombosis noted in the left posterior tibial vein. Acute deep venous thrombosis noted in the left peroneal vein. Patient's diagnostic imaging and reports have been personally reviewed and visualized. Impression: Impairments: Generalized Weakness Impaired balance Pain Activity limitations: Decreased mobility Decreased transfers Decreased endurance Decreased strength Decreased ADLs Decreased independence Decreased functional capacity Participation restrictions: Driving Return to work/school Taking care of the home Recreation and leisure activities Plan: Rehabilitation: -The patient will require oversight and coordination of an interdisciplinary team, 24 hour rehabilitation nursing for management of bowel, bladder, skin integrity, medication management, safety measures and preventing risk factors and complications. Patient will require a minimum of 3 hours of therapy a day for 5-7 days a week throughout the hospitalization, including at least the followin.5-2 hours of physical therapy and 1.5-2 hours of occupational therapy in order to improve the patient's impairments in mobility, transfers, and activities of daily living, as well as to evaluate need for durable medical equipment at discharge. Social work and case management will be consult to assist with discharge planning and family coping strategies. Physician will manage the following medical issues: Physical Debility: -The patient with generalized muscle weakness and atrophy after prolonged hospitalization -This is a significant functional limitation. -Continue aggressive therapies with PT and OT to strengthen and optimize function and train for DME as appropriate. Multiple DVTs -On therapeutic lovenox and Coumadin until INR 2-3 NSTEMI - s/p PCI with MINGO to inferior branch of 1st obtuse marginal with procedure complicated by spiral dissection requring CABG x2 - CABG x2 with LIAO to LAD and Sv to 2nd marginal by Dr. Francisco. Saphenous vein graft to the circumflex marginal coronary artery with ECMO support - CV surgery OK with patient following up OP in [address] Francisco Chronic Systolic Heart Failure - ECHO on 03/13: mildly dilated with severely decreased systolic function. LV ejection fraction is estimated at 20-25%. There is global LV hypokinesis - s/p [employer] ICD in 06/2016: interrogation showed appropriate function, no shocks -On lasix 20mg PO BID, Plavix 75mg daily and Coumadin Atrial fibrillation (Resolved before admission to rehab) - patient develped afib with RVR following CABG - On coumadin, pharmacy dosing. Stenosis of left distal SFA - Vascular doppler reviewed, monophasic waveforms - CV surgery consulted referred no surgical management. chronic with collatoral float. Will follow up in [address] Francisco Draining Left LE wound from left saphenous vein graft harvest - Continue abd pad dressing and follow up with CV surgery in 2 weeks Hypertension Coreg 3.125mg BID Community Acquired Pneumonia, Enterobacter aerogenes (Resolved prior to admission) - s/p cefepime and rocephin, completed 7 days of abx on 03/31 Diabetes - A1c: 8.9% - On glargine 12u BID Constipation: -Continue oral stool softeners to facilitate regular BMs. -Monitor BMs closely. Skin: -Continue wound care Pain: -Controlled. -Will have when necessary Tylenol available. Prophylaxis: -DVT: On therapeutic lovenox and coumadin -GI: Pantoprazole 40mg daily Health Maintenance: -none at this time Access: -removed prior to rehab admission Advanced Directive: -Full Code Disposition: -Discharge disposition to be determined. We will discuss at interdisciplinary team rounds. -Prognosis is fair to good. ELOS: 10-14 days Mario Rose MD [employer] [facility] [employer] - Department of Physical Medicine and Rehabilitation Addendum PMR ATTENDING/POST-ADMISSION PHYSICIAN EVALUATION by I saw, examined and discussed the patient with the resident physician and agree with their Galloza-Ot documentation. The patient presents for inpatient rehabilitation following physical eroAditian debility due to prolonged hospitalization due to CABG. There are no medical or functional C MD on changes since the preadmission assessment. The patient has ongoing medical and functional 04/13/2017 impairments that can safely be met in the IRF setting, and these needs cannot be 16:47 adequately addressed in a lower level of care, as the patient requires 24hr nursing and daily medical management. The patient also has comorbidities includingcongestive heart failure, hypertension, diabetes mellitus, bilateral leg DVT, bilateral leg surgical wounds and comorbidities also necessitate close medical supervision, specialized rehabilitation nursing, and skilled therapy intervention. The patient is able to participate in and benefit from an acute inpatient rehabilitation program, with anticipated measurable gains as a result of this program. Prior to the CABG the patient was independent with all ADLs and mobility. Currently, the patient requires assistance forboth ADLs and mobility. There are no obvious barriers to disposition to the community following the IRF admission. Initial Plan of Care: Patient will require 24 hour rehabilitation nursing for management of bowel, bladder, skin integrity, medication management, safety measures and preventing risk factors and complications. Patient will require a minimum of 3 hours of therapy a day for 5 of 7 days a week throughout the hospitalization, including at least the followin.5-2 hours Physical Therapy, 1.5-2 hours Occupational Therapy. These disciplines will be needed in order to improve the patient s impairments in mobility, transfers, activities of daily living, and evaluation of durable medical equipment if needed at discharge. Social Work and Case Management will be consulted to assist with discharge planning and family coping strategies. Prognosis: Good Estimated Length of Stay: 10-14 days Discharge Disposition: home with spouse
--- OUTSIDE RECORDS SUMMARY | 2018-04-20 20:53 | XMS REPORT | Summary of Care ---
Author Author [facility] Organization [facility] Address Unknown Phone Unavailable Encounter GIUSEPPE Robertson(ANURADHA) [id number] Date(s): 05/15/17 - 05/15/17 [facility] [id number] [place] [address]- Discharge Disposition: Home or Self Care Attending [...] 09/08/11 Resolved balloon pumping(Confirmed) Indigestion(Confirme Resolved d) [place] (myocardial Resolved infarction)(Confirme d) PAD (peripheral Active artery disease)(Confirmed) Pulmonary Active edema(Confirmed) Ventricular Resolved fibrillation(Confirm ed) Allergies, Adverse Reactions, Alerts Substance Reaction Severity Status chlorhexidine topical Active Tape Active Medications atorvastatin 40 mg oral tablet 40 mg=1 tab, PO, Bedtime, # 30 tab, 0 Refill(s) Start Date: 05/14/17 Status: Suspended carvedilol 3.125 mg oral tablet 3.125 mg=1 tab, PO, BID, # 180 tab, 0 Refill(s) Start Date: 05/14/17 Status: Suspended ceFAZolin + sterile water 20 mL 2 gm, Route: IV, Drug form: PDR/INJ, PRE OP, Start date: 05/15/17 5:00:00 NOODLE MAKER, D uration: 1 doses or times, ABX Indication: Surgical Prophylaxis Notes: (Same As: Fredrick Franco) MEDICATION WASTE Product Size: 1000 mgP roduct Wasted: ___ mg Start Date: 05/15/17 Stop Date: 05/15/17 Status: Discontinued clopidogrel 75 mg oral tablet 75 mg=1 tab, PO, Daily, # 30 tab, 0 Refill(s) Start Date: 05/14/17 Status: Suspended insulin glargine 100 units/mL subcutaneous solution 16 unit, SUB-Q, BID, 0 Refill(s) Start Date: 05/14/17 Status: Suspended Lactated Ringers IV 1,000 mL 1,000 mL, Rate: 100 ml/hr, Infuse over: 10 hr, Route: IV, Dosing Weight 70.909 k g, Total Volume: 1,000, Start date: 05/15/17 6:03:00 NOODLE MAKER, Duration: 30 day, Stop date: 06/14/17 6:02:00 NOODLE MAKER, 1.87, m2 Start Date: 05/15/17 Stop Date: 05/15/17 Status: Discontinued Lasix 20 mg, PO, BID, 0 Refill(s) Start Date: 05/14/17 Stop Date: 05/15/17 Status: Completed lisinopril 2.5 mg oral tablet 2.5 mg=1 tab, PO, Daily, # 30 tab, 0 Refill(s) Start Date: 05/14/17 Status: Suspended Protonix 40 mg oral enteric coated tablet 40 mg=1 tab, PO, Before Breakfast, # 30 tab, 0 Refill(s) Start Date: 05/14/17 Status: Suspended Results No data available for this section [...]
--- OUTSIDE RECORDS SUMMARY | 2018-04-20 20:53 | XMS REPORT | Summary of Care ---
Author Author [facility] Organization [facility] Address Unknown Phone Unavailable Encounter GIUSEPPE Robertson(ANURADHA) [id number] Date(s): 05/16/17 - 05/25/17 [facility] [address] [place] [address]- Encounter Diagnosis Unspecified injury of other blood vessels at lower leg level, left leg, initial encounter (Final) - Disruption of external operation (surgical) wound, not elsewhere classified, ini tial encounter (Final) - 05/31/17 Acute respiratory failure with hypoxia (Final) - Acute on chronic systolic (congestive) heart failure (Final) - Pressure ulcer of sacral region, stage 1 (Final) - Hypertensive heart disease with heart failure (Final) - Unspecified atrial fibrillation (Final) - Hypomagnesemia (Final) - Hypokalemia (Final) - Hyperlipidemia, unspecified (Final) - Atherosclerotic heart disease of [place] coronary artery without angina pectoris (Final) - 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) - Presence of aortocoronary bypass graft (Final) - Presence of coronary angioplasty implant and graft (Final) - 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) - USP (current) use of antithrombotics/antiplatelets (Final) - Surgical operation with anastomosis, bypass or graft as the cause of abnormal re action of the patient, or of later complication, without mention of misadventure at the time of the procedure (Final) - 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 Attending Physician: Lula Britton MD Admitting Physician: Lula Britton MD Referring Physician: Brody Francisco MD Vital Signs 1 2 3 Most recent to oldest [Reference Range]: 175.26 cm (05/18/17 3:39 PM) 175.26 cm (05/18/17 10:09 AM) 175.26 cm (05/18/17 6:29 AM) Height 97.8 DegF (05/25/17 2:10 PM) 98.5 DegF (05/25/17 11:20 AM) 97.8 DegF (05/25/17 7:32 AM) Temperature Oral [96.4-99.1 DegF] 104/58 mmHg (05/25/17 2:10 PM) 102/68 mmHg (05/25/17 11:20 AM) 104/58 mmHg (05/25/17 7:32 AM) Blood Pressure [90-140/60-90 mmHg] 16 BRMIN (05/25/17 2:10 PM) 16 BRMIN (05/25/17 11:20 AM) 16 BRMIN (05/25/17 7:32 AM) Respiratory Rate [14-20 BRMIN] 59 bpm *LOW* (05/25/17 2:10 PM) 43 bpm 1 *LOW* (05/25/17 11:20 AM) 71 bpm (05/25/17 7:32 AM) Peripheral Pulse Rate [60-100 bpm] 72.273 kg (05/16/17 4:18 PM) 71.477 kg (05/16/17 6:53 AM) Weight 23.27 m2 (05/16/17 6:53 AM) Body Mass Index 1Result Comment: Called TELE and verified tele box 50, patient's heart rate is 86 at this time. Problem List Condition Effective Dates Status Health [...] 09/08/11 Resolved balloon pumping(Confirmed) Indigestion(Confirme Resolved d) ID (myocardial Resolved infarction)(Confirme d) PAD (peripheral Active artery disease)(Confirmed) Pulmonary Active edema(Confirmed) Ventricular Resolved fibrillation(Confirm ed) Allergies, Adverse Reactions, Alerts Substance Reaction Severity Status chlorhexidine topical Active Tape Active Medications acetaminophen 650 mg, 2 tab, Route: PO, Drug form: TAB, Q6H, Dosing Weight 72.273, kg, PRN Sreedhar n Score 1-3, Start date: 05/16/17 17:13:00 FRAME CHANGER, Duration: 30 day, Stop date: 01/22 17:12:00 FRAME CHANGER Notes: Do not exceed 4 gm/day. (Same as: Tylenol) Start Date: 05/16/17 Stop Date: 05/25/17 Status: Discontinued albumin human 25% intravenous solution 25 gm, 100 mL, Route: IVPB, Drug form: INJ, ONCE, Dosing Weight 72.273, kg, Star t date: 05/17/17 12:21:00 FRAME CHANGER, Stop date: 05/17/17 12:21:00 FRAME CHANGER Notes: Lot #: Mfg: (Same as: Plasbumin-[id number])"blood pr oduct derivative"WASTE: F/P - Red; E -Red MEDICATION WASTE Product Size: 25 gmProduct Wasted: ___ gm Start Date: 05/17/17 Stop Date: 05/17/17 Status: Completed albuterol-ipratropium 2.5-0.5 mg inhalation solution 3 mL, Route: NEB, Dosing Weight 71.477, kg, ONCE, STAT, Start date: 05/16/17 8:1 6:00 FRAME CHANGER, Stop date: 05/16/17 8:16:00 FRAME CHANGER Start Date: 05/16/17 Stop Date: 05/16/17 Status: Discontinued Amidate (ANES) Route: IV, Drug form: INJ, ONCE, Stop date: 05/16/17 10:45:00 FRAME CHANGER Start Date: 05/16/17 Stop Date: 05/16/17 Status: Completed Ancef + sterile water 20 mL 2 gm, Route: IVP, Q8H, Dosing Weight 72.273, kg, Start date: 05/16/17 18:00:[address], Duration: 10 day, Stop date: 05/26/17 10:00:00 FRAME CHANGER, ABX Indication: Other (s pecify in Comments) Notes: (Same As: Fredrick Franco) MEDICATION WASTE Product Size: 1000 mgP roduct Wasted: ___ mg Start Date: 05/16/17 Stop Date: 05/19/17 Status: Discontinued aspirin 81 mg, 1 tab, Route: PO, Drug form: ECTAB, Daily, Dosing Weight 72.273, kg, Star t date: 05/21/17 9:00:00 FRAME CHANGER, Duration: 30 day, Stop date: 06/19/17 9:00:00 FRAME CHANGER Notes: Do not crush or chew.(Same As: Ecotrin) Start Date: 05/21/17 Stop Date: 05/25/17 Status: Discontinued aspirin 81 mg tablet, enteric coated 81 mg=1 tab, PO, Daily, # 30 tab, 0 Refill(s), Pharmacy: [id number] Start Date: 05/25/17 Stop Date: 06/24/17 Status: Ordered atorvastatin 40 mg, 1 tab, Route: PO, Drug form: TAB, Bedtime, Dosing Weight 72.273, kg, Star t date: 05/16/17 21:00:00 FRAME CHANGER, Duration: 30 day, Stop date: 06/14/17 21:00:00 CS T Notes: (Same as: Lipitor) Start Date: 05/16/17 Stop Date: 05/25/17 Status: Discontinued Bactroban 1 appl, Route: NASAL, Q12H, Drug form: OINT, Start date: 05/22/17 22:00:00 FRAME CHANGER, Duration: 1 doses or times, Stop date: 05/22/17 22:00:00 FRAME CHANGER Start Date: 05/22/17 Stop Date: 05/22/17 Status: Completed calcium carbonate 500 mg (200 mg elemental calcium) oral tablet 1,000 mg, 2 tab, Route: PO, Drug form: CHEWTAB, PRN, Dosing Weight 72.273, kg, P RN Abnormal Lab Result, FOR ICU USE ONLY, Start date: 05/18/17 9:12:00 FRAME CHANGER, Dura tion: 30 day, Stop date: 06/17/17 9:11:00 FRAME CHANGER Notes: (Same As: Tums)Calcium Carbonate 500 ar=183 mg elemental calcium Dose=_ mg calcium carbonate ( mg elemental calcium) Start Date: 05/18/17 Stop Date: 05/20/17 Status: Discontinued calcium carbonate 500 mg (200 mg elemental calcium) oral tablet 500 mg, 1 tab, Route: PO, Drug form: CHEWTAB, PRN, Dosing Weight 72.273, kg, PRN Abnormal Lab Result, FOR ICU USE ONLY, Start date: 05/18/17 9:12:00 FRAME CHANGER, Durati on: 30 day, Stop date: 06/17/17 9:11:00 FRAME CHANGER Notes: (Same As: Tums)Calcium Carbonate 500 db=617 mg elemental calcium Dose=_ mg calcium carbonate ( mg elemental calcium) Start Date: 05/18/17 Stop Date: 05/20/17 Status: Discontinued calcium gluconate + Sodium Chloride 0.9% IV 40 mL 1 gm, 10 mL, Route: IVPB, PRN, Dosing Weight 72.273, kg, PRN Abnormal Lab Result , Start date: 05/18/17 9:12:00 FRAME CHANGER, Duration: 30 day, Stop date: 06/17/17 9:11:0 0 FRAME CHANGER, FOR ICU USE ONLY Notes: WASTE: F/P - Sink; E - Municipal Trash Bin Start Date: 05/18/17 Stop Date: 05/20/17 Status: Discontinued carvedilol 3.125 mg, 1 tab, Route: PO, Drug form: TAB, BID, Dosing Weight 72.273, kg, Start date: 05/17/17 9:00:00 FRAME CHANGER, Duration: 30 day, Stop date: 06/15/17 21:00:00 FRAME CHANGER Notes: Give with food. (Same As: Coreg) Start Date: 05/17/17 Stop Date: 05/25/17 Status: Discontinued ceFAZolin (ANES) 1000 mg Route: IV, Drug form: INJ, Start date: 05/16/17 9:43:00 FRAME CHANGER, Stop date: 05/16/17 10:43:00 FRAME CHANGER Start Date: 05/16/17 Stop Date: 05/16/17 Status: Completed clopidogrel 75 mg, 1 tab, Route: PO, Drug form: TAB, Daily, Dosing Weight 72.273, kg, Start date: 05/17/17 9:00:00 FRAME CHANGER, Duration: 30 day, Stop date: 06/15/17 9:00:00 FRAME CHANGER Notes: (Same As: Plavix) Start Date: 05/17/17 Stop Date: 05/25/17 Status: Discontinued Dextrose 50% Syringe 12.5 gm, 25 mL, Route: IVP, Drug Form: INJ, Dosing Weight 72.273, kg, PRN, PRN B lood Glucose Results, Start date: 05/17/17 20:45:00 FRAME CHANGER, Duration: 30 day, Stop date: 06/16/17 20:44:00 FRAME CHANGER Start Date: 05/17/17 Stop Date: 05/25/17 Status: Discontinued Dextrose 50% Syringe 25 gm, 50 mL, Route: IVP, Drug Form: INJ, Dosing Weight 72.273, kg, PRN, PRN Blo od Glucose Results, Start date: 05/17/17 20:45:00 FRAME CHANGER, Duration: 30 day, Stop da te: 06/16/17 20:44:00 FRAME CHANGER Start Date: 05/17/17 Stop Date: 05/25/17 Status: Discontinued Dextrose 50% Syringe 12.5 gm, 25 mL, Route: IVP, Drug Form: INJ, Dosing Weight 72.273, kg, PRN, PRN B lood Glucose Results, Start date: 05/16/17 18:16:00 FRAME CHANGER, Duration: 30 day, Stop date: 06/15/17 18:15:00 FRAME CHANGER Start Date: 05/16/17 Stop Date: 05/16/17 Status: Discontinued Dextrose 50% Syringe 25 gm, 50 mL, Route: IVP, Drug Form: INJ, Dosing Weight 72.273, kg, PRN, PRN Blo od Glucose Results, Start date: 05/16/17 18:16:00 FRAME CHANGER, Duration: 30 day, Stop da te: 06/15/17 18:15:00 FRAME CHANGER Start Date: 05/16/17 Stop Date: 05/16/17 Status: Discontinued DuoNeb inhalation solution 3 ml, Route: NEB, Drug Form: SOLN, Dosing Weight 72.273, kg, PRN, PRN Respirator y Protocol, Start date: 05/19/17 12:44:00 FRAME CHANGER, Duration: 30 day, Stop date: 06/07 06/24 12:43:00 FRAME CHANGER Notes: (Same as: Duoneb) Start Date: 05/19/17 Stop Date: 05/25/17 Status: Discontinued Eliquis PO, BID, 0 Refill(s) Start Date: 05/15/17 Status: Ordered Entresto 24 mg-26 mg oral tablet 1 tab, PO, Q12H, # 60 tab, 0 Refill(s), Pharmacy: [id number] Start Date: 05/25/17 Stop Date: 06/24/17 Status: Ordered Entresto 24 mg-26 mg oral tablet 1 tab, Route: PO, Drug Form: TAB, Dosing Weight 72.273, kg, Q12H, Start date: 21:00:00 FRAME CHANGER, Stop date: 06/19/17 9:00:00 FRAME CHANGER Notes: (Same as: Entresto)Avoid in patients with history of angioedema due to AC E inhibitor or ARB therapy. Do not use concomitantly or within 36 hours of BRANDON inhibitors Start Date: 05/20/17 Stop Date: 05/25/17 Status: Discontinued ePHEDrine (ANES) Route: IV, Drug form: INJ, ONCE, Stop date: 05/16/17 10:31:00 FRAME CHANGER Start Date: 05/16/17 Stop Date: 05/16/17 Status: Completed famotidine (ANES) Route: IV, Drug form: INJ, ONCE, Stop date: 05/16/17 10:36:00 FRAME CHANGER Start Date: 05/16/17 Stop Date: 05/16/17 Status: Completed fentaNYL (ANES) Route: IV, Drug form: INJ, ONCE, Stop date: 05/16/17 10:41:00 FRAME CHANGER Start Date: 05/16/17 Stop Date: 05/16/17 Status: Completed fentaNYL 1250 microgram in NS 250 mL (Titrate.) IV 1,250 microgram 1,250 microgram, 250 mL, Rate: Titrate, Start Dose: 50 microgram/hr, Titration: 25 microgram/hour every 15 minutes, Goal(s): RASS -2, Max Dose: 300 microgram/hr , Route: IV, Dosing Weight 72.273 kg, Total Volume: 250, Start date: 05/17/17 11 :12:00 FRAME CHANGER,... Notes: Concentration: 5 microgram / ml Start Date: 05/17/17 Stop Date: 05/19/17 Status: Discontinued glucagon 1 mg, Route: IM, Drug form: PDR/INJ, PRN, Dosing Weight 72.273, kg, PRN Blood Gl ucose Results, Start date: 05/17/17 20:45:00 FRAME CHANGER, Duration: 30 day, Stop date: 0 06/16/17 20:44:00 FRAME CHANGER Start Date: 05/17/17 Stop Date: 05/25/17 Status: Discontinued glucagon 1 mg, Route: IM, Drug form: PDR/INJ, PRN, Dosing Weight 72.273, kg, PRN Blood Gl ucose Results, Start date: 05/16/17 18:16:00 FRAME CHANGER, Duration: 30 day, Stop date: 0 06/15/17 18:15:00 FRAME CHANGER Start Date: 05/16/17 Stop Date: 05/16/17 Status: Discontinued insulin glargine 100 units/mL subcutaneous solution 12 unit, 0.12 mL, Route: SUB-Q, Drug form: SOLN, BID, Dosing Weight 72.273, kg, Start date: 05/17/17 9:00:00 FRAME CHANGER, Stop date: 06/15/17 17:00:00 FRAME CHANGER Notes: (Same as: Lantus)Do not hold insulin without contacting prescriberWASTE: F/P - Black; E - Municipal Trash Bin "single patient use only" Start Date: 05/17/17 Stop Date: 05/25/17 Status: Discontinued insulin lispro 6 unit, 0.06 mL, Route: SUB-Q, Drug form: SOLN, Sliding Scale, Dosing Weight 72. 273, kg, PRN Blood Glucose Results, Start date: 05/17/17 20:45:00 FRAME CHANGER, Duration: 30 day, Stop date: 06/16/17 20:44:00 FRAME CHANGER Notes: Roll in palms of hands gently; Do not shake `vigorously. (Same as: Seymour nelson )"Single Patient Use Only "WASTE: F/P - Black; E - Municipal Trash Bin Stabl e for 28 days at room temperature.Expires in days from Date Start Date: 05/17/17 Stop Date: 05/18/17 Status: Discontinued insulin lispro 4 unit, 0.04 mL, Route: SUB-Q, Drug form: SOLN, Sliding Scale, Dosing Weight 72. 273, kg, PRN Blood Glucose Results, Start date: 05/17/17 20:45:00 FRAME CHANGER, Duration: 30 day, Stop date: 06/16/17 20:44:00 FRAME CHANGER Notes: Roll in palms of hands gently; Do not shake `vigorously. (Same as: Humal og )"Single Patient Use Only "WASTE: F/P - Black; E - Municipal Trash Bin Stabl e for 28 days at room temperature.Expires in days from Date Start Date: 05/17/17 Stop Date: 05/18/17 Status: Discontinued insulin lispro 10 unit, 0.1 mL, Route: SUB-Q, Drug form: SOLN, Sliding Scale, Dosing Weight 72. 273, kg, PRN Blood Glucose Results, Start date: 05/17/17 20:45:00 FRAME CHANGER, Duration: 30 day, Stop date: 06/16/17 20:44:00 FRAME CHANGER Notes: Roll in palms of hands gently; Do not shake `vigorously. (Same as: Humal og )"Single Patient Use Only "WASTE: F/P - Black; E - Municipal Trash Bin Stabl e for 28 days at room temperature.Expires in days from Date Start Date: 05/17/17 Stop Date: 05/18/17 Status: Discontinued insulin lispro 8 unit, 0.08 mL, Route: SUB-Q, Drug form: SOLN, Sliding Scale, Dosing Weight 72. 273, kg, PRN Blood Glucose Results, Start date: 05/17/17 20:45:00 FRAME CHANGER, Duration: 30 day, Stop date: 06/16/17 20:44:00 FRAME CHANGER Notes: Roll in palms of hands gently; Do not shake `vigorously. (Same as: Humal og )"Single Patient Use Only "WASTE: F/P - Black; E - Municipal Trash Bin Stabl e for 28 days at room temperature.Expires in days from Date Start Date: 05/17/17 Stop Date: 05/18/17 Status: Discontinued insulin lispro 2 unit, 0.02 mL, Route: SUB-Q, Drug form: SOLN, Sliding Scale, Dosing Weight 72. 273, kg, PRN Blood Glucose Results, Start date: 05/17/17 20:45:00 FRAME CHANGER, Duration: 30 day, Stop date: 06/16/17 20:44:00 FRAME CHANGER Notes: Roll in palms of hands gently; Do not shake `vigorously. (Same as: Hectoral og )"Single Patient Use Only "WASTE: F/P - Black; E - Municipal Trash Bin Stabl e for 28 days at room temperature.Expires in days from Date Start Date: 05/17/17 Stop Date: 05/18/17 Status: Discontinued insulin lispro 4 unit, 0.04 mL, Route: SUB-Q, Drug form: SOLN, TID-Before Meals, Dosing Weight 72.273, kg, PRN Blood Glucose Results, Start date: 05/16/17 18:16:00 FRAME CHANGER, Durati on: 30 day, Stop date: 06/15/17 18:15:00 FRAME CHANGER Notes: Roll in palms of hands gently; Do not shake `vigorously. (Same as: Humjoyce )"Single Patient Use Only "WASTE: F/P - Black; E - Municipal Trash Bin Stabl e for 28 days at room temperature.Expires in days from Date Start Date: 05/16/17 Stop Date: 05/16/17 Status: Discontinued insulin lispro 2 unit, 0.02 mL, Route: SUB-Q, Drug form: SOLN, TID-Before Meals, Dosing Weight 72.273, kg, PRN Blood Glucose Results, Start date: 05/16/17 18:16:00 FRAME CHANGER, Durati on: 30 day, Stop date: 06/15/17 18:15:00 FRAME CHANGER Notes: Roll in palms of hands gently; Do not shake `vigorously. (Same as: Seymour )"Single Patient Use Only "WASTE: F/P - Black; E - Municipal Trash Bin Stabl e for 28 days at room temperature.Expires in days from Date Start Date: 05/16/17 Stop Date: 05/16/17 Status: Discontinued insulin lispro 10 unit, 0.1 mL, Route: SUB-Q, Drug form: SOLN, TID-Before Meals, Dosing Weight 72.273, kg, PRN Blood Glucose Results, Start date: 05/16/17 18:16:00 FRAME CHANGER, Durati on: 30 day, Stop date: 06/15/17 18:15:00 FRAME CHANGER Notes: Roll in palms of hands gently; Do not shake `vigorously. (Same as: Seymour og )"Single Patient Use Only "WASTE: F/P - Black; E - Municipal Trash Bin Stabl e for 28 days at room temperature.Expires in days from Date Start Date: 05/16/17 Stop Date: 05/16/17 Status: Discontinued insulin lispro 8 unit, 0.08 mL, Route: SUB-Q, Drug form: SOLN, TID-Before Meals, Dosing Weight 72.273, kg, PRN Blood Glucose Results, Start date: 05/16/17 18:16:00 FRAME CHANGER, Durati on: 30 day, Stop date: 06/15/17 18:15:00 FRAME CHANGER Notes: Roll in palms of hands gently; Do not shake `vigorously. (Same as: Seymour og )"Single Patient Use Only "WASTE: F/P - Black; E - Municipal Trash Bin Stabl e for 28 days at room temperature.Expires in days from Date Start Date: 05/16/17 Stop Date: 05/16/17 Status: Discontinued insulin lispro 6 unit, 0.06 mL, Route: SUB-Q, Drug form: SOLN, TID-Before Meals, Dosing Weight 72.273, kg, PRN Blood Glucose Results, Start date: 05/16/17 18:16:00 FRAME CHANGER, Durati on: 30 day, Stop date: 06/15/17 18:15:00 FRAME CHANGER Notes: Roll in palms of hands gently; Do not shake `vigorously. (Same as: Humal og )"Single Patient Use Only "WASTE: F/P - Black; E - Municipal Trash Bin Stabl e for 28 days at room temperature.Expires in days from Date Start Date: 05/16/17 Stop Date: 05/16/17 Status: Discontinued insulin lispro 3 unit, 0.03 mL, Route: SUB-Q, Drug form: SOLN, Sliding Scale, Dosing Weight 72. 273, kg, PRN Blood Glucose Results, Start date: 05/18/17 11:22:00 FRAME CHANGER, Duration: 30 day, Stop date: 06/17/17 11:21:00 FRAME CHANGER Notes: Roll in palms of hands gently; Do not shake `vigorously. (Same as: Seymour og )"Single Patient Use Only "WASTE: F/P - Black; E - Municipal Trash Bin Stabl e for 28 days at room temperature.Expires in days from Date Start Date: 05/18/17 Stop Date: 05/25/17 Status: Discontinued insulin lispro 6 unit, 0.06 mL, Route: SUB-Q, Drug form: SOLN, Sliding Scale, Dosing Weight 72. 273, kg, PRN Blood Glucose Results, Start date: 05/18/17 11:22:00 FRAME CHANGER, Duration: 30 day, Stop date: 06/17/17 11:21:00 FRAME CHANGER Notes: Roll in palms of hands gently; Do not shake `vigorously. (Same as: [facility] )"Single Patient Use Only "WASTE: F/P - Black; E - Municipal Trash Bin Stabl e for 28 days at room temperature.Expires in days from Date Start Date: 05/18/17 Stop Date: 05/25/17 Status: Discontinued insulin lispro 9 unit, 0.09 mL, Route: SUB-Q, Drug form: SOLN, Sliding Scale, Dosing Weight 72. 273, kg, PRN Blood Glucose Results, Start date: 05/18/17 11:22:00 FRAME CHANGER, Duration: 30 day, Stop date: 06/17/17 11:21:00 FRAME CHANGER Notes: Roll in palms of hands gently; Do not shake `vigorously. (Same as: Humal og )"Single Patient Use Only "WASTE: F/P - Black; E - Municipal Trash Bin Stabl e for 28 days at room temperature.Expires in days from Date Start Date: 05/18/17 Stop Date: 05/25/17 Status: Discontinued insulin lispro 15 unit, 0.15 mL, Route: SUB-Q, Drug form: SOLN, Sliding Scale, Dosing Weight 72 .273, kg, PRN Blood Glucose Results, Start date: 05/18/17 11:22:00 FRAME CHANGER, Duration : 30 day, Stop date: 06/17/17 11:21:00 FRAME CHANGER Notes: Roll in palms of hands gently; Do not shake `vigorously. (Same as: Humal og )"Single Patient Use Only "WASTE: F/P - Black; E - Municipal Trash Bin Stabl e for 28 days at room temperature.Expires in days from Date Start Date: 05/18/17 Stop Date: 05/25/17 Status: Discontinued insulin lispro 12 unit, 0.12 mL, Route: SUB-Q, Drug form: SOLN, Sliding Scale, Dosing Weight 72 .273, kg, PRN Blood Glucose Results, Start date: 05/18/17 11:22:00 FRAME CHANGER, Duration : 30 day, Stop date: 06/17/17 11:21:00 FRAME CHANGER Notes: Roll in palms of hands gently; Do not shake `vigorously. (Same as: Humal og )"Single Patient Use Only "WASTE: F/P - Black; E - Municipal Trash Bin Stabl e for 28 days at room temperature.Expires in days from Date Start Date: 05/18/17 Stop Date: 05/25/17 Status: Discontinued Lactated Ringers Injection IV (ANES) 1000 mL Route: IV, Total Volume: 1,000, Start date: 05/16/17 9:15:00 FRAME CHANGER, Stop date: 02/21 10:15:00 FRAME CHANGER Start Date: 05/16/17 Stop Date: 05/16/17 Status: Completed Lactated Ringers Injection IV 1,000 mL 1,000 mL, Rate: 25 ml/hr, Infuse over: 40 hr, Route: IV, Dosing Weight 72.273 kg , Total Volume: 1,000, Start date: 05/17/17 8:56:00 FRAME CHANGER, Duration: 1 day, Stop d ate: 05/18/17 8:55:00 FRAME CHANGER, 1.89, m2 Start Date: 05/17/17 Stop Date: 05/17/17 Status: Discontinued Lactated Ringers Injection IV 1000 mL 1,000 mL, Rate: 25 ml/hr, Infuse over: 40 hr, Route: IV, Dosing Weight 71.477 kg , Total Volume: 1,000, Start date: 05/16/17 8:16:00 FRAME CHANGER, Duration: 30 day, Stop date: 06/15/17 8:15:00 FRAME CHANGER, 1.88, m2 Start Date: 05/16/17 Stop Date: 05/16/17 Status: Discontinued Lasix 20 mg, Route: IVP, Drug form: INJ, ONCE, Dosing Weight 72.273, kg, Start date: 0 05/17/17 9:54:00 FRAME CHANGER, Stop date: 05/17/17 9:54:00 FRAME CHANGER Start Date: 05/17/17 Stop Date: 05/17/17 Status: Completed Lasix 40 mg, 4 mL, Route: IVP, Drug form: INJ, Daily, Dosing Weight 72.273, kg, Start date: 05/19/17 9:00:00 FRAME CHANGER, Duration: 30 day, Stop date: 06/17/17 9:00:00 FRAME CHANGER Notes: (Same as: Lasix) MEDICATION WASTE Product Size: 40 mgProduct Was rajat: ___ mg Start Date: 05/19/17 Stop Date: 05/25/17 Status: Discontinued Lasix 20 mg, Route: IVP, Drug form: INJ, ONCE, Dosing Weight 72.273, kg, Start date: 0 05/17/17 10:09:00 FRAME CHANGER, Stop date: 05/17/17 10:09:00 FRAME CHANGER Start Date: 05/17/17 Stop Date: 05/17/17 Status: Completed Lasix 40 mg, 4 mL, Route: IVP, Drug form: INJ, TID, Dosing Weight 72.273, kg, Start da te: 05/17/17 13:00:00 FRAME CHANGER, Duration: 30 day, Stop date: 06/16/17 9:00:00 FRAME CHANGER Notes: (Same as: Lasix) MEDICATION WASTE Product Size: 40 mgProduct Was rajat: _0__ mg Start Date: 05/17/17 Stop Date: 05/18/17 Status: Discontinued Lasix 20 mg oral tablet 20 mg, 1 tab, Route: IV, ONCE, Dosing Weight 72.273, kg, Start date: 05/17/17 10 :06:00 FRAME CHANGER, Stop date: 05/17/17 10:06:00 FRAME CHANGER Start Date: 05/17/17 Stop Date: 05/17/17 Status: Discontinued Lasix 40 mg oral tablet 40 mg=1 tab, PO, BID, # 60 tab, 0 Refill(s), Pharmacy: [id number] Start Date: 05/25/17 Stop Date: 06/24/17 Status: Ordered Levophed 8 mg in 250 mL (Titrate.) IV 8 mg 8 mg, 250 mL, Rate: Titrate, Start Dose: 5 microgram/min, Titration: 2 microgram /min every 2-5 minutes, Goal(s): MAP >=65 mmHg, Max Dose: 70 microgram/min, Route: IV, Dosing Weight 72.273 kg, Total Volume: 250, Start date: 05/17/17 13:38:00 FRAME CHANGER, Dura... Notes: Same as: Levophed. Administer by either central venous catheter or periph erally-inserted central catheter (PICC) line.Concentration: 0.032 mg / mL Start Date: 05/17/17 Stop Date: 05/19/17 Status: Discontinued lidocaine (ANES) Route: IV, Drug form: INJ, ONCE, Stop date: 05/16/17 10:45:00 FRAME CHANGER Start Date: 05/16/17 Stop Date: 05/16/17 Status: Completed lisinopril 2.5 mg, 0.5 tab, Route: PO, Drug form: TAB, Daily, Dosing Weight 72.273, kg, Sta rt date: 05/17/17 9:00:00 FRAME CHANGER, Duration: 30 day, Stop date: 06/15/17 9:00:00 FRAME CHANGER Notes: (Same as: Prinivil, Zestril) Start Date: 05/17/17 Stop Date: 05/20/17 Status: Discontinued Lovenox 40 mg, 0.4 mL, Route: SUB-Q, Drug form: INJ, [id number], Dosing Weight 72.273, kg, Start date: 05/17/17 9:00:00 FRAME CHANGER, Duration: 30 day, Stop date: 06/15/17 9:00:00 FRAME CHANGER Notes: (Same as: Lovenox) Start Date: 05/17/17 Stop Date: 05/25/17 Status: Discontinued magnesium oxide 800 mg, 2 tab, Route: PO, Drug form: TAB, PRN, Dosing Weight 72.273, kg, PRN Abn ormal Lab Result, FOR ICU USE ONLY, Start date: 05/18/17 9:12:00 FRAME CHANGER, Duration: 30 day, Stop date: 06/17/17 9:11:00 FRAME CHANGER Notes: (Same as: Mag-Ox 400)Magnesium oxide [id number] elemental magnesiumDose= ____mg magnesium oxide (___mg elemental magnesium) Start Date: 05/18/17 Stop Date: 05/20/17 Status: Discontinued magnesium sulfate 2 gm, 50 mL, Route: IVPB, Drug form: INJ, PRN, Dosing Weight 72.273, kg, PRN Abn ormal Lab Result, Start date: 05/18/17 9:12:00 FRAME CHANGER, Duration: 30 day, Stop date: 06/17/17 9:11:00 FRAME CHANGER, FOR ICU USE ONLY Notes: WASTE: F/P - Sink; E - Municipal Trash Bin Start Date: 05/18/17 Stop Date: 05/20/17 Status: Discontinued meropenem + Sodium Chloride 0.9% IV 100 mL 500 mg, Route: IVPB, [id number], Dosing Weight 72.273, kg, CrCL=30 -49 ml/min, Exten ded infusion, infuse over 3 hours, Priority: STAT, Start date: 05/18/17 18:24:0 0 FRAME CHANGER, Duration: 7 day, Stop date: 05/25/17 10:24:00 FRAME CHANGER, ABX Indication: Skin/S oft Tissue... Notes: Same as Merrem MEDICATION WASTE Product Size: 500 mgProduct Wast ed: ___ mg Start Date: 05/18/17 Stop Date: 05/25/17 Status: Completed morphine 1 mg/ml LINING STUFFER (30 mg/30 mL) INJ Syringe 30 mg 30 mg, 30 mL, Route: IV, LINING STUFFER Dose: 1 mg, LINING STUFFER Lockout: 15 minutes, Continuous Ba elena Rate: 0 mg, 4 Hour Limit (In MG): 24, Drug Form: INJ, Continuous, Start date : 05/16/17 16:39:00 FRAME CHANGER, Duration: 30 day, Stop date: 06/15/17 16:38:00 FRAME CHANGER Notes: Dose: Delay: Basal rate: 4hr limit:( Same as:Los) Start Date: 05/16/17 Stop Date: 05/17/17 Status: Discontinued morphine Sulfate 2 mg, 1 mL, Route: IVP, Drug form: INJ, Q4H, Dosing Weight 72.273, kg, PRN as ne eded for chest pain, Start date: 05/16/17 16:37:00 FRAME CHANGER, Stop date: 06/15/17 16:3 6:00 FRAME CHANGER Notes: (Same as:MORPhine Sulfate) Start Date: 05/16/17 Stop Date: 05/25/17 Status: Discontinued mupirocin topical 2% ointment 1 appl, Route: NASAL, Q12H, Drug form: OINT, Start date: 05/17/17 21:30:00 FRAME CHANGER, Duration: 5 day, Stop date: 05/22/17 21:00:00 FRAME CHANGER Start Date: 05/17/17 Stop Date: 05/22/17 Status: Completed naloxone 0.04 mg, 0.1 mL, Route: IVP, Drug form: INJ, Q2MIN, Dosing Weight 72.273, kg, MT N Narcotic Reversal, Start date: 05/16/17 16:39:00 FRAME CHANGER, Duration: 30 day, Stop d ate: 06/15/17 16:38:00 FRAME CHANGER Notes: Same as Narcan Start Date: 05/16/17 Stop Date: 05/25/17 Status: Discontinued norepinephrine (ANES) Route: IV, Drug form: INJ, ONCE, Stop date: 05/16/17 10:31:00 FRAME CHANGER Start Date: 05/16/17 Stop Date: 05/16/17 Status: Completed normal saline 0.9% IV 1,000 mL 1,000 mL, Rate: 75 ml/hr, Infuse over: 13.3 hr, Route: IV, Dosing Weight 71.477 kg, Total Volume: 1,000, Start date: 05/16/17 10:29:00 FRAME CHANGER, Duration: 30 day, St op date: 06/15/17 10:28:00 FRAME CHANGER, 1.88, m2 Start Date: 05/16/17 Stop Date: 05/17/17 Status: Discontinued ondansetron (ANES) Route: IV, Drug form: INJ, ONCE, Stop date: 05/16/17 10:41:00 FRAME CHANGER Start Date: 05/16/17 Stop Date: 05/16/17 Status: Completed pantoprazole 40 mg, Route: IVP, Drug form: INJ, Daily, Dosing Weight 72.273, kg, Start date: 05/17/17 12:00:00 FRAME CHANGER, Duration: 30 day, Stop date: 06/16/17 9:00:00 FRAME CHANGER Start Date: 05/17/17 Stop Date: 05/25/17 Status: Discontinued phenylephrine (ANES) Route: IV, Drug form: INJ, ONCE, Stop date: 05/16/17 10:31:00 FRAME CHANGER Start Date: 05/16/17 Stop Date: 05/16/17 Status: Completed potassium chloride 20 mEq, 1 tab, Route: PO, Drug form: ERTAB, PRN, Dosing Weight 72.273, kg, PRN A bnormal Lab Result, Start date: 05/18/17 9:12:00 FRAME CHANGER, Duration: 30 day, Stop coco e: 06/17/17 9:11:00 FRAME CHANGER, FOR ICU USE ONLY Notes: (Same as: K-Dur 20)"Do Not Crush" With food and full glass of water Start Date: 05/18/17 Stop Date: 05/20/17 Status: Discontinued potassium chloride 20 mEq, 15 mL, Route: NJ, Drug form: LIQ, PRN, Dosing Weight 72.273, kg, PRN Abn ormal Lab Result, Start date: 05/18/17 9:12:00 FRAME CHANGER, Duration: 30 day, Stop date: 06/17/17 9:11:00 FRAME CHANGER, FOR ICU USE ONLY Notes: (Same as: Potassium Chloride) Start Date: 05/18/17 Stop Date: 05/20/17 Status: Discontinued potassium chloride 40 mEq, 2 tab, Route: PO, Drug form: ERTAB, ONCE, Dosing Weight 72.273, kg, Star t date: 05/24/17 12:00:00 FRAME CHANGER, Stop date: 05/24/17 12:00:00 FRAME CHANGER Notes: (Same as: K-Dur 20)"Do Not Crush" With food and full glass of water Start Date: 05/24/17 Stop Date: 05/24/17 Status: Completed potassium chloride 40 mEq, 2 tab, Route: PO, Drug form: ERTAB, ONCE, Dosing Weight 72.273, kg, Star t date: 05/25/17 13:14:00 FRAME CHANGER, Stop date: 05/25/17 13:14:00 FRAME CHANGER Notes: (Same as: K-Dur 20)"Do Not Crush" With food and full glass of water Start Date: 05/25/17 Stop Date: 05/25/17 Status: Completed potassium chloride + Sodium Chloride 0.9% IV 90 mL 20 mEq, 10 mL, Route: IVPB, PRN, Dosing Weight 72.273, kg, PRN Abnormal Lab Resu lt, Via central line, Start date: 05/18/17 9:12:00 FRAME CHANGER, Duration: 30 day, Stop d ate: 06/17/17 9:11:00 FRAME CHANGER, FOR ICU USE ONLY Notes: MUST be Diluted before use(Same as: KCl) MEDICATION WASTE Product Size: 40 mEqProduct Wasted: _20__ mEq Start Date: 05/18/17 Stop Date: 05/20/17 Status: Discontinued potassium chloride + Sodium Chloride 0.9% IV 95 mL 10 mEq, 5 mL, Route: IVPB, PRN, Dosing Weight 72.273, kg, PRN Abnormal Lab Resul t, Via peripheral line, Start date: 05/18/17 9:12:00 FRAME CHANGER, Duration: 30 day, Stop date: 06/17/17 9:11:00 FRAME CHANGER, FOR ICU USE ONLY Notes: MUST be Diluted before use(Same as: KCl) MEDICATION WASTE Product Size: 40 mEqProduct Wasted: _30__ mEq Start Date: 05/18/17 Stop Date: 05/20/17 Status: Discontinued potassium phosphate + Sodium Chloride 0.9% IV 235 mL 45 mmol, 15 mL, Route: IVPB, PRN, Dosing Weight 72.273, kg, PRN Abnormal Lab Res ult, Start date: 05/18/17 9:12:00 FRAME CHANGER, Duration: 30 day, Stop date: 06/17/17 9:1 1:00 FRAME CHANGER, FOR ICU USE ONLY Notes: (Same as: K Phosphate.) 1 mMol phoshate has 1.47 mEq potassium Infuse o tesha 4 hours Start Date: 05/18/17 Stop Date: 05/20/17 Status: Discontinued potassium phosphate + Sodium Chloride 0.9% IV 240 mL 30 mmol, 10 mL, Route: IVPB, PRN, Dosing Weight 72.273, kg, PRN Abnormal Lab Res ult, Start date: 05/18/17 9:12:00 FRAME CHANGER, Duration: 30 day, Stop date: 06/17/17 9:1 1:00 FRAME CHANGER, FOR ICU USE ONLY Notes: (Same as: K Phosphate.) 1 mMol phoshate has 1.47 mEq potassium Infuse o tesha 4 hours Start Date: 05/18/17 Stop Date: 05/20/17 Status: Discontinued potassium phosphate + Sodium Chloride 0.9% IV 245 mL 15 mmol, 5 mL, Route: IVPB, PRN, Dosing Weight 72.273, kg, PRN Abnormal Lab Resu lt, Start date: 05/18/17 9:12:00 FRAME CHANGER, Duration: 30 day, Stop date: 06/17/17 9:11 :00 FRAME CHANGER, FOR ICU USE ONLY Notes: (Same as: K Phosphate.) 1 mMol phoshate has 1.47 mEq potassium Infuse o tesha 4 hours Start Date: 05/18/17 Stop Date: 05/20/17 Status: Discontinued potassium phosphate-sodium phosphate 250 mg-280 mg-160 mg oral powder for recons titution 2 pkt, Route: PO, Drug Form: PDR/REC, Dosing Weight 72.273, kg, PRN, PRN Abnorma l Lab Result, FOR ICU USE ONLY, Start date: 05/18/17 9:12:00 FRAME CHANGER, Duration: 30 d ay, Stop date: 06/17/17 9:11:00 FRAME CHANGER Notes: (Same as: Phos-NaK) Each 1.5 gm pkt has 250mg phosphorous. Mix w/2.5oz w ater and stir. Start Date: 05/18/17 Stop Date: 05/20/17 Status: Discontinued propofol (ANES) Route: IV, Drug form: INJ, ONCE, Stop date: 05/16/17 10:41:00 FRAME CHANGER Start Date: 05/16/17 Stop Date: 05/16/17 Status: Completed Protonix 40 mg, 1 tab, Route: PO, Drug form: ECTAB, Before Breakfast, Dosing Weight 72.27 3, kg, Start date: 05/17/17 7:30:00 FRAME CHANGER, Duration: 30 day, Stop date: 06/15/17 7 :30:00 FRAME CHANGER Notes: Tablet should not be chewed or crushed.(Same as: Protonix) Start Date: 05/17/17 Stop Date: 05/17/17 Status: Discontinued Robitussin 100 mg, 5 mL, Route: PO, Drug Form: LIQ, Dosing Weight 72.273, kg, Q4H, PRN as n eeded for congestion, Start date: 05/21/17 18:55:00 FRAME CHANGER, Duration: 1 day, Stop d ate: 05/22/17 18:54:00 FRAME CHANGER Notes: (Same as: Robitussin) Start Date: 05/21/17 Stop Date: 05/22/17 Status: Completed Robitussin 100 mg/5 mL oral liquid 100 mg, 5 mL, Route: PO, Drug form: LIQ, Q4H, Dosing Weight 72.273, kg, PRN as n eeded for congestion, Start date: 05/16/17 19:03:00 FRAME CHANGER, Duration: 30 day, Stop date: 06/15/17 19:02:00 FRAME CHANGER Notes: (Same as: Robitussin) Start Date: 05/16/17 Stop Date: 05/21/17 Status: Discontinued sacubitril-valsartan 1 tab, Route: PO, Drug Form: TAB, ONCE, Start date: 05/24/17 12:59:00 FRAME CHANGER, Stop date: 05/24/17 12:59:00 FRAME CHANGER Notes: (Same as: Entresto)Avoid in patients with history of angioedema due to AC E inhibitor or ARB therapy. Do not use concomitantly or within 36 hours of BRANDON inhibitors Start Date: 05/24/17 Stop Date: 05/24/17 Status: Completed sodium phosphate + Dextrose 5% in Water IV 235 mL 45 mmol, 15 mL, Route: IVPB, PRN, Dosing Weight 72.273, kg, PRN Abnormal Lab Res ult, Start date: 05/18/17 9:12:00 FRAME CHANGER, Duration: 30 day, Stop date: 06/17/17 9:1 1:00 FRAME CHANGER, FOR ICU USE ONLY Start Date: 05/18/17 Stop Date: 05/20/17 Status: Discontinued sodium phosphate + Dextrose 5% in Water IV 240 mL 30 mmol, 10 mL, Route: IVPB, PRN, Dosing Weight 72.273, kg, PRN Abnormal Lab Res ult, Start date: 05/18/17 9:12:00 FRAME CHANGER, Duration: 30 day, Stop date: 06/17/17 9:1 1:00 FRAME CHANGER, FOR ICU USE ONLY Start Date: 05/18/17 Stop Date: 05/20/17 Status: Discontinued sodium phosphate + Dextrose 5% in Water IV 245 mL 15 mmol, 5 mL, Route: IVPB, PRN, Dosing Weight 72.273, kg, PRN Abnormal Lab Resu lt, Start date: 05/18/17 9:12:00 FRAME CHANGER, Duration: 30 day, Stop date: 06/17/17 9:11 :00 FRAME CHANGER, FOR ICU USE ONLY Start Date: 05/18/17 Stop Date: 05/20/17 Status: Discontinued spironolactone 25 mg, 1 tab, Route: PO, Drug form: TAB, Daily, Dosing Weight 72.273, kg, Start date: 05/21/17 9:00:00 FRAME CHANGER, Duration: 30 day, Stop date: 06/19/17 9:00:00 FRAME CHANGER Notes: (Same As: Aldactone) Start Date: 05/21/17 Stop Date: 05/25/17 Status: Discontinued Tylenol 650 mg, 2 tab, Route: PO, Drug form: TAB, Q6H, Dosing Weight 72.273, kg, PRN For Temp > 100.4 F, Start date: 05/16/17 17:58:00 FRAME CHANGER, Duration: 30 day, Stop date: 06/15/17 17:57:00 FRAME CHANGER Notes: Do not exceed 4 gm/day. (Same as: Tylenol) Start Date: 05/16/17 Stop Date: 05/25/17 Status: Discontinued vasopressin 40 unit in NS 100 mL IV 40 unit + Sodium Chloride 0.9% IV 98 mL 40 unit, 2 mL, Rate: Per Physician Orders, Start Dose: 0.03 unit/min, Titration: Do Not Titrate for Sepsis., Goal(s): MAP >=65 mmHg, Route: IV, Dosing Weight 72.273 kg, Total Volume: 100, Start date: 05/19/17 12:44:00 FRAME CHANGER, Duration: 30 day, Stop date... Notes: (Same As: Pitressin, Vasostrict) Start Date: 05/19/17 Stop Date: 05/20/17 Status: Discontinued Versed 2 mg, 2 mL, Route: IVP, Drug form: INJ, Q2H, Dosing Weight 72.273, kg, PRN Agita tion, Start date: 05/17/17 11:12:00 FRAME CHANGER, Duration: 30 day, Stop date: 06/16/17 1 1:11:00 FRAME CHANGER Notes: (Same as: Versed) MEDICATION WASTE Product Size: 2 mgProduct Was rajat: _0_ mg Start Date: 05/17/17 Stop Date: 05/25/17 Status: Discontinued Results ELECTROLYTES 1 2 3 Most recent to oldest [Reference Range]: 140 mEq/L (05/25/17 9:35 AM) 136 mEq/L (05/24/17 6:57 AM) 137 mEq/L (05/23/17 6:55 AM) Sodium Lvl [135-145 mEq/L] 3.4 mEq/L *LOW* (05/25/17 9:35 AM) 3.3 mEq/L *LOW* (05/24/17 6:57 AM) 3.1 mEq/L *LOW* (05/23/17 6:55 AM) Potassium Lvl [3.5-5.1 mEq/L] 103 mEq/L (05/25/17 9:35 AM) 100 mEq/L (05/24/17 6:57 AM) 99 mEq/L (05/23/17 6:55 AM) Chloride Lvl [95-109 mEq/L] 28 mEq/L (05/25/17 9:35 AM) 28 mEq/L (05/24/17 6:57 AM) 30 mEq/L (05/23/17 6:55 AM) CO2 [24-32 mEq/L] 12.4 mEq/L (05/25/17 9:35 AM) 11.3 mEq/L (05/24/17 6:57 AM) 11.1 mEq/L (05/23/17 6:55 AM) AGAP [10.0-20.0 mEq/L] CHEM PANEL 1 2 3 Most recent to oldest [Reference Range]: 0.82 mg/dL (05/25/17 9:35 AM) 0.98 mg/dL (05/24/17 6:57 AM) 0.95 mg/dL (05/23/17 6:55 AM) Creatinine Lvl [0.50-1.40 mg/dL] 85 mL/min/1.73m2 1 *NA* (05/25/17 9:35 AM) 74 mL/min/1.73m2 2 *NA* (05/24/17 6:57 AM) 76 mL/min/1.73m2 3 *NA* (05/23/17 6:55 AM) eGFR 21 mg/dL (05/25/17 9:35 AM) 29 mg/dL *HI* (05/24/17 6:57 AM) 30 mg/dL *HI* (05/23/17 6:55 AM) BUN [7-22 mg/dL] 15 (05/17/17 7:51 AM) B/C Ratio [6-25] 99 mg/dL (05/25/17 9:35 AM) 126 mg/dL *HI* (05/24/17 6:57 AM) 83 mg/dL (05/23/17 6:55 AM) Glucose Lvl [70-99 mg/dL] 5.3 g/dL *LOW* (05/17/17 7:51 AM) Total Protein [6.4-8.4 g/dL] 2.6 g/dL *LOW* (05/17/17 7:51 AM) Albumin Lvl [3.5-5.0 g/dL] 2.7 g/dL (05/17/17 7:51 AM) Globulin [2.7-4.2 g/dL] 1.0 (05/17/17 7:51 AM) A/G Ratio [0.7-1.6] 7.6 mg/dL *LOW* (05/25/17 9:35 AM) 7.7 mg/dL *LOW* (05/24/17 6:57 AM) 7.6 mg/dL *LOW* (05/23/17 6:55 AM) Calcium Lvl [8.5-10.5 mg/dL] 2.3 mg/dL *LOW* (05/21/17 8:02 AM) 2.6 mg/dL (05/20/17 6:14 AM) 2.9 mg/dL (05/19/17 6:12 AM) Phosphorus [2.5-4.5 mg/dL] 1.8 mg/dL (05/21/17 8:02 AM) 2.1 mg/dL (05/20/17 6:14 AM) 2.4 mg/dL (05/19/17 6:12 AM) Magnesium Lvl [1.8-2.4 mg/dL] 15 unit/L (05/17/17 7:51 AM) ALT [0-65 unit/L] 18 unit/L (05/17/17 7:51 AM) AST [0-37 unit/L] 68 unit/L (05/17/17 7:51 AM) Alk Phos [39-136 unit/L] 0.8 mg/dL (05/17/17 7:51 AM) Bili Total [0.2-1.3 mg/dL] 1Result Comment: [...] be mul tiplied by the estimated BMI. CARDIAC ENZYMES 1 2 3 Most recent to oldest [Reference Range]: 373 pg/mL *HI* (05/24/17 6:57 AM) 475 pg/mL *HI* (05/17/17 7:51 AM) BNP [<=100 pg/mL] SPECIAL CHEMISTRY 1 2 3 Most recent to oldest [Reference Range]: 7.0 % *HI* (05/19/17 6:12 AM) Hgb A1C [<=5.6 %] IMMUNOLOGY 1 2 3 Most recent to oldest [Reference Range]: 9.6 mg/dL *LOW* (05/19/17 6:12 AM) Prealbumin [18.0-45.0 mg/dL] HEMATOLOGY 1 2 3 Most recent to oldest [Reference Range]: 5.1 K/CMM (05/25/17 7:11 AM) 4.1 K/CMM (05/24/17 6:57 AM) 3.0 K/CMM *LOW* (05/23/17 6:55 AM) WBC [3.7-10.4 K/CMM] 3.67 M/CMM *LOW* (05/25/17 7:11 AM) 3.94 M/CMM *LOW* (05/24/17 6:57 AM) 3.77 M/CMM *LOW* (05/23/17 6:55 AM) RBC [4.70-6.10 M/CMM] 10.3 g/dL *LOW* (05/25/17 7:11 AM) 11.0 g/dL *LOW* (05/24/17 6:57 AM) 10.5 g/dL *LOW* (05/23/17 6:55 AM) Hgb [14.0-18.0 g/dL] 30.7 % *LOW* (05/25/17 7:11 AM) 32.6 % *LOW* (05/24/17 6:57 AM) 31.4 % *LOW* (05/23/17 6:55 AM) Hct [42.0-54.0 %] 83.5 fL (05/25/17 7:11 AM) 82.6 fL (05/24/17 6:57 AM) 83.3 fL (05/23/17 6:55 AM) MCV [80.0-94.0 fL] 28.1 pg (05/25/17 7:11 AM) 27.9 pg (05/24/17 6:57 AM) 27.8 pg (05/23/17 6:55 AM) MCH [27.0-31.0 pg] 33.7 g/dL (05/25/17 7:11 AM) 33.7 g/dL (05/24/17 6:57 AM) 33.4 g/dL (05/23/17 6:55 AM) MCHC [32.0-36.0 g/dL] 15.5 % *HI* (05/25/17 7:11 AM) 15.5 % *HI* (05/24/17 6:57 AM) 15.1 % *HI* (05/23/17 6:55 AM) RDW [11.5-14.5 %] 8.5 fL (05/25/17 7:11 AM) 8.8 fL (05/24/17 6:57 AM) 8.6 fL (05/23/17 6:55 AM) MPV [7.4-10.4 fL] 203 K/CMM (05/25/17 7:11 AM) 182 K/CMM (05/24/17 6:57 AM) 137 K/CMM (05/23/17 6:55 AM) Platelet [133-450 K/CMM] 71.1 % (05/25/17 7:11 AM) 64.2 % (05/24/17 6:57 AM) 58.7 % (05/23/17 6:55 AM) Segs [45.0-75.0 %] 14.0 % *LOW* (05/25/17 7:11 AM) 15.4 % *LOW* (05/24/17 6:57 AM) 22.2 % (05/23/17 6:55 AM) Lymphocytes [20.0-40.0 %] 12.7 % *HI* (05/25/17 7:11 AM) 17.8 % *HI* (05/24/17 6:57 AM) 17.3 % *HI* (05/23/17 6:55 AM) Monocytes [2.0-12.0 %] 1.7 % (05/25/17 7:11 AM) 2.1 % (05/24/17 6:57 AM) 1.3 % (05/23/17 6:55 AM) Eosinophils [0.0-4.0 %] 0.5 % (05/25/17 7:11 AM) 0.5 % (05/24/17 6:57 AM) 0.5 % (05/23/17 6:55 AM) Basophils [0.0-1.0 %] 3.6 K/CMM (05/25/17 7:11 AM) 2.6 K/CMM (05/24/17 6:57 AM) 1.8 K/CMM (05/23/17 6:55 AM) Segs-Bands # [1.5-8.1 K/CMM] 0.7 K/CMM *LOW* (05/25/17 7:11 AM) 0.6 K/CMM *LOW* (05/24/17 6:57 AM) 0.7 K/CMM *LOW* (05/23/17 6:55 AM) Lymphocytes # [1.0-5.5 K/CMM] 0.6 K/CMM (05/25/17 7:11 AM) 0.7 K/CMM (05/24/17 6:57 AM) 0.5 K/CMM (05/23/17 6:55 AM) Monocytes # [0.0-0.8 K/CMM] 0.1 K/CMM (05/25/17 7:11 AM) 0.1 K/CMM (05/24/17 6:57 AM) 0.1 K/CMM (05/16/17 3:32 PM) Eosinophils # [0.0-0.5 K/CMM] 0.1 K/CMM (05/16/17 3:32 PM) 0.1 K/CMM (05/16/17 7:00 AM) Basophils # [0.0-0.2 K/CMM] 14.4 seconds (05/16/17 7:00 AM) PT [12.0-14.7 seconds] 1.12 (05/16/17 7:00 AM) INR [0.85-1.17] 33.2 seconds (05/16/17 7:00 AM) PTT [22.9-35.8 seconds] Immunizations No data [...] No entered on: 05/16/17 Assessment and Plan Extracted from: Title: UIP Hospitalist Discharge Author: Lula Britton MD Date: 05/25/17 Summary [facility] Hospitalist Discharge Summary Code Status: Full Code [Ordered] Admission Date: 05/16/2017 Discharge Date: 05/25/2017 Discharge Diagnosis: 1. Acute on chronic systolic CHF 2. A fib 3, Nonhealing leg wound 4. DM Consulting Physicians: Consulting Physicians: Guilherme Velazco MDOffice: Service: Cardiology Brody Francisco MDOffice: Service: Thoracic/Cardiac Surgery Kyree Beckett MDOffice: Service: Pulmonary, Medicine CatherineSolomon MDOffice: service: Medicine Discharge Condition: fair Hospital Course: his is a 76 year old M with a hx of CAD, NSTEMI, A fib, DM, and HTN who was taken to the OR today for wound debridement. Apparently in March, underwent salvage CABG, that ultimately required ECMO, now with a nonhealing leg wound after needing saphenous vein harvesting. He was taken to the OR 05/16 for debridement. He has hx of A fib, for which he is on Eliquis. This was stopped in anticipation of surgery. Patient was supposed to be taken back to the OR for wound vac placement, however, in the PACU he sstarted experiencing respiratory distress requiring intubation. CXR showed pulmonary edema. Cardiology consulted for acute CHF. Was placed on IV lasix. Mechanical ventilation eventually weaned and patient transferred to floor. He currently has a wound vac in place. Currently doing well and plan is to transfer to LTACH. No procedure planned at this point, therefore, Cardiology ok with restarting anticoagulation. Was also started on Aspirin and Entresto. Physical Exam: General: Awake, alert, oriented x 3, NAD Neck: Supple, full ROM Heart: RRR, normal S1, S2. No murmurs, rubs, gallops Lungs: Clear to auscultation bilaterally. Symmetric chest wall expansion. Discharge Instructions: Notify your physician if: Shortness of Breath Discharge Activity: Activity: No restrictions Discharge Diet: Diet: Heart Healthy Diet Discharge Medications: Refer to EMR for full list of medications Discharge Follow up: Follow Up With: Guilherme Velazco MD Follow Up When: 2 Weeks Reason for Follow Up: Follow Up on Treatment Time spent on discharge planning: > 30 minutes Lula Britton MD [facility] Inpatient Providers Extracted from: Title: Cardiology Progress Note Author: Ro Hsieh MD Date: 05/25/17 Impression and Plan 1. Acute on chronic systolic heart failure 2. Acute hypoxic respiratory failure status post intubation, now extubated 3. CAD s/p CABG X 2 4. DM 5. HTN 6. Atrial fibrillation 7. Left lower extremity non-healing wound 8. Cough Plan: 1. Continue current cardiac medications. 2. Continue diuresis. BNP better but still elevated. 3. Strict I/O. Daily weights. 4. Resume Eliquis if no further procedures are planned. 5. Monitor on telemetry. 6. Being evaluated for LTAC. The patient was seen and examined by me with the resident/SERVICE COORDINATOR [facility]/PA and I agree with the History/Exam documented. Extracted from: Title: P Hospitalist Admission Author: Lula Britton MD Date: 05/16/17 [facility] Providers Hospitalist Admission History & Physical Code Status: Full Code [Ordered] Chief Complaint: leg pain History of Present Illness: This is a 76 year old M with a hx of CAD, NSTEMI, A fib, DM, and HTN who was taken to the OR today for wound debridement. Apparently in March, underwent salvage CABG, that ultimately required ECMO, now with a nonhealing leg wound after needing saphenous vein harvesting. He was taken to the OR today for debridement. Currently s/p surgery, wound is wrapped. Patient states he was told he might need repeat procedure for wound vac and evaluation for grafts by plastics. Currently doing well. He has hx of A fib, for which he is on Eliquis. This was stopped in anticipation of surgery. Continues to take plavix. Denies fevers, chills, chest pain, and SOB. Review of Systems: as mentioned in HPI Past Medical History: IABP - Intra-aortic balloon pumpin09/08/11 CHF (congestive heart failure) ID (myocardial infarction) Hiatal hernia Indigestion Ventricular fibrillation Acoustic neuroma Past Surgical History: CABG x 2 - Coronary artery bypass grafts x 2: 03/2017 Implantation of automatic cardioverter/defibrillator, total system (AICD): 05/2016 ACD - Automatic cardiac defibrillator procedure Stent placement Family History: Mother: Type 2 diabetes mellitus Brother: High blood pressure; Stroke Sister: Type 2 diabetes mellitus Social History: Alcohol Details: Never Details: Never Tobacco Details: Use: Never smoker. Tobacco smoke exposure: None. Did the Patient Smoke Cigarettes Anytime During the Last 365 Days? No. Cessation Counseling Provided? No. Details: Use: Never smoker. Tobacco smoke exposure: None. Did the Patient Smoke Cigarettes Anytime During the Last 365 Days? No. Cessation Counseling Provided? No. Substance Abuse Details: Use: None. Medications: Medications (24) Active Scheduled Meds (8): 05/16/17 atorvastatin 40 mg PO Bedtime 05/17/17 carvedilol 3.125 mg PO BID 05/16/17 ceFAZolin + sterile water 20 mL (Ancef + sterile water 20 mL) 2 gm IVP Q8H 200 ml/hr 05/17/17 clopidogrel 75 mg PO Daily 05/16/17 enoxaparin (Lovenox) 40 mg SUB-Q [id number] 05/17/17 insulin glargine (insulin glargine 100 units/mL subcutaneous solution) 16 unit SUB-Q BID 05/17/17 lisinopril 2.5 mg PO Daily 05/17/17 pantoprazole (Protonix) 40 mg PO Before Breakfast Unscheduled Meds: None PRN Meds (4): 05/16/17 acetaminophen 650 mg PO Q6H 05/16/17 acetaminophen (Tylenol) 650 mg PO Q6H 05/16/17 morphine Sulfate 2 mg IVP Q4H 05/16/17 naloxone 0.04 mg IVP Q2MIN One Time Meds (10): 05/16/17 (Discontinued) albuterol-ipratropium (albuterol-ipratropium 2.5-0.5 mg inhalation solution) 3 mL NEB ONCE (Completed) ePHEDrine (ePHEDrine (ANES)) IV ONCE (Completed) etomidate (Amidate (ANES)) IV ONCE (Completed) famotidine (famotidine (ANES)) IV ONCE (Completed) fentaNYL (fentaNYL (ANES)) IV ONCE (Completed) lidocaine (lidocaine (ANES)) IV ONCE (Completed) norepinephrine (norepinephrine (ANES)) IV ONCE (Completed) ondansetron (ondansetron (ANES)) IV ONCE (Completed) phenylephrine (phenylephrine (ANES)) IV ONCE (Completed) propofol (propofol (ANES)) IV ONCE Continuous Infusions (2): 05/16/17 Sodium Chloride 0.9% IV 1,000 mL (normal saline 0.9% IV 1,000 mL) 1,000 mL 75 ml/hr 05/16/17 morphine Sulfate 30 mg (morphine 1 mg/ml LINING STUFFER (30 mg/30 mL) INJ Syringe 30 mg) 30 mg Per LINING STUFFER Order as Directed Allergies (2) ActiveReaction TapeNone documented chlorhexidine topicalNone documented Allergies: Physical Exam: VitalsTmp(F)[id number] 05/16 16:30----[id number]--- 05/16 16:00----[id number]--- 05/16 15:45----[id number]--- 05/16 15:4299.9 97--- 05/16 15:30----[id number]------ 24 Hr Tmax: 99.9F (37.72c) at 05/16 15:42Vital Signs are the last 5 in the past 48 hours. General: Awake, alert, oriented x 3, NAD HEENT: PERRLA, EOMI. MMM and intact without erythema. No conjunctival injection. No scleral icterus. Neck: Supple, full ROM Heart: RRR, normal S1, S2. No murmurs, rubs, gallops Lungs: Clear to auscultation bilaterally. Symmetric chest wall expansion. Abdomen: Soft, non-tender to palpation, non-distended. Bowel sound present in all 4 quadrants. MSK: L leg wrapped in BRANDON bandage Skin: No rashes or lesions. No petechiae or bruising noted. Neuro: CN II-XII grossly intact. Psych: Appropriate mood and affect. Lines, Tubes, and Drains: 05/16/2017 08:00 Peripheral Lines: Hand Right 20 gauge Over the needle catheter Labs: Hct: 34.4 % Low (05/16/17 15:43:53) Hgb: 11.4 g/dL Low (05/16/17 15:43:53) MCH: 28.7 pg (05/16/17 15:43:53) MCHC: 33 g/dL (05/16/17 15:43:53) MCV: 86.8 fL (05/16/17 15:43:53) MPV: 8.3 fL (05/16/17 15:43:53) Platelet: 174 K/CMM (05/16/17 15:43:53) RBC: 3.97 M/CMM Low (05/16/17 15:43:53) RDW: 15.5 % High (05/16/17 15:43:53) WBC: 6.8 K/CMM (05/16/17 15:43:53) CO2: 28 mEq/L (05/16/17 16:04:13) Chloride Lvl: 104 mEq/L (05/16/17 16:04:13) Sodium Lvl: 140 mEq/L (05/16/17 16:04:13) Glucose Lvl: 99 mg/dL (05/16/17 16:04:13) Calcium Lvl: 8.6 mg/dL (05/16/17 16:04:13) Potassium Lvl: 4.1 mEq/L (05/16/17 16:04:13) BUN: 20 mg/dL (05/16/17 16:04:13) AGAP: 12.1 mEq/L (05/16/17 16:04:13) Creatinine Lvl: 1.13 mg/dL (05/16/17 16:04:13) Imaging: Reviewed Assessment/Plan: 1. Nonhealing leg wound s/p debridement 2. A fib 3. HTN 4. DM 5. CAD Plan: -continue IV abx, f/u cultures -continue BB, BRANDON-i, statin, plavix -hold eliquis in anticipation of more surgery -home dose insulin, diabetic diet Prophylaxis: Lovenox Disposition: pending clinical improvement, more surgery Lula Britton MD Hospitalist [facility] Providers Extracted from: Title: Clinical Document Author: Brody Francisco MD Date: 05/16/17 pre op: s/p Salvage CABG (03/2017); with left leg wound Procedure: left leg debridement ariel la lsa r progress lsa 50cc EBL wound packed with 4x4 no comps specimen for culture and path.
[2018-04-20] MEDS ORDERED: POTASSIUM CHLO10 MEQ PO (20:58)
[2018-04-20] MEDS ORDERED: PRAVASTATIN SOD40 MG PO (20:58)
[2018-04-20] MEDS ORDERED: FUROSEMIDE40 MG PO (20:58)
[2018-04-20] MEDS ORDERED: METOPROLOL SUCC25 MG PO (20:58)
[2018-04-20] MEDS ORDERED: NOVOLOG MI100 UNIT/1 SQ (20:58)
[2018-04-20] MEDS ORDERED: PRAVASTATIN SOD10 MG PO (20:58)
[2018-04-20] MEDS ORDERED: SPIRONOLACTONE25 MG PO (20:58)
[2018-04-20] MEDS ORDERED: PANTOPRAZOLE SO40 MG PO (20:58)
[2018-04-20] MEDS ORDERED: ELIQUIS PO (20:58)
[2018-04-20] MEDS ORDERED: ENTRESTO PO (20:58)
[2018-04-20] MEDS ORDERED: FUROSEMIDE INJ 10 MG/ML 4 ML VIAL IV ONE (21:00)
[2018-04-20] MEDS ORDERED: FUROSEMIDE INJ 10 MG/ML 4 ML VIAL ONE (21:00)
[2018-04-20 21:14] LABS: BASOPHILS # (AUTO) 0.1 (0.0-0.1); BASOPHILS % 0.6 % (0.0-1.0); EOSINOPHILS # (AUTO) 0.2 (0.0-0.4); HEMOGLOBIN 12.6 g/dL (14.0-18.0); LYMPHOCYTES % 9.1 % (18.0-39.1); MEAN CORPUSCULAR HGB CONC 31.5 g/dL (31-35); MEAN CORPUSCULAR VOLUME 79.4 fL (81-99); MONOCYTES # (AUTO) 1.3 (0.2-0.8); MONOCYTES % 11.7 % (4.4-11.3); NEUTROPHILS # (AUTO) 8.2 (2.1-6.9); PLATELET COUNT 243 x10e3/uL (140-360); RED BLOOD COUNT 5.04 x10e6/uL (4.3-5.7); RED CELL DISTRIBUTION WIDTH 16.2 % (11.7-14.4)
[2018-04-20 21:36] LABS: INR 1.14; PROTHROMBIN TIME 15.6 seconds (11.9-14.5)
[2018-04-20 21:37] LABS: PARTIAL THROMBOPLASTIN TIME 42.6 seconds (23.8-35.5)
[2018-04-20 21:45] LABS: ALBUMIN 3.5 g/dL (3.5-5.0); ALBUMIN/GLOBULIN RATIO 0.9 (0.8-2.0); ANION GAP 18.7 mmol/L (8-16); CALCIUM 9.2 mg/dL (8.4-10.2); CREATININE, SERUM 1.65 mg/dL (0.72-1.25); POTASSIUM 3.7 mmol/L (3.5-5.1)
[2018-04-20] MEDS ORDERED: ALBUTEROL/IPRATROPIUM 3 ML NEB NEB ONE (21:45)
[2018-04-20 21:52] LABS: CREATINE KINASE MB 5.1 ng/mL (0-5.0)
[2018-04-20 21:55] LABS: CLARITY,URINE CLEAR (CLEAR); COLOR,URINE YELLOW (YELLOW)
[2018-04-20 21:56] LABS: BILIRUBIN,URINE NEGATIVE (NEGATIVE); KETONES,URINE NEGATIVE (NEGATIVE); LEUKOCYTE ESTERASE ,URINE NEGATIVE (NEGATIVE); NITRITE,URINE NEGATIVE (NEGATIVE); PROTEIN,URINE DIPSTICK 1+ (NEGATIVE); URINE UROBILINOGEN 0.2 mg/dL (0.2 - 1)
[2018-04-20 22:08] LABS: BACTERIA,URINE FEW /HPF; EPITHELIAL CELLS,URINE RARE /LPF; RBC,URINE 0-5 /HPF (0-5); WBC,URINE (MAN) 0-5 /HPF (0-5)
[2018-04-20] MEDS ORDERED: ASPIR 8181 MG PO (22:27)
[2018-04-20] MEDS ORDERED: ASPIR-LOW81 MG PO (22:28)
[2018-04-20] MEDS ORDERED: DEXTROSE 50% SYRINGE 50 ML IV PRN (22:30)
--- NOTE | 2018-04-20 22:42 | Diagnostic Imaging Report ---
EXAMINATION: CHEST SINGLE (PORTABLE) INDICATION: sob, h/o chf COMPARISON: None FINDINGS: AP view TUBES and LINES: Left chest wall ICD with lead tips overlying the right atrium and right ventricle. LUNGS: Lungs are well inflated. Right upper lobe patchy airspace opacities. Interstitial markings extending from the brooks to the periphery. PLEURA: No pleural effusion or pneumothorax. HEART AND MEDIASTINUM: The cardiomediastinal silhouette is unremarkable. BONES AND SOFT TISSUES: No acute osseous lesion. Median sternotomy wires. Soft tissues are unremarkable. UPPER ABDOMEN: No free air under the diaphragm. IMPRESSION: Mild interstitial edema with right upper lobe patchy opacities concerning for pneumonia. Asymmetric edema may have a similar appearance. Signed by: DR. Yovany Avelar MD on 04/20/2018 10:38 PM
[2018-04-20] MEDS: ATORVASTATIN 10 MG TAB PO SCH (23:09)
[2018-04-20] MEDS: APIXABAN 5 MG TABLET PO SCH (23:09)
--- OUTSIDE RECORDS SUMMARY | 2018-04-20 23:12 | XMS REPORT ---
Author Author [facility] Address Unknown Phone Unavailable Care Team Providers Care Regional Branch Manager Name Role Phone Kait BENTLEY Unavailable Unavailable Problems This patient has no known problems. Allergies, Adverse Reactions, Alerts This patient has no known allergies or adverse reactions. Medications This patient has no known medications. Results Test Description Test Time Test Comments Text Results Atomic Results Result Comments CHEST SINGLE (PORTABLE) 2018-04-20 22:36:00 [place] [id number] Patient Name: CORINE MALDONADO MR #: [id number] : 1940 Age/Sex: 77/M Req #: [id number] Adm Physician: Ordered by: ROSALIA BENTLEY MD Report #: [id number] Location: ER Room/Bed: Procedure: [id number] DX/CHEST SINGLE (PORTABLE) Exam Date: 04/20/18 Exam Time: 2129 REPORT STATUS: Signed EXAMINATION: CHEST SINGLE (PORTABLE) I NDICATION: sob, h/o chf COMPARISON: None FINDINGS: AP view TUBES and LINES: Left chest wall ICD with lead tips overlying the right atrium and right ventricle. LUNGS: Lungs are well inflated. Right upper lobe patchy airspace opacities. Interstitial markings extending from the brooks to the periphery. PLEURA: No pleural effusion or pneumothorax. HEART AND MEDIASTINUM: The cardiomediastinal silhouette is unremarkable. BONES AND SOFT TISSUES: No acute osseous lesion. Median sternotomy wires. Soft tissues are unremarkable. UPPER ABDOMEN: No free air under the diaphragm. IMPRESSION: Mild interstitial edema with right upper lobe patchy opacities concerning for pneumonia. Asymmetric edema may have a similar appearance. Signed by: DR. Yovany Avelar MD on 04/20/2018 10:38 PM Dictated By: YOVANY AVELAR MD 37 Transcribed By: GHULAM on 04/20/182237 COPY TO: ROSALIA BENTLEY MD
[2018-04-20] MEDS ORDERED: CEFTRIAXONE SOD 1 GM/NS 50 ML 50 ML IV ONE (23:16)
[2018-04-20] MEDS: AZITHROMYCIN 500MG/NS 250 ML 250 ML IV SCH (23:17)
[2018-04-20] MEDS: CEFTRIAXONE SOD 1 GM VIAL IV SCH (23:17)
[2018-04-21] MEDS: ALBUTEROL/IPRATROPIUM 3 ML NEB NEB SCH ×7 (00:30→23:50)
--- NOTE | 2018-04-21 01:26 | Diagnostic Imaging Report ---
EXAM: CT Chest WITHOUT contrast INDICATION: EVAL FINDINGS IN RUL COMPARISON: Same-day chest x-ray. TECHNIQUE: Chest was scanned utilizing a multidetector helical scanner from the lung apex through the level of the adrenal glands without administration of IV contrast. Absence of intravenous contrast decreases sensitivity for detection of lymphadenopathy and vascular pathology. Coronal and sagittal reformations were obtained. Routine protocol was performed. IV CONTRAST: None COMPLICATIONS: None RADIATION DOSE: Total DLP: 536 mGy*cm Estimated effective dose: (DLP x 0.014 x size factor) mSv CTDIvol has been reviewed. It is below the limits set by the Radiation Protocol Committee (RPC) Dose modulation, iterative reconstruction, and/or weight based adjustment of the mA/kV was utilized to reduce the radiation dose to as low as reasonably achievable.. FINDINGS: LINES/ TUBES: Left chest wall ICD with leads LUNGS AND AIRWAYS: Smooth interlobular septal thickening with dependent groundglass opacities suggestive of edema. Additional focal groundglass and patchy in the right upper lobe and groundglass opacities in the left upper lobe. Airways are normal. PLEURA: Small to moderate right and small left pleural effusions. HEART AND MEDIASTINUM: The thyroid gland is normal. No mediastinal, hilar or axillary lymphadenopathy. The heart is normal in size.. There is no pericardial effusion. There are mild atherosclerotic calcifications in the aorta. Three vessel coronary arteries calcifications. UPPER ABDOMEN: Right superior pole 2.4 cm renal cyst. Partially visualized fluid attenuating likely cyst in the interpolar region of the left kidney measuring at least 2.4 cm. Scattered colonic diverticula without evidence of diverticulitis of the visualized portions. BONES: There are degenerative changes in the thoracic spine. SOFT TISSUES: Unremarkable. IMPRESSION: Right upper lobe patchy and groundglass opacities and left upper lobe groundglass opacities concerning for pneumonia. Asymmetric asymmetric edema may have a similar appearance but less likely. Mild interstitial edema with bilateral pleural effusions. Signed by: DR. Yovany Avelar MD on 04/21/2018 1:23 AM
[2018-04-21 05:37] LABS: CREATINE KINASE MB 4.6 ng/mL (0-5.0)
[2018-04-21 06:33] LABS: CHOL/HDL RATIO 3.6 (3.9-4.7)
--- NOTE | 2018-04-21 06:45 | Diagnostic Imaging Report ---
EXAMINATION: CHEST SINGLE (PORTABLE) INDICATION: ^CHF, DYSPNEA ^Y COMPARISON: Chest CT 04/21/2018, chest x-ray 04/20/2018 FINDINGS: AP view TUBES and LINES: Left chest wall ICD. LUNGS: Stable edema with right upper lobe patchy opacity. PLEURA: Small pleural effusions. No pneumothorax. HEART AND MEDIASTINUM: Stable enlargement of the cardiac silhouette. BONES AND SOFT TISSUES: No acute osseous lesion. Median sternotomy wires. Soft tissues are unremarkable. UPPER ABDOMEN: No free air under the diaphragm. IMPRESSION: Stable edema and right upper lobe patchy opacity concerning for pneumonia. Signed by: DR. Yovany Avelar MD on 04/21/2018 6:41 AM
--- NOTE | 2018-04-21 07:13 | NUR ---
RECEIVED REPORT FROM IVANA ADAMS GRADE TAMPER NURSE.
[2018-04-21] MEDS: INSULIN REGULAR, HUMAN 100 UNIT/1 ML 3ML VIAL SQ SCH ×4 (08:42→21:00)
[2018-04-21] MEDS ORDERED: METOPROLOL SUCCINATE 25 MG TAB XL PO SCH (09:00)
[2018-04-21] MEDS ORDERED: NON-FORMULARY MEDICATION ([Eliquis] 5 MG) PO SCH (09:00)
[2018-04-21] MEDS ORDERED: ASPIRIN 81 MG CHEW TAB PO SCH (09:00)
[2018-04-21] MEDS ORDERED: NON-FORMULARY MEDICATION (Pravastatin Sodium 10 MG) PO SCH (09:00)
[2018-04-21] MEDS ORDERED: SPIRONOLACTONE 25 MG TAB PO SCH (09:00)
[2018-04-21] MEDS: FUROSEMIDE INJ 10 MG/ML 4 ML VIAL IV SCH ×2 (10:50→18:23)
[2018-04-21] MEDS: METOPROLOL SUCCINATE 25 MG TAB XL PO SCH (10:50)
[2018-04-21] MEDS: POTASSIUM CHLORIDE 10MEQ EA PO SCH (10:58)
[2018-04-21] MEDS: ASPIRIN 81 MG CHEW TAB PO SCH (10:58)
[2018-04-21] MEDS: APIXABAN 5 MG TABLET PO SCH ×2 (10:58→18:23)
[2018-04-21] MEDS: PANTOPRAZOLE SOD 40 MG TABEC PO SCH (11:01)
--- NOTE | 2018-04-21 11:03 | Consultation ---
DATE OF CONSULTATION: April 21, 2018 CARDIOLOGY CONSULTATION REASON FOR CONSULTATION: Vqwui-rw-[id number] systolic CHF exacerbation. CHIEF COMPLAINT: Shortness of breath. HPI: Patient is a 77-year-old man with history of coronary artery disease, status post coronary artery bypass graft surgery in 2017, ischemic cardiomyopathy, and chronic systolic heart failure who presents with worsening shortness of breath, orthopnea, and PND over the last several days. He also reports cough. Denies any fevers or chills. He was recently seen in the office and had a nuclear stress test performed that showed perfusion defect was pending. Coronary angiography to be performed as an outpatient in May. Currently, denies any chest pain or discomfort. His shortness of breath has improved after receiving IV Lasix. The patient has poor compliance, at home drinks lots of water and does not watch his salt intake. He is compliant with his medications. He also has history of atrial fibrillation for which he is taking apixaban. PAST MEDICAL HISTORY 1. Coronary artery disease. 2. Chronic systolic heart failure. 3. Atrial fibrillation. 4. Hypertension. 5. Hyperlipidemia. PAST SURGICAL HISTORY: Coronary artery bypass graft surgery in 2017. SOCIAL HISTORY: Patient does not smoke, drink, or use illicit drugs. FAMILY HISTORY: No family history of early CAD or sudden cardiac . REVIEW OF SYSTEMS: A 10-point review of systems is negative other than as mentioned in the HPI. PHYSICAL EXAMINATION VITAL SIGNS: Temperature 98.9, pulse 88, respiratory rate 18, blood pressure 97/65, satting 95% on 2 liters nasal cannula. GENERAL: Elderly man, well-developed and well-nourished, in no acute distress. CARDIOVASCULAR: Regular rate and rhythm. No murmurs, rubs, or gallops. Palpable carotid pulses. Palpable radial pulses, 1+ edema to mid shins. No varicosities or ulcers. LUNGS: Bibasilar crackles. ABDOMEN: Soft, nontender, and nondistended. No masses. NEURO AND PSYCH: Alert and oriented to person, place, and time. Normal affect. INPATIENT MEDICATIONS: Reviewed. LABORATORY DATA: Reviewed. Troponin is negative x2. BNP is 973. Creatinine is 1.65. IMAGING DATA: Reviewed. Chest x-ray shows pulmonary edema with possible right upper lobe pneumonia. ASSESSMENT 1. Wxnjj-yb-elihohw systolic congestive heart failure exacerbation. 2. Coronary artery disease status post coronary artery bypass graft and recent positive stress test, pending outpatient coronary angiography. 3. Chronic atrial fibrillation. PLAN: Patient is diuresing well on IV diuretics. Already starting to feel better. Continue IV diuretics and home cardiovascular medications including apixaban. Patient has been ruled out for acute FL with 2 negative troponins. Antibiotics per primary team for pneumonia. Thank you for this consult. We will continue to follow. Job#: [id number] BRITTANY
--- NOTE | 2018-04-21 12:58 | History and Physical ---
PRIMARY CARE PHYSICIAN: Estevan Hammond. CHIEF COMPLAINT: Cough and shortness of breath. HISTORY OF PRESENT ILLNESS: This is a 77-year-old man with a history of coronary artery disease, now developing cough and shortness of breath for the past 2 weeks. Patient found to have pleural effusion by his advertising copy writer and sent to the hospital for further evaluation and management. Patient denies any leg swelling. PAST MEDICAL HISTORY: Coronary artery disease/myocardial infarction, status post coronary artery bypass grafting in March 2017, diabetes mellitus type 2, hypertension, hyperlipidemia, anticoagulation use. PAST SURGICAL HISTORY: Coronary artery bypass graft in March 2017 and vein-related procedures. ALLERGIES: PER ELECTRONIC MEDICAL RECORD. FAMILY AND SOCIAL HISTORY: Patient is . No alcohol, illicits, or cigarettes. MEDICATIONS: Per electronic medical record. REVIEW OF SYSTEMS: Denies any fevers, chills, or sweats. Denies any nausea, vomiting, or diarrhea. Denies any headache, back pain, or leg pain. PHYSICAL EXAMINATION VITAL SIGNS: Reviewed. GENERAL: A tired-appearing man, resting in bed. HEENT: Anicteric. CARDIOVASCULAR: Normal S1, S2. LUNGS: Reduce breath sounds throughout. Cough with deep inspiration. ABDOMEN: Soft, nontender, nondistended. EXTREMITIES: No edema or calf tenderness. NEUROLOGIC: Alert and oriented x3. Moving all extremities. SKIN: Dry. PSYCHIATRIC: Flat affect. LABS: Reviewed. MEDICATIONS: Reviewed. ASSESSMENT: This is a 77-year-old man with; 1. Hypotension. 2. Acute kidney injury, 3. Right lung pneumonia. 4. Bilateral pleural effusion. 5. Pulmonary edema. 6. Hyperlipidemia. 7. Diabetes mellitus type 2. 8. Acute rhabdomyolysis. 9. Metabolic acidosis. 10. Anticoagulation use. PLAN 1. Continue antibiotics. 2. Obtain sputum for culture. 3. Continue diuresis. 4. Monitor I's and O's. 5. Follow up renal function. 6. Use of PPI while the patient is on anticoagulation. 7. Disposition, monitor closely. Follow up labs. Follow up 2D echocardiogram. Job#: [id number] LULY
[2018-04-21 15:35] LABS: CREATINE KINASE MB 5.4 ng/mL (0-5.0)
[2018-04-21 16:30] VITALS: BP 96/64
[2018-04-21 17:42] VITALS: BP 96/64
[2018-04-21] MEDS: ENTRESTO PO SCH (18:23)
[2018-04-21 20:00] VITALS: BP 99/62
--- NOTE | 2018-04-21 20:10 | NUR ---
ASSESSMENT DONE.NO RESP.DISTRESS.HAS SHORTNESS OF BREATH.02 3L NC ON FLOW.AMBULATES .VOIDED.GETTING NEB TREATMENT.NO PAIN VOICED.BED LOCKED AND IN LOWEST POSITION.PHONE AND CALL LIGHT WITHIN REACH.INSTRUCTED TO CALL FOR ASSISTANCE NEEDED.FREQUENT ROUNDS.INSTRUCTED THE PT TO COLLECT SPUTUM.PROVIDED SPECIMEN CONTAINER.
[2018-04-21] MEDS ORDERED: NON-FORMULARY MEDICATION (Pravastatin Sodium 40 MG) PO SCH (21:00)
[2018-04-21 21:22] VITALS: BP 99/62
[2018-04-21] MEDS: ATORVASTATIN 10 MG TAB PO SCH (22:05)
[2018-04-21] MEDS: CEFTRIAXONE SOD 1 GM VIAL IV SCH (22:16)
[2018-04-21] MEDS: AZITHROMYCIN 500MG/NS 250 ML 250 ML IV SCH (22:25)
[2018-04-22] VITALS (7 sets, daily range): BP systolic 101–168; BP diastolic 56–74
[2018-04-22] MEDS: ALBUTEROL/IPRATROPIUM 3 ML NEB NEB SCH ×6 (04:35→23:00)
--- NOTE | 2018-04-22 06:50 | NUR ---
REPORT GIVEN TO THE ONCOMING RN.WALKING ROUNDS DONE.STABLE CONDITION.
[2018-04-22 08:10] LABS: BASOPHILS # (AUTO) 0.1 (0.0-0.1); BASOPHILS % 0.6 % (0.0-1.0); EOSINOPHILS # (AUTO) 0.2 (0.0-0.4); EOSINOPHILS % 2.4 % (0.0-6.0); HEMATOCRIT 36.4 % (38.2-49.6); HEMOGLOBIN 11.5 g/dL (14.0-18.0); LYMPHOCYTES % 10.1 % (18.0-39.1); MEAN CORPUSCULAR HEMOGLOBIN 25.1 pg (28-32); MEAN CORPUSCULAR HGB CONC 31.6 g/dL (31-35); MEAN CORPUSCULAR VOLUME 79.3 fL (81-99); MONOCYTES % 10.8 % (4.4-11.3); NEUTROPHILS # (AUTO) 7.3 (2.1-6.9); NEUTROPHILS % 75.8 % (38.7-80.0); PLATELET COUNT 211 x10e3/uL (140-360); RED BLOOD COUNT 4.59 x10e6/uL (4.3-5.7)
[2018-04-22 08:29] LABS: ANION GAP 15.7 mmol/L (8-16); CALCIUM 8.5 mg/dL (8.4-10.2); CREATININE, SERUM 1.55 mg/dL (0.72-1.25); POTASSIUM 3.7 mmol/L (3.5-5.1)
[2018-04-22] MEDS: INSULIN REGULAR, HUMAN 100 UNIT/1 ML 3ML VIAL SQ SCH ×4 (08:30→21:19)
--- NOTE | 2018-04-22 09:06 | NUR ---
informed dr gordon of renal function results as per ordered. no new orders at this time,
[2018-04-22] MEDS: ASPIRIN 81 MG CHEW TAB PO SCH (10:20)
[2018-04-22] MEDS: APIXABAN 5 MG TABLET PO SCH ×2 (10:20→17:49)
[2018-04-22] MEDS: ENTRESTO PO SCH ×2 (10:20→17:49)
[2018-04-22] MEDS: METOPROLOL SUCCINATE 25 MG TAB XL PO SCH (10:20)
[2018-04-22] MEDS: FUROSEMIDE INJ 10 MG/ML 4 ML VIAL IV SCH ×2 (10:20→17:49)
[2018-04-22] MEDS: PANTOPRAZOLE SOD 40 MG TABEC PO SCH (10:20)
[2018-04-22] MEDS: POTASSIUM CHLORIDE 10MEQ EA PO SCH (10:20)
--- NOTE | 2018-04-22 10:20 | NUR ---
assessment complete no distress noted, updated on poc voiced understanding, denies pain at this time, r ac 20g no ss of infiltration noted, no other co voiced call light in reach will continue to monitor
[2018-04-22] MEDS: BENZONATATE 100 MG CAP PO SCH ×3 (11:14→21:10)
[2018-04-22] MEDS: GUAIFENESIN/DEXTROMETHORPHAN LIQD 5 ML UDC NG SCH ×2 (13:16→21:19)
--- NOTE | 2018-04-22 16:53 | Progress Note ---
DATE: CARDIOLOGY PROGRESS NOTE: SUBJECTIVE: Patient still reports shortness of breath, mild cough, no chest pain. OBJECTIVE VITAL SIGNS: Temperature is 98, heart rate is 70, respiration is 18, blood pressure is 101/61, oxygen saturation is 99% on 2 liters nasal cannula. GENERAL: A well-appearing, elderly man seated at bedside in no apparent distress. CARDIOVASCULAR: Regular rate and rhythm. LUNGS: Diminished breath sounds with scattered rales at the bases. ABDOMEN: Soft, nontender. EXTREMITIES: Trace edema. CARDIOVASCULAR MEDICATIONS: Reviewed. LABORATORY DATA: Reviewed. Chest x-ray shows stable edema and a right upper lobe opacity. IMPRESSION: 1. Jeqhk-px-vhsugnn systolic congestive heart failure. 2. Coronary artery disease status post coronary artery bypass graft surgery. 3. Abnormal stress test. 4. Chronic atrial fibrillation. 5. Pneumonia. PLAN: Continue current cardiovascular medications. Continue intravenous Lasix for diuresis. Antibiotics per primary team for pneumonia. Patient had a recent ICD discharge and an abnormal stress test. The patient is scheduled for coronary angiography in May of this year. Will discuss with primary supervisor dry cleaning. Job#: [id number] EV
[2018-04-22] MEDS ORDERED: ATORVASTATIN 10 MG TAB PO SCH (21:00)
[2018-04-22] MEDS: ATORVASTATIN 40 MG TAB PO SCH (21:10)
[2018-04-22] MEDS: CEFTRIAXONE SOD 1 GM VIAL IV SCH (23:22)
[2018-04-22] MEDS: AZITHROMYCIN 500MG/NS 250 ML 250 ML IV SCH (23:22)
[2018-04-23] VITALS: BP 93/56
[2018-04-23] MEDS: ALBUTEROL/IPRATROPIUM 3 ML NEB NEB SCH ×6 (03:00→23:30)
[2018-04-23 03:29] VITALS: BP 93/56
[2018-04-23 04:00] VITALS: BP 105/62
[2018-04-23] MEDS: GUAIFENESIN/DEXTROMETHORPHAN LIQD 5 ML UDC NG SCH ×3 (05:52→20:50)
--- NOTE | 2018-04-23 07:00 | NUR ---
IM- Progress Note O/N: no events REVIEW OF SYSTEMS: Denies any fevers, chills, or sweats. Denies any nausea, vomiting, or diarrhea. Denies any headache, back pain, or leg pain. PHYSICAL EXAMINATION VITAL SIGNS: Reviewed. GENERAL: A tired-appearing man, resting in bed. HEENT: Anicteric. CARDIOVASCULAR: Normal S1, S2. LUNGS: Reduce breath sounds throughout. Cough with deep inspiration. ABDOMEN: Soft, nontender, nondistended. EXTREMITIES: No edema or calf tenderness. NEUROLOGIC: Alert and oriented x3. Moving all extremities. SKIN: Dry. PSYCHIATRIC: Flat affect. LABS: Reviewed. MEDICATIONS: Reviewed. ASSESSMENT: This is a 77-year-old man with; 1. Hypotension. 2. Acute kidney injury, 3. Right lung pneumonia. 4. Bilateral pleural effusion. 5. Pulmonary edema. 6. Hyperlipidemia. 7. Diabetes mellitus type 2. 8. Acute rhabdomyolysis. 9. Metabolic acidosis. 10. Anticoagulation use. PLAN 1. Continue antibiotics. 2. Obtain sputum for culture. 3. Continue diuresis. 4. Monitor I's and O's. 5. Follow up renal function. 6. Use of PPI while the patient is on anticoagulation. 7. Disposition, monitor closely. Follow up labs. Follow up 2D echocardiogram. 04/22 d/c spironolactone as increased CPK; cont lasix; cont abx; Hba1c/LDL 8.- use high dose statin. add antitussive meds; neb treatments; 04/23 cont care; check labs; Larry Castillo MD, PhD.
--- NOTE | 2018-04-23 07:05 | NUR ---
Received patient mid fowlers position, side rails upx2, call light within reach, bed alarm on, family member at bedside. AAOX3 to time, person, place. Respirations even and unlabored. o2 2L NC. Instructed patient to use call light for assistance. Voiced understanding.
[2018-04-23 08:15] VITALS: BP 103/63
[2018-04-23] MEDS: BENZONATATE 100 MG CAP PO SCH ×3 (08:41→20:49)
[2018-04-23] MEDS: FUROSEMIDE INJ 10 MG/ML 4 ML VIAL IV SCH ×2 (08:41→16:38)
[2018-04-23] MEDS: POTASSIUM CHLORIDE 10MEQ EA PO SCH (08:41)
[2018-04-23] MEDS: INSULIN REGULAR, HUMAN 100 UNIT/1 ML 3ML VIAL SQ SCH ×4 (08:41→20:50)
[2018-04-23] MEDS: APIXABAN 5 MG TABLET PO SCH ×2 (08:41→16:39)
[2018-04-23] MEDS: ENTRESTO PO SCH ×2 (08:41→16:38)
[2018-04-23] MEDS: ASPIRIN 81 MG CHEW TAB PO SCH (08:41)
[2018-04-23] MEDS: PANTOPRAZOLE SOD 40 MG TABEC PO SCH (08:41)
[2018-04-23] MEDS: METOPROLOL SUCCINATE 25 MG TAB XL PO SCH (09:00)
[2018-04-23 09:09] VITALS: BP 103/63
[2018-04-23 13:59] VITALS: BP 91/57
--- NOTE | 2018-04-23 14:10 | Progress Note ---
DATE: April 23, 2018 CARDIOLOGY PROGRESS NOTE SUBJECTIVE: Patient feels better. No shortness of breath. No chest pain. OBJECTIVE VITAL SIGNS: Temperature is 96.3, heart rate is 76, respirations are 20, blood pressure is 103/63, oxygen saturation is 93% on 2 L nasal cannula. GENERAL: Well-appearing and seated at bedside. CARDIOVASCULAR: Regular rate and rhythm. LUNGS: Diminished breath sounds at bilateral bases. ABDOMEN: Soft and nontender. EXTREMITIES: Two pulses. Trace edema. CARDIOVASCULAR MEDICATIONS: Reviewed. LABORATORY DATA: Reviewed. Hemoglobin 11.5. Creatinine 1.55. IMPRESSION 1. Joggd-kg-jykhcxp systolic congestive heart failure. 2. Coronary artery disease: Status post coronary artery bypass graft surgery. 3. History of abnormal stress test. 4. Atrial fibrillation. 5. Pneumonia. 6. Presence of implantable cardioverter defibrillator. Continue current cardiovascular medications and IV diuresis. Continue infection treatment per primary team. Will allow the patient to recover from his pneumonia and acute heart failure exacerbation prior to coronary angiography. This can be done at a later date as an outpatient. Patient is currently stable from a cardiovascular standpoint. Job#: [id number] GABY
--- NOTE | 2018-04-23 18:30 | NUR ---
Sitting on recliner at bedside. No s/s of acute distress noted. Report to be given to oncoming nurse.
[2018-04-23] MEDS: ATORVASTATIN 40 MG TAB PO SCH (20:49)
--- NOTE | 2018-04-23 23:04 | NUR ---
Per Dr. Jonathan muniz to d/c tele
[2018-04-23] MEDS: CEFTRIAXONE SOD 1 GM VIAL IV SCH (23:22)
[2018-04-23] MEDS: AZITHROMYCIN 500MG/NS 250 ML 250 ML IV SCH (23:22)
[2018-04-24] VITALS: BP_SYST 110; BP_SYST 112; BP_DIAS 54; BP_DIAS 71
[2018-04-24 02:44] VITALS: BP 110/71
[2018-04-24] MEDS: ALBUTEROL/IPRATROPIUM 3 ML NEB NEB SCH ×4 (03:00→15:00)
[2018-04-24 04:00] VITALS: BP 101/56
[2018-04-24] MEDS: GUAIFENESIN/DEXTROMETHORPHAN LIQD 5 ML UDC NG SCH ×2 (05:15→13:18)
--- NOTE | 2018-04-24 07:00 | NUR ---
Received patient semi fowlers position, side rails upx2, call light within reach.AAOX3 to time, person, place. Respirations even and unlabored. Will continue to monitor.
[2018-04-24] MEDS ORDERED: Guaifenesin/Dextromethorphan NG (07:23)
[2018-04-24] MEDS ORDERED: TESSALON PERLE100 MG PO (07:23)
[2018-04-24] MEDS ORDERED: Atorvastatin PO (07:23)
[2018-04-24] MEDS ORDERED: LEVAQUIN500 MG PO (07:23)
--- NOTE | 2018-04-24 07:26 | NUR ---
Discharge Summary Principal Dx: ASSESSMENT: This is a 77-year-old man with; 1. Hypotension. 2. Acute kidney injury, 3. Right lung pneumonia. 4. Bilateral pleural effusion. 5. Pulmonary edema. 6. Hyperlipidemia. 7. Diabetes mellitus type 2. 8. Acute rhabdomyolysis. 9. Metabolic acidosis. 10. Anticoagulation use. Secondary Dx: 1.DM2 cc and HPI: refer to H&P Hospital Course: ASSESSMENT: This is a 77-year-old man with; 1. Hypotension. 2. Acute kidney injury, 3. Right lung pneumonia. 4. Bilateral pleural effusion. 5. Pulmonary edema. 6. Hyperlipidemia. 7. Diabetes mellitus type 2. 8. Acute rhabdomyolysis. 9. Metabolic acidosis. 10. Anticoagulation use. PLAN 1. Continue antibiotics. 2. Obtain sputum for culture. 3. Continue diuresis. 4. Monitor I's and O's. 5. Follow up renal function. 6. Use of PPI while the patient is on anticoagulation. 7. Disposition, monitor closely. Follow up labs. Follow up 2D echocardiogram. 04/22 d/c spironolactone as increased CPK; cont lasix; cont abx; Hba1c/LDL 8.- use high dose statin. add antitussive meds; neb treatments; 04/23 cont care; check labs; 04/24 Pt now states that has CKD3. Therefore, pt is at or near baseline; d/c home with antibiotics; f/u pcp 1 week and cardiology 1 week and nephrology 1 week d/c time>35mins d./c location: home d/c meds; see MAR condition: stable and improving; aLrry Castillo MD, PhD.
[2018-04-24] MEDS: INSULIN REGULAR, HUMAN 100 UNIT/1 ML 3ML VIAL SQ SCH ×3 (07:30→16:22)
[2018-04-24 07:33] LABS: BASOPHILS # (AUTO) 0.1 (0.0-0.1); BASOPHILS % 0.7 % (0.0-1.0); EOSINOPHILS # (AUTO) 0.3 (0.0-0.4); EOSINOPHILS % 4.2 % (0.0-6.0); HEMATOCRIT 35.2 % (38.2-49.6); HEMOGLOBIN 11.2 g/dL (14.0-18.0); LYMPHOCYTES # (AUTO) 0.9 (1.0-3.2); MEAN CORPUSCULAR HEMOGLOBIN 24.9 pg (28-32); MEAN CORPUSCULAR HGB CONC 31.8 g/dL (31-35); MEAN CORPUSCULAR VOLUME 78.2 fL (81-99); MONOCYTES # (AUTO) 0.6 (0.2-0.8); MONOCYTES % 8.5 % (4.4-11.3); NEUTROPHILS # (AUTO) 4.9 (2.1-6.9); NEUTROPHILS % 72.3 % (38.7-80.0); PLATELET COUNT 226 x10e3/uL (140-360); RED CELL DISTRIBUTION WIDTH 15.5 % (11.7-14.4)
[2018-04-24 07:57] LABS: ANION GAP 14.6 mmol/L (8-16); CALCIUM 8.3 mg/dL (8.4-10.2); CREATININE, SERUM 1.46 mg/dL (0.72-1.25); POTASSIUM 3.6 mmol/L (3.5-5.1)
[2018-04-24 08:00] VITALS: BP 109/75
[2018-04-24] MEDS: FUROSEMIDE INJ 10 MG/ML 4 ML VIAL IV SCH ×2 (09:07→16:21)
[2018-04-24] MEDS: APIXABAN 5 MG TABLET PO SCH ×2 (09:07→16:21)
[2018-04-24] MEDS: ASPIRIN 81 MG CHEW TAB PO SCH (09:07)
[2018-04-24] MEDS: ENTRESTO PO SCH ×2 (09:07→16:21)
[2018-04-24] MEDS: PANTOPRAZOLE SOD 40 MG TABEC PO SCH (09:08)
[2018-04-24] MEDS: BENZONATATE 100 MG CAP PO SCH ×2 (09:08→16:21)
[2018-04-24] MEDS: POTASSIUM CHLORIDE 10MEQ EA PO SCH (09:08)
[2018-04-24] MEDS: METOPROLOL SUCCINATE 25 MG TAB XL PO SCH (09:08)
--- NOTE | 2018-04-24 10:17 | Diagnostic Imaging Report ---
PROCEDURE:US RETROPERITONEAL ( KIDNEY ). COMPARISON:None. INDICATIONS:ACE VS CKD TECHNIQUE: Conley-scale and color sonographic images of the bilateral kidneys and bladder where obtained in transverse and longitudinal planes. FINDINGS: RIGHT KIDNEY: Measures 11.7 x 5.1 x 5.2 cm, cortex measures 1.5 cm Cysts: Right renal cyst measures 2.5 x 2.0 x 2.1 cm in the upper pole medial region. Solid masses: None Stones: None Hydronephrosis: None Echogenicity: Normal LEFT KIDNEY: Measures 11.9 x 5.1 x 6.0 cm cm, cortex measures 1.6 cm Cysts: Lower pole lateral cortical renal cyst measures 2.0 x 1.7 x 2.1 cm. Solid masses: None Stones: None Hydronephrosis: None Echogenicity: Normal Bladder: Normal urinary jets. Bladder estimated volume of 89.3 cc. Prostate: Prostate is enlarged and indents the bladder. Estimated volume of the prostate is 42 cc. CONCLUSION: 1. Bilateral renal cysts. 2. Normal renal echogenicity. Kee Pearson D.O. Dictated by: Kee Pearson D.O. on 04/24/2018 at 10:28 Electronically approved by: Kee Pearson D.O. on 04/24/2018 at 10:28
[2018-04-24 11:56] VITALS: BP 97/52
--- NOTE | 2018-04-24 13:00 | NUR ---
aware about renal ultrasound results. Per "patient to follow up with outpatient and hold spironolactone until see by ice plant operator" notified patient and of doctor's message. Voiced understanding.
--- NOTE | 2018-04-24 13:01 | NUR ---
aware of BP. See discharge orders
[2018-04-24 16:19] VITALS: BP 107/59
--- NOTE | 2018-04-24 16:38 | NUR ---
Left AC IV discontinued. No signs of infiltration noted. 2x2 gauze and tape placed. Taken via wheelchair to personal car by PCT. Accompanied by . AAOX4 to time, person, place, situation. Respirations even and unlabored. All personal belongings, rx, and discharge instructions taken with patient.
== END 2018-04-24 16:38 | disposition home or self-care (01) | DRG 291 ==
LOC: ER 20:46 → ERHOLD 22:17 → MED/SURG 04-21 16:16
PROVIDERS: ADMIT Internal Medicine; ATTEND Internal Medicine
DX: I13.0 Hypertensive heart and chronic kidney disease with heart failure and stage 1 through stage 4 chronic kidney disease, or unspecified chronic kidney disease (principal); I50.23 Acute on chronic systolic (congestive) heart failure; J18.9 Pneumonia, unspecified organism; N17.9 Acute kidney failure, unspecified; E87.2 Acidosis; M62.82 Rhabdomyolysis; I48.2 Chronic atrial fibrillation; Z79.01 Long term (current) use of anticoagulants; I25.10 Atherosclerotic heart disease of native coronary artery without angina pectoris; Z98.61 Coronary angioplasty status; Z95.1 Presence of aortocoronary bypass graft; Z83.3 Family history of diabetes mellitus; Z82.49 Family history of ischemic heart disease and other diseases of the circulatory system; E78.5 Hyperlipidemia, unspecified; Z95.810 Presence of automatic (implantable) cardiac defibrillator; I95.9 Hypotension, unspecified; E11.22 Type 2 diabetes mellitus with diabetic chronic kidney disease; N18.3 Chronic kidney disease, stage 3 (moderate); Z79.82 Long term (current) use of aspirin; Z79.4 Long term (current) use of insulin
CPT/HCPCS: 36415; 71045; 71250; 76770; 80048; 80053; 80061; 81001; 82550; 82553; 82948; 83036; 83880; 84484; 85025; 85610; 85730; 87040; 93005; 93306; 94640; 96374; 99285; J0456; J0696; J1940

== ENCOUNTER 2019-04-13 15:51 | Inpatient (IN) | payer MEDICARE, OTHER ==
[~2019-04-13] VITALS: Ht 175.3 cm; Wt 69.6 kg
[~2019-04-13 15:51] MED LIST: ASPIR 8181 MG PO; ASPIR-LOW81 MG PO; Atorvastatin PO; ELIQUIS PO; ENTRESTO PO; FUROSEMIDE40 MG PO; Guaifenesin/Dextromethorphan NG; LEVAQUIN500 MG PO; METOPROLOL SUCC25 MG PO; NOVOLOG MI100 UNIT/1 SQ; PANTOPRAZOLE SO40 MG PO; POTASSIUM CHLO10 MEQ PO; PRAVASTATIN SOD10 MG PO; PRAVASTATIN SOD40 MG PO; SPIRONOLACTONE25 MG PO; TESSALON PERLE100 MG PO
[2019-04-13 16:46] LABS: BASOPHILS # (AUTO) 0.1 (0.0-0.1); BASOPHILS % 0.7 % (0.0-1.0); EOSINOPHILS # (AUTO) 0.1 (0.0-0.4); EOSINOPHILS % 1.1 % (0.0-6.0); HEMATOCRIT 28.2 % (38.2-49.6); HEMOGLOBIN 8.3 g/dL (14.0-18.0); LYMPHOCYTES # (AUTO) 0.9 (1.0-3.2); LYMPHOCYTES % 12.1 % (18.0-39.1); MEAN CORPUSCULAR HEMOGLOBIN 20.4 pg (28-32); MEAN CORPUSCULAR HGB CONC 29.4 g/dL (31-35); MEAN CORPUSCULAR VOLUME 69.3 fL (81-99); MONOCYTES # (AUTO) 0.6 (0.2-0.8); MONOCYTES % 8.1 % (4.4-11.3); NEUTROPHILS # (AUTO) 5.7 (2.1-6.9); NEUTROPHILS % 77.7 % (38.7-80.0); PLATELET COUNT 265 x10e3/uL (140-360); RED BLOOD COUNT 4.07 x10e6/uL (4.3-5.7); RED CELL DISTRIBUTION WIDTH 17.7 % (11.7-14.4)
[2019-04-13 16:50] LABS: CLARITY,URINE HAZY (CLEAR); COLOR,URINE YELLOW (YELLOW)
[2019-04-13 16:51] LABS: BACTERIA,URINE FEW /HPF; BILIRUBIN,URINE NEGATIVE (NEGATIVE); EPITHELIAL CELLS,URINE FEW /LPF; KETONES,URINE NEGATIVE (NEGATIVE); LEUKOCYTE ESTERASE ,URINE NEGATIVE (NEGATIVE); NITRITE,URINE NEGATIVE (NEGATIVE); PROTEIN,URINE DIPSTICK TRACE (NEGATIVE); URINE UROBILINOGEN 0.2 mg/dL (0.2 - 1); WBC,URINE (MAN) 0-5 /HPF (0-5)
[2019-04-13 16:55] LABS: INR 1.19; PROTHROMBIN TIME 15.7 seconds (11.9-14.5)
[2019-04-13 16:56] LABS: PARTIAL THROMBOPLASTIN TIME 33.5 seconds (23.8-35.5)
[2019-04-13 17:07] LABS: ALBUMIN 3.2 g/dL (3.5-5.0); ALBUMIN/GLOBULIN RATIO 1.2 (0.8-2.0); ANION GAP 14.1 mmol/L (8-16); CALCIUM 8.6 mg/dL (8.4-10.2); CREATININE, SERUM 1.57 mg/dL (0.72-1.25); POTASSIUM 3.1 mmol/L (3.5-5.1)
[2019-04-13 17:17] LABS: CREATINE KINASE MB 5.1 ng/mL (0-5.0)
--- NOTE | 2019-04-13 17:25 | Diagnostic Imaging Report ---
EXAMINATION: CHEST 2 VIEWS INDICATION: ^sob COMPARISON: None FINDINGS: PA and lateral views TUBES and LINES: None. LUNGS: The lungs are mildly hyperinflated. There is no evidence of pneumonia or pulmonary edema. PLEURA: No pleural effusion or pneumothorax. HEART AND MEDIASTINUM: Stable cardiac bypass changes. Central pulmonary vascular is mildly prominent. BONES AND SOFT TISSUES: No focal osseous lesions. Soft tissues are unremarkable. UPPER ABDOMEN: Unremarkable. IMPRESSION: Mild pulmonary hyperinflation. No evidence of infiltrates or edema. Signed by: Dr. Eleanor Bernard MD on 04/13/2019 5:22 PM
[2019-04-13] MEDS ORDERED: ONDANSETRON HCL INJ 2MG/ML 2ML 2 MG/ML VIAL IV PRN (18:00)
[2019-04-13] MEDS ORDERED: DEXTROSE 50% SYRINGE 50 ML IV PRN (18:00)
[2019-04-13] MEDS ORDERED: PROPOFOL IV EMULSION 10 MG/ML 20 ML VIAL ONE (19:27)
[2019-04-13 20:50] VITALS: BP 115/72
[2019-04-13] MEDS ORDERED: CLOPIDOGREL75 MG PO (22:28)
[2019-04-13] MEDS ORDERED: BUMETANIDE1 MG PO (22:28)
[2019-04-13] MEDS ORDERED: DIGOXIN125 MCG PO (22:28)
[2019-04-13] MEDS: INSULIN LISPRO 100 UNIT/1 ML 3ML VIAL SQ SCH (22:30)
--- NOTE | 2019-04-13 22:36 | NUR ---
SPOKE TO DR. NESBITT REGARDING PATIENT REQUEST FOR SLEEPING MED. NEW ORDER RECEIVED FOR TEMAZEPAM 15MG PO ONCE.
[2019-04-13 22:39] VITALS: BP 115/72
[2019-04-13] MEDS ORDERED: TEMAZEPAM 15 MG CAP PO ONE (22:45)
[2019-04-14] VITALS (9 sets, daily range): BP systolic 105–121; BP diastolic 68–80
[2019-04-14 00:09] LABS: CREATINE KINASE MB 3.3 ng/mL (0-5.0)
[2019-04-14 06:11] LABS: BASOPHILS # (AUTO) 0.1 (0.0-0.1); BASOPHILS % 0.8 % (0.0-1.0); EOSINOPHILS # (AUTO) 0.1 (0.0-0.4); EOSINOPHILS % 2.1 % (0.0-6.0); LYMPHOCYTES % 16.4 % (18.0-39.1); MEAN CORPUSCULAR HEMOGLOBIN 19.9 pg (28-32); MEAN CORPUSCULAR HGB CONC 28.6 g/dL (31-35); MEAN CORPUSCULAR VOLUME 69.7 fL (81-99); MONOCYTES # (AUTO) 0.7 (0.2-0.8); MONOCYTES % 10.9 % (4.4-11.3); NEUTROPHILS # (AUTO) 4.4 (2.1-6.9); NEUTROPHILS % 69.3 % (38.7-80.0); PLATELET COUNT 256 x10e3/uL (140-360); RED BLOOD COUNT 4.02 x10e6/uL (4.3-5.7); RED CELL DISTRIBUTION WIDTH 17.6 % (11.7-14.4)
[2019-04-14 06:44] LABS: ALBUMIN 2.8 g/dL (3.5-5.0); ALBUMIN/GLOBULIN RATIO 1.1 (0.8-2.0); ANION GAP 11.3 mmol/L (8-16); CALCIUM 8.4 mg/dL (8.4-10.2); CHOL/HDL RATIO 4.9 (3.9-4.7); CREATININE, SERUM 1.28 mg/dL (0.72-1.25); POTASSIUM 3.3 mmol/L (3.5-5.1)
[2019-04-14 06:53] LABS: FERRITIN 10.98 ng/mL (21.81-274.66)
[2019-04-14 07:07] LABS: CREATINE KINASE MB 3.1 ng/mL (0-5.0)
--- NOTE | 2019-04-14 10:40 | NUR ---
En Chen for results on occult stool. Awaiting call back.
[2019-04-14] MEDS: INSULIN LISPRO 100 UNIT/1 ML 3ML VIAL SQ SCH ×3 (11:30→21:00)
--- NOTE | 2019-04-14 15:00 | NUR ---
Paged Dr. King regarding inpt vs obs. Awaiting a callback
[2019-04-14 15:39] LABS: CREATINE KINASE MB 5.7 ng/mL (0-5.0)
[2019-04-14] MEDS ORDERED: NON-FORMULARY MEDICATION ([Entresto] 1 TAB) PO SCH (17:00)
[2019-04-14] MEDS ORDERED: APIXAB 2.5 MG TABLET PO SCH (17:00)
[2019-04-14] MEDS ORDERED: BUMETANIDE INJ 0.25MG/ML 4ML VIAL IV ONE (17:00)
[2019-04-14] MEDS ORDERED: NON-FORMULARY MEDICATION ([Eliquis] 2.5 MG) PO SCH (17:00)
[2019-04-14] MEDS: BUMETANIDE 1 MG TAB PO SCH (17:48)
[2019-04-14] MEDS: VALSARTAN/SACUBITRIL 24MG/26MG 1 EA TAB PO SCH (18:39)
[2019-04-14] MEDS ORDERED: NON-FORMULARY MEDICATION (Insuln Asp Prt/Insulin Aspart (Novolog Mix 70-30 Flexpen Syrn) 1 SQ SCH (21:00)
[2019-04-14] MEDS: INSULIN ASPART 70/30 100 UNITS/ML VIAL SC SCH (21:21)
[2019-04-14] MEDS: PANTOPRAZOLE SOD 40 MG TABEC PO SCH (21:21)
--- NOTE | 2019-04-14 22:38 | History and Physical ---
REASON FOR ADMISSION: Shortness of breath. HISTORY OF PRESENT ILLNESS: This is an 78-year-old man with history of hypertension, hyperlipidemia, diabetes mellitus, and coronary artery disease, status post STEMI and placement of ostial LAD stent and chronic systolic heart failure with the LVEF 35% to 40% and restrictive LV filling, status post ICD, who presented with complaints of shortness of breath. The patient was recently seen in the office last week with increasing lower extremity edema due to dietary noncompliance. Echocardiogram was done with findings as above and elevated pulmonary pressures. Due to worsening of the symptoms he presented to the ER for further evaluation. The patient reports that he has been short of breath for the last three weeks and has been needing to sleep in a more upright position in his recliner. He denies any chest pain or palpitations, but does notice increasing lower extremity edema. Due to the symptoms he presented to the ER for further evaluation. Evaluation in the ER revealed anemia with hemoglobin of 8.3. He was admitted for further care. REVIEW OF SYSTEMS: Negative except as per HPI. PAST MEDICAL HISTORY: 1. Coronary artery disease, status post STEMI and placement of ostial LAD stent. 2. Chronic systolic heart failure, status post ICD. 3. Hypertension. 4. Hyperlipidemia. 5. Diabetes mellitus. ALLERGIES: NO KNOWN DRUG ALLERGIES. MEDICATIONS: Please see medication list. SOCIAL HISTORY: No tobacco, alcohol, or illicit drugs. FAMILY HISTORY: Noncontributory to current illness. PHYSICAL EXAMINATION: VITAL SIGNS: Temperature 97.1 degrees, pulse 78, respiratory rate 22, blood pressure 107/72, and oxygen saturation 100%. GENERAL: A well-developed and well-nourished man, in no acute distress. HEENT: Normocephalic and atraumatic. Pupils are equal. No scleral icterus. NECK: Supple. No thyromegaly or cervical lymphadenopathy. No carotid bruits. LUNGS: Clear to auscultation bilaterally. No wheezes or crackles. CARDIOVASCULAR: Normal rate regular rhythm. No murmur. Normal S1 and S2. ABDOMEN: Soft and nontender. EXTREMITIES: 1+ pitting edema. NEUROLOGIC: Nonfocal exam. LABORATORY DATA: WBC 6.33, hemoglobin 8, hematocrit 28, and platelets 256. Sodium 138, potassium 3.2, chloride 101, CO2 of 29, BUN 26, and creatinine 1.28. Troponin 0.026. Stool occult blood was positive. Chest x-ray, demand pacemaker, sinus rhythm with occasional PVCs. Chest x-ray mild pulmonary hyperinflation. No evidence of infiltrates or edema. IMPRESSION: 1. Zbhhb-qf-wgudclu systolic heart failure. 2. Anemia secondary to GI blood loss. 3. Coronary artery disease, status post STEMI with ostial LAD stent. 4. Chronic systolic heart failure, status post ICD. 5. Hypertension. 6. Hyperlipidemia. 7. Diabetes mellitus. 8. Paroxysmal atrial fibrillation. RECOMMENDATIONS: GI evaluation is pending. Check BNP. Continue home cardiac medications, IV Bumex while admitted. Monitor the patient closely on telemetry. Ro Hsieh MD ABS/MODL /[id number]
[2019-04-15] VITALS (8 sets, daily range): BP systolic 103–111; BP diastolic 60–77
[2019-04-15] MEDS ORDERED: DIPHENHYDRAMINE HCL 25 MG CAP PO ONE (00:45)
[2019-04-15] MEDS ORDERED: IRON SUCROSE 100 MG in SODIUM CHLORIDE 0.9% 100 ML 100 ML IV SCH (07:00)
[2019-04-15] MEDS: INSULIN LISPRO 100 UNIT/1 ML 3ML VIAL SQ SCH ×4 (07:30→20:58)
[2019-04-15] MEDS: BUMETANIDE 1 MG TAB PO SCH ×2 (09:00→17:17)
[2019-04-15] MEDS: METOPROLOL SUCCINATE 25 MG TAB XL PO SCH (09:00)
[2019-04-15] MEDS: IRON SUCROSE 100 MG in SODIUM CHLORIDE 0.9% 100 ML 100 ML IV SCH ×2 (09:00→11:43)
[2019-04-15] MEDS: VALSARTAN/SACUBITRIL 24MG/26MG 1 EA TAB PO SCH ×2 (09:00→20:57)
[2019-04-15] MEDS: CLOPIDOGREL BISULFATE 75 MG TAB PO SCH (09:00)
[2019-04-15] MEDS: ASPIRIN 81 MG CHEW TAB PO SCH (09:00)
[2019-04-15] MEDS: DIGOXIN 0.125 MG TAB PO SCH (09:00)
[2019-04-15] MEDS ORDERED: SODIUM CHLORIDE 0.9% 250ML 250 ML ONE (11:19)
[2019-04-15] MEDS: CYANOCOBALAMIN INJ 1,000 MCG/ML VIAL IM SCH (11:42)
--- NOTE | 2019-04-15 12:50 | NUR ---
PT WHEELED OFF UNIT FOR EGD, NO CHANGE IN CONDITION, FAMILY AT SIDE
--- NOTE | 2019-04-15 15:59 | NUR ---
IMM explained to patient and , patient signed, copy to patient, copy to chart
--- NOTE | 2019-04-15 16:38 | NUR ---
PT BACK IN ROOM VIA STRETCHER, TOLERATING PO AT THIS TIME, DENIES PAIN AT THIS TIME, CALL LIGHT WITH REACH
--- NOTE | 2019-04-15 18:45 | NUR ---
NO CHANGE IN CONDITION, PT DENIES PAIN AT THIS TIME, CALL LIGHT WITHIN REACH
--- NOTE | 2019-04-15 19:35 | Progress Note ---
DATE: 04/15/2019 Cardiology Progress Note SUBJECTIVE: The patient denies chest pain. He is reporting shortness of breath. OBJECTIVE: VITAL SIGNS: Temperature 97 degrees, pulse 78, respiratory rate 16, blood pressure 106/72, and oxygen saturation 99% on room air. GENERAL: Awake and alert, in no acute distress. LUNGS: Clear to auscultation bilaterally. No wheeze or crackles. CARDIOVASCULAR: Normal rate. Regular rhythm. No murmur. Normal S1 and S2. ABDOMEN: Soft and nontender. EXTREMITIES: 1+ pitting edema. CARDIAC MEDICATIONS: Metoprolol succinate 25 mg p.o. daily, digoxin 0.125 mg p.o. daily, Plavix 75 mg p.o. daily, Bumex 2 mg p.o. b.i.d., and Entresto one 24 p.o. q.12 hours. LABORATORY DATA: Labs none today. TELEMETRY: Normal sinus rhythm IMPRESSION: 1. Qfvbq-pv-ljeexyw systolic heart failure. 2. Anemia secondary to gastrointestinal blood loss. 3. Coronary artery disease, status post stent with ostial LAD stent. 4. Chronic systolic heart failure, status post ICD. 5. Hypertension. 6. Hyperlipidemia. 7. Diabetes mellitus. 8. Paroxysmal atrial fibrillation. RECOMMENDATIONS: GI evaluation is ongoing. Change to IV Bumex. Continue current cardiac medications otherwise. Monitor the patient closely on telemetry. Await further recommendations by GI. Ro Hsieh MD [facility] /[id number]
[2019-04-15] MEDS: PANTOPRAZOLE SOD 40 MG TABEC PO SCH (20:57)
[2019-04-15] MEDS: INSULIN ASPART 70/30 100 UNITS/ML VIAL SC SCH (20:58)
--- NOTE | 2019-04-15 21:00 | NUR ---
Assessment done.no resp.distress.no pain voiced.family member at bed side.bed locked and in lowest position.phone and call light within reach.instructed to call for assistance as needed.
--- NOTE | 2019-04-15 21:41 | Operative Report ---
DATE OF PROCEDURE: 04/15/2019 SURGEON: Song Chen MD PROCEDURE: EGD with biopsies. INDICATIONS FOR EGD: Iron-deficiency anemia. MEDICATIONS: The patient was done under MAC, please see anesthesiologist's note. PROCEDURE IN DETAIL: With the patient in the left lateral decubitus position, a flexible fiberoptic Olympus gastroscope was introduced into the esophagus under direct visualization without any difficulty. There was some patchy erythema noted in distal esophagus. The scope was then advanced with ease into the stomach traversing a small sliding hiatal hernia. The mucosa overlying the antrum and the body revealed some diffuse erythema and low-grade to moderate edema and biopsies were obtained, sent to stain for H pylori. Pylorus was of normal contour and shape. It was intubated with ease and the scope was advanced all the way to the second portion of the duodenum. The scope was then withdrawn slowly and mucosa overlying the proximal second portion and the duodenal bulb grossly appeared to be within normal limits. The scope was then withdrawn back into the stomach and retroflexed and mucosa overlying the fundus and cardia appeared to be within normal limits. The scope was then straightened out, was subsequently withdrawn. The patient tolerated the procedure well. IMPRESSION: 1. Mild distal esophagitis. 2. Small sliding hiatal hernia. 3. Gastritis, biopsied. Biopsies sent to stain for H pylori. PLAN: Follow up histology. Initiate Protonix 40 mg 1 p.o. q.a.m. a.c. Obviously, findings do not necessarily explain the patient's anemia. He will need to have his colon evaluated and possibly a small bowel series and if negative, then a capsule endoscopy might be in order. Song Chen MD [facility] [place] [facility] [place] /[id number] cc: MD Guilherme Cooper MD
[2019-04-16 00:07] VITALS: BP 107/66
[2019-04-16 04:00] VITALS: BP 114/77
[2019-04-16 05:36] LABS: BASOPHILS # (AUTO) 0.1 (0.0-0.1); BASOPHILS % 0.8 % (0.0-1.0); EOSINOPHILS # (AUTO) 0.1 (0.0-0.4); EOSINOPHILS % 1.7 % (0.0-6.0); HEMATOCRIT 34.4 % (38.2-49.6); HEMOGLOBIN 9.9 g/dL (14.0-18.0); LYMPHOCYTES # (AUTO) 1.3 (1.0-3.2); LYMPHOCYTES % 16.6 % (18.0-39.1); MEAN CORPUSCULAR HEMOGLOBIN 20.2 pg (28-32); MEAN CORPUSCULAR HGB CONC 28.8 g/dL (31-35); MEAN CORPUSCULAR VOLUME 70.1 fL (81-99); MONOCYTES # (AUTO) 0.7 (0.2-0.8); MONOCYTES % 9.1 % (4.4-11.3); NEUTROPHILS # (AUTO) 5.5 (2.1-6.9); NEUTROPHILS % 71.5 % (38.7-80.0); PLATELET COUNT 260 x10e3/uL (140-360); RED BLOOD COUNT 4.91 x10e6/uL (4.3-5.7); RED CELL DISTRIBUTION WIDTH 17.8 % (11.7-14.4)
[2019-04-16] MEDS ORDERED: BUMETANIDE 1 MG TAB PO SCH (06:00)
--- NOTE | 2019-04-16 07:00 | NUR ---
Bed side shift report given to the on coming Rn.stable condition.
[2019-04-16] MEDS: INSULIN LISPRO 100 UNIT/1 ML 3ML VIAL SQ SCH ×2 (07:30→12:52)
[2019-04-16 08:00] VITALS: BP 107/75
[2019-04-16 08:10] VITALS: BP 107/75
[2019-04-16] MEDS: VALSARTAN/SACUBITRIL 24MG/26MG 1 EA TAB PO SCH (08:11)
[2019-04-16] MEDS: CYANOCOBALAMIN INJ 1,000 MCG/ML VIAL IM SCH (08:11)
[2019-04-16] MEDS: ASPIRIN 81 MG CHEW TAB PO SCH (08:11)
[2019-04-16] MEDS: IRON SUCROSE 100 MG in SODIUM CHLORIDE 0.9% 100 ML 100 ML IV SCH (08:11)
[2019-04-16] MEDS: DIGOXIN 0.125 MG TAB PO SCH (08:12)
[2019-04-16] MEDS: CLOPIDOGREL BISULFATE 75 MG TAB PO SCH (08:12)
[2019-04-16] MEDS: METOPROLOL SUCCINATE 25 MG TAB XL PO SCH (08:12)
[2019-04-16 11:51] VITALS: BP 97/60
--- NOTE | 2019-04-16 14:44 | NUR ---
Pt discharged home at this time. Pt and family verbalized understanding of all discharge instructions and follow up appts. 0 s/s of acute distress noted.
--- NOTE | 2019-04-17 16:09 | Discharge Summary ---
ADMISSION DIAGNOSES: 1. Ttmwt-kw-rrulcts systolic heart failure. 2. Anemia secondary to gastrointestinal blood loss. DISCHARGE DIAGNOSES: 1. Gkfnd-rw-adsoqts systolic heart failure. 2. Anemia secondary to gastrointestinal blood loss. 3. Comorbid conditions. 4. Coronary artery disease, status post ST-elevation myocardial infarction with ostial left anterior descending stent. 5. Hypertension. 6. Hyperlipidemia. 7. Diabetes mellitus. 8. Paroxysmal atrial fibrillation. HISTORY OF PRESENT ILLNESS AND HOSPITAL COURSE: This is an 78-year-old man with history above, who presented with complaints of shortness of breath. The patient was placed on diuretics and found to have positive stool occult blood. GI was consulted for further evaluation of his acute anemia. EGD was performed with findings of gastritis. He was discharged home to complete anemia workup as an outpatient. Cardiac medications were continued on discharge and he was instructed to follow up with GI and Dr. Velazco in 2 weeks. PHYSICAL EXAMINATION: VITAL SIGNS: Temperature 96.5 degrees, pulse 87, respiratory rate 18, blood pressure 97/60, oxygen saturation 95% on room air. GENERAL: Awake, alert, in no acute distress. LUNGS: Clear to auscultation bilaterally. No wheezes or crackles. CARDIOVASCULAR: Normal rate. Regular rhythm. No murmur. Normal S1, S2. ABDOMEN: Soft, nontender. EXTREMITIES: Trace edema. TELEMETRY: Normal sinus rhythm. Ro Hsieh MD [facility] /[id number]
== END 2019-04-16 14:40 | disposition home or self-care (01) | DRG 291 ==
LOC: ER 15:51 → ERHOLD 17:50 → MED/SURG 21:09
PROVIDERS: ADMIT Internal Medicine Interventional Cardiology; ATTEND Internal Medicine Interventional Cardiology
PROC: 0DB78ZX Excision of Stomach, Pylorus, Via Natural or Artificial Opening Endoscopic, Diagnostic (ICD-10-PCS; principal; 2019-04-15 13:44)
DX: I11.0 Hypertensive heart disease with heart failure (principal); K29.71 Gastritis, unspecified, with bleeding; I50.23 Acute on chronic systolic (congestive) heart failure; D50.0 Iron deficiency anemia secondary to blood loss (chronic); I25.10 Atherosclerotic heart disease of native coronary artery without angina pectoris; E11.9 Type 2 diabetes mellitus without complications; I48.0 Paroxysmal atrial fibrillation; E78.5 Hyperlipidemia, unspecified; Z79.01 Long term (current) use of anticoagulants; K20.9 Esophagitis, unspecified; K44.9 Diaphragmatic hernia without obstruction or gangrene; Z95.5 Presence of coronary angioplasty implant and graft; I25.2 Old myocardial infarction
CPT/HCPCS: 36415; 43239; 71046; 80053; 80061; 81001; 82270; 82550; 82553; 82607; 82728; 82746; 82948; 83540; 83880; 84466; 84484; 85025; 85045; 85610; 85730; 86850; 86900; 88305; 88312; 93005; 99284; J1756; J1815; J2405; J3420; J7050